=== PATIENT | female | born 1965 | race American Indian/Alaskan Native ===

== ENCOUNTER 2016-08-14 18:09 | Emergency (ER) | payer MEDICAID ==
[2016-08-14 19:06] LABS: Urine Drugs of Abuse Note Disclamer
[2016-08-14 19:19] LABS: Bilirubin,Urine NEG (Negative); Blood,Urine NEG (Negative); Ketones,Urine TR mg/dL (Negative); Leukocyte Esterase,Urine LG (Negative); Mucus,Urine 3+ /HPF; Nitrite,Urine NEG (Negative); Urobilinogen,Urine < 2.0 mg/dL (<2.0)
[2016-08-14 19:21] LABS: WBC,Urine > 182.0 /HPF (0.0-6.0)
[2016-08-14 19:24] LABS: Basophils % (Auto) 0.3 % (0.0-1.8); Eosinophils % (Auto) 0.4 % (0.0-4.3); Hematocrit 40.7 % (30.3-42.9); Hemoglobin 13.3 gm/dl (10.1-14.3); Mean Corpuscular HGB Conc 33 % (30-34); Mean Corpuscular Hemoglobin 28 pg (28-32); Mean Corpuscular Volume 85 fl (79-97); Platelet Count 166 K/mm3 (140-440); Red Blood Count 4.77 M/mm3 (3.65-5.03); Red Cell Distribution Width 15.6 % (13.2-15.2); White Blood Count 6.3 K/mm3 (4.5-11.0)
[2016-08-14 19:37] LABS: Anion Gap 20 mmol/L; BUN/Creatinine Ratio 13.75; Blood Urea Nitrogen 11 mg/dL (7-17); Carbon Dioxide 22 mmol/L (22-30); Chloride 103.8 mmol/L (98-107); Glucose 89 mg/dL (65-100); Potassium 3.8 mmol/L (3.6-5.0); Sodium 142 mmol/L (137-145)
[2016-08-14] MEDS ORDERED: MACROBID PO ONE (20:48)
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
[2016-08-15] MEDS: MACROBID PO SCH ×3 (10:22→21:23)
--- NOTE | 2016-08-15 13:47 | Consultation ---
History of Present Illness - Reason for Consult Consult date: 08/15/16 Reason for consult: Mental Health Evaluation Requesting physician: VLADIMIR MCKENNA - Chief Complaint Chief complaint: "Patient is nonverbal at this time" - History of Present Psychiatric Illness 51-year-old female with past medical history of paranoid schizophrenia has presented to ED secondary to concerns by her outdoor landscape architect. Today patient is nonverbal with a rigid posture. Patient would not answer any questions, other than saying hello to me. She would stare at the wall when asked questions, possibly responding to some type of stimuli. No gestures of SI/HI's. Medications and Allergies Allergies Allergy/AdvReac Type Severity Reaction Status Date / Time haloperidol [From Haldol] AdvReac Unknown Verified 09/17/15 20:22 Home Medications Medication Instructions Recorded Confirmed Last Taken Type Benztropine [Cogentin] 1 mg PO BID 09/16/15 08/14/16 Unknown History Divalproex Sodium [Depakote] 1,500 mg PO QHS 09/16/15 08/14/16 Unknown History Paliperidone Palmitate [Invega 325 mg IM Q3W 09/16/15 08/14/16 Unknown History Sustenna] Aspirin [Aspirin TAB] 81 mg PO QDAY #30 tablet 09/18/15 08/14/16 Unknown Rx Nitrofurantoin [place]/M-Cryst 100 mg PO Q12HR #14 capsule 08/15/16 Unknown Rx [Macrobid CAP] Active Meds: Active Medications Nitrofurantoin Macrocrystals (Macrobid) 100 mg PO Q12HR ZACH Last Admin: 08/15/16 10:22 Dose: 100 mg Past psychiatric history - Past Medical History Past Medical History: other (unable to obtain) Past Surgical History: Other (unable to obtain) - past Psychiatric treatment and history psychiatric treatment history: Unable to obtain psy hx or fam psy hx - Social History Social history: other (unable to obtain) Mental Status Exam - Vital signs Last Vital Signs Temp 97.7 F 08/15/16 11:25 Pulse 84 08/15/16 11:25 Resp 20 08/15/16 11:39 BP 110/69 08/15/16 11:25 Pulse Ox 97 08/15/16 11:39 - Exam Narrative exam: Unable to complete MSE. Patient presenting with a rigid posture. Results Result Diagrams: 08/14/16 19:02 08/14/16 19:02 Abnormal lab results 08/14/16 08/14/16 08/14/16 Range/Units 18:45 19:02 19:02 RDW 15.6 H (13.2-15.2) % [place] % (Auto) 8.5 H (0.0-7.3) % Ur Specific Seth 1.032 H (1.003-1.030) Urine WBC (Auto) > 182.0 H (0.0-6.0) /HPF U Epithel Cells (Auto) 16.0 H (0-13.0) /HPF Salicylates < 0.3 L (2.8-20.0) mg/dL All other labs normal. Assessment and Plan Assessment and plan: Impression: Historical Dx: Schizophrenia, Possible Catatonia. Today patient is nonverbal with a rigid posture. Patient would not answer any questions, other than saying hello to me. No gestures of SI/HI's. CK 187. DDx: Unspecified Psychosis DO Recommendation/Plan: Continue 1013 with placement to inpatient psy services. Start Ativan 1 mg PO TID for catatonia. Will continue to assess patient daily to determine further treatment. Recommend GI and PE prophylaxis. Monitor patient 's V/S's and O2 sats Q4hrs.
[2016-08-15] MEDS: ATIVAN PO SCH (21:22)
[2016-08-16] MEDS: ATIVAN PO SCH ×3 (10:25→19:43)
[2016-08-16] MEDS: MACROBID PO SCH ×2 (10:25→22:04)
--- NOTE | 2016-08-16 18:24 | Progress Note ---
Subjective - Reason for Consult Consult date: 08/16/16 Reason for consult: follow up - Chief Complaint Chief complaint: no chief complaint 51-year-old female with past medical history of paranoid schizophrenia presented to the ED secondary to concerns by her caregiver. Today patient is nonverbal but will move her head with a nod or shake in response to questions. She shook her head when she asked about problems with her appetite or sleep. After attempts to interview her, she states "I have to go to the bathroom." She did so without difficulty. No gestures of SI/HI's. Mental Status Exam - Vital signs Last Vital Signs Temp 97.7 F 08/16/16 10:51 Pulse 81 08/16/16 10:51 Resp 18 08/16/16 10:26 BP 109/76 08/16/16 10:51 Pulse Ox 99 08/16/16 10:51 - Exam Narrative exam: minimally cooperative steady gait unable to complete MSE. Orientation: person Level of consciousness: alert Assessment and Plan Impression: Historical Dx: Schizophrenia, Possible Catatonia. Today patient is mostly non verbal Patient would not answer any questions but would shake or nod her head in response to some questions. No gestures of SI/HI's. DDx: Unspecified Psychosis DO Recommendation/Plan: Continue 1013 with placement to inpatient psy services. Continue Ativan 1 mg PO TID for catatonia. Will continue to assess patient daily to determine further treatment. Recommend GI and PE prophylaxis. Monitor patient's V/S's and O2 sats Q4hrs.
[2016-08-17] MEDS: ATIVAN PO SCH ×3 (09:00→20:11)
[2016-08-17] MEDS: MACROBID PO SCH ×2 (10:49→22:10)
--- NOTE | 2016-08-17 15:49 | Progress Note ---
Subjective - Reason for Consult Reason for consult: disorganized Mental Status Exam - Vital signs Last Vital Signs Temp 97.8 F 08/17/16 12:25 Pulse 84 08/17/16 12:25 Resp 18 08/17/16 12:25 BP 120/79 08/17/16 12:25 Pulse Ox 100 08/17/16 12:25 Assessment and Plan Subjectively, patient continues to be fairly withdrawn and minimally responsive to questioning. The nursing staff do note the patient's ability to engage them has improved marginally over the past 24 hours. General Appearance: In hospital gown Sensorium/Consciousness: Somewhat sedated Orientation: person, place Eye Contact: limited Attitude / Behavior: guarded Psychomotor & Musculoskeletal Activity: PMR, rigidity noted on upper extremities Mood: Withdrawn Affect: Flat Speech / Language: Nonspontaneous, reduced rate and volume Thought Processes: Perseverative and disorganized Thought Content: Did not report Perception: Endorses auditory hallucinations Insight: limited Judgement: limitied Capacity for ADLs: independent Plan: Continue lorazepam 1 mg 3 times a day with possibility of increasing the frequency of this medication We'll continue to evaluate if the patient can be rechallenged or challenged with an antipsychotic given the current presentation Continue to refer this patient for inpatient level of care
[2016-08-18] MEDS: ATIVAN PO SCH ×4 (08:03→22:23)
[2016-08-18] MEDS: MACROBID PO SCH ×2 (10:05→22:22)
--- NOTE | 2016-08-18 15:19 | Progress Note ---
Subjective - Reason for Consult Reason for consult: disorganized Mental Status Exam - Vital signs Last Vital Signs Temp 97.5 F L 08/18/16 09:30 Pulse 96 H 08/18/16 09:30 Resp 18 08/18/16 09:30 BP 104/64 08/18/16 09:30 Pulse Ox 100 08/18/16 09:30 Assessment and Plan Subjectively, patient continues to be fairly withdrawn and minimally responsive to questioning. Patient still malodorous, and expressing auditory hallucinations. Patient still having psychomotor retardation. General Appearance: In hospital gown Sensorium/Consciousness: Somewhat sedated Orientation: person, place Eye Contact: limited Attitude / Behavior: guarded Psychomotor & Musculoskeletal Activity: PMR, rigidity noted on upper extremities Mood: Withdrawn Affect: Flat Speech / Language: Nonspontaneous, reduced rate and volume Thought Processes: Perseverative and disorganized Thought Content: Did not report Perception: Endorses auditory hallucinations Insight: limited Judgement: limitied Capacity for ADLs: independent Plan: Increase to lorazepam 1 mg 4 times a day Continue to refer this patient for inpatient level of care
--- NOTE | 2016-08-19 09:29 | Progress Note ---
Subjective - Reason for Consult Consult date: 08/19/16 Reason for consult: Psychiatry Follow-up - Chief Complaint Chief complaint: "How are you" 51-year-old female with past medical history of paranoid schizophrenia presented to the ED secondary to concerns by her caregiver. Today patient is more engaging by saying "hello" and shaking my hand. She sit up when asked. No gestures of SI/HI's and AVH's. Mental Status Exam - Vital signs Last Vital Signs Temp 98.0 F 08/19/16 07:36 Pulse 81 08/19/16 07:36 Resp 16 08/19/16 07:38 BP 123/69 08/19/16 07:36 Pulse Ox 100 08/19/16 07:36 - Exam Narrative exam: MSE: Appearance: calm, cooperative Behavior: poor eye contact Speech: regular rate and tone Mood: "I am not sure" Affect: flat Thought Process: unable to assess Thought Content: no gestures of SI/HI's and AVH's Motor Activity: lying in bed, no rigidity Cognition: A/Ox 1 Insight: limited Judgment: limited Assessment and Plan Impression: Historical Dx: Schizophrenia, Possible Catatonia. Today patient is more engaging by saying "hello" and shaking my hand. No rigidity noted. No gestures of SI/HI's and AVH's. Recommendation/Plan: Continue 1013 with placement to inpatient psy services. Continue Ativan 1 mg PO QID for catatonia. Will continue to assess patient daily to determine further treatment. Recommend GI and PE prophylaxis. Monitor patient's V/S's and O2 sats Q4hrs.
[2016-08-19] MEDS: MACROBID PO SCH ×2 (09:50→21:55)
[2016-08-19] MEDS: ATIVAN PO SCH (21:55)
[2016-08-20] MEDS: MACROBID PO SCH ×2 (10:00→21:38)
[2016-08-20] MEDS: ATIVAN PO SCH ×2 (10:00→20:59)
--- NOTE | 2016-08-20 10:00 | Progress Note ---
Subjective - Reason for Consult Consult date: 08/20/16 Reason for consult: Psychiatry Follow-up - Chief Complaint Chief complaint: "Hello" 51-year-old female with past medical history of paranoid schizophrenia presented to the ED secondary to concerns by her caregiver. Today patient is calm and cooperative during assessment. She greeted me when I arrived to her room. She stated that she ate her breakfast. Also, patient acknowledged that she resides in a nursing home. She could not tell me her and her current location. She denies SI/HI's and AVH's. Mental Status Exam - Vital signs Last Vital Signs Temp 97.8 F 08/20/16 03:45 Pulse 96 H 08/20/16 03:45 Resp 16 08/20/16 03:45 BP 105/57 08/20/16 03:45 Pulse Ox 98 08/20/16 03:45 - Exam Narrative exam: MSE: Appearance: calm, cooperative Behavior: poor eye contact Speech: regular rate and tone Mood: "fine" Affect: labile Thought Process: circumstantial Thought Content: denies SI/HI's and AVH's Motor Activity: sitting up in bed, no rigidity Cognition: A/Ox 2 Insight: limited Judgment: limited Assessment and Plan Impression: Historical Dx: Schizophrenia, Possible Catatonia. Today patient is calm and cooperative during assessment. She greeted me when I arrived to her room. No rigidity noted. Patient denies SI/HI's and AVH's. Patient was not administered Ativan yesterday (08/19/2016) x 3. Recommendation/Plan: Continue 1013 with placement to inpatient psy services. Continue Ativan to 1 mg PO QID for catatonia. Will continue to assess patient daily to determine further treatment. Recommend GI and PE prophylaxis. Monitor patient's V/S's and O2 sats Q4hrs.
[2016-08-21] MEDS ORDERED: ROCEPHIN IM ONE (11:29)
[2016-08-21] MEDS ORDERED: GEODON IM ONE (11:29)
[2016-08-21] MEDS ORDERED: XYLOCAINE 1% MPF 5 mL INFILTRATI ONE (11:29)
[2016-08-21] MEDS ORDERED: NACL BACTERIOSTATIC INFILTRATI ONE (12:40)
--- NOTE | 2016-08-21 16:32 | Progress Note ---
Subjective - Reason for Consult Consult date: 08/21/16 Reason for consult: follow up - Chief Complaint Chief complaint: no response 51-year-old female with past medical history of paranoid schizophrenia presented to the ED secondary to concerns by her caregiver. Today patient is calm and was attentive for most interview questions. She was eating when I arrived to the room and was rocking side to side. She denies SI/HI's and AVH's. She was later observed responding to internal stimuli. Mental Status Exam - Vital signs Last Vital Signs Temp 98.1 F 08/21/16 07:15 Pulse 74 08/21/16 07:15 Resp 20 08/21/16 07:44 BP 136/88 08/21/16 07:15 Pulse Ox 100 08/21/16 07:44 Assessment and Plan MSE: Appearance: calm, cooperative Behavior: poor eye contact Speech: regular rate and tone Mood: indifferent Affect: constricted Thought Process: circumstantial Thought Content: denies SI/HI's and AVH's Motor Activity: rocking side to side, no rigidity Cognition: A/Ox 2 Insight: limited Judgment: limited Assessment and Plan Impression: Historical Dx: Schizophrenia, Catatonic symptoms appear to have resolved. Psychosis remains. Geodon was started 20mg bid. This will be continued. Recommendation/Plan: Continue 1013 with placement to inpatient psy services. Decrease Ativan to 1mg bid with a plan to discontinue.
[2016-08-21] MEDS ORDERED: ATIVAN ONE ×2 (20:00→20:03)
[2016-08-21] MEDS: GEODON PO SCH (23:00)
[2016-08-21] MEDS: MACROBID PO SCH (23:00)
[2016-08-22] MEDS ORDERED: ATIVAN IM ONE (06:51)
--- NOTE | 2016-08-22 09:34 | Progress Note ---
Subjective - Reason for Consult Consult date: 08/22/16 Reason for consult: Psychiatry Follow-up - Chief Complaint Chief complaint: "Hello" 51-year-old female with past medical history of paranoid schizophrenia presented to the ED secondary to concerns by her caregiver. Today patient is calm, but disorganized during assessment. Patient had to be redirected during conversation x 2. She would pause in the middle of her sentences, possibly responding to some type of stimuli. She denies SI/HI's and AVH's. Patient was observed eating her breakfast. Mental Status Exam - Vital signs Last Vital Signs Temp 98.6 F 08/21/16 20:00 Pulse 71 08/21/16 20:00 Resp 17 08/21/16 20:00 BP 145/87 08/21/16 20:00 Pulse Ox 97 08/21/16 20:00 - Exam Narrative exam: MSE: Appearance: calm, cooperative Behavior: poor eye contact Speech: regular rate and tone Mood: "okay" Affect: labile Thought Process: tangential Thought Content: denies SI/HI's and AVH's, disorganized Motor Activity: sitting up in bed, no rigidity Cognition: A/Ox 2 Insight: limited Judgment: limited Assessment and Plan Impression: Historical Dx: Schizophrenia, No catatonia S/S's. Today patient is calm, but disorganized and had to be redirected during conversation. Patient denies SI/HI's and AVH's. Patient was not administered Ativan yesterday (2016) x 3. Recommendation/Plan: Continue 1013 with placement to inpatient psy services. Taper Ativan to 1 mg PO once tomorrow. Continue Geodon 20 mg PO BID for schizophrenia. Discussed possible metabolic side effects of Geodon.
[2016-08-22] MEDS: MACROBID PO SCH ×2 (10:25→22:40)
[2016-08-22] MEDS: ATIVAN PO SCH ×2 (10:25→22:40)
[2016-08-22] MEDS: GEODON PO SCH ×2 (10:26→22:40)
[2016-08-23] MEDS: MACROBID PO SCH ×2 (10:07→22:13)
[2016-08-23] MEDS: ATIVAN PO SCH (10:07)
[2016-08-23] MEDS: GEODON PO SCH ×2 (10:08→22:10)
--- NOTE | 2016-08-23 13:16 | Progress Note ---
Subjective - Reason for Consult Consult date: 08/23/16 Reason for consult: Psychiatry Follow-up - Chief Complaint Chief complaint: "Hi" 51-year-old female with past medical history of paranoid schizophrenia presented to the ED secondary to concerns by her caregiver. Today patient is calm, again disorganized during assessment. Patient was standing and pacing her room during our conversation. She answered most of my questions. She denies SI/ HI's and AVH's. During our conversation, she would pause for seconds before answering, possibly responding to some type of stimuli. Mental Status Exam - Vital signs Last Vital Signs Temp 98.3 F 08/23/16 10:48 Pulse 101 H 08/23/16 10:48 Resp 18 08/23/16 10:49 BP 96/66 08/23/16 10:48 Pulse Ox 97 08/23/16 10:49 - Exam Narrative exam: MSE: Appearance: calm, cooperative Behavior: poor eye contact Speech: regular rate and tone Mood: "okay" Affect: labile Thought Process: tangential Thought Content: denies SI/HI's and AVH's, disorganized Motor Activity: sitting up in bed, no rigidity Cognition: A/Ox 2 Insight: limited Judgment: limited Assessment and Plan Impression: Historical Dx: Schizophrenia, No catatonia S/S's. Today patient is calm, again disorganized during assessment. Patient was standing and pacing her room during our conversation. Recommendation/Plan: Continue 1013 with placement to inpatient psy services. Taper Ativan to 1 mg PO once tomorrow. Increase Geodon to 40 mg PO BID for schizophrenia. Discussed possible metabolic side effects of Geodon.
[2016-08-24] MEDS ORDERED: ATIVAN PO ONE (10:00)
[2016-08-24 10:35] VITALS: BP 131/96
[2016-08-24] MEDS: GEODON PO SCH (10:36)
[2016-08-24] MEDS: MACROBID PO SCH (10:36)
--- NOTE | 2016-08-24 11:28 | Emergency Department Report ---
Blank Doc - Documentation Documentation: Patient has been accepted at [facility] by Dr. Murillo. Patient is awaiting transport.
== END 2016-08-24 13:00 ==
LOC: ED 18:09 → EEVIPCON 18:09 → ED 08-24 13:00
DX: F20.0 Paranoid schizophrenia (principal); F29 Unspecified psychosis not due to a substance or known physiological condition; N39.0 Urinary tract infection, site not specified
CPT/HCPCS: 36415; 80048; 80307; 81001; 85025; 96372; 99285; G0480; J0696; J2060; J3486; 80320

== ENCOUNTER 2017-01-14 15:47 | Emergency (ER) | payer MEDICAID ==
[2017-01-14 18:51] LABS: Hematocrit 46.1 % (30.3-42.9); Hemoglobin 14.8 gm/dl (10.1-14.3); Mean Corpuscular HGB Conc 32 % (30-34); Mean Corpuscular Hemoglobin 30 pg (28-32); Mean Corpuscular Volume 92 fl (79-97); Platelet Count 172 K/mm3 (140-440); Red Blood Count 5.03 M/mm3 (3.65-5.03); Red Cell Distribution Width 15.5 % (13.2-15.2); White Blood Count 8.7 K/mm3 (4.5-11.0)
[2017-01-14 19:22] LABS: Basophils % (Manual) 0 % (0.0-1.8); Blastocytes % (Manual) 0 %
[2017-01-14 19:23] LABS: Anisocytosis Few
[2017-01-14 19:24] LABS: Diff Status Complete; Poikilocytosis Few; Target Cells Rare
[2017-01-14 19:36] LABS: Albumin 4.5 g/dL (3.9-5); Albumin/Globulin Ratio 1.2 %; Alkaline Phosphatase 68 units/L (35-129); BUN/Creatinine Ratio 23; Blood Urea Nitrogen 16 mg/dL (7-17); Calcium 9.1 mg/dL (8.4-10.2); Carbon Dioxide 21 mmol/L (22-30); Chloride 99.9 mmol/L (98-107); Glucose 80 mg/dL (65-100); Sodium 142 mmol/L (137-145); Total Protein 8.2 g/dL (6.3-8.2)
[2017-01-14 20:19] LABS: Alanine Aminotransferase 10 units/L (7-56); Anion Gap 25 mmol/L; Potassium 4.2 mmol/L (3.6-5.0)
[2017-01-14 20:51] LABS: Urine Drugs of Abuse Note Disclamer
[2017-01-14 21:14] LABS: Bilirubin,Urine NEG (Negative); Blood,Urine NEG (Negative); Ketones,Urine 20 mg/dL (Negative); Leukocyte Esterase,Urine LG (Negative); Mucus,Urine 3+ /HPF; Nitrite,Urine NEG (Negative); Urobilinogen,Urine < 2.0 mg/dL (<2.0)
[2017-01-14] MEDS ORDERED: KEFLEX PO ONE (22:37)
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
[2017-01-15] MEDS ORDERED: KEFLEX ONE (02:55)
[2017-01-15] MEDS ORDERED: BABY ASPIRIN ONE (09:29)
[2017-01-15] MEDS: COGENTIN PO SCH ×2 (10:02→21:33)
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
[2017-01-16 06:16] VITALS: BP 137/66
[2017-01-16] MEDS ORDERED: BABY ASPIRIN PO SCH (10:00)
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
[2017-01-16] MEDS: COGENTIN PO SCH (11:39)
== END 2017-01-16 19:00 | disposition other institution (70) ==
LOC: EEVIPCON 15:47 → ED 15:47
DX: F20.0 Paranoid schizophrenia (principal); N30.00 Acute cystitis without hematuria; Z88.8 Allergy status to other drugs, medicaments and biological substances; Z79.82 Long term (current) use of aspirin
CPT/HCPCS: 36415; 80053; 80307; 81001; 85007; 85025; 99284; G0480; 80320

== ENCOUNTER 2019-09-30 21:53 | Inpatient (IN) | payer MEDICAID ==
--- NOTE | 2019-09-30 22:36 | Emergency Department Report ---
ED Psych HPI - General Chief Complaint: Medical Clearance Stated Complaint: AMS Time Seen by Provider: 09/30/19 22:22 Source: EMS Mode of arrival: Stretcher - History of Present Illness Initial Comments: Ms. Stevens is 54 years old female with history of paranoid schizophrenia. P atient brought to the emergency room via EMS from home after patient failed outpatient treatment. Patient sent here by her psychiatric with a written letter stating that patient needed inpatient psychiatric treatment. Patient is obtunded and not communicating. MD Complaint: altered mental status - Related Data Home Medications Medication Instructions Recorded Confirmed Last Taken Benztropine [Cogentin] 1 mg PO BID 09/16/15 01/14/17 Unknown Divalproex Sodium [Depakote] 1,500 mg PO QHS 09/16/15 01/14/17 Unknown Paliperidone Palmitate [Invega 325 mg IM Q3W 09/16/15 01/14/17 Unknown Sustenna] Previous Rx's Medication Instructions Recorded Last Taken Type Aspirin 81 mg PO QDAY #30 tablet 09/18/15 Unknown Rx Nitrofurantoin [place]/M-Cryst 100 mg PO Q12HR #14 capsule 08/15/16 Unknown Rx [Macrobid CAP] cephALEXin [Keflex] 500 mg PO Q8HR #10 cap 01/14/17 Unknown Rx Allergies Allergy/AdvReac Type Severity Reaction Status Date / Time haloperidol [From Haldol] AdvReac Unknown Verified 09/17/15 20:22 ED Review of Systems ROS: Stated complaint: AMS Other details as noted in HPI Comment: Unobtainable due to pts medical conditions ED Past Medical Hx - Past Medical History Hx Psychiatric Treatment: Yes (paranoid schizophrenia) - Surgical History Additional Surgical History: unknown per hospice care sales consultant - Social History Smoking Status: Never Smoker Substance Use Type: None - Medications Home Medications: Home Medications Medication Instructions Recorded Confirmed Last Taken Type Benztropine [Cogentin] 1 mg PO BID 09/16/15 01/14/17 Unknown History Divalproex Sodium [Depakote] 1,500 mg PO QHS 09/16/15 01/14/17 Unknown History Paliperidone Palmitate [Invega 325 mg IM Q3W 09/16/15 01/14/17 Unknown History Sustenna] Aspirin 81 mg PO QDAY #30 tablet 09/18/15 01/14/17 Unknown Rx Nitrofurantoin [place]/M-Cryst 100 mg PO Q12HR #14 capsule 08/15/16 01/14/17 Unknown Rx [Macrobid CAP] cephALEXin [Keflex] 500 mg PO Q8HR #10 cap 01/14/17 Unknown Rx ED Physical Exam - General Limitations: No Limitations General appearance: obtunded - Head Head exam: Present: atraumatic, normocephalic, normal inspection - Eye Eye exam: Present: normal appearance - Neck Neck exam: Present: normal inspection, full ROM. Absent: tenderness, mening ismus - Respiratory Respiratory exam: Present: normal lung sounds bilaterally - Cardiovascular Cardiovascular Exam: Present: regular rate, normal rhythm, normal heart sounds - GI/Abdominal GI/Abdominal exam: Present: soft, normal bowel sounds. Absent: distended, tenderness, guarding, rebound, rigid, organomegaly, mass, bruit, pulsatile mass, hernia - Extremities Exam Extremities exam: Present: normal inspection, full ROM, normal capillary refill - Neurological Exam Neurological exam: Present: altered - Psychiatric Psychiatric exam: Present: depressed - Skin Skin exam: Present: dry ED Course Vital Signs 09/30/19 09/30/19 22:29 22:33 Temperature 99.9 F H 99.9 F H Pulse Rate 99 H 99 H Respiratory 18 20 Rate Blood Pressure 149/78 Blood Pressure 133/83 [Right] O2 Sat by Pulse 96 96 Oximetry ED Medical Decision Making - Lab Data Result diagrams: 09/30/19 22:44 09/30/19 22:44 - Radiology Data Radiology results: report reviewed - Medical Decision Making Ms. Stevens is 54 years old female with history of paranoid schizophrenia. Patient brought to the emergency room via EMS from home after patient failed out patient treatment. Patient sent here by her psychiatric with a written letter stating that patient needed inpatient psychiatric treatment. Patient is obtunded and not communicating. Patient found to be in rhabdomyolysis with a CK of 33,400. Creatinine is 1.4 patient was seen here 3 years ago and her baseline creatinine is 0.7. Patient obviously in acute renal failure secondary to dehydration and developing rhabdomyolysis. Patient started on normal saline. I discussed the patient with Dr. Waller, he agreed to admit the patient to medical service for further management. Critical Care Time: Yes Critical care time in (mins) excluding proc time.: 30 Critical care attestation.: If time is entered above; I have spent that time in minutes in the direct care of this critically ill patient, excluding procedure time. ED Disposition Clinical Impression: Altered mental status, Rhabdomyolysis, Acute renal failure, Acute psychosis Disposition: DC-09 OP ADMIT IP TO THIS HOSP Is pt being admited?: Yes Condition: Stable
[2019-09-30 23:03] LABS: Basophils # (Auto) 0.2 K/mm3 (0.0-0.1); Basophils % (Auto) 1.2 % (0.0-1.8); Lymphocytes # (Auto) 1.5 K/mm3 (1.2-5.4); Lymphocytes % (Auto) 10.6 % (13.4-35.0); Mean Corpuscular HGB Conc 33 % (30-34); Mean Corpuscular Volume 87 fl (79-97); Monocytes # (Auto) 1.3 K/mm3 (0.0-0.8); Monocytes % (Auto) 9.8 % (0.0-7.3); Red Blood Count 5.15 M/mm3 (3.65-5.03); Red Cell Distribution Width 14.7 % (13.2-15.2)
--- NOTE | 2019-09-30 23:07 | XRay Report ---
CHEST 1 VIEW INDICATION / CLINICAL INFORMATION: fever. COMPARISON: None available. FINDINGS: SUPPORT DEVICES: None. HEART / MEDIASTINUM: No significant abnormality. LUNGS / PLEURA: No significant pulmonary or pleural abnormality. No pneumothorax. ADDITIONAL FINDINGS: No significant additional findings. IMPRESSION: Suboptimal inspiration. No definite acute pulmonary or pleural abnormality Signer Name: Harjeet Almaguer MD FACR Signed: 09/30/2019 11:03 PM Workstation Name: [id number]
[2019-09-30 23:33] LABS: Calcium 8.6 mg/dL (8.4-10.2)
[2019-09-30 23:35] LABS: Albumin 3.7 g/dL (3.9-5); Bilirubin,Direct 0.3 mg/dL (0-0.2)
[2019-09-30 23:56] LABS: Platelet Count 97 K/mm3 (140-440)
[2019-10-01] MEDS ORDERED: SODIUM CHLORIDE 0.9% 1000 ML 1,000 ML IV ONE ×2 (00:17)
[2019-10-01] MEDS ORDERED: PIPERACILLIN/TAZOBACTAM 3.375 3.375 GM/50 ML BAG IV ONE (00:19)
[2019-10-01 03:04] LABS: Amphetamine Screen,Urine PRESUMPTIVE NEGATIVE; Benzodiazepines Screen,Urine PRESUMPTIVE NEGATIVE; Bilirubin,Urine NEG (Negative); Blood,Urine LG (Negative); Cannabinoid Screen,Urine PRESUMPTIVE NEGATIVE; Cocaine Screen,Urine PRESUMPTIVE NEGATIVE; Color,Urine Amber (Yellow); Methadone Screen,Urine PRESUMPTIVE NEGATIVE; Mucus,Urine 2+ /HPF; Opiate Screen,Urine PRESUMPTIVE NEGATIVE
--- NOTE | 2019-10-01 03:53 | Cat Scan Report ---
CT abdomen pelvis wo con INDICATION / CLINICAL INFORMATION: Patient complains of abdominal pain.. TECHNIQUE: All CT scans at this location are performed using CT dose reduction for ALARA by means of automated e xposure control. COMPARISON: None available. FINDINGS: Patchy peripheral groundglass opacity is seen in both lungs. No free fluid is seen in the abdomen. Th e liver, spleen, kidneys, pancreas, adrenal glands and great vessels are normal. There is a posterior lateral hernia of fat on the left The pelvis, no free fluid is seen. Enlarged fibroid uterus is present. No enlarged lymph nodes are id entified. The bladder and the appendix are normal. No significant skeletal abnormality is seen. IMPRESSION: 1. Patchy peripheral groundglass opacity in both lungs consistent with either viral or atypical pneum onia 2. Posterior lateral hernia of fat in the left midabdomen 3. Enlarged fibroid uterus Signer Name: Harjeet Almaguer MD FACR Signed: 10/01/2019 3:49 AM Workstation Name: [id number]
[2019-10-01] MEDS ORDERED: ONDANSETRON 4 MG/2 ML INJ IV PRN (08:00)
--- NOTE | 2019-10-01 08:55 | History and Physical Report ---
<BLANCA SOFIAFabián - Last Filed: 10/01/19 18:41> History of Present Illness Date of admission: 10/01/19 01:29 History of present illness: This is a 54-year-old female with paranoid schizophrenia that presents to the emergency department on 09/29 for altered mental status in a catatonic state. P revious hospitalizations reviewed and only notes a history of paranoid schizophrenia. Patient may be a resident of [place]. Patient is currently nonverbal and HPI is received from ER documentation. Work-up in the emergency department included a CT abdomen pelvis which shows patchy peripheral karan undglass opacities bilateral lungs which is consistent with either viral or atypical pneumonia, positive anterior lateral fat hernia in the left mid abdomen and a large uterine fibroids however her CXR showed no acute pulmonary or pleural abnormalities. She was found to have acute kidney injury with a creatinine of 1.4/BUN 33 as baseline from previous records seems to be 0.7, rhabdomyolysis with a creatinine kinase of 33,481, leukocytosis with a WBC of 13.8, thrombocytopenia with platelets at 97. In the emergency department she received 2 L of IV fluids and a dose of Zosyn. She will be admitted to the hospitalist service as a COVID PUI given findings on CT with IV antibiotics, rhabdomyolysis, and FAISAL. We will rule out neuroleptic malignant syndrome. Infectious disease, psych, and neurology have been consulted. Medications and Allergies Allergies Allergy/AdvReac Type Severity Reaction Status Date / Time haloperidol [From Haldol] AdvReac Unknown Verified 09/17/15 20:22 Home Medications Medication Instructions Recorded Confirmed Last Taken Type Benztropine [Cogentin] 1 mg PO BID 09/16/15 01/14/17 Unknown History Divalproex Sodium [Depakote] 1,500 mg PO QHS 09/16/15 01/14/17 Unknown History Paliperidone Palmitate [Invega 325 mg IM Q3W 09/16/15 01/14/17 Unknown History Sustenna] Aspirin 81 mg PO QDAY #30 tablet 09/18/15 01/14/17 Unknown Rx Nitrofurantoin [place]/M-Cryst 100 mg PO Q12HR #14 capsule 08/15/16 01/14/17 Unknown Rx [Macrobid CAP] cephALEXin [Keflex] 500 mg PO Q8HR #10 cap 01/14/17 Unknown Rx Active Meds: Active Medications Acetaminophen (Tylenol) 650 mg PO Q4H PRN PRN Reason: Pain MILD(1-3)/Fever >100.5/WRIGHT Sodium Chloride (Nacl 0.9% 1000 Ml) 1,000 mls @ 125 mls/hr IV DIRECT [facility] Azithromycin 500 mg/ Sodium (Chloride) 250 mls @ 250 mls/hr IV Q24HR [facility]; Protocol Ceftriaxone Sodium (Rocephin/Ns 2 Gm/100 Ml) 2 gm in 100 mls @ 200 mls/hr IV Q24HR [facility]; Protocol Ondansetron HCl (Zofran) 4 mg IV Q8H PRN PRN Reason: Nausea And Vomiting Sodium Chloride (Sodium Chloride Flush Syringe 10 Ml) 10 ml IV BID [facility]ACH Sodium Chloride (Sodium Chloride Flush Syringe 10 Ml) 10 ml IV PRN PRN PRN Reason: LINE FLUSH Stop: 10/14/19 07:49 Review of Systems ROS unobtainable: due to mental status Exam - Constitutional Vitals: Temp Pulse Resp BP Pulse Ox 99.9 F H 100 H 19 114/93 95 09/30/19 22:33 10/01/19 06:31 10/01/19 06:31 10/01/19 06:31 10/01/19 06:31 General appearance: Present: other (Patient slightly opens her eyes to tactile stimuli and withdraws to painful stimuli in all 4 extremities. She is seen moving her left arm spontaneously.) - EENT Eyes: Present: PERRL - Neck Neck: Absent: carotid bruits - Respiratory Respiratory effort: normal Respiratory: bilateral: diminished - Cardiovascular Rhythm: regular Heart Sounds: Present: S1 & S2. Absent: systolic murmur, diastolic murmur - Extremities Extremities: no ischemia, pulses intact, pulses symmetrical, No edema, normal temperature, normal color - Abdominal General gastrointestinal: Present: non-tender (No grimacing to palpation), non- distended, normal bowel sounds - Integumentary Integumentary: Present: warm, dry - Musculoskeletal Musculoskeletal: other (Unable to assess) - Psychiatric Psychiatric: other - Neurologic Neurologic: other (Patient is seen moving her right arm spontaneously, she is nonverbal, opens her eyes slightly to tactile stimuli, withdraws to pain in all 4 extremities) - Allied Health Allied health notes reviewed: nursing Results - Labs CBC & Chem 7: 09/30/19 22:44 10/01/19 14:24 Labs: Laboratory Last Values WBC 13.8 K/mm3 (4.5-11.0) H 09/30/19 22:44 RBC 5.15 M/mm3 (3.65-5.03) H 09/30/19 22:44 Hgb 15.0 gm/dl (10.1-14.3) H 09/30/19 22:44 Hct 45.0 % (30.3-42.9) H 09/30/19 22:44 MCV 87 fl (79-97) 09/30/19 22:44 MCH 29 pg (28-32) 09/30/19:44 MCHC 33 % (30-34) 09/30/19 22:44 RDW 14.7 % (13.2-15.2) 09/30/19 22:44 Plt Count 97 K/mm3 (140-440) L 09/30/19 22:44 Lymph % (Auto) 10.6 % (13.4-35.0) L 09/30/19 22:44 [place] % (Auto) 9.8 % (0.0-7.3) H 09/30/19 22:44 Eos % (Auto) 0.0 % (0.0-4.3) 09/30/19:44 Baso % (Auto) 1.2 % (0.0-1.8) 09/30/19 22:44 Lymph # 1.5 K/mm3 (1.2-5.4) 09/30/19 22:44 [place] # 1.3 K/mm3 (0.0-0.8) H 09/30/19 22:44 Eos # 0.0 K/mm3 (0.0-0.4) 09/30/19 22:44 Baso # 0.2 K/mm3 (0.0-0.1) H 09/30/19 22:44 Seg Neutrophils % 78.4 % (40.0-70.0) H 09/30/19 22:44 Seg Neutrophils # 10.8 K/mm3 (1.8-7.7) H 09/30/19 22:44 Sodium 140 mmol/L (137-145) 09/30/19 22:44 Potassium 3.6 mmol/L (3.6-5.0) 09/30/19 22:44 Chloride 100.9 mmol/L (98-107) 09/30/19 22:44 Carbon Dioxide 21 mmol/L (22-30) L 09/30/19 22:44 Anion Gap 22 mmol/L 09/30/19 22:44 BUN 33 mg/dL (7-17) H 09/30/19 22:44 Creatinine 1.4 mg/dL (0.6-1.2) H 09/30/19 22:44 Estimated GFR 47 ml/min 09/30/19 22:44 BUN/Creatinine Ratio 24 % 09/30/19 22:44 Glucose 112 mg/dL (65-100) H 09/30/19 22:44 Lactic Acid 1.30 mmol/L (0.7-2.0) 09/30/19 22:44 Calcium 8.6 mg/dL (8.4-10.2) 09/30/19 22:44 Total Bilirubin 0.50 mg/dL (0.1-1.2) 09/30/19 22:44 Direct Bilirubin 0.3 mg/dL (0-0.2) H 09/30/19 22:44 Indirect Bilirubin 0.2 mg/dL 09/30/19 22:44 AST 766 units/L (5-40) H 09/30/19 22:44 ALT 159 units/L (7-56) H 09/30/19 22:44 Alkaline Phosphatase 49 units/L (35-129) 09/30/19 22:44 Total Creatine Kinase 59628 units/L (30-135) H 09/30/19 22:44 Total Protein 7.6 g/dL (6.3-8.2) 09/30/19 22:44 Albumin 3.7 g/dL (3.9-5) L 09/30/19 22:44 Albumin/Globulin Ratio 0.9 % 09/30/19 22:44 Urine Color [place] (Yellow) 10/01/19 Unknown Urine Turbidity Slightly-cloudy (Clear) 10/01/19 Unknown Urine pH 5.0 (5.0-7.0) 10/01/19 Unknown Ur Specific [place] 1.026 (1.003-1.030) 10/01/19 Unknown Urine Protein 100 mg/dl mg/dL (Negative) 10/01/19 Unknown Urine Glucose (UA) Neg mg/dL (Negative) 10/01/19 Unknown Urine Ketones Tr mg/dL (Negative) 10/01/19 Unknown Urine Blood Lg (Negative) 10/01/19 Unknown Urine Nitrite Neg (Negative) 10/01/19 Unknown Urine Bilirubin Neg (Negative) 10/01/19 Unknown Urine Urobilinogen 2.0 mg/dL (<2.0) 10/01/19 Unknown Ur Leukocyte Esterase Neg (Negative) 10/01/19 Unknown Urine WBC (Auto) 17.0 /HPF (0.0-6.0) H 10/01/19 Unknown Urine RBC (Auto) 1.0 /HPF (0.0-6.0) 10/01/19 Unknown U Epithel Cells (Auto) 4.0 /HPF (0-13.0) 10/01/19 Unknown Urine Mucus 2+ /HPF 10/01/19 Unknown Salicylates < 0.3 mg/dL (2.8-20.0) L 09/30/19 22:44 Urine Opiates Screen Presumptive negative 10/01/19 Unknown Urine Methadone Screen Presumptive negative 10/01/19 Unknown Acetaminophen 5.0 ug/mL (10.0-30.0) L 09/30/19 22:44 Ur Barbiturates Screen Presumptive negative 10/01/19 Unknown Ur Phencyclidine Scrn Presumptive negative 10/01/19 Unknown Ur Amphetamines Screen Presumptive negative 10/01/19 Unknown U Benzodiazepines Scrn Presumptive negative 10/01/19 Unknown Urine Cocaine Screen Presumptive negative 10/01/19 Unknown U Marijuana (THC) Screen Presumptive negative 10/01/19 Unknown Drugs of Abuse Note Disclamer 10/01/19 Unknown Plasma/Serum Alcohol < 0.01 % (0-0.07) 09/30/19 22:44 Microbiology: Microbiology 10/01/19 01:40 Peripheral/Venous Blood Culture - Preliminary Culture in Progress 10/01/19 01:59 Peripheral/Venous Blood Culture - Preliminary Culture in Progress - Imaging and Cardiology Chest x-ray: report reviewed, image reviewed CT scan - abdomen: report reviewed CT scan - pelvis: report reviewed - Diagnostic Impressions Diagnostic Impressions: 09/30 CT abdomen/pelvis without contrast: 1. Patchy peripheral groundglass opacity in both lungs consistent with either viral or atypical pneumonia 2. Posterior lateral hernia of fat in the left midabdomen 3. Enlarged fibroid uterus 09/30 CXR: Suboptimal inspiration with no acute pulmonary or pleural abnormalities. Assessment and Plan VTE prophylaxis?: Chemical, Mechanical - Patient Problems (1) Neuroleptic malignant syndrome Current Visit: Yes Status: Acute Plan to address problem: - Given catatonic state, elevated CK, AMS and antipsychotic medication use we will r/o malignant neuroleptic syndrome - Neurology has been consulted (2) Person under investigation for COVID-19 Current Visit: Yes Status: Acute Plan to address problem: -COVID protocol initiated - IV azithromycin and Rocephin initiated - 09/30 COVID PCR pending - 09/30 stat LDH, CRP, procalcitonin, d-dimer, ferritin ordered - Droplet /contact precautions - Supplemental oxygenation as needed - Infectious disease consult requested - Pulmonary hygiene - Elevated COVID makers - In setting of elevated D-Dimer, CTA Chest was ordered (3) Rhabdomyolysis Current Visit: Yes Status: Acute Plan to address problem: - Received 2 liters IVF in ED - IVF NS at 125ml/hr - Trend CK levels (4) Acute psychosis Current Visit: Yes Status: Acute Plan to address problem: - Currently in a catonic state - History of paranoid schizophrenia - Mental health consult requested (5) Acute renal failure Current Visit: Yes Status: Acute Plan to address problem: - Vasomotor nephropathy maybe secondary to dehydration or rhabdomyolysis - Received 2 L IVF in ED - Admit Cr/BUN 1.4/33 - Initiated on IVF - Avoid nephrotoxic medications - Trend BMP (6) Leukocytosis Current Visit: Yes Status: Acute Plan to address problem: - Admit WBC 13.8 - Trend CBC - Maybe secondary to possible PNA or from dehydration - IV abx initiated (7) Thrombocytopenia Current Visit: Yes Status: Acute Plan to address problem: -Admit Plt is 97 - Bleeding precautions - Trend CBC (8) DVT prophylaxis Current Visit: Yes Status: Acute Plan to address problem: - SCDs to BLE while in bed - Heparin subq (9) Full code status Current Visit: Yes Status: Acute <HERIBERTO CONTE - Last Filed: 10/01/19 18:44> History of Present Illness Date of examination: 10/01/19 Date of admission: 10/01/19 15:51 Chief complaint: AMS Medications and Allergies Active Meds: Active Medications Acetaminophen (Tylenol) 650 mg PO Q4H PRN PRN Reason: Pain MILD(1-3)/Fever >100.5/WRIGHT Heparin Sodium (Porcine) (Heparin) 5,000 unit SUB-Q Q8HR [facility] Last Admin: 10/01/19 11:40 Dose: 5,000 unit Documented by: Sodium Chloride (Nacl 0.9% 1000 Ml) 1,000 mls @ 125 mls/hr IV DIRECT ZACH Azithromycin 500 mg/ Sodium (Chloride) 250 mls @ 250 mls/hr IV Q24HR ZACH; Protocol Last Admin: 10/01/19 12:49 Dose: 250 mls/hr Documented by: Ceftriaxone Sodium (Rocephin/Ns 2 Gm/100 Ml) 2 gm in 100 mls @ 200 mls/hr IV Q24HR Z[facility]; Protocol Last Admin: 10/01/19 11:40 Dose: 200 mls/hr Documented by: Valproate Sodium 500 mg/ (Sodium Chloride) 105 mls @ 100 mls/hr IV Q12HR [facility] Ondansetron HCl (Zofran) 4 mg IV Q8H PRN PRN Reason: Nausea And Vomiting Sodium Chloride (Sodium Chloride Flush Syringe 10 Ml) 10 ml IV BID [facility] Last Admin: 10/01/19 12:45 Dose: 10 ml Documented by: Sodium Chloride (Sodium Chloride Flush Syringe 10 Ml) 10 ml IV PRN PRN PRN Reason: LINE FLUSH Stop: 10/14/19 07:49 Trazodone HCl (Desyrel) 50 mg PO QHS [facility] Exam - Constitutional Vitals: Temp Pulse Resp BP Pulse Ox 99.9 F H 91 H 29 H 132/81 95 09/30/19 22:33 10/01/19 16:46 10/01/19 16:46 10/01/19 16:46 10/01/19 16:46 Results - Labs CBC & Chem 7: 09/30/19 22:44 10/01/19 14:24 Labs: Laboratory Last Values WBC 13.8 K/mm3 (4.5-11.0) H 09/30/19 22:44 RBC 5.15 M/mm3 (3.65-5.03) H 09/30/19 22:44 Hgb 15.0 gm/dl (10.1-14.3) H 09/30/19 22:44 Hct 45.0 % (30.3-42.9) H 09/30/19 22:44 MCV 87 fl (79-97) 09/30/19 22:44 MCH 29 pg (28-32) 09/30/19 22:44 MCHC 33 % (30-34) 09/30/19 22:44 RDW 14.7 % (13.2-15.2) 09/30/19 22:44 Plt Count 97 K/mm3 (140-440) L 09/30/19 22:44 Lymph % (Auto) 10.6 % (13.4-35.0) L 09/30/19 22:44 [place] % (Auto) 9.8 % (0.0-7.3) H 09/30/19 22:44 Eos % (Auto) 0.0 % (0.0-4.3) 09/30/19 22:44 Baso % (Auto) 1.2 % (0.0-1.8) 09/30/19 22:44 Lymph # 1.5 K/mm3 (1.2-5.4) 09/30/19 22:44 [place] # 1.3 K/mm3 (0.0-0.8) H 09/30/19 22:44 Eos # 0.0 K/mm3 (0.0-0.4) 09/30/19 22:44 Baso # 0.2 K/mm3 (0.0-0.1) H 09/30/19 22:44 Seg Neutrophils % 78.4 % (40.0-70.0) H 09/30/19 22:44 Seg Neutrophils # 10.8 K/mm3 (1.8-7.7) H 09/30/19 22:44 D-Dimer > 81181 ng/mlDDU (0-234) H 10/01/19 09:16 Sodium 146 mmol/L (137-145) H 10/01/19 14:24 Potassium 4.3 mmol/L (3.6-5.0) 10/01/19 14:24 Chloride 105.9 mmol/L (98-107) 10/01/19 14:24 Carbon Dioxide 22 mmol/L (22-30) 10/01/19 14:24 Anion Gap 22 mmol/L 10/01/19 14:24 BUN 28 mg/dL (7-17) H 10/01/19 14:24 Creatinine 1.3 mg/dL (0.6-1.2) H 10/01/19 14:24 Estimated GFR 51 ml/min 10/01/19 14:24 BUN/Creatinine Ratio 22 % 10/01/19 14:24 Glucose 95 mg/dL (65-100) 10/01/19 14:24 Lactic Acid 1.30 mmol/L (0.7-2.0) 09/30/19 22:44 Calcium 7.9 mg/dL (8.4-10.2) L 10/01/19 14:24 Ferritin 962.2 ng/mL (10.0-200.0) H 10/01/19 09:16 Total Bilirubin 0.50 mg/dL (0.1-1.2) 09/30/19 22:44 Direct Bilirubin 0.3 mg/dL (0-0.2) H 09/30/19 22:44 Indirect Bilirubin 0.2 mg/dL 09/30/19 22:44 AST 766 units/L (5-40) H 09/30/19 22:44 ALT 159 units/L (7-56) H 09/30/19 22:44 Alkaline Phosphatase 49 units/L (35-129) 09/30/19 22:44 Lactate Dehydrogenase 1277 units/L (91-180) H 10/01/19 09:16 Total Creatine Kinase 49082 units/L (30-135) H 10/01/19 09:35 C-Reactive Protein 9.40 mg/dL (0.00-1.30) H 10/01/19 09:16 Total Protein 7.6 g/dL (6.3-8.2) 09/30/19 22:44 Albumin 3.7 g/dL (3.9-5) L 09/30/19 22:44 Albumin/Globulin Ratio 0.9 % 09/30/19 22:44 Procalcitonin 9.50 ng/mL (<0.15) 10/01/19 09:16 Urine Color [place] (Yellow) 10/01/19 Unknown Urine Turbidity Slightly-cloudy (Clear) 10/01/19 Unknown Urine pH 5.0 (5.0-7.0) 10/01/19 Unknown Ur Specific [place] 1.026 (1.003-1.030) 10/01/19 Unknown Urine Protein 100 mg/dl mg/dL (Negative) 10/01/19 Unknown Urine Glucose (UA) Neg mg/dL (Negative) 10/01/19 Unknown Urine Ketones Tr mg/dL (Negative) 10/01/19 Unknown Urine Blood Lg (Negative) 10/01/19 Unknown Urine Nitrite Neg (Negative) 10/01/19 Unknown Urine Bilirubin Neg (Negative) 10/01/19 Unknown Urine Urobilinogen 2.0 mg/dL (<2.0) 10/01/19 Unknown Ur Leukocyte Esterase Neg (Negative) 10/01/19 Unknown Urine WBC (Auto) 17.0 /HPF (0.0-6.0) H 10/01/19 Unknown Urine RBC (Auto) 1.0 /HPF (0.0-6.0) 10/01/19 Unknown U Epithel Cells (Auto) 4.0 /HPF (0-13.0) 10/01/19 Unknown Urine Mucus 2+ /HPF 10/01/19 Unknown Salicylates < 0.3 mg/dL (2.8-20.0) L 09/30/19 22:44 Urine Opiates Screen Presumptive negative 10/01/19 Unknown Urine Methadone Screen Presumptive negative 10/01/19 Unknown Acetaminophen 5.0 ug/mL (10.0-30.0) L 09/30/19 22:44 Ur Barbiturates Screen Presumptive negative 10/01/19 Unknown Ur Phencyclidine Scrn Presumptive negative 10/01/19 Unknown Ur Amphetamines Screen Presumptive negative 10/01/19 Unknown U Benzodiazepines Scrn Presumptive negative 10/01/19 Unknown Urine Cocaine Screen Presumptive negative 10/01/19 Unknown U Marijuana (THC) Screen Presumptive negative 10/01/19 Unknown Drugs of Abuse Note Disclamer 10/01/19 Unknown Plasma/Serum Alcohol < 0.01 % (0-0.07) 09/30/19 22:44 Microbiology: Microbiology 10/01/19 01:40 Peripheral/Venous Blood Culture - Preliminary Culture in Progress 10/01/19 01:59 Peripheral/Venous Blood Culture - Preliminary Culture in Progress
[2019-10-01 09:44] LABS: C-Reactive Protein 9.4 mg/dL (0.00-1.30)
[2019-10-01] MEDS ORDERED: LIDOCAINE 1%/EPINEPHRINE 1:100,000 VIAL (20 ML) INFILTRATI ONE (10:17)
--- NOTE | 2019-10-01 10:56 | Procedure Note ---
Date of procedure: 10/01/19 Pre-op diagnosis: IV access Post-op diagnosis: same Procedure: Hospital physician, Dr. Glen Iverson, requested establishment of intravenous access for this patient with suspected rhabdomyolysis. Nursing team and IV nurse unable to obtain IV access. The patient is acutely altered and delirious, and thus not able to provide informed consent, therefore emergent/administrative to provide a consent is provided by myself and the aforementioned physician. Using ultrasound guidance, the right sided internal jugular vein is easily identified. The skin is cleansed and prepped with Betadine, and a 26-gauge needle is used to infiltrate 6 cc of 1% lidocaine with epinephrine. Then, using aseptic technique, a 3 inch 18-gauge Angiocath is inserted into the right internal jugular vein with ultrasound guidance, with 1 attempt. Then, a Luer-Roxanna is attached, and blood is easily aspirated. A Biopatch is applied, followed by a Tegaderm. The patient tolerated the procedure adequately, without significant complications. Would recommend changing up this line for definitive IV access within the next 24 hours. Post IV placement management as per admitting team. Please note that for the entire procedure, I had on complete personal protective equipment. Anesthesia: local Surgeon: DARIELA GUZMAN Spray Drier: ERIN GONSALEZ Estimated blood loss: minimal Pathology: none Condition: other (guarded) Disposition: floor
[2019-10-01] MEDS ORDERED: cefTRIAXone/NS 2 GM/100 ML 2 GM/100 ML BAG IV ONE (11:30)
[2019-10-01] MEDS ORDERED: HEPARIN 5,000 UNIT/1 ML VIAL ONE (11:30)
[2019-10-01] MEDS: cefTRIAXone/NS 2 GM/100 ML 2 GM/100 ML BAG IV SCH (11:40)
[2019-10-01] MEDS: HEPARIN 5,000 UNIT/1 ML VIAL SUB-Q SCH ×2 (11:40→22:52)
--- NOTE | 2019-10-01 11:53 | Consultation ---
History of Present Illness - Reason for Consult Consult date: 10/01/19 Reason for consult: AMS, Not speaking - History of Present Psychiatric Illness Vero Stevens is a 54y/o female patient who came from [facility] with a history of paranoid schizophrenia that presents to the emergency department on 09/29 for altered mental status in a catatonic state, per medical record. I attempted to interview the patient, she was lying in bed awake. She is being changed by nursing staff. She did not respond to questioning. PAST PSYCHIATRIC HISTORY: Unable to obtain due to patient's factors PAST MEDICAL HISTORY: Unable to obtain Family Psychiatric History: None reported or documented SOCIAL HISTORY Unable to obtain REVIEW OF SYSTEMS Unable to assess due to patient factors MENTAL STATUS EXAMINATION Unable to obtain ASSESSMENT Schizoaffective disorder RECOMMENDATIONS MEDICATIONS Valproic Sodium 500mg IV q12 hours Lorazepam 2mg IM x 1 to assist in r/o catatonia Start Trazodone 50mg po qhs Risks, benefits and alternatives of medications discussed with the patient, questions answered and consent obtained from patient. PSYCHOTHERAPY: Supportive psychotherapy provided MEDICAL: Per primary team DELIRIUM PRECAUTIONS: Please re-orient patient frequently, keep lights on during the day, and minimize benzodiazepines and opiates as these medications could worsen patient's confusion. 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 She may transfer to an acute facility once medically cleared LEGAL STATUS: Involuntary Will continue to follow Thank you for the consult. Please contact with any questions and/or concerns. Medications and Allergies Allergies Allergy/AdvReac Type Severity Reaction Status Date / Time haloperidol [From Haldol] AdvReac Unknown Verified 09/17/15 20:22 Home Medications Medication Instructions Recorded Confirmed Last Taken Type Benztropine [Cogentin] 1 mg PO BID 09/16/15 01/14/17 Unknown History Divalproex Sodium [Depakote] 1,500 mg PO QHS 09/16/15 01/14/17 Unknown History Paliperidone Palmitate [Invega 325 mg IM Q3W 09/16/15 01/14/17 Unknown History Sustenna] Aspirin 81 mg PO QDAY #30 tablet 09/18/15 01/14/17 Unknown Rx Nitrofurantoin [place]/M-Cryst 100 mg PO Q12HR #14 capsule 08/15/16 01/14/17 Unknown Rx [Macrobid CAP] cephALEXin [Keflex] 500 mg PO Q8HR #10 cap 01/14/17 Unknown Rx Active Meds: Active Medications Acetaminophen (Tylenol) 650 mg PO Q4H PRN PRN Reason: Pain MILD(1-3)/Fever >100.5/WRIGHT Heparin Sodium (Porcine) (Heparin) 5,000 unit SUB-Q Q8HR [facility] Sodium Chloride (Nacl 0.9% 1000 Ml) 1,000 mls @ 125 mls/hr IV DIRECT [facility] Azithromycin 500 mg/ Sodium (Chloride) 250 mls @ 250 mls/hr IV Q24HR [facility]; Protocol Ceftriaxone Sodium (Rocephin/Ns 2 Gm/100 Ml) 2 gm in 100 mls @ 200 mls/hr IV Q24HR [facility]; Protocol Ondansetron HCl (Zofran) 4 mg IV Q8H PRN PRN Reason: Nausea And Vomiting Sodium Chloride (Sodium Chloride Flush Syringe 10 Ml) 10 ml IV BID [facility] Sodium Chloride (Sodium Chloride Flush Syringe 10 Ml) 10 ml IV PRN PRN PRN Reason: LINE FLUSH Stop: 10/14/19 07:49 Mental Status Exam - Vital signs Last Vital Signs Temp 99.9 F H 09/30/19 22:33 Pulse 100 H 10/01/19 06:31 Resp 19 10/01/19 06:31 BP 114/93 10/01/19 06:31 Pulse Ox 95 10/01/19 06:31 Results Result Diagrams: 09/30/19 22:44 09/30/19 22:44 Abnormal lab results 09/30/19 09/30/19 09/30/19 Range/Units 22:44 22:44 22:44 WBC 13.8 H (4.5-11.0) K/mm3 RBC 5.15 H (3.65-5.03) M/mm3 Hgb 15.0 H (10.1-14.3) gm/dl Hct 45.0 H (30.3-42.9) % Plt Count 97 L (140-440) K/mm3 Lymph % (Auto) 10.6 L (13.4-35.0) % [place] % (Auto) 9.8 H (0.0-7.3) % [place] # 1.3 H (0.0-0.8) K/mm3 Baso # 0.2 H (0.0-0.1) K/mm3 Seg Neutrophils % 78.4 H (40.0-70.0) % Seg Neutrophils # 10.8 H (1.8-7.7) K/mm3 D-Dimer (0-234) ng/mlDDU Carbon Dioxide 21 L (22-30) mmol/L BUN 33 H (7-17) mg/dL Creatinine 1.4 H (0.6-1.2) mg/dL Glucose 112 H (65-100) mg/dL Ferritin (10.0-200.0) ng/mL Direct Bilirubin (0-0.2) mg/dL AST (5-40) units/L ALT (7-56) units/L Lactate Dehydrogenase (91-180) units/L Total Creatine Kinase (30-135) units/L C-Reactive Protein (0.00-1.30) mg/dL Albumin (3.9-5) g/dL Urine WBC (Auto) (0.0-6.0) /HPF Salicylates < 0.3 L (2.8-20.0) mg/dL Acetaminophen (10.0-30.0) ug/mL 09/30/19 09/30/19 09/30/19 Range/Units 22:44 22:44 22:44 WBC (4.5-11.0) K/mm3 RBC (3.65-5.03) M/mm3 Hgb (10.1-14.3) gm/dl Hct (30.3-42.9) % Plt Count (140-440) K/mm3 Lymph % (Auto) (13.4-35.0) % [place] % (Auto) (0.0-7.3) % [place] # (0.0-0.8) K/mm3 Baso # (0.0-0.1) K/mm3 Seg Neutrophils % (40.0-70.0) % Seg Neutrophils # (1.8-7.7) K/mm3 D-Dimer (0-234) ng/mlDDU Carbon Dioxide (22-30) mmol/L BUN (7-17) mg/dL Creatinine (0.6-1.2) mg/dL Glucose (65-100) mg/dL Ferritin (10.0-200.0) ng/mL Direct Bilirubin 0.3 H (0-0.2) mg/dL AST 766 H (5-40) units/L ALT 159 H (7-56) units/L Lactate Dehydrogenase (91-180) units/L Total Creatine Kinase 09992 H (30-135) units/L C-Reactive Protein (0.00-1.30) mg/dL Albumin 3.7 L (3.9-5) g/dL Urine WBC (Auto) (0.0-6.0) /HPF Salicylates (2.8-20.0) mg/dL Acetaminophen 5.0 L (10.0-30.0) ug/mL 10/01/19 10/01/19 10/01/19 Range/Units 09:16 09:16 09:16 WBC (4.5-11.0) K/mm3 RBC (3.65-5.03) M/mm3 Hgb (10.1-14.3) gm/dl Hct (30.3-42.9) % Plt Count (140-440) K/mm3 Lymph % (Auto) (13.4-35.0) % [place] % (Auto) (0.0-7.3) % [place] # (0.0-0.8) K/mm3 Baso # (0.0-0.1) K/mm3 Seg Neutrophils % (40.0-70.0) % Seg Neutrophils # (1.8-7.7) K/mm3 D-Dimer > 57596 H (0-234) ng/mlDDU Carbon Dioxide (22-30) mmol/L BUN (7-17) mg/dL Creatinine (0.6-1.2) mg/dL Glucose (65-100) mg/dL Ferritin 962.2 H (10.0-200.0) ng/mL Direct Bilirubin (0-0.2) mg/dL AST (5-40) units/L ALT (7-56) units/L Lactate Dehydrogenase 1277 H (91-180) units/L Total Creatine Kinase (30-135) units/L C-Reactive Protein 9.40 H (0.00-1.30) mg/dL Albumin (3.9-5) g/dL Urine WBC (Auto) (0.0-6.0) /HPF Salicylates (2.8-20.0) mg/dL Acetaminophen (10.0-30.0) ug/mL 10/01/19 10/01/19 Range/Units 09:35 Unknown WBC (4.5-11.0) K/mm3 RBC (3.65-5.03) M/mm3 Hgb (10.1-14.3) gm/dl Hct (30.3-42.9) % Plt Count (140-440) K/mm3 Lymph % (Auto) (13.4-35.0) % [place] % (Auto) (0.0-7.3) % [place] # (0.0-0.8) K/mm3 Baso # (0.0-0.1) K/mm3 Seg Neutrophils % (40.0-70.0) % Seg Neutrophils # (1.8-7.7) K/mm3 D-Dimer (0-234) ng/mlDDU Carbon Dioxide (22-30) mmol/L BUN (7-17) mg/dL Creatinine (0.6-1.2) mg/dL Glucose (65-100) mg/dL Ferritin (10.0-200.0) ng/mL Direct Bilirubin (0-0.2) mg/dL AST (5-40) units/L ALT (7-56) units/L Lactate Dehydrogenase (91-180) units/L Total Creatine Kinase 34612 H (30-135) units/L C-Reactive Protein (0.00-1.30) mg/dL Albumin (3.9-5) g/dL Urine WBC (Auto) 17.0 H (0.0-6.0) /HPF Salicylates (2.8-20.0) mg/dL Acetaminophen (10.0-30.0) ug/mL All other labs normal.
[2019-10-01] MEDS ORDERED: LORazepam 2 MG/ML VIAL IM ONE (12:08)
[2019-10-01] MEDS: AZITHROMYCIN 500 MG in SODIUM CHLORIDE 0.9% 250ML 250 ML IV SCH (12:49)
[2019-10-01] MEDS ORDERED: LORazepam 2 MG/ML VIAL ONE (12:49)
[2019-10-01] MEDS ORDERED: risperiDONE 0.25 MG TAB PO SCH (13:00)
[2019-10-01 14:55] LABS: Calcium 7.9 mg/dL (8.4-10.2)
--- NOTE | 2019-10-01 15:34 | Consultation ---
History of Present Illness - Reason for Consult Consult date: 10/01/19 R/O COVID Requesting physician: BLANCA SOFIA - History of Present Illness 54 years old female with history of paranoid schizophrenia, admitted on 09/30/2019 due to altered mental status and catatonic state. Patient was nonverbal in the ED, unable to provide history. On arrival, temperature 99.9, HR 99, RR 18, O2 sat 96%, BP 149/78. Initial WBC 13.8. Hemoglobin 15. Platelets 97. D-dimer 10,000. Creatinine 1.4. AST 766. ALT 159 CRP 9.4. CK 33,[address] of the abdomen shows bibasilar patchy groundglass opacity. Urine drug screen negative. Alcohol level nontoxic. Acetaminophen level nontoxic. Review of Systems: reviewed ED and H&P notes. Limited due to PPE conservation strategy Medications and Allergies Allergies Allergy/AdvReac Type Severity Reaction Status Date / Time haloperidol [From Haldol] AdvReac Unknown Verified 09/17/15 20:22 Home Medications Medication Instructions Recorded Confirmed Last Taken Type Benztropine [Cogentin] 1 mg PO BID 09/16/15 01/14/17 Unknown History Divalproex Sodium [Depakote] 1,500 mg PO QHS 09/16/15 01/14/17 Unknown History Paliperidone Palmitate [Invega 325 mg IM Q3W 09/16/15 01/14/17 Unknown History Sustenna] Aspirin 81 mg PO QDAY #30 tablet 09/18/15 01/14/17 Unknown Rx Nitrofurantoin [place]/M-Cryst 100 mg PO Q12HR #14 capsule 08/15/16 01/14/17 Unknown Rx [Macrobid CAP] cephALEXin [Keflex] 500 mg PO Q8HR #10 cap 01/14/17 Unknown Rx Active Meds: Active Medications Acetaminophen (Tylenol) 650 mg PO Q4H PRN PRN Reason: Pain MILD(1-3)/Fever >100.5/WRIGHT Heparin Sodium (Porcine) (Heparin) 5,000 unit SUB-Q Q8HR [facility] Last Admin: 10/01/19 11:40 Dose: 5,000 unit Documented by: Sodium Chloride (Nacl 0.9% 1000 Ml) 1,000 mls @ 125 mls/hr IV DIRECT [facility] Azithromycin 500 mg/ Sodium (Chloride) 250 mls @ 250 mls/hr IV Q24HR [facility]; Protocol Last Admin: 10/01/19 12:49 Dose: 250 mls/hr Documented by: Ceftriaxone Sodium (Rocephin/Ns 2 Gm/100 Ml) 2 gm in 100 mls @ 200 mls/hr IV Q24HR [facility]; Protocol Last Admin: 10/01/19 11:40 Dose: 200 mls/hr Documented by: Valproate Sodium 500 mg/ (Sodium Chloride) 105 mls @ 100 mls/hr IV Q12HR [facility] Ondansetron HCl (Zofran) 4 mg IV Q8H PRN PRN Reason: Nausea And Vomiting Sodium Chloride (Sodium Chloride Flush Syringe 10 Ml) 10 ml IV BID [facility] Last Admin: 10/01/19 12:45 Dose: 10 ml Documented by: Sodium Chloride (Sodium Chloride Flush Syringe 10 Ml) 10 ml IV PRN PRN PRN Reason: LINE FLUSH Stop: 10/14/19 07:49 Trazodone HCl (Desyrel) 50 mg PO QHS [facility] Physical Examination - Physical Exam Narrative exam: Physical Exam: reviewed ED and hospitalist notes, limited due to conservation of PPE General appearance: limited due to conservation of PPE Eyes: limited due to conservation of PPE HENT: Atraumatic; limited due to conservation of PPE Lungs: limited due to conservation of PPE CV: limited due to conservation of PPE Abdomen: limited due to conservation of PPE Extremities: limited due to conservation of PPE Skin: limited due to conservation of PPE Psych: limited due to conservation of PPE Neuro: limited due to conservation of PPE - Constitutional Vitals: Vital Signs Temp Pulse Resp BP Pulse Ox 99.9 F H 104 H 17 132/81 96 09/30/19 22:33 10/01/19 13:00 10/01/19 13:00 10/01/19 13:00 10/01/19 13:00 Temperature -Last 24 Hours Temperature 99.9 F Temperature 99.9 F Results - Labs CBC & Chem 7: 09/30/19 22:44 10/01/19 14:24 Labs: Abnormal lab results 09/30/19 09/30/19 09/30/19 Range/Units 22:44 22:44 22:44 WBC 13.8 H (4.5-11.0) K/mm3 RBC 5.15 H (3.65-5.03) M/mm3 Hgb 15.0 H (10.1-14.3) gm/dl Hct 45.0 H (30.3-42.9) % Plt Count 97 L (140-440) K/mm3 Lymph % (Auto) 10.6 L (13.4-35.0) % [place] % (Auto) 9.8 H (0.0-7.3) % [place] # 1.3 H (0.0-0.8) K/mm3 Baso # 0.2 H (0.0-0.1) K/mm3 Seg Neutrophils % 78.4 H (40.0-70.0) % Seg Neutrophils # 10.8 H (1.8-7.7) K/mm3 D-Dimer (0-234) ng/mlDDU Sodium (137-145) mmol/L Carbon Dioxide 21 L (22-30) mmol/L BUN 33 H (7-17) mg/dL Creatinine 1.4 H (0.6-1.2) mg/dL Glucose 112 H (65-100) mg/dL Calcium (8.4-10.2) mg/dL Ferritin (10.0-200.0) ng/mL Direct Bilirubin (0-0.2) mg/dL AST (5-40) units/L ALT (7-56) units/L Lactate Dehydrogenase (91-180) units/L Total Creatine Kinase (30-135) units/L C-Reactive Protein (0.00-1.30) mg/dL Albumin (3.9-5) g/dL Urine WBC (Auto) (0.0-6.0) /HPF Salicylates < 0.3 L (2.8-20.0) mg/dL Acetaminophen (10.0-30.0) ug/mL 09/30/19 09/30/19 09/30/19 Range/Units 22:44 22:44 22:44 WBC (4.5-11.0) K/mm3 RBC (3.65-5.03) M/mm3 Hgb (10.1-14.3) gm/dl Hct (30.3-42.9) % Plt Count (140-440) K/mm3 Lymph % (Auto) (13.4-35.0) % [place] % (Auto) (0.0-7.3) % [place] # (0.0-0.8) K/mm3 Baso # (0.0-0.1) K/mm3 Seg Neutrophils % (40.0-70.0) % Seg Neutrophils # (1.8-7.7) K/mm3 D-Dimer (0-234) ng/mlDDU Sodium (137-145) mmol/L Carbon Dioxide (22-30) mmol/L BUN (7-17) mg/dL Creatinine (0.6-1.2) mg/dL Glucose (65-100) mg/dL Calcium (8.4-10.2) mg/dL Ferritin (10.0-200.0) ng/mL Direct Bilirubin 0.3 H (0-0.2) mg/dL AST 766 H (5-40) units/L ALT 159 H (7-56) units/L Lactate Dehydrogenase (91-180) units/L Total Creatine Kinase 72540 H (30-135) units/L C-Reactive Protein (0.00-1.30) mg/dL Albumin 3.7 L (3.9-5) g/dL Urine WBC (Auto) (0.0-6.0) /HPF Salicylates (2.8-20.0) mg/dL Acetaminophen 5.0 L (10.0-30.0) ug/mL 10/01/19 10/01/19 10/01/19 Range/Units 09:16 09:16 09:16 WBC (4.5-11.0) K/mm3 RBC (3.65-5.03) M/mm3 Hgb (10.1-14.3) gm/dl Hct (30.3-42.9) % Plt Count (140-440) K/mm3 Lymph % (Auto) (13.4-35.0) % [place] % (Auto) (0.0-7.3) % [place] # (0.0-0.8) K/mm3 Baso # (0.0-0.1) K/mm3 Seg Neutrophils % (40.0-70.0) % Seg Neutrophils # (1.8-7.7) K/mm3 D-Dimer > 78466 H (0-234) ng/mlDDU Sodium (137-145) mmol/L Carbon Dioxide (22-30) mmol/L BUN (7-17) mg/dL Creatinine (0.6-1.2) mg/dL Glucose (65-100) mg/dL Calcium (8.4-10.2) mg/dL Ferritin 962.2 H (10.0-200.0) ng/mL Direct Bilirubin (0-0.2) mg/dL AST (5-40) units/L ALT (7-56) units/L Lactate Dehydrogenase 1277 H (91-180) units/L Total Creatine Kinase (30-135) units/L C-Reactive Protein 9.40 H (0.00-1.30) mg/dL Albumin (3.9-5) g/dL Urine WBC (Auto) (0.0-6.0) /HPF Salicylates (2.8-20.0) mg/dL Acetaminophen (10.0-30.0) ug/mL 10/01/19 10/01/19 10/01/19 Range/Units 09:35 14:24 Unknown WBC (4.5-11.0) K/mm3 RBC (3.65-5.03) M/mm3 Hgb (10.1-14.3) gm/dl Hct (30.3-42.9) % Plt Count (140-440) K/mm3 Lymph % (Auto) (13.4-35.0) % [place] % (Auto) (0.0-7.3) % [place] # (0.0-0.8) K/mm3 Baso # (0.0-0.1) K/mm3 Seg Neutrophils % (40.0-70.0) % Seg Neutrophils # (1.8-7.7) K/mm3 D-Dimer (0-234) ng/mlDDU Sodium 146 H (137-145) mmol/L Carbon Dioxide (22-30) mmol/L BUN 28 H (7-17) mg/dL Creatinine 1.3 H (0.6-1.2) mg/dL Glucose (65-100) mg/dL Calcium 7.9 L (8.4-10.2) mg/dL Ferritin (10.0-200.0) ng/mL Direct Bilirubin (0-0.2) mg/dL AST (5-40) units/L ALT (7-56) units/L Lactate Dehydrogenase (91-180) units/L Total Creatine Kinase 71130 H (30-135) units/L C-Reactive Protein (0.00-1.30) mg/dL Albumin (3.9-5) g/dL Urine WBC (Auto) 17.0 H (0.0-6.0) /HPF Salicylates (2.8-20.0) mg/dL Acetaminophen (10.0-30.0) ug/mL Assessment and Plan Cultures: Blood culture pending COVID PCR pending Assessment: 54 years old female with history of paranoid schizophrenia, admitted on 09/30/2019 due to altered mental status and catatonia state: #Severe sepsis: Present on admission with low-grade fever, tachycardia, elevated leukocytosis, FAISAL, likely due to bilateral pneumonia. #Bilateral pneumonia: Should rule out COVID-19 pneumonia versus community- acquired pneumonia. Inflammatory markers are elevated, with a d-dimer > 10,000. Should rule out pulmonary embolism. #Acute hypoxemic respiratory failure: #Elevated LFTs: from COVID #FAISAL: from COVID #Elevated LFTs: Very high likely secondary to rhabdomyolysis #Elevated CK: Likely secondary to rhabdomyolysis possible due to COVID-19 infection or catatonic state #Paranoid schizophrenia with catatonia: Per psych Recommendations: -Obtain CTA of the chest to eval for pulmonary embolism -Follow COVID-19 PCR -No indication for dexamethasone as patient is no hypoxic -If patient COVID-19 PCR is positive and patient is hypoxic will start dexamethasone, if hypoxia worsens requiring > then will consider start Remdesivir -Continue ceftriaxone and azithromycin, procalcitonin 9.5, likely due to FAISAL, will monitor -Continue anticoagulation per protocol Dr. Melton will be covering the weekend, Dr. Moyer will be rounding on Friday. Will follow Flor Cullen MD Infectious Diseases [employer] [facility] ([facility] M [phone] O [phone]
--- NOTE | 2019-10-01 16:45 | Consultation ---
History of Present Illness Consult date: 10/01/19 Chief complaint: altered mental status, abnormal movements History of present illness: TELE NERUOLOGY CONSULT; This is a 54-year-old female with paranoid schizophrenia that presents to the emergency department on 09/29 for altered mental status . history of paranoid schizophrenia. .the patient has been having jerking of ita body and head. CT abdomen pelvis which shows patchy peripheral groundglass opacities bilateral lungs which is consistent with either viral or atypical pneumonia,. She was found to have acute kidney injury with a creatinine of 1.4/BUN 33 as baseline from previous records seems to be 0.7, rhabdomyolysis with a creatinine kinase of 33,481, leukocytosis with a WBC of 13.8, thrombocytopenia with platelets at 97. She will be admitted to the hospitalist service as a COVID PUI given findings on CT with IV antibiotics, rhabdomyolysis, and FAISAL. . also has high CPK, high FERRITIN, high CRP, high LDH. Medications and Allergies Allergies Allergy/AdvReac Type Severity Reaction Status Date / Time haloperidol [From Haldol] AdvReac Unknown Verified 09/17/15 20:22 Home Medications Medication Instructions Recorded Confirmed Last Taken Type Benztropine [Cogentin] 1 mg PO BID 09/16/15 01/14/17 Unknown History Divalproex Sodium [Depakote] 1,500 mg PO QHS 09/16/15 01/14/17 Unknown History Paliperidone Palmitate [Invega 325 mg IM Q3W 09/16/15 01/14/17 Unknown History Sustenna] Aspirin 81 mg PO QDAY #30 tablet 09/18/15 01/14/17 Unknown Rx Nitrofurantoin [place]/M-Cryst 100 mg PO Q12HR #14 capsule 08/15/16 01/14/17 Unknown Rx [Macrobid CAP] cephALEXin [Keflex] 500 mg PO Q8HR #10 cap 01/14/17 Unknown Rx Medications and Allergies Allergies Allergy/AdvReac Type Severity Reaction Status Date / Time haloperidol [From Haldol] AdvReac Unknown Verified 09/17/15 20:22 Home Medications Medication Instructions Recorded Confirmed Last Taken Type Benztropine [Cogentin] 1 mg PO BID 09/16/15 01/14/17 Unknown History Divalproex Sodium [Depakote] 1,500 mg PO QHS 09/16/15 01/14/17 Unknown History Paliperidone Palmitate [Invega 325 mg IM Q3W 09/16/15 01/14/17 Unknown History Sustenna] Aspirin 81 mg PO QDAY #30 tablet 09/18/15 01/14/17 Unknown Rx Nitrofurantoin [place]/M-Cryst 100 mg PO Q12HR #14 capsule 08/15/16 01/14/17 Unknown Rx [Macrobid CAP] cephALEXin [Keflex] 500 mg PO Q8HR #10 cap 01/14/17 Unknown Rx Active Meds: Active Medications Acetaminophen (Tylenol) 650 mg PO Q4H PRN PRN Reason: Pain MILD(1-3)/Fever >100.5/WRIGHT Heparin Sodium (Porcine) (Heparin) 5,000 unit SUB-Q Q8HR [facility] Last Admin: 10/01/19 11:40 Dose: 5,000 unit Documented by: Sodium Chloride (Nacl 0.9% 1000 Ml) 1,000 mls @ 125 mls/hr IV DIRECT [facility] Azithromycin 500 mg/ Sodium (Chloride) 250 mls @ 250 mls/hr IV Q24HR [facility]; Protocol Last Admin: 10/01/19 12:49 Dose: 250 mls/hr Documented by: Ceftriaxone Sodium (Rocephin/Ns 2 Gm/100 Ml) 2 gm in 100 mls @ 200 mls/hr IV Q24HR [facility]; Protocol Last Admin: 10/01/19 11:40 Dose: 200 mls/hr Documented by: Valproate Sodium 500 mg/ (Sodium Chloride) 105 mls @ 100 mls/hr IV Q12HR [facility] Ondansetron HCl (Zofran) 4 mg IV Q8H PRN PRN Reason: Nausea And Vomiting Sodium Chloride (Sodium Chloride Flush Syringe 10 Ml) 10 ml IV BID [facility] Last Admin: 10/01/19 12:45 Dose: 10 ml Documented by: Sodium Chloride (Sodium Chloride Flush Syringe 10 Ml) 10 ml IV PRN PRN PRN Reason: LINE FLUSH Stop: 10/14/19 07:49 Trazodone HCl (Desyrel) 50 mg PO QHS [facility] Review of Systems ROS unobtainable: due to mental status All systems: negative Physical Examination - Vital Signs Vital Signs: Vital Signs Temp Pulse Resp BP Pulse Ox 99.9 F H 99 H 18 149/78 96 09/30/19 22:29 08/13/20 22:29 09/30/19 22:29 09/30/19 22:29 09/30/19 22:29 - Physical Exam Narrative exam: Neurology examination: MS- eyes closed. laying in bed. on pain- moans and localizes with both hands. CN- pupils reactive to light both sides by nurse. M- motor cannot be assessed. Laboratory Results - last 72 hr 09/30/19 09/30/19 09/30/19 22:44 22:44 22:44 WBC 13.8 H RBC 5.15 H Hgb 15.0 H Hct 45.0 H MCV 87 MCH 29 MCHC 33 RDW 14.7 Plt Count 97 L Lymph % (Auto) 10.6 L [place] % (Auto) 9.8 H Eos % (Auto) 0.0 Baso % (Auto) 1.2 Lymph # 1.5 [place] # 1.3 H Eos # 0.0 Baso # 0.2 H Seg Neutrophils % 78.4 H Seg Neutrophils # 10.8 H D-Dimer Sodium 140 Potassium 3.6 Chloride 100.9 Carbon Dioxide 21 L Anion Gap 22 BUN 33 H Creatinine 1.4 H Estimated GFR 47 BUN/Creatinine Ratio 24 Glucose 112 H Lactic Acid Calcium 8.6 Ferritin Total Bilirubin Direct Bilirubin Indirect Bilirubin AST ALT Alkaline Phosphatase Lactate Dehydrogenase Total Creatine Kinase C-Reactive Protein Total Protein Albumin Albumin/Globulin Ratio Procalcitonin Urine Color Urine Turbidity Urine pH Ur Specific [place] Urine Protein Urine Glucose (UA) Urine Ketones Urine Blood Urine Nitrite Urine Bilirubin Urine Urobilinogen Ur Leukocyte Esterase Urine WBC (Auto) Urine RBC (Auto) U Epithel Cells (Auto) Urine Mucus Salicylates < 0.3 L Urine Opiates Screen Urine Methadone Screen Acetaminophen Ur Barbiturates Screen Ur Phencyclidine Scrn Ur Amphetamines Screen U Benzodiazepines Scrn Urine Cocaine Screen U Marijuana (THC) Screen Drugs of Abuse Note Plasma/Serum Alcohol 09/30/19 09/30/19 09/30/19 22:44 22:44 22:44 WBC RBC Hgb Hct MCV MCH MCHC RDW Plt Count Lymph % (Auto) [place] % (Auto) Eos % (Auto) Baso % (Auto) Lymph # [place] # Eos # Baso # Seg Neutrophils % Seg Neutrophils # D-Dimer Sodium Potassium Chloride Carbon Dioxide Anion Gap BUN Creatinine Estimated GFR BUN/Creatinine Ratio Glucose Lactic Acid Calcium Ferritin Total Bilirubin 0.50 Direct Bilirubin 0.3 H Indirect Bilirubin 0.2 AST 766 H ALT 159 H Alkaline Phosphatase 49 Lactate Dehydrogenase Total Creatine Kinase C-Reactive Protein Total Protein 7.6 Albumin 3.7 L Albumin/Globulin Ratio 0.9 Procalcitonin Urine Color Urine Turbidity Urine pH Ur Specific [place] Urine Protein Urine Glucose (UA) Urine Ketones Urine Blood Urine Nitrite Urine Bilirubin Urine Urobilinogen Ur Leukocyte Esterase Urine WBC (Auto) Urine RBC (Auto) U Epithel Cells (Auto) Urine Mucus Salicylates Urine Opiates Screen Urine Methadone Screen Acetaminophen 5.0 L Ur Barbiturates Screen Ur Phencyclidine Scrn Ur Amphetamines Screen U Benzodiazepines Scrn Urine Cocaine Screen U Marijuana (THC) Screen Drugs of Abuse Note Plasma/Serum Alcohol < 0.01 09/30/19 09/30/19 10/01/19 22:44 22:44 09:16 WBC RBC Hgb Hct MCV MCH MCHC RDW Plt Count Lymph % (Auto) [place] % (Auto) Eos % (Auto) Baso % (Auto) Lymph # [place] # Eos # Baso # Seg Neutrophils % Seg Neutrophils # D-Dimer > 94258 H Sodium Potassium Chloride Carbon Dioxide Anion Gap BUN Creatinine Estimated GFR BUN/Creatinine Ratio Glucose Lactic Acid 1.30 Calcium Ferritin Total Bilirubin Direct Bilirubin Indirect Bilirubin AST ALT Alkaline Phosphatase Lactate Dehydrogenase Total Creatine Kinase 29363 H C-Reactive Protein Total Protein Albumin Albumin/Globulin Ratio Procalcitonin Urine Color Urine Turbidity Urine pH Ur Specific [place] Urine Protein Urine Glucose (UA) Urine Ketones Urine Blood Urine Nitrite Urine Bilirubin Urine Urobilinogen Ur Leukocyte Esterase Urine WBC (Auto) Urine RBC (Auto) U Epithel Cells (Auto) Urine Mucus Salicylates Urine Opiates Screen Urine Methadone Screen Acetaminophen Ur Barbiturates Screen Ur Phencyclidine Scrn Ur Amphetamines Screen U Benzodiazepines Scrn Urine Cocaine Screen U Marijuana (THC) Screen Drugs of Abuse Note Plasma/Serum Alcohol 10/01/19 10/01/19 10/01/19 09:16 09:16 09:16 WBC RBC Hgb Hct MCV MCH MCHC RDW Plt Count Lymph % (Auto) [place] % (Auto) Eos % (Auto) Baso % (Auto) Lymph # [place] # Eos # Baso # Seg Neutrophils % Seg Neutrophils # D-Dimer Sodium Potassium Chloride Carbon Dioxide Anion Gap BUN Creatinine Estimated GFR BUN/Creatinine Ratio Glucose Lactic Acid Calcium Ferritin 962.2 H Total Bilirubin Direct Bilirubin Indirect Bilirubin AST ALT Alkaline Phosphatase Lactate Dehydrogenase 1277 H Total Creatine Kinase C-Reactive Protein 9.40 H Total Protein Albumin Albumin/Globulin Ratio Procalcitonin 9.50 Urine Color Urine Turbidity Urine pH Ur Specific [place] Urine Protein Urine Glucose (UA) Urine Ketones Urine Blood Urine Nitrite Urine Bilirubin Urine Urobilinogen Ur Leukocyte Esterase Urine WBC (Auto) Urine RBC (Auto) U Epithel Cells (Auto) Urine Mucus Salicylates Urine Opiates Screen Urine Methadone Screen Acetaminophen Ur Barbiturates Screen Ur Phencyclidine Scrn Ur Amphetamines Screen U Benzodiazepines Scrn Urine Cocaine Screen U Marijuana (THC) Screen Drugs of Abuse Note Plasma/Serum Alcohol 10/01/19 10/01/19 10/01/19 09:35 14:24 Unknown WBC RBC Hgb Hct MCV MCH MCHC RDW Plt Count Lymph % (Auto) [place] % (Auto) Eos % (Auto) Baso % (Auto) Lymph # [place] # Eos # Baso # Seg Neutrophils % Seg Neutrophils # D-Dimer Sodium 146 H Potassium 4.3 Chloride 105.9 Carbon Dioxide 22 Anion Gap 22 BUN 28 H Creatinine 1.3 H Estimated GFR 51 BUN/Creatinine Ratio 22 Glucose 95 Lactic Acid Calcium 7.9 L Ferritin Total Bilirubin Direct Bilirubin Indirect Bilirubin AST ALT Alkaline Phosphatase Lactate Dehydrogenase Total Creatine Kinase 48268 H C-Reactive Protein Total Protein Albumin Albumin/Globulin Ratio Procalcitonin Urine Color [place] Urine Turbidity Slightly-cloudy Urine pH 5.0 Ur Specific [place] 1.026 Urine Protein 100 mg/dl Urine Glucose (UA) Neg Urine Ketones Tr Urine Blood Lg Urine Nitrite Neg Urine Bilirubin Neg Urine Urobilinogen 2.0 Ur Leukocyte Esterase Neg Urine WBC (Auto) 17.0 H Urine RBC (Auto) 1.0 U Epithel Cells (Auto) 4.0 Urine Mucus 2+ Salicylates Urine Opiates Screen Urine Methadone Screen Acetaminophen Ur Barbiturates Screen Ur Phencyclidine Scrn Ur Amphetamines Screen U Benzodiazepines Scrn Urine Cocaine Screen U Marijuana (THC) Screen Drugs of Abuse Note Plasma/Serum Alcohol 10/01/19 Unknown WBC RBC Hgb Hct MCV MCH MCHC RDW Plt Count Lymph % (Auto) [place] % (Auto) Eos % (Auto) Baso % (Auto) Lymph # [place] # Eos # Baso # Seg Neutrophils % Seg Neutrophils # D-Dimer Sodium Potassium Chloride Carbon Dioxide Anion Gap BUN Creatinine Estimated GFR BUN/Creatinine Ratio Glucose Lactic Acid Calcium Ferritin Total Bilirubin Direct Bilirubin Indirect Bilirubin AST ALT Alkaline Phosphatase Lactate Dehydrogenase Total Creatine Kinase C-Reactive Protein Total Protein Albumin Albumin/Globulin Ratio Procalcitonin Urine Color Urine Turbidity Urine pH Ur Specific [place] Urine Protein Urine Glucose (UA) Urine Ketones Urine Blood Urine Nitrite Urine Bilirubin Urine Urobilinogen Ur Leukocyte Esterase Urine WBC (Auto) Urine RBC (Auto) U Epithel Cells (Auto) Urine Mucus Salicylates Urine Opiates Screen Presumptive negative Urine Methadone Screen Presumptive negative Acetaminophen Ur Barbiturates Screen Presumptive negative Ur Phencyclidine Scrn Presumptive negative Ur Amphetamines Screen Presumptive negative U Benzodiazepines Scrn Presumptive negative Urine Cocaine Screen Presumptive negative U Marijuana (THC) Screen Presumptive negative Drugs of Abuse Note Disclamer Plasma/Serum Alcohol Results - Laboratory Findings CBC and BMP: 09/30/19 22:44 10/01/19 14:24 Abnormal Lab Findings: Abnormal Labs 09/30/19 09/30/19 09/30/19 22:44 22:44 22:44 WBC 13.8 H RBC 5.15 H Hgb 15.0 H Hct 45.0 H Plt Count 97 L Lymph % (Auto) 10.6 L [place] % (Auto) 9.8 H [place] # 1.3 H Baso # 0.2 H Seg Neutrophils % 78.4 H Seg Neutrophils # 10.8 H D-Dimer Sodium Carbon Dioxide 21 L BUN 33 H Creatinine 1.4 H Glucose 112 H Calcium Ferritin Direct Bilirubin AST ALT Lactate Dehydrogenase Total Creatine Kinase C-Reactive Protein Albumin Urine WBC (Auto) Salicylates < 0.3 L Acetaminophen 09/30/19 09/30/19 09/30/19 22:44 22:44 22:44 WBC RBC Hgb Hct Plt Count Lymph % (Auto) [place] % (Auto) [place] # Baso # Seg Neutrophils % Seg Neutrophils # D-Dimer Sodium Carbon Dioxide BUN Creatinine Glucose Calcium Ferritin Direct Bilirubin 0.3 H AST 766 H ALT 159 H Lactate Dehydrogenase Total Creatine Kinase 81997 H C-Reactive Protein Albumin 3.7 L Urine WBC (Auto) Salicylates Acetaminophen 5.0 L 10/01/19 10/01/19 10/01/19 09:16 09:16 09:16 WBC RBC Hgb Hct Plt Count Lymph % (Auto) [place] % (Auto) [place] # Baso # Seg Neutrophils % Seg Neutrophils # D-Dimer > 15065 H Sodium Carbon Dioxide BUN Creatinine Glucose Calcium Ferritin 962.2 H Direct Bilirubin AST ALT Lactate Dehydrogenase 1277 H Total Creatine Kinase C-Reactive Protein 9.40 H Albumin Urine WBC (Auto) Salicylates Acetaminophen 10/01/19 10/01/19 10/01/19 09:35 14:24 Unknown WBC RBC Hgb Hct Plt Count Lymph % (Auto) [place] % (Auto) [place] # Baso # Seg Neutrophils % Seg Neutrophils # D-Dimer Sodium 146 H Carbon Dioxide BUN 28 H Creatinine 1.3 H Glucose Calcium 7.9 L Ferritin Direct Bilirubin AST ALT Lactate Dehydrogenase Total Creatine Kinase 35402 H C-Reactive Protein Albumin Urine WBC (Auto) 17.0 H Salicylates Acetaminophen Assessment and Plan This is a 54-year-old female with paranoid schizophrenia that presents to the emergency department on 09/29 for altered mental status . history of paranoid schizophrenia. .the patient has been having jerking of ita body and head. CT abdomen pelvis which shows patchy peripheral groundglass opacities bilateral lungs which is consistent with either viral or atypical pneumonia,. She was found to have acute kidney injury with a creatinine of 1.4/BUN 33 as baseline from previous records seems to be 0.7, rhabdomyolysis with a creatinine kinase of 33,481, leukocytosis with a WBC of 13.8, thrombocytopenia with platelets at 97. She will be admitted to the hospitalist service as a COVID PUI given findings on CT with IV antibiotics, rhabdomyolysis, and FAISAL. . also has high CPK, high FERRITIN, high CRP, high LDH. - altered mental status secondary to sepsis, metabolic etiology. suspecetd COVID pneumonia. has h/o paranoid schizophrenia. not sure about nms at thsi time. plan- cont. Rx for sepsis and metabolic etiology. Ct brain w out . thanks.
[2019-10-01] MEDS ORDERED: NITROFURANTOIN MONOHYD/M-CRYST 100 MG CAP PO SCH (22:00)
[2019-10-01] MEDS: VALPROATE SODIUM 500 MG in SODIUM CHLORIDE 0.9% 100 ML IV SCH ×2 (22:50)
[2019-10-01] MEDS: traZODone 50 MG TAB PO SCH (23:06)
[2019-10-01] MEDS: ACETAMINOPHEN 325 MG TAB PO PRN (23:13)
[2019-10-02] MEDS: HEPARIN 5,000 UNIT/1 ML VIAL SUB-Q SCH ×4 (05:14→21:41)
[2019-10-02 05:52] LABS: Hematocrit 41.4 % (30.3-42.9); Hemoglobin 13.8 gm/dl (10.1-14.3); Mean Corpuscular HGB Conc 33 % (30-34); Mean Corpuscular Volume 89 fl (79-97); Red Blood Count 4.67 M/mm3 (3.65-5.03); Red Cell Distribution Width 15.2 % (13.2-15.2)
[2019-10-02 06:01] LABS: Platelet Count 98 K/mm3 (140-440)
[2019-10-02 07:03] LABS: Anisocytosis 1+; Band Neutrophils # (Manual) 0.8 K/mm3; Basophils % (Manual) 0 % (0.0-1.8); Eosinophils % (Manual) 0 % (0.0-4.3); Total Cells Counted 100
[2019-10-02 07:04] LABS: Platelet Estimate Consistent w Auto
[2019-10-02] MEDS: VALPROATE SODIUM 500 MG in SODIUM CHLORIDE 0.9% 100 ML IV SCH ×2 (09:42→21:41)
[2019-10-02] MEDS: AZITHROMYCIN 500 MG in SODIUM CHLORIDE 0.9% 250ML 250 ML IV SCH (09:42)
[2019-10-02] MEDS: cefTRIAXone/NS 2 GM/100 ML 2 GM/100 ML BAG IV SCH (09:43)
--- NOTE | 2019-10-02 10:14 | Progress Note ---
Assessment and Plan Assessment and plan: This is a 54-year-old female with paranoid schizophrenia that presents to the emergency department on 09/29 for altered mental status in a catatonic state. Previous hospitalizations reviewed and only notes a history of paranoid schizophrenia. Patient may be a resident of [place]. Patient is currently nonverbal and HPI is received from ER documentation. Work-up in the emergency department included a CT abdomen pelvis which shows patchy peripheral groundglass opacities bilateral lungs which is consistent with either viral or atypical pneumonia, positive anterior lateral fat hernia in the left mid abdomen and a large uterine fibroids however her CXR showed no acute pulmonary or pleural abnormalities. She was found to have acute kidney injury with a creatinine of 1.4/BUN 33 as baseline from previous records seems to be 0.7, rhabdomyolysis with a creatinine kinase of 33,481, leukocytosis with a WBC of 13.8, thrombocytopenia with platelets at 97. In the emergency department she received 2 L of IV fluids and a dose of Zosyn. She will be admitted to the hospitalist service as a COVID PUI given findings on CT with IV antibiotics, rhabdomyolysis, and FAISAL. We will rule out neuroleptic malignant syndrome. Infectious disease, psych, and neurology have been consulted. * Discussed with primary grad intern patient was normally verbal but sometimes goes into a catatonic state. Phone number for this is [phone] * Schizoaffective disorder Severe rhabdomyolysis Severe sepsis COVID-19 pneumonia Acute metabolic encephalopathy Rule out neuroleptic malignant syndrome Acute kidney injury secondary to vasomotor nephropathy and underlining severe rhabdomyolysis Thrombocytopenia Hyponatremia Plan Continue supportive care ID consultation input Continue IV hydration to resolve rhabdomyolysis although COVID-19 pneumonia makes it complicated. Will monitor oxygen saturation Psych input noted start Haldol 5mg po BID Lorazepam 1mg IM x 1 to assist in r/o catatonia CT head ordered Steroid therapy in the setting of COVID-19 Continue antibiotics until fully evaluated by ID Creatinine kinase improving DVT and GI prophylaxis Guarded prognosis History Interval history: Patient seen and examined clinically improving but still not speaking. Hospitalist Physical - Physical exam Narrative exam: General appearance: Present: other (Patient slightly opens her eyes to tactile stimuli and withdraws to painful stimuli in all 4 extremities. She is seen moving her left arm spontaneously.) - EENT Eyes: Present: PERRL - Neck Neck: Absent: carotid bruits - Respiratory Respiratory effort: normal Respiratory: bilateral: diminished - Cardiovascular Rhythm: regular Heart Sounds: Present: S1 & S2. Absent: systolic murmur, diastolic murmur - Extremities Extremities: no ischemia, pulses intact, pulses symmetrical, No edema, normal temperature, normal color - Abdominal General gastrointestinal: Present: non-tender (No grimacing to palpation), non- distended, normal bowel sounds - Integumentary Integumentary: Present: warm, dry - Musculoskeletal Musculoskeletal: other (Unable to assess) - Psychiatric Psychiatric: other - Neurologic Neurologic: other (Patient is seen moving her right arm spontaneously, she is nonverbal, opens her eyes slightly to tactile stimuli, withdraws to pain in all 4 extremities) - Allied Health Allied health notes reviewed: nursing - Constitutional Vitals: Temp Pulse Resp BP Pulse Ox 100 F H 82 35 H 148/47 95 10/02/19 03:27 10/02/19 05:34 10/02/19 05:34 10/02/19 05:34 10/02/19 07:47 General appearance: Present: other (Patient slightly opens her eyes to tactile stimuli and withdraws to painful stimuli in all 4 extremities. She is seen moving her left arm spontaneously.) Results - Labs CBC & Chem 7: 10/02/19 05:08 10/02/19 05:08 Labs: Laboratory Last Values WBC 10.4 K/mm3 (4.5-11.0) 10/02/19 05:08 RBC 4.67 M/mm3 (3.65-5.03) 10/02/19 05:08 Hgb 13.8 gm/dl (10.1-14.3) 10/02/19 05:08 Hct 41.4 % (30.3-42.9) 10/02/19 05:08 MCV 89 fl (79-97) 10/02/19 05:08 MCH 30 pg (28-32) 10/02/19 05:08 MCHC 33 % (30-34) 10/02/19 05:08 RDW 15.2 % (13.2-15.2) 10/02/19 05:08 Plt Count 98 K/mm3 (140-440) L 10/02/19 05:08 Lymph % (Auto) 10.6 % (13.4-35.0) L 09/30/19 22:44 Smyth % (Auto) 9.8 % (0.0-7.3) H 09/30/19 22:44 Eos % (Auto) 0.0 % (0.0-4.3) 09/30/19 22:44 Baso % (Auto) 1.2 % (0.0-1.8) 09/30/19 22:44 Lymph # 1.5 K/mm3 (1.2-5.4) 09/30/19 22:44 Smyth # 1.3 K/mm3 (0.0-0.8) H 09/30/19 22:44 Eos # 0.0 K/mm3 (0.0-0.4) 09/30/19 22:44 Baso # 0.2 K/mm3 (0.0-0.1) H 09/30/19 22:44 Add Manual Diff Complete 10/02/19 05:08 Total Counted 100 10/02/19 05:08 Seg Neutrophils % 78.4 % (40.0-70.0) H 09/30/19 22:44 Seg Neuts % (Manual) 72.0 % (40.0-70.0) H 10/02/19 05:08 Band Neutrophils % 8.0 % 10/02/19 05:08 Lymphocytes % (Manual) 13.0 % (13.4-35.0) L 10/02/19 05:08 Reactive Lymphs % (Man) 0 % 10/02/19 05:08 Monocytes % (Manual) 7.0 % (0.0-7.3) 10/02/19 05:08 Eosinophils % (Manual) 0 % (0.0-4.3) 10/02/19 05:08 Basophils % (Manual) 0 % (0.0-1.8) 10/02/19 05:08 Metamyelocytes % 0 % 10/02/19 05:08 Myelocytes % 0 % 10/02/19 05:08 Promyelocytes % 0 % 10/02/19 05:08 Blast Cells % 0 % 10/02/19 05:08 Nucleated RBC % Not Reportable 10/02/19 05:08 Seg Neutrophils # 10.8 K/mm3 (1.8-7.7) H 09/30/19 22:44 Seg Neutrophils # Man 7.5 K/mm3 (1.8-7.7) 10/02/19 05:08 Band Neutrophils # 0.8 K/mm3 10/02/19 05:08 Lymphocytes # (Manual) 1.4 K/mm3 (1.2-5.4) 10/02/19 05:08 Abs React Lymphs (Man) 0.0 K/mm3 10/02/19 05:08 Monocytes # (Manual) 0.7 K/mm3 (0.0-0.8) 10/02/19 05:08 Eosinophils # (Manual) 0.0 K/mm3 (0.0-0.4) 10/02/19 05:08 Basophils # (Manual) 0.0 K/mm3 (0.0-0.1) 10/02/19 05:08 Metamyelocytes # 0.0 K/mm3 10/02/19 05:08 Myelocytes # 0.0 K/mm3 10/02/19 05:08 Promyelocytes # 0.0 K/mm3 10/02/19 05:08 Blast Cells # 0.0 K/mm3 10/02/19 05:08 WBC Morphology Not Reportable 10/02/19 05:08 Hypersegmented Neuts Not Reportable 10/02/19 05:08 Hyposegmented Neuts Not Reportable 10/02/19 05:08 Hypogranular Neuts Not Reportable 10/02/19 05:08 Smudge Cells Not Reportable 10/02/19 05:08 Toxic Granulation Not Reportable 10/02/19 05:08 Toxic Vacuolation Not Reportable 10/02/19 05:08 Dohle Bodies Not Reportable 10/02/19 05:08 Pelger-Huet Anomaly Not Reportable 10/02/19 05:08 Bal Rods Not Reportable 10/02/19 05:08 Platelet Estimate Consistent w auto 10/02/19 05:08 Clumped Platelets Not Reportable 10/02/19 05:08 Plt Clumps, EDTA Not Reportable 10/02/19 05:08 Large Platelets Not Reportable 10/02/19 05:08 Giant Platelets Not Reportable 10/02/19 05:08 Platelet Satelliting Not Reportable 10/02/19 05:08 Plt Morphology Comment Not Reportable 10/02/19 05:08 RBC Morphology Not Reportable 10/02/19 05:08 Dimorphic RBCs Not Reportable 10/02/19 05:08 Polychromasia Not Reportable 10/02/19 05:08 Hypochromasia Not Reportable 10/02/19 05:08 Poikilocytosis Not Reportable 10/02/19 05:08 Anisocytosis 1+ 10/02/19 05:08 Microcytosis Not Reportable 10/02/19 05:08 Macrocytosis Not Reportable 10/02/19 05:08 Spherocytes Not Reportable 10/02/19 05:08 Pappenheimer Bodies Not Reportable 10/02/19 05:08 Sickle Cells Not Reportable 10/02/19 05:08 Target Cells Not Reportable 10/02/19 05:08 Tear Drop Cells Not Reportable 10/02/19 05:08 Ovalocytes Not Reportable 10/02/19 05:08 Helmet Cells Not Reportable 10/02/19 05:08 [place] Bodies Not Reportable 10/02/19 05:08 Pisek Rings Not Reportable 10/02/19 05:08 [place] Cells Not Reportable 10/02/19 05:08 Bite Cells Not Reportable 10/02/19 05:08 Crenated Cell Not Reportable 10/02/19 05:08 Elliptocytes Not Reportable 10/02/19 05:08 Acanthocytes (Spur) Not Reportable 10/02/19 05:08 Rouleaux Not Reportable 10/02/19 05:08 Hemoglobin C Crystals Not Reportable 10/02/19 05:08 Schistocytes Not Reportable 10/02/19 05:08 Malaria parasites Not Reportable 10/02/19 05:08 Willie Bodies Not Reportable 10/02/19 05:08 Hem Pathologist Commnt No 10/02/19 05:08 D-Dimer > 87228 ng/mlDDU (0-234) H 10/01/19 09:16 Sodium 147 mmol/L (137-145) H 10/02/19 05:08 Potassium 3.7 mmol/L (3.6-5.0) 10/02/19 05:08 Chloride 107.1 mmol/L (98-107) H 10/02/19 05:08 Carbon Dioxide 25 mmol/L (22-30) 10/02/19 05:08 Anion Gap 19 mmol/L 10/02/19 05:08 BUN 22 mg/dL (7-17) H 10/02/19 05:08 Creatinine 1.3 mg/dL (0.6-1.2) H 10/02/19 05:08 Estimated GFR 51 ml/min 10/02/19 05:08 BUN/Creatinine Ratio 17 % 10/02/19 05:08 Glucose 121 mg/dL (65-100) H 10/02/19 05:08 Lactic Acid 1.30 mmol/L (0.7-2.0) 09/30/19 22:44 Calcium 8.0 mg/dL (8.4-10.2) L 10/02/19 05:08 Ferritin 962.2 ng/mL (10.0-200.0) H 10/01/19 09:16 Total Bilirubin 0.50 mg/dL (0.1-1.2) 09/30/19 22:44 Direct Bilirubin 0.3 mg/dL (0-0.2) H 09/30/19 22:44 Indirect Bilirubin 0.2 mg/dL 09/30/19 22:44 AST 766 units/L (5-40) H 09/30/19 22:44 ALT 159 units/L (7-56) H 09/30/19 22:44 Alkaline Phosphatase 49 units/L (35-129) 09/30/19 22:44 Lactate Dehydrogenase 1277 units/L (91-180) H 10/01/19 09:16 Total Creatine Kinase 90981 units/L (30-135) H 10/01/19 23:41 C-Reactive Protein 9.40 mg/dL (0.00-1.30) H 10/01/19 09:16 Total Protein 7.6 g/dL (6.3-8.2) 09/30/19 22:44 Albumin 3.7 g/dL (3.9-5) L 09/30/19 22:44 Albumin/Globulin Ratio 0.9 % 09/30/19 22:44 Procalcitonin 9.50 ng/mL (<0.15) 10/01/19 09:16 Urine Color [place] (Yellow) 10/01/19 Unknown Urine Turbidity Slightly-cloudy (Clear) 10/01/19 Unknown Urine pH 5.0 (5.0-7.0) 10/01/19 Unknown Ur Specific [place] 1.026 (1.003-1.030) 10/01/19 Unknown Urine Protein 100 mg/dl mg/dL (Negative) 10/01/19 Unknown Urine Glucose (UA) Neg mg/dL (Negative) 10/01/19 Unknown Urine Ketones Tr mg/dL (Negative) 10/01/19 Unknown Urine Blood Lg (Negative) 10/01/19 Unknown Urine Nitrite Neg (Negative) 10/01/19 Unknown Urine Bilirubin Neg (Negative) 10/01/19 Unknown Urine Urobilinogen 2.0 mg/dL (<2.0) 10/01/19 Unknown Ur Leukocyte Esterase Neg (Negative) 10/01/19 Unknown Urine WBC (Auto) 17.0 /HPF (0.0-6.0) H 10/01/19 Unknown Urine RBC (Auto) 1.0 /HPF (0.0-6.0) 10/01/19 Unknown U Epithel Cells (Auto) 4.0 /HPF (0-13.0) 10/01/19 Unknown Urine Mucus 2+ /HPF 10/01/19 Unknown Salicylates < 0.3 mg/dL (2.8-20.0) L 09/30/19 22:44 Urine Opiates Screen Presumptive negative 10/01/19 Unknown Urine Methadone Screen Presumptive negative 10/01/19 Unknown Acetaminophen 5.0 ug/mL (10.0-30.0) L 09/30/19 22:44 Ur Barbiturates Screen Presumptive negative 10/01/19 Unknown Ur Phencyclidine Scrn Presumptive negative 10/01/19 Unknown Ur Amphetamines Screen Presumptive negative 10/01/19 Unknown U Benzodiazepines Scrn Presumptive negative 10/01/19 Unknown Urine Cocaine Screen Presumptive negative 10/01/19 Unknown U Marijuana (THC) Screen Presumptive negative 10/01/19 Unknown Drugs of Abuse Note Disclamer 10/01/19 Unknown Plasma/Serum Alcohol < 0.01 % (0-0.07) 09/30/19 22:44 Microbiology: Microbiology 10/01/19 01:40 Peripheral/Venous Blood Culture - Preliminary NO GROWTH AFTER 24 HOURS 10/01/19 01:59 Peripheral/Venous Blood Culture - Preliminary NO GROWTH AFTER 24 HOURS Garcia/IV: Voiding Method Incontinent IV Catheter Type [Right Peripheral IV External Jugular] Active Medications - Current Medications Current Medications: Generic Name Dose Route Start Last Admin Trade Name Freq PRN Reason Stop Dose Admin Acetaminophen 650 mg 10/01/19 08:00 10/01/19 23:13 Tylenol PO 650 mg Q4H PRN Administration Pain MILD(1-3)/Fever >100.5/WRIGHT Divalproex Sodium 1,500 mg 10/02/19 22:[address] PO QHS ZACH Heparin Sodium (Porcine) 5,000 unit 10/01/19 10:00 10/02/19 08:20 Heparin SUB-Q Not Given Q8HR [facility] Sodium Chloride 1,000 mls @ 125 mls/hr 10/01/19 08:00 Nacl 0.9% 1000 Ml IV DIRECT ZACH Azithromycin 500 mg/ Sodium 250 mls @ 250 mls/hr 10/01/19 10:00 10/02/19 09:42 Chloride IV 250 mls/hr Q24HR ZACH Administration Protocol Ceftriaxone Sodium 2 gm in 100 mls @ 200 mls/hr 10/01/19 10:00 10/02/19 09:43 Rocephin/Ns 2 Gm/100 Ml IV 200 mls/hr Q24HR ZACH Administration Protocol Valproate Sodium 500 mg/ 105 mls @ 100 mls/hr 10/01/19 13:00 10/02/19 09:42 Sodium Chloride IV 100 mls/hr Q12HR ZACH Administration Miscellaneous Medication 325 mg 10/02/19 18:45 Paliperidone Palmitate [Invega Sustenna] IM Q3W ZACH Ondansetron HCl 4 mg 10/01/19 08:00 Zofran IV Q8H PRN Nausea And Vomiting Sodium Chloride 10 ml 10/01/19 10:00 10/02/19 09:45 Sodium Chloride Flush Syringe 10 Ml IV 10 ml BID ZACH Administration Sodium Chloride 10 ml 10/01/19 07:50 Sodium Chloride Flush Syringe 10 Ml IV 10/14/19 07:49 PRN PRN LINE FLUSH Trazodone HCl 50 mg 10/01/19 22:00 10/01/19 23:06 Desyrel PO 50 mg QHS ZACH Administration
[2019-10-02] MEDS ORDERED: LORazepam 2 MG/ML VIAL IM ONE (11:04)
--- NOTE | 2019-10-02 11:06 | Progress Note ---
Subjective - Reason for Consult Consult date: 10/02/19 Reason for consult: AMS - Chief Complaint Chief complaint: The patient's medical record was reviewed and the patient's progress was discussed with the nursing staff. The nurse note states the patient is non verbal but move all extremities. Skin in good condition. No s/s of pain. The patient is resistive to care but can slowly follow very simple commands. I attempted to interview the patient today, she is lying in bed, with her eyes open. She did not respond nor acknowledge me speaking to her. Obtained father's number from hospitalist. Called numbers [phone] and [phone], did not g et an answer. A generic voice message was left with return number. Also spoke with [facility] to see if the patient was a resident there, to obtain collateral information and baseline. The staff answering the phone says the patient's name did not ring a niño and was not a resident there. I also called Khalida with [employer], at [phone] as this is the number listed in the patient's clinica l data. Khalida says the patient used to be a resident at her facility but hasn't been one in three years. She states the person was verbal at that time, but often will not speak if she's been off her medications. She says if the patient is needing placement upon discharge, she will take the patient back. REVIEW OF SYSTEMS Unable to assess due to patient factors MENTAL STATUS EXAMINATION Unable to obtain ASSESSMENT Schizoaffective disorder RECOMMENDATIONS MEDICATIONS Start Haldol 5mg po BID Lorazepam 1mg IM x 1 to assist in r/o catatonia Please document response to Lorazepam Risks, benefits and alternatives of medications discussed with the patient, questions answered and consent obtained from patient. PSYCHOTHERAPY: Supportive psychotherapy provided MEDICAL: Per primary team DELIRIUM PRECAUTIONS: Please re-orient patient frequently, keep lights on during the day, and minimize benzodiazepines and opiates as these medications could worsen patient's confusion. 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 Please contact with any questions and/or concerns. Mental Status Exam - Vital signs Last Vital Signs Temp 100.8 F H 10/02/19 08:00 Pulse 98 H 10/02/19 10:30 Resp 12 10/02/19 10:30 BP 113/67 10/02/19 10:30 Pulse Ox 94 10/02/19 10:30
[2019-10-02] MEDS: ACETAMINOPHEN 325 MG TAB PO PRN (12:23)
[2019-10-02] MEDS: HALOPERIDOL 5 MG TAB PO SCH ×2 (12:23→22:00)
[2019-10-02] MEDS: SODIUM CHLORIDE 0.9% 1000 ML 1,000 ML IV SCH (15:56)
[2019-10-02] MEDS ORDERED: FUROSEMIDE 40 MG/4 ML INJ IV ONE (18:00)
[2019-10-02] MEDS ORDERED: PALIPERIDONE PALMITATE IM SCH (18:45)
[2019-10-02] MEDS: methylPREDNISolone Sod Succinate 40 MG/1 ML INJ IV SCH (21:41)
[2019-10-02] MEDS: traZODone 50 MG TAB PO SCH (22:00)
[2019-10-02] MEDS: DIVALPROEX DR 125 MG TAB PO SCH (22:00)
[2019-10-03] MEDS ORDERED: LORazepam 2 MG/ML VIAL IV ONE ×2 (02:48→15:24)
[2019-10-03 04:15] LABS: Hematocrit 39.2 % (30.3-42.9); Hemoglobin 12.9 gm/dl (10.1-14.3); Mean Corpuscular HGB Conc 33 % (30-34); Mean Corpuscular Volume 89 fl (79-97); Platelet Count 126 K/mm3 (140-440); Red Blood Count 4.43 M/mm3 (3.65-5.03); Red Cell Distribution Width 15.3 % (13.2-15.2)
[2019-10-03 04:43] LABS: Alanine Aminotransferase 115 units/L (7-56); Albumin 2.9 g/dL (3.9-5); BUN/Creatinine Ratio 19; Blood Urea Nitrogen 17 mg/dL (7-17); Calcium 7.9 mg/dL (8.4-10.2); Hemolysis Index 10
[2019-10-03] MEDS: methylPREDNISolone Sod Succinate 40 MG/1 ML INJ IV SCH ×3 (05:17→22:21)
[2019-10-03] MEDS: SODIUM CHLORIDE 0.9% 1000 ML 1,000 ML IV SCH (05:17)
[2019-10-03] MEDS: HEPARIN 5,000 UNIT/1 ML VIAL SUB-Q SCH ×3 (05:17→22:29)
[2019-10-03] MEDS: AZITHROMYCIN 500 MG in SODIUM CHLORIDE 0.9% 250ML 250 ML IV SCH (09:10)
[2019-10-03] MEDS: VALPROATE SODIUM 500 MG in SODIUM CHLORIDE 0.9% 100 ML IV SCH (09:10)
[2019-10-03] MEDS: HALOPERIDOL 5 MG TAB PO SCH ×2 (09:10→22:20)
[2019-10-03] MEDS: cefTRIAXone/NS 2 GM/100 ML 2 GM/100 ML BAG IV SCH (09:11)
[2019-10-03] MEDS: SODIUM CHLORIDE 0.45% 1000 ML 1,000 ML IV SCH ×2 (10:30→22:33)
--- NOTE | 2019-10-03 10:57 | XRay Report ---
ABDOMEN 1 VIEW INDICATION / CLINICAL INFORMATION: NG tube placement. COMPARISON: CT abdomen pelvis dated 10/01/2019. FINDINGS: TUBES / LINES: Esophagogastric tube tip and sidehole project over the left upper quadrant of the abdo men. BOWEL GAS PATTERN: No significant abnormality. FREE AIR / EXTRALUMINAL GAS: None seen. ADDITIONAL FINDINGS: No significant additional findings. IMPRESSION: Esophagogastric tube tip and sidehole projecting over the left upper quadrant. Signer Name: Dima Almaguer MD Signed: 10/03/2019 10:53 AM Workstation Name: [id number]
--- NOTE | 2019-10-03 11:04 | Progress Note ---
Subjective - Reason for Consult Consult date: 10/03/19 Reason for consult: AMS, nonverbal - Chief Complaint Chief complaint: The patient's medical record was reviewed and the patient's progress was discussed with the nursing staff. The nurse at bedside states the patient is still not speaking and not really alert. The nurse note states while in CT, the patient became more restless, no change in inability with following commands, but concern for motion artifact. Dr. Laws notified, Ativan 1 mg IV ordered and administered while patient on CT table, with no improvement after several minutes. I attempted to interview the patient today, she is lying in bed, there is nursing staff and x-ray at bedside. The patient is not speaking, and appears drowsy. REVIEW OF SYSTEMS Unable to assess due to patient factors MENTAL STATUS EXAMINATION Unable to obtain ASSESSMENT Schizoaffective disorder RECOMMENDATIONS MEDICATIONS Continue current regimen Risks, benefits and alternatives of medications discussed with the patient, questions answered and consent obtained from patient. PSYCHOTHERAPY: Supportive psychotherapy provided MEDICAL: Per primary team DELIRIUM PRECAUTIONS: Please re-orient patient frequently, keep lights on during the day, and minimize benzodiazepines and opiates as these medications could worsen patient's confusion. 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 She has acute and complex medical conditions that supersede her need for inpatient psychiatric treatment at this time. LEGAL STATUS: Involuntary Will continue to follow Thank you for the consult. Please contact with any questions and/or concerns. Mental Status Exam - Vital signs Last Vital Signs Temp 97.4 F L 10/03/19 08:00 Pulse 97 H 10/03/19 10:30 Resp 16 10/03/19 10:30 BP 93/60 10/03/19 10:30 Pulse Ox 97 10/03/19 10:30
--- NOTE | 2019-10-03 12:01 | XRay Report ---
ABDOMEN 1 VIEW INDICATION / CLINICAL INFORMATION: ng tube placement. COMPARISON: Abdominal radiograph from earlier today. FINDINGS: TUBES / LINES: Esophagogastric tube remains in stable position, with tip and sidehole projecting over the left upper quadrant of the abdomen. BOWEL GAS PATTERN: No significant abnormality. FREE AIR / EXTRALUMINAL GAS: None seen. ADDITIONAL FINDINGS: No significant additional findings. IMPRESSION: Esophagogastric tube remains in stable position. Signer Name: Dima Almaguer MD Signed: 10/03/2019 11:57 AM Workstation Name: [id number]
--- NOTE | 2019-10-03 14:52 | Progress Note ---
Assessment and Plan Assessment and plan: This is a 54-year-old female with paranoid schizophrenia that presents to the emergency department on 09/29 for altered mental status in a catatonic state. Previous hospitalizations reviewed and only notes a history of paranoid schizophrenia. Patient may be a resident of [facility]. Patient is currently nonverbal and HPI is received from ER documentation. Work-up in the emergency department included a CT abdomen pelvis which shows patchy peripheral groundglass opacities bilateral lungs which is consistent with either viral or atypical pneumonia, positive anterior lateral fat hernia in the left mid abdomen and a large uterine fibroids however her CXR showed no acute pulmonary or pleural abnormalities. She was found to have acute kidney injury with a creatinine of 1.4/BUN 33 as baseline from previous records seems to be 0.7, rhabdomyolysis with a creatinine kinase of 33,481, leukocytosis with a WBC of 13.8, thrombocytopenia with platelets at 97. In the emergency department she received 2 L of IV fluids and a dose of Zosyn. She will be admitted to the hospitalist service as a COVID PUI given findings on CT with IV antibiotics, rhabdomyolysis, and FAISAL. We will rule out neuroleptic malignant syndrome. Infectious disease, psych, and neurology have been consulted. * Discussed with primary pharmacist hospital patient was normally verbal but sometimes goes into a catatonic state. Phone number for this is [phone] * 10/02: Change fluids to NS 1/2 AT 125CC/hr. Rhabdomylysis improving, insert NGT and start tube feeds. Psych input noted. Continue management for COVID 19. ID consulted. No new fever. Schizoaffective disorder Severe rhabdomyolysis Severe sepsis COVID-19 pneumonia Acute metabolic encephalopathy Rule out neuroleptic malignant syndrome Acute kidney injury secondary to vasomotor nephropathy and underlining severe rhabdomyolysis Thrombocytopenia Hyponatremia Plan Continue supportive care ID consultation input Continue IV hydration to resolve rhabdomyolysis although COVID-19 pneumonia makes it complicated. Will monitor oxygen saturation Psych input noted start Haldol 5mg po BID Lorazepam 1mg IM x 1 to assist in r/o catatonia CT head ordered Steroid therapy in the setting of COVID-19 Continue antibiotics until fully evaluated by ID Creatinine kinase improving DVT and GI prophylaxis Guarded prognosis History Interval history: Patient seen and examined clinically improving but still not speaking. Discussed with nursing staff at the bedside Hospitalist Physical - Physical exam Narrative exam: General appearance: Present: awake, moving all ext. - EENT Eyes: Present: PERRL - Neck Neck: Absent: carotid bruits - Respiratory Respiratory effort: normal Respiratory: bilateral: diminished - Cardiovascular Rhythm: regular Heart Sounds: Present: S1 & S2. Absent: systolic murmur, diastolic murmur - Extremities Extremities: no ischemia, pulses intact, pulses symmetrical, No edema, normal temperature, normal color - Abdominal General gastrointestinal: Present: non-tender (No grimacing to palpation), non- distended, normal bowel sounds - Integumentary Integumentary: Present: warm, dry - Musculoskeletal Musculoskeletal: omoving all ext - Psychiatric Psychiatric: other - Neurologic Neurologic: awake, lethergic - Allied Health Allied health notes reviewed: nursing - Constitutional Vitals: Temp Pulse Resp BP Pulse Ox 97.8 F 98 H 18 156/99 94 10/03/19 13:59 10/03/19 13:57 10/03/19 13:57 10/03/19 13:57 10/03/19 13:57 General appearance: Present: other (Patient slightly opens her eyes to tactile stimuli and withdraws to painful stimuli in all 4 extremities. She is seen moving her left arm spontaneously.) Results - Labs CBC & Chem 7: 10/03/19 03:58 10/03/19 03:58 Labs: Laboratory Last Values WBC 9.9 K/mm3 (4.5-11.0) 10/03/19 03:58 RBC 4.43 M/mm3 (3.65-5.03) 10/03/19 03:58 Hgb 12.9 gm/dl (10.1-14.3) 10/03/19 03:58 Hct 39.2 % (30.3-42.9) 10/03/19 03:58 MCV 89 fl (79-97) 10/03/19 03:58 MCH 29 pg (28-32) 10/03/19 03:58 MCHC 33 % (30-34) 10/03/19 03:58 RDW 15.3 % (13.2-15.2) H 10/03/19 03:58 Plt Count 126 K/mm3 (140-440) L 10/03/19 03:58 Lymph % (Auto) 10.6 % (13.4-35.0) L 09/30/19 22:44 [place] % (Auto) 9.8 % (0.0-7.3) H 09/30/19 22:44 Eos % (Auto) 0.0 % (0.0-4.3) 09/30/19 22:44 Baso % (Auto) 1.2 % (0.0-1.8) 09/30/19 22:44 Lymph # 1.5 K/mm3 (1.2-5.4) 09/30/19 22:44 [place] # 1.3 K/mm3 (0.0-0.8) H 09/30/19 22:44 Eos # 0.0 K/mm3 (0.0-0.4) 09/30/19 22:44 Baso # 0.2 K/mm3 (0.0-0.1) H 09/30/19 22:44 Add Manual Diff Complete 10/02/19 05:08 Total Counted 100 10/02/19 05:08 Seg Neutrophils % 78.4 % (40.0-70.0) H 09/30/19 22:44 Seg Neuts % (Manual) 72.0 % (40.0-70.0) H 10/02/19 05:08 Band Neutrophils % 8.0 % 10/02/19 05:08 Lymphocytes % (Manual) 13.0 % (13.4-35.0) L 10/02/19 05:08 Reactive Lymphs % (Man) 0 % 10/02/19 05:08 Monocytes % (Manual) 7.0 % (0.0-7.3) 10/02/19 05:08 Eosinophils % (Manual) 0 % (0.0-4.3) 10/02/19 05:08 Basophils % (Manual) 0 % (0.0-1.8) 10/02/19 05:08 Metamyelocytes % 0 % 10/02/19 05:08 Myelocytes % 0 % 10/02/19 05:08 Promyelocytes % 0 % 10/02/19 05:08 Blast Cells % 0 % 10/02/19 05:08 Nucleated RBC % Not Reportable 10/02/19 05:08 Seg Neutrophils # 10.8 K/mm3 (1.8-7.7) H 09/30/19 22:44 Seg Neutrophils # Man 7.5 K/mm3 (1.8-7.7) 10/02/19 05:08 Band Neutrophils # 0.8 K/mm3 10/02/19 05:08 Lymphocytes # (Manual) 1.4 K/mm3 (1.2-5.4) 10/02/19 05:08 Abs React Lymphs (Man) 0.0 K/mm3 10/02/19 05:08 Monocytes # (Manual) 0.7 K/mm3 (0.0-0.8) 10/02/19 05:08 Eosinophils # (Manual) 0.0 K/mm3 (0.0-0.4) 10/02/19 05:08 Basophils # (Manual) 0.0 K/mm3 (0.0-0.1) 10/02/19 05:08 Metamyelocytes # 0.0 K/mm3 10/02/19 05:08 Myelocytes # 0.0 K/mm3 10/02/19 05:08 Promyelocytes # 0.0 K/mm3 10/02/19 05:08 Blast Cells # 0.0 K/mm3 10/02/19 05:08 WBC Morphology Not Reportable 10/02/19 05:08 Hypersegmented Neuts Not Reportable 10/02/19 05:08 Hyposegmented Neuts Not Reportable 10/02/19 05:08 Hypogranular Neuts Not Reportable 10/02/19 05:08 Smudge Cells Not Reportable 10/02/19 05:08 Toxic Granulation Not Reportable 10/02/19 05:08 Toxic Vacuolation Not Reportable 10/02/19 05:08 Dohle Bodies Not Reportable 10/02/19 05:08 Pelger-Huet Anomaly Not Reportable 10/02/19 05:08 Bal Rods Not Reportable 10/02/19 05:08 Platelet Estimate Consistent w auto 10/02/19 05:08 Clumped Platelets Not Reportable 10/02/19 05:08 Plt Clumps, EDTA Not Reportable 10/02/19 05:08 Large Platelets Not Reportable 10/02/19 05:08 Giant Platelets Not Reportable 10/02/19 05:08 Platelet Satelliting Not Reportable 10/02/19 05:08 Plt Morphology Comment Not Reportable 10/02/19 05:08 RBC Morphology Not Reportable 10/02/19 05:08 Dimorphic RBCs Not Reportable 10/02/19 05:08 Polychromasia Not Reportable 10/02/19 05:08 Hypochromasia Not Reportable 10/02/19 05:08 Poikilocytosis Not Reportable 10/02/19 05:08 Anisocytosis 1+ 10/02/19 05:08 Microcytosis Not Reportable 10/02/19 05:08 Macrocytosis Not Reportable 10/02/19 05:08 Spherocytes Not Reportable 10/02/19 05:08 Pappenheimer Bodies Not Reportable 10/02/19 05:08 Sickle Cells Not Reportable 10/02/19 05:08 Target Cells Not Reportable 10/02/19 05:08 Tear Drop Cells Not Reportable 10/02/19 05:08 Ovalocytes Not Reportable 10/02/19 05:08 Helmet Cells Not Reportable 10/02/19 05:08 [place] Bodies Not Reportable 10/02/19 05:08 [place] Rings Not Reportable 10/02/19 05:08 Mary Cells Not Reportable 10/02/19 05:08 Bite Cells Not Reportable 10/02/19 05:08 Crenated Cell Not Reportable 10/02/19 05:08 Elliptocytes Not Reportable 10/02/19 05:08 Acanthocytes (Spur) Not Reportable 10/02/19 05:08 Rouleaux Not Reportable 10/02/19 05:08 Hemoglobin C Crystals Not Reportable 10/02/19 05:08 Schistocytes Not Reportable 10/02/19 05:08 Malaria parasites Not Reportable 10/02/19 05:08 Willie Bodies Not Reportable 10/02/19 05:08 Hem Pathologist Commnt No 10/02/19 05:08 D-Dimer > 24398 ng/mlDDU (0-234) H 10/01/19 09:16 Sodium 150 mmol/L (137-145) H 10/03/19 03:58 Potassium 3.9 mmol/L (3.6-5.0) 10/03/19 03:58 Chloride 110.9 mmol/L (98-107) H 10/03/19 03:58 Carbon Dioxide 23 mmol/L (22-30) 10/03/19 03:58 Anion Gap 20 mmol/L 10/03/19 03:58 BUN 17 mg/dL (7-17) 10/03/19 03:58 Creatinine 0.9 mg/dL (0.6-1.2) 10/03/19 03:58 Estimated GFR > 60 ml/min 10/03/19 03:58 BUN/Creatinine Ratio 19 % 10/03/19 03:58 Glucose 141 mg/dL (65-100) H 10/03/19 03:58 Lactic Acid 1.30 mmol/L (0.7-2.0) 09/30/19 22:44 Calcium 7.9 mg/dL (8.4-10.2) L 10/03/19 03:58 Ferritin 962.2 ng/mL (10.0-200.0) H 10/01/19 09:16 Total Bilirubin 0.40 mg/dL (0.1-1.2) 10/03/19 03:58 Direct Bilirubin 0.3 mg/dL (0-0.2) H 09/30/19 22:44 Indirect Bilirubin 0.2 mg/dL 09/30/19 22:44 AST 351 units/L (5-40) H 10/03/19 03:58 ALT 115 units/L (7-56) H 10/03/19 03:58 Alkaline Phosphatase 39 units/L (35-129) 10/03/19 03:58 Lactate Dehydrogenase 1277 units/L (91-180) H 10/01/19 09:16 Total Creatine Kinase 8586 units/L (30-135) H 10/03/19 03:58 C-Reactive Protein 9.40 mg/dL (0.00-1.30) H 10/01/19 09:16 Total Protein 6.8 g/dL (6.3-8.2) 10/03/19 03:58 Albumin 2.9 g/dL (3.9-5) L 10/03/19 03:58 Albumin/Globulin Ratio 0.7 % 10/03/19 03:58 Procalcitonin 9.50 ng/mL (<0.15) 10/01/19 09:16 Urine Color [place] (Yellow) 10/01/19 Unknown Urine Turbidity Slightly-cloudy (Clear) 10/01/19 Unknown Urine pH 5.0 (5.0-7.0) 10/01/19 Unknown Ur Specific [place] 1.026 (1.003-1.030) 10/01/19 Unknown Urine Protein 100 mg/dl mg/dL (Negative) 10/01/19 Unknown Urine Glucose (UA) Neg mg/dL (Negative) 10/01/19 Unknown Urine Ketones Tr mg/dL (Negative) 10/01/19 Unknown Urine Blood Lg (Negative) 10/01/19 Unknown Urine Nitrite Neg (Negative) 10/01/19 Unknown Urine Bilirubin Neg (Negative) 10/01/19 Unknown Urine Urobilinogen 2.0 mg/dL (<2.0) 10/01/19 Unknown Ur Leukocyte Esterase Neg (Negative) 10/01/19 Unknown Urine WBC (Auto) 17.0 /HPF (0.0-6.0) H 10/01/19 Unknown Urine RBC (Auto) 1.0 /HPF (0.0-6.0) 10/01/19 Unknown U Epithel Cells (Auto) 4.0 /HPF (0-13.0) 10/01/19 Unknown Urine Mucus 2+ /HPF 10/01/19 Unknown Salicylates < 0.3 mg/dL (2.8-20.0) L 09/30/19 22:44 Urine Opiates Screen Presumptive negative 10/01/19 Unknown Urine Methadone Screen Presumptive negative 10/01/19 Unknown Acetaminophen 5.0 ug/mL (10.0-30.0) L 09/30/19 22:44 Ur Barbiturates Screen Presumptive negative 10/01/19 Unknown Ur Phencyclidine Scrn Presumptive negative 10/01/19 Unknown Ur Amphetamines Screen Presumptive negative 10/01/19 Unknown U Benzodiazepines Scrn Presumptive negative 10/01/19 Unknown Urine Cocaine Screen Presumptive negative 10/01/19 Unknown U Marijuana (THC) Screen Presumptive negative 10/01/19 Unknown Drugs of Abuse Note Disclamer 10/01/19 Unknown Plasma/Serum Alcohol < 0.01 % (0-0.07) 09/30/19 22:44 Coronavirus (PCR) Positive (Negative) A 10/02/19 Unknown Microbiology: Microbiology 10/01/19 Unknown Urine,Clean Catch Urine Culture - Preliminary NO GROWTH AFTER 24 HOURS 10/01/19 01:40 Peripheral/Venous Blood Culture - Preliminary NO GROWTH AFTER 48 HOURS 10/01/19 01:59 Peripheral/Venous Blood Culture - Preliminary NO GROWTH AFTER 48 HOURS Garcia/IV: Voiding Method External Female Catheter IV Catheter Type [Right INT / Saline Lock Antecubital] IV Catheter Type [Right Foot] Peripheral IV IV Catheter Type [Right Peripheral IV External Jugular] Active Medications - Current Medications Current Medications: Generic Name Dose Route Start Last Admin Trade Name Freq PRN Reason Stop Dose Admin Acetaminophen 650 mg 10/01/19 08:00 10/02/19 12:23 Tylenol PO 650 mg Q4H PRN Administration Pain MILD(1-3)/Fever >100.5/WRIGHT Divalproex Sodium 1,500 mg 10/02/19 22:00 10/02/19 22:[address] PO Not Given QHS ZACH Haloperidol 5 mg 10/02/19 12:00 10/03/19 09:10 Haldol PO 5 mg BID ZACH Administration Heparin Sodium (Porcine) 5,000 unit 10/01/19 10:00 10/03/19 14:45 Heparin SUB-Q 5,000 unit Q8HR ZACH Administration Azithromycin 500 mg/ Sodium 250 mls @ 250 mls/hr 10/01/19 10:00 10/03/19 09:10 Chloride IV 250 mls/hr Q24HR ZACH Administration Protocol Ceftriaxone Sodium 2 gm in 100 mls @ 200 mls/hr 10/01/19 10:00 10/03/19 09:11 Rocephin/Ns 2 Gm/100 Ml IV 200 mls/hr Q24HR ZACH Administration Protocol Sodium Chloride 1,000 mls @ 125 mls/hr 10/03/19 09:00 10/03/19 10:30 Nacl 0.45% 1000 Ml IV 125 mls/hr DIRECT ZACH Administration Methylprednisolone Sodium Succinate 40 mg 10/02/19 22:00 10/03/19 14:44 Solu-Medrol IV 40 mg Q8HR ZACH Administration Miscellaneous Medication 325 mg 10/02/19 18:45 Paliperidone Palmitate [Invega Sustenna] IM Q3W ZACH Ondansetron HCl 4 mg 10/01/19 08:00 Zofran IV Q8H PRN Nausea And Vomiting Sodium Chloride 10 ml 10/01/19 10:00 10/03/19 09:12 Sodium Chloride Flush Syringe 10 Ml IV 10 ml BID ZACH Administration Sodium Chloride 10 ml 10/01/19 07:50 Sodium Chloride Flush Syringe 10 Ml IV 10/14/19 07:49 PRN PRN LINE FLUSH Trazodone HCl 50 mg 10/01/19 22:00 10/02/19 22:00 Desyrel PO Not Given QHS ZACH
--- NOTE | 2019-10-03 17:32 | Cat Scan Report ---
CTA CHEST WITH IV CONTRAST INDICATION: Altered mental status. TECHNIQUE: Axial CT images were obtained through the chest after injection of 100 mL Omnipaque 350 IV contrast. 3 plane MIP reconstructions were produced. All CT scans at this location are performed using CT dose reduction for ALARA by means of automated exposure control. COMPARISON: None available. FINDINGS: Pulmonary Arteries: No pulmonary emboli. Lungs: There are patchy peripheral areas of groundglass opacity in both lungs. Trachea and Bronchi: No significant abnormality. Heart and Pericardium: No significant abnormality. Vasculature: No significant abnormality. Lymphatics: No lymphadenopathy. Additional Findings: None. Upper Abdomen: No acute findings. Skeletal Structures: No significant osseous abnormality. IMPRESSION: 1. No CT evidence for pulmonary embolism. 2. Patchy areas of groundglass opacity in both lungs suggestive of viral pneumonia. Signer Name: Stefan Anne MD Signed: 10/03/2019 5:28 PM Workstation Name: [id number]
--- NOTE | 2019-10-03 17:58 | Cat Scan Report ---
CT head/brain wo con INDICATION / CLINICAL INFORMATION: 54 years Female; altered menal status. TECHNIQUE: Routine CT head without contrast. All CT scans at this location are performed using CT dos e reduction for ALARA by means of automated exposure control. COMPARISON: The CT is compared to the previous exam of 09/16/2015. FINDINGS: BRAIN / INTRACRANIAL CONTENTS: The motion degrades the image quality. However, there appears be mild cerebral white matter disease most consistent with microvascular angiopathy. The findings appear to s lightly progressed from the prior exam. There is also mild cerebral atrophy with associated mild prom inence of the ventricular system. There is no clear CT evidence of acute intracranial hemorrhage or s ignificant mass effect. ORBITS: No significant abnormality of visualized orbits. SINUSES / MASTOIDS: There is continued complete opacification of the visualized left maxillary sinus with notable extension into the left ethmoid and frontal sinuses. There is also now complete opacific ation of the left sphenoid sinus. There is presence of a nasogastric tube. CRANIOCERVICAL JUNCTION: No significant abnormality. ADDITIONAL FINDINGS: None. IMPRESSION: 1. There is mild microvascular angiopathy and cerebral atrophy without CT evidence of acute intracran ial hemorrhage. Signer Name: Jem Vargas MD Signed: 10/03/2019 5:54 PM Workstation Name: [id number]
[2019-10-03] MEDS: DIVALPROEX DR 125 MG TAB PO SCH (22:16)
[2019-10-03] MEDS: traZODone 50 MG TAB PO SCH (22:21)
[2019-10-03] MEDS: ACETAMINOPHEN 325 MG TAB PO PRN (22:31)
[2019-10-04] MEDS: methylPREDNISolone Sod Succinate 40 MG/1 ML INJ IV SCH ×3 (05:06→21:27)
[2019-10-04] MEDS: SODIUM CHLORIDE 0.45% 1000 ML 1,000 ML IV SCH (05:06)
[2019-10-04] MEDS: HEPARIN 5,000 UNIT/1 ML VIAL SUB-Q SCH ×2 (05:06→13:16)
[2019-10-04] MEDS: ACETAMINOPHEN 325 MG TAB PO PRN (05:30)
[2019-10-04 10:16] LABS: Hematocrit 37.1 % (30.3-42.9); Mean Corpuscular HGB Conc 33 % (30-34); Mean Corpuscular Volume 89 fl (79-97); Platelet Count 160 K/mm3 (140-440); Red Blood Count 4.17 M/mm3 (3.65-5.03); Red Cell Distribution Width 16.1 % (13.2-15.2)
[2019-10-04] MEDS: cefTRIAXone/NS 2 GM/100 ML 2 GM/100 ML BAG IV SCH (10:16)
[2019-10-04 10:31] LABS: BUN/Creatinine Ratio 23; Blood Urea Nitrogen 21 mg/dL (7-17); Calcium 7.7 mg/dL (8.4-10.2); Hemolysis Index 10
[2019-10-04] MEDS ORDERED: SODIUM BICARBONATE 325 MG TAB FEEDTUBE PRN (10:34)
[2019-10-04] MEDS ORDERED: SIMPLE SYRUP 15 ML FEEDTUBE PRN ×2 (10:34)
[2019-10-04] MEDS ORDERED: LIPASE 10,500/PROTEASE 25,000/AMYLASE 43,750 (UNITS) DR CAP FEEDTUBE PRN (10:34)
[2019-10-04] MEDS: HALOPERIDOL 5 MG TAB PO SCH ×2 (10:46→21:26)
[2019-10-04] MEDS: AZITHROMYCIN 500 MG in SODIUM CHLORIDE 0.9% 250ML 250 ML IV SCH (10:47)
--- NOTE | 2019-10-04 12:30 | Progress Note ---
Subjective - Reason for Consult Consult date: 10/04/19 Reason for consult: nonverbal, AMS - Chief Complaint Chief complaint: The patient's medical record was reviewed and the patient's progress was discussed with the nursing staff. The nurse note states the patient is restless with eyes closed. The patient is moving around in bed and pulling on soft wrist restraints. The patient is nonverbal and not following commands. Pt instructed to open her eyes but did not. . I attempted to interview the patient today, she is lying in bed, she is moving her legs about. She does not respond or acknowledge me when I call her name. REVIEW OF SYSTEMS Unable to assess due to patient factors MENTAL STATUS EXAMINATION Unable to obtain ASSESSMENT Schizoaffective disorder RECOMMENDATIONS MEDICATIONS Continue current regimen Risks, benefits and alternatives of medications discussed with the patient, questions answered and consent obtained from patient. PSYCHOTHERAPY: Supportive psychotherapy provided MEDICAL: Per primary team DELIRIUM PRECAUTIONS: Please re-orient patient frequently, keep lights on during the day, and minimize benzodiazepines and opiates as these medications could worsen patient's confusion. SKILLED NURSING FACILITIES PROFESSIONAL: per medical team DISPOSITION: TBD, once and if the patient improves medically. She has acute and complex medical conditions that supersede her need for inpatient psychiatric treatment at this time. LEGAL STATUS: Involuntary Will continue to follow Thank you for the consult. Please contact with any questions and/or concerns. Mental Status Exam - Vital signs Last Vital Signs Temp 96.5 F L 10/04/19 05:05 Pulse 103 H 10/04/19 05:06 Resp 20 10/04/19 06:30 BP 114/91 10/04/19 05:05 Pulse Ox 96 10/04/19 10:44
--- NOTE | 2019-10-04 14:30 | Progress Note ---
Assessment and Plan Cultures: Blood culture and urine culture negative COVID PCR positive Assessment: 54 years old female with history of paranoid schizophrenia, admitted on 09/30/2019 due to altered mental status and catatonia state: #Severe sepsis: Present on admission with low-grade fever, tachycardia, elevated leukocytosis, FAISAL, likely due to bilateral pneumonia. #Bilateral pneumonia: Should rule out COVID-19 pneumonia versus community- acquired pneumonia. Inflammatory markers are elevated, with a d-dimer > 10,000. CT negative for pulmonary embolism. #Acute hypoxemic respiratory failure: mild. on supplemental oxygen. #Elevated LFTs: from COVID. #FAISAL: from COVID. improved #Elevated LFTs: Very high likely secondary to rhabdomyolysis #Elevated CK: Likely secondary to rhabdomyolysis possible due to COVID-19 infection or catatonic state #Paranoid schizophrenia with catatonia: Per psych Recommendations: -continue steroids, day 3 of 10 -elevated LFTs so cannot add Remdesivir -recheck procalcitonin, continue ceftriaxone and azithromycin for now -Continue anticoagulation per protocol Konrad Moyer MD, FACP [facility], [place], [facility] ([facility] C: [phone] O: [phone] F: [phone] Subjective Date of service: 10/04/19 Interval history: No fever. Oxygen requirements at 2 L nasal cannula. Objective - Exam Narrative Exam: Physical Exam (reviewed in chart due to PPE conservation) Constitutional: limited due to PPE conservation strategy Head, Ears, Nose: limited due to PPE conservation strategy Eyes: limited due to PPE conservation strategy Neck: limited due to PPE conservation strategy Oral: limited due to PPE conservation strategy Cardiovascular: limited due to PPE conservation strategy Respiratory: limited due to PPE conservation strategy GI: limited due to PPE conservation strategy Musculoskeletal: limited due to PPE conservation strategy Skin: limited due to PPE conservation strategy Hem/Lymphatic: limited due to PPE conservation strategy Psych: limited due to PPE conservation strategy Neurological: limited due to PPE conservation strategy - Constitutional Vitals: Vital Signs Temp Pulse Resp BP Pulse Ox 96.5 F L 103 H 20 114/91 96 10/04/19 05:05 10/04/19 05:06 10/04/19 06:30 10/04/19 05:05 10/04/19 10:44 Temperature -Last 24 Hours Temperature 96.5 F Temperature 98.0 F Temperature 98.4 F - Labs CBC & Chem 7: 10/04/19 08:46 10/04/19 08:46 Labs: Abnormal lab results 10/04/19 10/04/19 10/04/19 Range/Units 08:46 08:46 08:46 WBC 16.2 H (4.5-11.0) K/mm3 RDW 16.1 H (13.2-15.2) % Sodium 147 H (137-145) mmol/L Chloride 110.4 H (98-107) mmol/L BUN 21 H (7-17) mg/dL Glucose 170 H (65-100) mg/dL Calcium 7.7 L (8.4-10.2) mg/dL Total Creatine Kinase (30-135) units/L Valproic Acid 31.8 L (50-100) ug/mL 10/04/19 Range/Units 08:46 WBC (4.5-11.0) K/mm3 RDW (13.2-15.2) % Sodium (137-145) mmol/L Chloride (98-107) mmol/L BUN (7-17) mg/dL Glucose (65-100) mg/dL Calcium (8.4-10.2) mg/dL Total Creatine Kinase 2599 H (30-135) units/L Valproic Acid (50-100) ug/mL
--- NOTE | 2019-10-04 15:11 | Progress Note ---
<BISMARKBLANCA KellyFabián - Last Filed: 10/04/19 15:40> Assessment and Plan - Patient Problems (1) Severe sepsis Current Visit: Yes Status: Acute Plan to address problem: - Presented with low-grade fever, tachycardia, leukocytosis, FAISAL, and bilateral pneumonia - Likely source is bilateral pneumonia - IV antibiotics - Covid protocol initiated (2) Pneumonia due to COVID-19 virus Current Visit: Yes Status: Acute Plan to address problem: - COVID protocol initiated - IV azithromycin and Rocephin initiated - 09/30 COVID PCR positive - Trend LDH, CRP, procalcitonin, d-dimer, ferritin - Droplet /contact precautions - Supplemental oxygenation as needed - Infectious disease consult requested - Pulmonary hygiene - In setting of elevated D-Dimer, CTA Chest was ordered which was negative for pulmonary embolism - Anticoagulation per COVID protocol - Cannot initiate Remdesivir in setting on f elevated LFTs (3) Neuroleptic malignant syndrome Current Visit: Yes Status: Ruled-out Plan to address problem: - Given catatonic state, elevated CK, AMS and antipsychotic medication use we will r/o malignant neuroleptic syndrome - Neurology has been consulted; does not suspect NMS at this time - 10/02 CTH shows mild microvascular angiopathy and cerebral atrophy without evidence of acute intracranial hemorrhage. (4) Rhabdomyolysis Current Visit: Yes Status: Acute [place] address problem: [place] [address], down to 2599 - Received 2 liters IVF in ED and NS then 1/2 NS AT 125 mL/hr - Trend CK levels (5) Acute psychosis Current Visit: Yes Status: Acute Plan to address problem: - Currently withdraws to pain however moving all extremities spontaneously - History of paranoid schizophrenia - Mental health consult requested (6) Paranoid schizophrenia Current Visit: Yes Status: Acute Plan to address problem: -History of present schizophrenia -Psych consulted and appreciate recommendations -Depakote and Haldol -Sleep hygiene -Reorientation as needed (7) Acute renal failure Current Visit: Yes Status: Acute Plan to address problem: - Vasomotor nephropathy maybe secondary to dehydration or rhabdomyolysis - Received 2 L IVF in ED - Admit Cr/BUN 1.4/33 but now trended down - Avoid nephrotoxic medications - Trend BMP (8) Leukocytosis Current Visit: Yes Status: Acute Plan to address problem: - Admit WBC 13.8 - Trend CBC - Maybe secondary to possible PNA or from dehydration - IV abx - Also on steroids for COVID pneumonia (9) Thrombocytopenia Current Visit: Yes Status: Resolved Plan to address problem: -Admit Plt is 97 now up to 140K - Bleeding precautions - Trend CBC (10) DVT prophylaxis Current Visit: Yes Status: Acute Plan to address problem: - SCDs to BLE while in bed - Lovenox subq twice daily per COVID protocol History Interval history: This is a 54-year-old female with paranoid schizophrenia that presents to the emergency department on 09/29 for altered mental status in a catatonic state. Previous hospitalizations reviewed and only notes a history of paranoid schizophrenia. Patient may be a resident of [place]. Patient is currently nonverbal and HPI is received from ER documentation. Work-up in the emergency department included a CT abdomen pelvis which shows patchy peripheral groundglass opacities bilateral lungs which is consistent with either viral or atypical pneumonia, positive anterior lateral fat hernia in the left mid abdomen and a large uterine fibroids however her CXR showed no acute pulmonary or pleural abnormalities. She was found to have acute kidney injury with a creatinine of 1.4/BUN 33 as baseline from previous records seems to be 0.7, rha bdomyolysis with a creatinine kinase of 33,481, leukocytosis with a WBC of 13.8, thrombocytopenia with platelets at 97. In the emergency department she received 2 L of IV fluids and a dose of Zosyn. She will be admitted to the hospitalist service as a COVID PUI given findings on CT with IV antibiotics, rhabdomyolysis, and FAISAL. Infectious disease, psych, and neurology have been consulted. Neurology does not suspect NMS at this time. * Discussed with primary fourth officer patient was normally verbal but sometimes goes into a catatonic state. Phone number for this is [phone] * 10/02: Change fluids to NS 1/2 AT 125CC/hr. Rhabdomylysis improving, insert NGT and start tube feeds. Psych input noted. Continue management for COVID 19. ID consulted. No new fever. CTA and CTH obtained [facility] were both negative * 10/01: COVID PCR Positive Hospitalist Physical - Constitutional Vitals: Temp Pulse Resp BP Pulse Ox 97.7 F 98 H 20 142/91 98 10/04/19 12:39 10/04/19 12:39 10/04/19 12:39 10/04/19 12:39 10/04/19 12:39 General appearance: Present: other (Patient slightly opens her eyes to tactile stimuli and withdraws to painful stimuli in all 4 extremities. She is seen LEVY spontaneously.) - EENT Eyes: Present: PERRL - Neck Neck: Present: normal ROM - Respiratory Respiratory effort: normal Respiratory: bilateral: diminished - Cardiovascular Rhythm: regular Heart Sounds: Present: S1 & S2. Absent: systolic murmur, diastolic murmur - Extremities Extremities: no ischemia, pulses intact, pulses symmetrical, No edema, normal temperature, normal color Peripheral Pulses: within normal limits - Abdominal General gastrointestinal: soft, tender, non-distended, normal bowel sounds - Integumentary Integumentary: Present: clear, warm, dry - Psychiatric Psychiatric: other (Patient withdraws to pain in all 4 extremities. Slightly flickers eyes to painful stimuli) - Neurologic Neurologic: moves all extremities - Allied Health Allied health notes reviewed: nursing, social work, case management Results - Labs CBC & Chem 7: 10/04/19 08:46 10/04/19 08:46 Labs: Laboratory Last Values WBC 16.2 K/mm3 (4.5-11.0) H 10/04/19 08:46 RBC 4.17 M/mm3 (3.65-5.03) 10/04/19 08:46 Hgb 12.0 gm/dl (10.1-14.3) 10/04/19 08:46 Hct 37.1 % (30.3-42.9) 10/04/19 08:46 MCV 89 fl (79-97) 10/04/19 08:46 MCH 29 pg (28-32) 10/04/19 08:46 MCHC 33 % (30-34) 10/04/19 08:46 RDW 16.1 % (13.2-15.2) H 10/04/19 08:46 Plt Count 160 K/mm3 (140-440) 10/04/19 08:46 Lymph % (Auto) 10.6 % (13.4-35.0) L 09/30/19 22:44 [place] % (Auto) 9.8 % (0.0-7.3) H 09/30/19 22:44 Eos % (Auto) 0.0 % (0.0-4.3) 09/30/19 22:44 Baso % (Auto) 1.2 % (0.0-1.8) 09/30/19 22:44 Lymph # 1.5 K/mm3 (1.2-5.4) 09/30/19 22:44 [place] # 1.3 K/mm3 (0.0-0.8) H 09/30/19 22:44 Eos # 0.0 K/mm3 (0.0-0.4) 09/30/19 22:44 Baso # 0.2 K/mm3 (0.0-0.1) H 09/30/19 22:44 Add Manual Diff Complete 10/02/19 05:08 Total Counted 100 10/02/19 05:08 Seg Neutrophils % 78.4 % (40.0-70.0) H 09/30/19 22:44 Seg Neuts % (Manual) 72.0 % (40.0-70.0) H 10/02/19 05:08 Band Neutrophils % 8.0 % 10/02/19 05:08 Lymphocytes % (Manual) 13.0 % (13.4-35.0) L 10/02/19 05:08 Reactive Lymphs % (Man) 0 % 10/02/19 05:08 Monocytes % (Manual) 7.0 % (0.0-7.3) 10/02/19 05:08 Eosinophils % (Manual) 0 % (0.0-4.3) 10/02/19 05:08 Basophils % (Manual) 0 % (0.0-1.8) 10/02/19 05:08 Metamyelocytes % 0 % 10/02/19 05:08 Myelocytes % 0 % 10/02/19 05:08 Promyelocytes % 0 % 10/02/19 05:08 Blast Cells % 0 % 10/02/19 05:08 Nucleated RBC % Not Reportable 10/02/19 05:08 Seg Neutrophils # 10.8 K/mm3 (1.8-7.7) H 09/30/19 22:44 Seg Neutrophils # Man 7.5 K/mm3 (1.8-7.7) 10/02/19 05:08 Band Neutrophils # 0.8 K/mm3 10/02/19 05:08 Lymphocytes # (Manual) 1.4 K/mm3 (1.2-5.4) 10/02/19 05:08 Abs React Lymphs (Man) 0.0 K/mm3 10/02/19 05:08 Monocytes # (Manual) 0.7 K/mm3 (0.0-0.8) 10/02/19 05:08 Eosinophils # (Manual) 0.0 K/mm3 (0.0-0.4) 10/02/19 05:08 Basophils # (Manual) 0.0 K/mm3 (0.0-0.1) 10/02/19 05:08 Metamyelocytes # 0.0 K/mm3 10/02/19 05:08 Myelocytes # 0.0 K/mm3 10/02/19 05:08 Promyelocytes # 0.0 K/mm3 10/02/19 05:08 Blast Cells # 0.0 K/mm3 10/02/19 05:08 WBC Morphology Not Reportable 10/02/19 05:08 Hypersegmented Neuts Not Reportable 10/02/19 05:08 Hyposegmented Neuts Not Reportable 10/02/19 05:08 Hypogranular Neuts Not Reportable 10/02/19 05:08 Smudge Cells Not Reportable 10/02/19 05:08 Toxic Granulation Not Reportable 10/02/19 05:08 Toxic Vacuolation Not Reportable 10/02/19 05:08 Dohle Bodies Not Reportable 10/02/19 05:08 Pelger-Huet Anomaly Not Reportable 10/02/19 05:08 Bal Rods Not Reportable 10/02/19 05:08 Platelet Estimate Consistent w auto 10/02/19 05:08 Clumped Platelets Not Reportable 10/02/19 05:08 Plt Clumps, EDTA Not Reportable 10/02/19 05:08 Large Platelets Not Reportable 10/02/19 05:08 Giant Platelets Not Reportable 10/02/19 05:08 Platelet Satelliting Not Reportable 10/02/19 05:08 Plt Morphology Comment Not Reportable 10/02/19 05:08 RBC Morphology Not Reportable 10/02/19 05:08 Dimorphic RBCs Not Reportable 10/02/19 05:08 Polychromasia Not Reportable 10/02/19 05:08 Hypochromasia Not Reportable 10/02/19 05:08 Poikilocytosis Not Reportable 10/02/19 05:08 Anisocytosis 1+ 10/02/19 05:08 Microcytosis Not Reportable 10/02/19 05:08 Macrocytosis Not Reportable 10/02/19 05:08 Spherocytes Not Reportable 10/02/19 05:08 Pappenheimer Bodies Not Reportable 10/02/19 05:08 Sickle Cells Not Reportable 10/02/19 05:08 Target Cells Not Reportable 10/02/19 05:08 Tear Drop Cells Not Reportable 10/02/19 05:08 Ovalocytes Not Reportable 10/02/19 05:08 Helmet Cells Not Reportable 10/02/19 05:08 Singleton-Goodwell Bodies Not Reportable 10/02/19 05:08 [place] Rings Not Reportable 10/02/19 05:08 Mary Cells Not Reportable 10/02/19 05:08 Bite Cells Not Reportable 10/02/19 05:08 Crenated Cell Not Reportable 10/02/19 05:08 Elliptocytes Not Reportable 10/02/19 05:08 Acanthocytes (Spur) Not Reportable 10/02/19 05:08 Rouleaux Not Reportable 10/02/19 05:08 Hemoglobin C Crystals Not Reportable 10/02/19 05:08 Schistocytes Not Reportable 10/02/19 05:08 Malaria parasites Not Reportable 10/02/19 05:08 Willie Bodies Not Reportable 10/02/19 05:08 Hem Pathologist Commnt No 10/02/19 05:08 D-Dimer > 02275 ng/mlDDU (0-234) H 10/01/19 09:16 Sodium 147 mmol/L (137-145) H 10/04/19 08:46 Potassium 3.9 mmol/L (3.6-5.0) 10/04/19 08:46 Chloride 110.4 mmol/L (98-107) H 10/04/19 08:46 Carbon Dioxide 22 mmol/L (22-30) 10/04/19 08:46 Anion Gap 19 mmol/L 10/04/19 08:46 BUN 21 mg/dL (7-17) H 10/04/19 08:46 Creatinine 0.9 mg/dL (0.6-1.2) 10/04/19 08:46 Estimated GFR > 60 ml/min 10/04/19 08:46 BUN/Creatinine Ratio 23 % 10/04/19 08:46 Glucose 170 mg/dL (65-100) H 10/04/19 08:46 Lactic Acid 1.30 mmol/L (0.7-2.0) 09/30/19 22:44 Calcium 7.7 mg/dL (8.4-10.2) L 10/04/19 08:46 Ferritin 962.2 ng/mL (10.0-200.0) H 10/01/19 09:16 Total Bilirubin 0.40 mg/dL (0.1-1.2) 10/03/19 03:58 Direct Bilirubin 0.3 mg/dL (0-0.2) H 09/30/19 22:44 Indirect Bilirubin 0.2 mg/dL 09/30/19 22:44 AST 351 units/L (5-40) H 10/03/19 03:58 ALT 115 units/L (7-56) H 10/03/19 03:58 Alkaline Phosphatase 39 units/L (35-129) 10/03/19 03:58 Lactate Dehydrogenase 1277 units/L (91-180) H 10/01/19 09:16 Total Creatine Kinase 2599 units/L (30-135) H 10/04/19 08:46 C-Reactive Protein 9.40 mg/dL (0.00-1.30) H 10/01/19 09:16 Total Protein 6.8 g/dL (6.3-8.2) 10/03/19 03:58 Albumin 2.9 g/dL (3.9-5) L 10/03/19 03:58 Albumin/Globulin Ratio 0.7 % 10/03/19 03:58 Procalcitonin 9.50 ng/mL (<0.15) 10/01/19 09:16 Urine Color [place] (Yellow) 10/01/19 Unknown Urine Turbidity Slightly-cloudy (Clear) 10/01/19 Unknown Urine pH 5.0 (5.0-7.0) 10/01/19 Unknown Ur Specific [place] 1.026 (1.003-1.030) 10/01/19 Unknown Urine Protein 100 mg/dl mg/dL (Negative) 10/01/19 Unknown Urine Glucose (UA) Neg mg/dL (Negative) 10/01/19 Unknown Urine Ketones Tr mg/dL (Negative) 10/01/19 Unknown Urine Blood Lg (Negative) 10/01/19 Unknown Urine Nitrite Neg (Negative) 10/01/19 Unknown Urine Bilirubin Neg (Negative) 10/01/19 Unknown Urine Urobilinogen 2.0 mg/dL (<2.0) 10/01/19 Unknown Ur Leukocyte Esterase Neg (Negative) 10/01/19 Unknown Urine WBC (Auto) 17.0 /HPF (0.0-6.0) H 10/01/19 Unknown Urine RBC (Auto) 1.0 /HPF (0.0-6.0) 10/01/19 Unknown U Epithel Cells (Auto) 4.0 /HPF (0-13.0) 10/01/19 Unknown Urine Mucus 2+ /HPF 10/01/19 Unknown Salicylates < 0.3 mg/dL (2.8-20.0) L 09/30/19 22:44 Urine Opiates Screen Presumptive negative 10/01/19 Unknown Urine Methadone Screen Presumptive negative 10/01/19 Unknown Acetaminophen 5.0 ug/mL (10.0-30.0) L 09/30/19 22:44 Ur Barbiturates Screen Presumptive negative 10/01/19 Unknown Valproic Acid 31.8 ug/mL (50-100) L 10/04/19 08:46 Ur Phencyclidine Scrn Presumptive negative 10/01/19 Unknown Ur Amphetamines Screen Presumptive negative 10/01/19 Unknown U Benzodiazepines Scrn Presumptive negative 10/01/19 Unknown Urine Cocaine Screen Presumptive negative 10/01/19 Unknown U Marijuana (THC) Screen Presumptive negative 10/01/19 Unknown Drugs of Abuse Note Disclamer 10/01/19 Unknown Plasma/Serum Alcohol < 0.01 % (0-0.07) 09/30/19 22:44 Coronavirus (PCR) Positive (Negative) A 10/02/19 Unknown Microbiology: Microbiology 10/01/19 Unknown Urine,Clean Catch Urine Culture - Final NO GROWTH AFTER 48 HOURS 10/01/19 01:40 Peripheral/Venous Blood Culture - Preliminary NO GROWTH AFTER 72 HOURS 10/01/19 01:59 Peripheral/Venous Blood Culture - Preliminary NO GROWTH AFTER 72 HOURS Garcia/IV: Voiding Method External Female Catheter IV Catheter Type [Right Upper INT / Saline Lock arm] IV Catheter Type [Right INT / Saline Lock Antecubital] IV Catheter Type [Right Foot] INT / Saline Lock IV Catheter Type [Right Peripheral IV External Jugular] Active Medications - Current Medications Current Medications: Generic Name Dose Route Start Last Admin Trade Name Freq PRN Reason Stop Dose Admin Acetaminophen 650 mg 10/01/19 08:00 10/04/19 05:30 Tylenol PO 650 mg Q4H PRN Administration Pain MILD(1-3)/Fever >100.5/WRIGHT Lipase/Protease/Amylase 1 each 10/04/19 10:34 Pancrebobby Martinez 10,500 Unit FEEDTUBE PRN PRN For Clogged Feeding Tube Divalproex Sodium 1,500 mg 10/04/19 22:00 Depakote PO QHS ZACH Haloperidol 5 mg 10/02/19 12:00 10/04/19 10:46 Haldol PO 5 mg BID ZACH Administration Heparin Sodium (Porcine) 5,000 unit 10/01/19 10:00 10/04/19 13:16 Heparin SUB-Q 5,000 unit Q8HR ZACH Administration Azithromycin 500 mg/ Sodium 250 mls @ 250 mls/hr 10/01/19 10:00 10/04/19 10:47 Chloride IV 10/05/19 10:59 250 mls/hr Q24HR ZACH Administration Protocol Ceftriaxone Sodium 2 gm in 100 mls @ 200 mls/hr 10/01/19 10:00 10/04/19 10:16 Rocephin/Ns 2 Gm/100 Ml IV 200 mls/hr Q24HR ZACH Administration Protocol Methylprednisolone Sodium Succinate 40 mg 10/02/19 22:00 10/04/19 13:16 Solu-Medrol IV 40 mg Q8HR ZACH Administration Miscellaneous Medication 325 mg 10/02/19 18:45 Paliperidone Palmitate [Invega Sustenna] IM Q3W ZACH Ondansetron HCl 4 mg 10/01/19 08:00 Zofran IV Q8H PRN Nausea And Vomiting Simple Syrup 15 ml 10/04/19 10:34 Simple Syrup FEEDTUBE PRN PRN Hypoglycemia Simple Syrup 30 ml 10/04/19 10:34 Simple Syrup FEEDTUBE PRN PRN Hypoglycemia Sodium Bicarbonate 325 mg 10/04/19 10:34 Sodium Bicarbonate FEEDTUBE PRN PRN For Clogged Feeding Tube Sodium Chloride 10 ml 10/01/19 10:00 10/04/19 10:46 Sodium Chloride Flush Syringe 10 Ml IV 10 ml BID ZACH Administration Sodium Chloride 10 ml 10/01/19 07:50 Sodium Chloride Flush Syringe 10 Ml IV 10/14/19 07:49 PRN PRN LINE FLUSH Trazodone HCl 50 mg 10/01/19 22:00 10/03/19 22:21 Desyrel PO 50 mg QHS ZACH Administration Nutrition/Malnutrition Assess - Dietary Evaluation Nutrition/Malnutrition Findings: Nutrition Notes Start: 10/04/19 09:33 Freq: Status: Active Protocol: Document 10/04/19 09:34 LP (Rec: 10/04/19 10:31 LP [id number]) Nutrition Notes Need for Assessment generated from: MD Order Initial or Follow up Assessment Current Diagnosis Acute Kidney Injury,Sepsis Other Pertinent Diagnosis COVID-19 (+), Schizoaffective disorder Current Diet No diet Labs/Tests Na 150 BG 141 Pertinent Medications Solumedrol Height 5 ft 6 in Weight 114 kg [place] Body Weight (kg) 59.09 BMI 40.5 Weight Status Morbidly Obese Subjective/Other Information Consult for TF. Pt has NGT. Pt With AMS and non-verbal. Burn Absent Trauma Absent GI Symptoms None Difficulty In Swallowing Food Allergy No Current % PO Negligible Minimum of two criteria No Reduced [employer]visor [employer] Services Strength Measurably Reduced (severe) #1 Nutrition Diagnosis Inadequate oral intake Etiology Swallowing difficulty and AMS As Evidenced by Signs and Symptoms Pt noted with decreased responsiveness and NGT placed Is patient on ventilator? No Is Patient Ambulatory and/or Out of Bed No REE-([facility]-confined to bed) 2106.012 Kcal/Kg value to use for calculation 14 Approximate Energy Requirements Using 1596 kcal/Kg Calculation Used for Recommendations Kcal/kg Additional Notes Protein needs are 69-87g (0.8- 1g/kg adjusted wt 86.5kg) Fluid needs are 1ml/kcal Nutrition Intervention Change Diet Order: TF Nutrition Support: Jevity 1.2 at 55ml/hr Flush with 150ml q4h Kcal 1,584 Protein (gm) 73 Fluid (mL) 1,065 Goal #1 Meet at least 80% of kcal and protein needs via TF Anticipated Discharge Needs: Unable to determine at this time Follow-Up By: 10/06/19 Additional Comments Follow for TF start/tolerance <HERIBERTO CONTE - Last Filed: 10/04/19 16:04> Assessment and Plan Assessment and plan: I saw and evaluated the patient. I agree with the findings and the plan of care as documented in the Nurse Practitioner's~note, with the following corrections and additions. Acute kidney injury secondary to vasomotor nephropathy now improved. Hospitalist Physical - Constitutional Vitals: Temp Pulse Resp BP Pulse Ox 97.7 F 98 H 20 142/91 98 10/04/19 12:39 10/04/19 12:39 10/04/19 12:39 10/04/19 12:39 10/04/19 12:39 Results - Labs CBC & Chem 7: 10/04/19 08:46 10/04/19 08:46 Labs: Laboratory Last Values WBC 16.2 K/mm3 (4.5-11.0) H 10/04/19 08:46 RBC 4.17 M/mm3 (3.65-5.03) 10/04/19 08:46 Hgb 12.0 gm/dl (10.1-14.3) 10/04/19 08:46 Hct 37.1 % (30.3-42.9) 10/04/19 08:46 MCV 89 fl (79-97) 10/04/19 08:46 MCH 29 pg (28-32) 10/04/19 08:46 MCHC 33 % (30-34) 10/04/19 08:46 RDW 16.1 % (13.2-15.2) H 10/04/19 08:46 Plt Count 160 K/mm3 (140-440) 10/04/19 08:46 Lymph % (Auto) 10.6 % (13.4-35.0) L 09/30/19 22:44 [place] % (Auto) 9.8 % (0.0-7.3) H 09/30/19 22:44 Eos % (Auto) 0.0 % (0.0-4.3) 09/30/19 22:44 Baso % (Auto) 1.2 % (0.0-1.8) 09/30/19 22:44 Lymph # 1.5 K/mm3 (1.2-5.4) 09/30/19 22:44 [place] # 1.3 K/mm3 (0.0-0.8) H 09/30/19 22:44 Eos # 0.0 K/mm3 (0.0-0.4) 09/30/19 22:44 Baso # 0.2 K/mm3 (0.0-0.1) H 09/30/19 22:44 Add Manual Diff Complete 10/02/19 05:08 Total Counted 100 10/02/19 05:08 Seg Neutrophils % 78.4 % (40.0-70.0) H 09/30/19 22:44 Seg Neuts % (Manual) 72.0 % (40.0-70.0) H 10/02/19 05:08 Band Neutrophils % 8.0 % 10/02/19 05:08 Lymphocytes % (Manual) 13.0 % (13.4-35.0) L 10/02/19 05:08 Reactive Lymphs % (Man) 0 % 10/02/19 05:08 Monocytes % (Manual) 7.0 % (0.0-7.3) 10/02/19 05:08 Eosinophils % (Manual) 0 % (0.0-4.3) 10/02/19 05:08 Basophils % (Manual) 0 % (0.0-1.8) 10/02/19 05:08 Metamyelocytes % 0 % 10/02/19 05:08 Myelocytes % 0 % 10/02/19 05:08 Promyelocytes % 0 % 10/02/19 05:08 Blast Cells % 0 % 10/02/19 05:08 Nucleated RBC % Not Reportable 10/02/19 05:08 Seg Neutrophils # 10.8 K/mm3 (1.8-7.7) H 09/30/19 22:44 Seg Neutrophils # Man 7.5 K/mm3 (1.8-7.7) 10/02/19 05:08 Band Neutrophils # 0.8 K/mm3 10/02/19 05:08 Lymphocytes # (Manual) 1.4 K/mm3 (1.2-5.4) 10/02/19 05:08 Abs React Lymphs (Man) 0.0 K/mm3 10/02/19 05:08 Monocytes # (Manual) 0.7 K/mm3 (0.0-0.8) 10/02/19 05:08 Eosinophils # (Manual) 0.0 K/mm3 (0.0-0.4) 10/02/19 05:08 Basophils # (Manual) 0.0 K/mm3 (0.0-0.1) 10/02/19 05:08 Metamyelocytes # 0.0 K/mm3 10/02/19 05:08 Myelocytes # 0.0 K/mm3 10/02/19 05:08 Promyelocytes # 0.0 K/mm3 10/02/19 05:08 Blast Cells # 0.0 K/mm3 10/02/19 05:08 WBC Morphology Not Reportable 10/02/19 05:08 Hypersegmented Neuts Not Reportable 10/02/19 05:08 Hyposegmented Neuts Not Reportable 10/02/19 05:08 Hypogranular Neuts Not Reportable 10/02/19 05:08 Smudge Cells Not Reportable 10/02/19 05:08 Toxic Granulation Not Reportable 10/02/19 05:08 Toxic Vacuolation Not Reportable 10/02/19 05:08 Dohle Bodies Not Reportable 10/02/19 05:08 Pelger-Huet Anomaly Not Reportable 10/02/19 05:08 Bal Rods Not Reportable 10/02/19 05:08 Platelet Estimate Consistent w auto 10/02/19 05:08 Clumped Platelets Not Reportable 10/02/19 05:08 Plt Clumps, EDTA Not Reportable 10/02/19 05:08 Large Platelets Not Reportable 10/02/19 05:08 Giant Platelets Not Reportable 10/02/19 05:08 Platelet Satelliting Not Reportable 10/02/19 05:08 Plt Morphology Comment Not Reportable 10/02/19 05:08 RBC Morphology Not Reportable 10/02/19 05:08 Dimorphic RBCs Not Reportable 10/02/19 05:08 Polychromasia Not Reportable 10/02/19 05:08 Hypochromasia Not Reportable 10/02/19 05:08 Poikilocytosis Not Reportable 10/02/19 05:08 Anisocytosis 1+ 10/02/19 05:08 Microcytosis Not Reportable 10/02/19 05:08 Macrocytosis Not Reportable 10/02/19 05:08 Spherocytes Not Reportable 10/02/19 05:08 Pappenheimer Bodies Not Reportable 10/02/19 05:08 Sickle Cells Not Reportable 10/02/19 05:08 Target Cells Not Reportable 10/02/19 05:08 Tear Drop Cells Not Reportable 10/02/19 05:08 Ovalocytes Not Reportable 10/02/19 05:08 Helmet Cells Not Reportable 10/02/19 05:08 Singleton-Goodwell Bodies Not Reportable 10/02/19 05:08 [place] Rings Not Reportable 10/02/19 05:08 Mary Cells Not Reportable 10/02/19 05:08 Bite Cells Not Reportable 10/02/19 05:08 Crenated Cell Not Reportable 10/02/19 05:08 Elliptocytes Not Reportable 10/02/19 05:08 Acanthocytes (Spur) Not Reportable 10/02/19 05:08 Rouleaux Not Reportable 10/02/19 05:08 Hemoglobin C Crystals Not Reportable 10/02/19 05:08 Schistocytes Not Reportable 10/02/19 05:08 Malaria parasites Not Reportable 10/02/19 05:08 Willie Bodies Not Reportable 10/02/19 05:08 Hem Pathologist Commnt No 10/02/19 05:08 D-Dimer > 65226 ng/mlDDU (0-234) H 10/01/19 09:16 Sodium 147 mmol/L (137-145) H 10/04/19 08:46 Potassium 3.9 mmol/L (3.6-5.0) 10/04/19 08:46 Chloride 110.4 mmol/L (98-107) H 10/04/19 08:46 Carbon Dioxide 22 mmol/L (22-30) 10/04/19 08:46 Anion Gap 19 mmol/L 10/04/19 08:46 BUN 21 mg/dL (7-17) H 10/04/19 08:46 Creatinine 0.9 mg/dL (0.6-1.2) 10/04/19 08:46 Estimated GFR > 60 ml/min 10/04/19 08:46 BUN/Creatinine Ratio 23 % 10/04/19 08:46 Glucose 170 mg/dL (65-100) H 10/04/19 08:46 Lactic Acid 1.30 mmol/L (0.7-2.0) 09/30/19 22:44 Calcium 7.7 mg/dL (8.4-10.2) L 10/04/19 08:46 Ferritin 962.2 ng/mL (10.0-200.0) H 10/01/19 09:16 Total Bilirubin 0.40 mg/dL (0.1-1.2) 10/03/19 03:58 Direct Bilirubin 0.3 mg/dL (0-0.2) H 09/30/19 22:44 Indirect Bilirubin 0.2 mg/dL 09/30/19 22:44 AST 351 units/L (5-40) H 10/03/19 03:58 ALT 115 units/L (7-56) H 10/03/19 03:58 Alkaline Phosphatase 39 units/L (35-129) 10/03/19 03:58 Lactate Dehydrogenase 1277 units/L (91-180) H 10/01/19 09:16 Total Creatine Kinase 2599 units/L (30-135) H 10/04/19 08:46 C-Reactive Protein 9.40 mg/dL (0.00-1.30) H 10/01/19 09:16 Total Protein 6.8 g/dL (6.3-8.2) 10/03/19 03:58 Albumin 2.9 g/dL (3.9-5) L 10/03/19 03:58 Albumin/Globulin Ratio 0.7 % 10/03/19 03:58 Procalcitonin 9.50 ng/mL (<0.15) 10/01/19 09:16 Urine Color [place] (Yellow) 10/01/19 Unknown Urine Turbidity Slightly-cloudy (Clear) 10/01/19 Unknown Urine pH 5.0 (5.0-7.0) 10/01/19 Unknown Ur Specific [place] 1.026 (1.003-1.030) 10/01/19 Unknown Urine Protein 100 mg/dl mg/dL (Negative) 10/01/19 Unknown Urine Glucose (UA) Neg mg/dL (Negative) 10/01/19 Unknown Urine Ketones Tr mg/dL (Negative) 10/01/19 Unknown Urine Blood Lg (Negative) 10/01/19 Unknown Urine Nitrite Neg (Negative) 10/01/19 Unknown Urine Bilirubin Neg (Negative) 10/01/19 Unknown Urine Urobilinogen 2.0 mg/dL (<2.0) 10/01/19 Unknown Ur Leukocyte Esterase Neg (Negative) 10/01/19 Unknown Urine WBC (Auto) 17.0 /HPF (0.0-6.0) H 10/01/19 Unknown Urine RBC (Auto) 1.0 /HPF (0.0-6.0) 10/01/19 Unknown U Epithel Cells (Auto) 4.0 /HPF (0-13.0) 10/01/19 Unknown Urine Mucus 2+ /HPF 10/01/19 Unknown Salicylates < 0.3 mg/dL (2.8-20.0) L 09/30/19 22:44 Urine Opiates Screen Presumptive negative 10/01/19 Unknown Urine Methadone Screen Presumptive negative 10/01/19 Unknown Acetaminophen 5.0 ug/mL (10.0-30.0) L 09/30/19 22:44 Ur Barbiturates Screen Presumptive negative 10/01/19 Unknown Valproic Acid 31.8 ug/mL (50-100) L 10/04/19 08:46 Ur Phencyclidine Scrn Presumptive negative 10/01/19 Unknown Ur Amphetamines Screen Presumptive negative 10/01/19 Unknown U Benzodiazepines Scrn Presumptive negative 10/01/19 Unknown Urine Cocaine Screen Presumptive negative 10/01/19 Unknown U Marijuana (THC) Screen Presumptive negative 10/01/19 Unknown Drugs of Abuse Note Disclamer 10/01/19 Unknown Plasma/Serum Alcohol < 0.01 % (0-0.07) 09/30/19 22:44 Coronavirus (PCR) Positive (Negative) A 10/02/19 Unknown Microbiology: Microbiology 10/01/19 Unknown Urine,Clean Catch Urine Culture - Final NO GROWTH AFTER 48 HOURS 10/01/19 01:40 Peripheral/Venous Blood Culture - Preliminary NO GROWTH AFTER 72 HOURS 10/01/19 01:59 Peripheral/Venous Blood Culture - Preliminary NO GROWTH AFTER 72 HOURS Garcia/IV: Voiding Method External Female Catheter IV Catheter Type [Right Upper INT / Saline Lock arm] IV Catheter Type [Right INT / Saline Lock Antecubital] IV Catheter Type [Right Foot] INT / Saline Lock IV Catheter Type [Right Peripheral IV External Jugular] Active Medications - Current Medications Current Medications: Generic Name Dose Route Start Last Admin Trade Name Freq PRN Reason Stop Dose Admin Acetaminophen 650 mg 10/01/19 08:00 10/04/19 05:30 Tylenol PO 650 mg Q4H PRN Administration Pain MILD(1-3)/Fever >100.5/WRIGHT Lipase/Protease/Amylase 1 each 10/04/19 10:34 Pancreazbubba Martinez 10,500 Unit FEEDTUBE PRN PRN For Clogged Feeding Tube Divalproex Sodium 1,500 mg 10/04/19 22:[address] PO QHS [facility] Enoxaparin Sodium 40 mg 10/04/19 22:00 Enoxaparin SUB-Q BID [facility] Haloperidol 5 mg 10/02/19 12:00 10/04/19 10:46 Haldol PO 5 mg BID [facility] Administration Azithromycin 500 mg/ Sodium 250 mls @ 250 mls/hr 10/01/19 10:00 10/04/19 10:47 Chloride IV 10/05/19 10:59 250 mls/hr Q24HR [facility] Administration Protocol Ceftriaxone Sodium 2 gm in 100 mls @ 200 mls/hr 10/01/19 10:00 10/04/19 10:16 Rocephin/Ns 2 Gm/100 Ml IV 200 mls/hr Q24HR [facility] Administration Protocol Methylprednisolone Sodium Succinate 40 mg 10/02/19 22:00 10/04/19 13:16 Solu-Medrol IV 40 mg Q8HR [facility] Administration Miscellaneous Medication 325 mg 10/02/19 18:45 Paliperidone Palmitate [Invega Sustenna] IM Q3W [facility] Ondansetron HCl 4 mg 10/01/19 08:00 Zofran IV Q8H PRN Nausea And Vomiting Simple Syrup 15 ml 10/04/19 10:34 Simple Syrup FEEDTUBE PRN PRN Hypoglycemia Simple Syrup 30 ml 10/04/19 10:34 Simple Syrup FEEDTUBE PRN PRN Hypoglycemia Sodium Bicarbonate 325 mg 10/04/19 10:34 Sodium Bicarbonate FEEDTUBE PRN PRN For Clogged Feeding Tube Sodium Chloride 10 ml 10/01/19 10:00 10/04/19 10:46 Sodium Chloride Flush Syringe 10 Ml IV 10 ml BID [facility] Administration Sodium Chloride 10 ml 10/01/19 07:50 Sodium Chloride Flush Syringe 10 Ml IV 10/14/19 07:49 PRN PRN LINE FLUSH Trazodone HCl 50 mg 10/01/19 22:00 10/03/19 22:21 Desyrel PO 50 mg QHS [facility] Administration Nutrition/Malnutrition Assess - Dietary Evaluation Nutrition/Malnutrition Findings: Nutrition Notes Start: 10/04/19 09:33 Freq: Status: Active Protocol: Document 10/04/19 09:34 LP (Rec: 10/04/19 10:31 LP [id number]) Nutrition Notes Need for Assessment generated from: MD Order Initial or Follow up Assessment Current Diagnosis Acute Kidney Injury,Sepsis Other Pertinent Diagnosis COVID-19 (+), Schizoaffective disorder Current Diet No diet Labs/Tests Na 150 BG 141 Pertinent Medications Solumedrol Height 5 ft 6 in Weight 114 kg [place] Body Weight (kg) 59.09 BMI 40.5 Weight Status Morbidly Obese Subjective/Other Information Consult for TF. Pt has NGT. Pt With AMS and non-verbal. Burn Absent Trauma Absent GI Symptoms None Difficulty In Swallowing Food Allergy No Current % PO Negligible Minimum of two criteria No Reduced [employer] Services Strength Measurably Reduced (severe) #1 Nutrition Diagnosis Inadequate oral intake Etiology Swallowing difficulty and AMS As Evidenced by Signs and Symptoms Pt noted with decreased responsiveness and NGT placed Is patient on ventilator? No Is Patient Ambulatory and/or Out of Bed No REE-([facility]-confined to bed) 2106.012 Kcal/Kg value to use for calculation 14 Approximate Energy Requirements Using 1596 kcal/Kg Calculation Used for Recommendations Kcal/kg Additional Notes Protein needs are 69-87g (0.8- 1g/kg adjusted wt 86.5kg) Fluid needs are 1ml/kcal Nutrition Intervention Change Diet Order: TF Nutrition Support: Jevity 1.2 at 55ml/hr Flush with 150ml q4h Kcal 1,584 Protein (gm) 73 Fluid (mL) 1,065 Goal #1 Meet at least 80% of kcal and protein needs via TF Anticipated Discharge Needs: Unable to determine at this time Follow-Up By: 10/06/19 Additional Comments Follow for TF start/tolerance
[2019-10-04] MEDS: traZODone 50 MG TAB PO SCH (21:26)
[2019-10-04] MEDS: ENOXAPARIN 40 MG/0.4 ML INJ SUB-Q SCH (21:26)
[2019-10-04] MEDS ORDERED: DIVALPROEX DR 500 MG TAB PO SCH (22:00)
[2019-10-05] MEDS: methylPREDNISolone Sod Succinate 40 MG/1 ML INJ IV SCH ×3 (05:18→22:32)
[2019-10-05 08:49] LABS: Hematocrit 39.3 % (30.3-42.9); Hemoglobin 12.6 gm/dl (10.1-14.3); Mean Corpuscular HGB Conc 32 % (30-34); Mean Corpuscular Volume 89 fl (79-97); Platelet Count 197 K/mm3 (140-440); Red Blood Count 4.43 M/mm3 (3.65-5.03)
[2019-10-05 09:07] LABS: Alanine Aminotransferase 96 units/L (7-56); Albumin 2.5 g/dL (3.9-5); BUN/Creatinine Ratio 22; Blood Urea Nitrogen 20 mg/dL (7-17); Hemolysis Index 22
--- NOTE | 2019-10-05 10:10 | Progress Note ---
Subjective - Reason for Consult Consult date: 10/05/19 Reason for consult: nonverbal - Chief Complaint Chief complaint: The patient's medical record was reviewed and the patient's progress was discussed with the nursing staff. The nurse note states the patient could not take nightly depakote DR due to pill size. I attempted to interview the patient today, she is lying in bed, she moves her legs up as I'm calling her name but she never opens her eyes. The patient is nonverbal. REVIEW OF SYSTEMS Unable to assess due to patient factors MENTAL STATUS EXAMINATION Unable to obtain ASSESSMENT Schizoaffective disorder RECOMMENDATIONS MEDICATIONS Changed depakote dr to depakene liquid since the patient was unable to swallow Risks, benefits and alternatives of medications discussed with the patient, questions answered and consent obtained from patient. PSYCHOTHERAPY: Supportive psychotherapy provided MEDICAL: Per primary team DELIRIUM PRECAUTIONS: Please re-orient patient frequently, keep lights on during the day, and minimize benzodiazepines and opiates as these medications could worsen patient's confusion. 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 Please re-consult once, and if the patient improves medically. She has acute and complex medical conditions that supersede her need for inpatient psychiatric treatment at this time. Will sign off. Thank you for the consult. Please contact with any questions and/or concerns. Mental Status Exam - Vital signs Last Vital Signs Temp 97.5 F L 10/05/19 05:52 Pulse 90 10/05/19 05:55 Resp 21 10/05/19 05:52 BP 136/83 10/05/19 05:52 Pulse Ox 95 10/05/19 05:55
[2019-10-05] MEDS: cefTRIAXone/NS 2 GM/100 ML 2 GM/100 ML BAG IV SCH (11:17)
[2019-10-05] MEDS: ENOXAPARIN 40 MG/0.4 ML INJ SUB-Q SCH ×2 (11:17→22:32)
[2019-10-05] MEDS: HALOPERIDOL 5 MG TAB PO SCH ×2 (11:18→22:32)
[2019-10-05] MEDS: AZITHROMYCIN 500 MG in SODIUM CHLORIDE 0.9% 250ML 250 ML IV SCH (12:53)
--- NOTE | 2019-10-05 14:00 | Progress Note ---
<BLANCA SOFIA KellyFabián - Last Filed: 10/05/19 14:16> Assessment and Plan - Patient Problems (1) Severe sepsis Current Visit: Yes Status: Acute Plan to address problem: - Presented with low-grade fever, tachycardia, leukocytosis, FAISAL, and bilateral pneumonia - Likely source is bilateral pneumonia secondary to COVID-19 - IV antibiotics - Covid protocol initiated (2) Pneumonia due to COVID-19 virus Current Visit: Yes Status: Acute Plan to address problem: - COVID protocol initiated - IV azithromycin and Rocephin initiated - 09/30 COVID PCR positive - Trend LDH, CRP, procalcitonin, d-dimer, ferritin - Droplet /contact precautions - Supplemental oxygenation as needed - Infectious disease consult requested - Pulmonary hygiene - In setting of elevated D-Dimer, CTA Chest was ordered which was negative for pulmonary embolism - Anticoagulation per COVID protocol - Cannot initiate Remdesivir in setting on f elevated LFTs (3) Neuroleptic malignant syndrome Current Visit: Yes Status: Ruled-out Plan to address problem: - Given catatonic state, elevated CK, AMS and antipsychotic medication use we will r/o malignant neuroleptic syndrome - Neurology has been consulted; does not suspect NMS at this time - 10/02 CTH shows mild microvascular angiopathy and cerebral atrophy without evidence of acute intracranial hemorrhage. (4) Rhabdomyolysis Current Visit: Yes Status: Acute [place] problem: [place] [address], down to 2599 - Received 2 liters IVF in ED and NS then 1/2 NS AT 125 mL/hr - Trend CK levels (5) Acute psychosis Current Visit: Yes Status: Acute Plan to address problem: - Currently withdraws to pain however moving all extremities spontaneously - History of paranoid schizophrenia - Mental health consult requested and does not recommend inpatient psych at this time as medical needs outweigh psych this time - Requested to reconsult when patient is medically stable (6) Paranoid schizophrenia Current Visit: Yes Status: Acute Plan to address problem: -History of present schizophrenia -Psych consulted and appreciate recommendations -Depakote and Haldol -Sleep hygiene -Reorientation as needed (7) Acute renal failure Current Visit: Yes Status: Acute Plan to address problem: - Vasomotor nephropathy maybe secondary to dehydration and rhabdomyolysis - Received 2 L IVF in ED - Admit Cr/BUN 1.4/33 but now trended down - Avoid nephrotoxic medications - Trend BMP (8) Leukocytosis Current Visit: Yes Status: Acute Plan to address problem: - Admit WBC 13.8 - Trend CBC - Maybe secondary to possible PNA or from dehydration - IV abx - Also on steroids for COVID pneumonia (9) Thrombocytopenia Current Visit: Yes Status: Resolved Plan to address problem: - Admit Plt is 97 now up to 140K - Bleeding precautions - Trend CBC (10) DVT prophylaxis Current Visit: Yes Status: Acute Plan to address problem: - SCDs to BLE while in bed - Lovenox subq twice daily per COVID protocol History Interval history: This is a 54-year-old female with paranoid schizophrenia that presents to the emergency department on 09/29 for altered mental status in a catatonic state. Previous hospitalizations reviewed and only notes a history of paranoid schizophrenia. Patient may be a resident of [place]. Patient is currently nonverbal and HPI is received from ER documentation. Work-up in the emergency department included a CT abdomen pelvis which shows patchy peripheral groundglas s opacities bilateral lungs which is consistent with either viral or atypical pneumonia, positive anterior lateral fat hernia in the left mid abdomen and a large uterine fibroids however her CXR showed no acute pulmonary or pleural abnormalities. She was found to have acute kidney injury with a creatinine of 1.4/BUN 33 as baseline from previous records seems to be 0.7, rhabdomyolysis with a creatinine kinase of 33,481, leukocytosis with a WBC of 13.8, thrombocytopenia with platelets at 97. She has COVID pneumonia with IV antibiotics, rhabdomyolysis, and FAISAL. Infectious disease, psych, and neurology have been consulted. Neurology does not suspect NMS at this time. Psych has signed off at this time due to ongoing acute medical processes. PT/ST consulted for evaluation. At the time of my exam is patient verbalized to painful stimuli however she does not open her eyes to verbal or physical stimuli. * Discussed with primary cart pusher patient was normally verbal but sometimes goes into a catatonic state. Phone number for this is [phone] * 10/03: continue treatment * 10/02: Change fluids to NS 1/2 AT 125CC/hr. Rhabdomylysis improving, insert NGT and start tube feeds. Psych input noted. Continue management for COVID 19. ID consulted. No new fever. CTA and CTH obtained which were both negative * 10/01: COVID PCR Positive Hospitalist Physical - Constitutional Vitals: Temp Pulse Resp BP Pulse Ox 97.5 F L 90 21 136/83 96 10/05/19 05:52 10/05/19 05:55 10/05/19 05:52 10/05/19 05:52 10/05/19 10:00 General appearance: Present: no acute distress, other (Patient slightly opens her eyes to tactile stimuli and withdraws to painful stimuli in all 4 extremities. She is seen LEVY spontaneously.) - EENT Eyes: Present: PERRL - Neck Neck: Present: normal ROM - Respiratory Respiratory effort: normal Respiratory: bilateral: CTA - Cardiovascular Rhythm: regular Heart Sounds: Present: S1 & S2. Absent: systolic murmur, diastolic murmur - Extremities Extremities: no ischemia, pulses intact, pulses symmetrical, No edema, normal t emperature, normal color Peripheral Pulses: within normal limits - Abdominal General gastrointestinal: soft, non-tender, non-distended, normal bowel sounds - Integumentary Integumentary: Present: clear, warm, dry - Psychiatric Psychiatric: other (Moans and withdraws to verbal and physical stimuli) - Neurologic Neurologic: moves all extremities (Painful stimuli) - Allied Health Allied health notes reviewed: nursing, social work, case management Results - Labs CBC & Chem 7: 10/05/19 08:32 10/05/19 08:32 Labs: Laboratory Last Values WBC 18.4 K/mm3 (4.5-11.0) H 10/05/19 08:32 RBC 4.43 M/mm3 (3.65-5.03) 10/05/19 08:32 Hgb 12.6 gm/dl (10.1-14.3) 10/05/19 08:32 Hct 39.3 % (30.3-42.9) 10/05/19 08:32 MCV 89 fl (79-97) 10/05/19 08:32 MCH 29 pg (28-32) 10/05/19 08:32 MCHC 32 % (30-34) 10/05/19 08:32 RDW 16.0 % (13.2-15.2) H 10/05/19 08:32 Plt Count 197 K/mm3 (140-440) 10/05/19 08:32 Lymph % (Auto) 10.6 % (13.4-35.0) L 09/30/19 22:44 [place] % (Auto) 9.8 % (0.0-7.3) H 09/30/19 22:44 Eos % (Auto) 0.0 % (0.0-4.3) 09/30/19 22:44 Baso % (Auto) 1.2 % (0.0-1.8) 09/30/19 22:44 Lymph # 1.5 K/mm3 (1.2-5.4) 09/30/19 22:44 [place] # 1.3 K/mm3 (0.0-0.8) H 09/30/19 22:44 Eos # 0.0 K/mm3 (0.0-0.4) 09/30/19 22:44 Baso # 0.2 K/mm3 (0.0-0.1) H 09/30/19 22:44 Add Manual Diff Complete 10/02/19 05:08 Total Counted 100 10/02/19 05:08 Seg Neutrophils % 78.4 % (40.0-70.0) H 09/30/19 22:44 Seg Neuts % (Manual) 72.0 % (40.0-70.0) H 10/02/19 05:08 Band Neutrophils % 8.0 % 10/02/19 05:08 Lymphocytes % (Manual) 13.0 % (13.4-35.0) L 10/02/19 05:08 Reactive Lymphs % (Man) 0 % 10/02/19 05:08 Monocytes % (Manual) 7.0 % (0.0-7.3) 10/02/19 05:08 Eosinophils % (Manual) 0 % (0.0-4.3) 10/02/19 05:08 Basophils % (Manual) 0 % (0.0-1.8) 10/02/19 05:08 Metamyelocytes % 0 % 10/02/19 05:08 Myelocytes % 0 % 10/02/19 05:08 Promyelocytes % 0 % 10/02/19 05:08 Blast Cells % 0 % 10/02/19 05:08 Nucleated RBC % Not Reportable 10/02/19 05:08 Seg Neutrophils # 10.8 K/mm3 (1.8-7.7) H 09/30/19 22:44 Seg Neutrophils # Man 7.5 K/mm3 (1.8-7.7) 10/02/19 05:08 Band Neutrophils # 0.8 K/mm3 10/02/19 05:08 Lymphocytes # (Manual) 1.4 K/mm3 (1.2-5.4) 10/02/19 05:08 Abs React Lymphs (Man) 0.0 K/mm3 10/02/19 05:08 Monocytes # (Manual) 0.7 K/mm3 (0.0-0.8) 10/02/19 05:08 Eosinophils # (Manual) 0.0 K/mm3 (0.0-0.4) 10/02/19 05:08 Basophils # (Manual) 0.0 K/mm3 (0.0-0.1) 10/02/19 05:08 Metamyelocytes # 0.0 K/mm3 10/02/19 05:08 Myelocytes # 0.0 K/mm3 10/02/19 05:08 Promyelocytes # 0.0 K/mm3 10/02/19 05:08 Blast Cells # 0.0 K/mm3 10/02/19 05:08 WBC Morphology Not Reportable 10/02/19 05:08 Hypersegmented Neuts Not Reportable 10/02/19 05:08 Hyposegmented Neuts Not Reportable 10/02/19 05:08 Hypogranular Neuts Not Reportable 10/02/19 05:08 Smudge Cells Not Reportable 10/02/19 05:08 Toxic Granulation Not Reportable 10/02/19 05:08 Toxic Vacuolation Not Reportable 10/02/19 05:08 Dohle Bodies Not Reportable 10/02/19 05:08 Pelger-Huet Anomaly Not Reportable 10/02/19 05:08 Bal Rods Not Reportable 10/02/19 05:08 Platelet Estimate Consistent w auto 10/02/19 05:08 Clumped Platelets Not Reportable 10/02/19 05:08 Plt Clumps, EDTA Not Reportable 10/02/19 05:08 Large Platelets Not Reportable 10/02/19 05:08 Giant Platelets Not Reportable 10/02/19 05:08 Platelet Satelliting Not Reportable 10/02/19 05:08 Plt Morphology Comment Not Reportable 10/02/19 05:08 RBC Morphology Not Reportable 10/02/19 05:08 Dimorphic RBCs Not Reportable 10/02/19 05:08 Polychromasia Not Reportable 10/02/19 05:08 Hypochromasia Not Reportable 10/02/19 05:08 Poikilocytosis Not Reportable 10/02/19 05:08 Anisocytosis 1+ 10/02/19 05:08 Microcytosis Not Reportable 10/02/19 05:08 Macrocytosis Not Reportable 10/02/19 05:08 Spherocytes Not Reportable 10/02/19 05:08 Pappenheimer Bodies Not Reportable 10/02/19 05:08 Sickle Cells Not Reportable 10/02/19 05:08 Target Cells Not Reportable 10/02/19 05:08 Tear Drop Cells Not Reportable 10/02/19 05:08 Ovalocytes Not Reportable 10/02/19 05:08 Helmet Cells Not Reportable 10/02/19 05:08 Singleton-Alsen Bodies Not Reportable 10/02/19 05:08 Thor Rings Not Reportable 10/02/19 05:08 Mary Cells Not Reportable 10/02/19 05:08 Bite Cells Not Reportable 10/02/19 05:08 Crenated Cell Not Reportable 10/02/19 05:08 Elliptocytes Not Reportable 10/02/19 05:08 Acanthocytes (Spur) Not Reportable 10/02/19 05:08 Rouleaux Not Reportable 10/02/19 05:08 Hemoglobin C Crystals Not Reportable 10/02/19 05:08 Schistocytes Not Reportable 10/02/19 05:08 Malaria parasites Not Reportable 10/02/19 05:08 Willie Bodies Not Reportable 10/02/19 05:08 Hem Pathologist Commnt No 10/02/19 05:08 D-Dimer 654.97 ng/mlDDU (0-234) H 10/05/19 08:32 Sodium 145 mmol/L (137-145) 10/05/19 08:32 Potassium 4.1 mmol/L (3.6-5.0) 10/05/19 08:32 Chloride 110.4 mmol/L (98-107) H 10/05/19 08:32 Carbon Dioxide 22 mmol/L (22-30) 10/05/19 08:32 Anion Gap 17 mmol/L 10/05/19 08:32 BUN 20 mg/dL (7-17) H 10/05/19 08:32 Creatinine 0.9 mg/dL (0.6-1.2) 10/05/19 08:32 Estimated GFR > 60 ml/min 10/05/19 08:32 BUN/Creatinine Ratio 22 % 10/05/19 08:32 Glucose 222 mg/dL (65-100) H 10/05/19 08:32 Lactic Acid 1.30 mmol/L (0.7-2.0) 09/30/19 22:44 Calcium 8.0 mg/dL (8.4-10.2) L 10/05/19 08:32 Ferritin 1325.0 ng/mL (10.0-200.0) H 10/05/19 08:32 Total Bilirubin 0.40 mg/dL (0.1-1.2) 10/05/19 08:32 Direct Bilirubin 0.3 mg/dL (0-0.2) H 09/30/19 22:44 Indirect Bilirubin 0.2 mg/dL 09/30/19 22:44 AST 149 units/L (5-40) H 10/05/19 08:32 ALT 96 units/L (7-56) H 10/05/19 08:32 Alkaline Phosphatase 40 units/L (35-129) 10/05/19 08:32 Lactate Dehydrogenase 817 units/L (91-180) H 10/05/19 08:32 Total Creatine Kinase 934 units/L (30-135) H 10/05/19 08:32 C-Reactive Protein 4.20 mg/dL (0.00-1.30) H 10/05/19 08:32 Total Protein 6.1 g/dL (6.3-8.2) L 10/05/19 08:32 Albumin 2.5 g/dL (3.9-5) L 10/05/19 08:32 Albumin/Globulin Ratio 0.7 % 10/05/19 08:32 Procalcitonin 0.71 ng/mL (<0.15) 10/05/19 08:32 Urine Color [place] (Yellow) 10/01/19 Unknown Urine Turbidity Slightly-cloudy (Clear) 10/01/19 Unknown Urine pH 5.0 (5.0-7.0) 10/01/19 Unknown Ur Specific [place] 1.026 (1.003-1.030) 10/01/19 Unknown Urine Protein 100 mg/dl mg/dL (Negative) 10/01/19 Unknown Urine Glucose (UA) Neg mg/dL (Negative) 10/01/19 Unknown Urine Ketones Tr mg/dL (Negative) 10/01/19 Unknown Urine Blood Lg (Negative) 10/01/19 Unknown Urine Nitrite Neg (Negative) 10/01/19 Unknown Urine Bilirubin Neg (Negative) 10/01/19 Unknown Urine Urobilinogen 2.0 mg/dL (<2.0) 10/01/19 Unknown Ur Leukocyte Esterase Neg (Negative) 10/01/19 Unknown Urine WBC (Auto) 17.0 /HPF (0.0-6.0) H 10/01/19 Unknown Urine RBC (Auto) 1.0 /HPF (0.0-6.0) 10/01/19 Unknown U Epithel Cells (Auto) 4.0 /HPF (0-13.0) 10/01/19 Unknown Urine Mucus 2+ /HPF 10/01/19 Unknown Salicylates < 0.3 mg/dL (2.8-20.0) L 09/30/19 22:44 Urine Opiates Screen Presumptive negative 10/01/19 Unknown Urine Methadone Screen Presumptive negative 10/01/19 Unknown Acetaminophen 5.0 ug/mL (10.0-30.0) L 09/30/19 22:44 Ur Barbiturates Screen Presumptive negative 10/01/19 Unknown Valproic Acid 31.8 ug/mL (50-100) L 10/04/19 08:46 Ur Phencyclidine Scrn Presumptive negative 10/01/19 Unknown Ur Amphetamines Screen Presumptive negative 10/01/19 Unknown U Benzodiazepines Scrn Presumptive negative 10/01/19 Unknown Urine Cocaine Screen Presumptive negative 10/01/19 Unknown U Marijuana (THC) Screen Presumptive negative 10/01/19 Unknown Drugs of Abuse Note Disclamer 10/01/19 Unknown Plasma/Serum Alcohol < 0.01 % (0-0.07) 09/30/19 22:44 Coronavirus (PCR) Positive (Negative) A 10/02/19 Unknown Microbiology: Microbiology 10/01/19 01:40 Peripheral/Venous Blood Culture - Preliminary NO GROWTH AFTER 4 DAYS 10/01/19 01:59 Peripheral/Venous Blood Culture - Preliminary NO GROWTH AFTER 4 DAYS Garcia/IV: Voiding Method External Female Catheter IV Catheter Type [Right Upper INT / Saline Lock arm] IV Catheter Type [Right INT / Saline Lock Antecubital] IV Catheter Type [Right Foot] INT / Saline Lock IV Catheter Type [Right Peripheral IV External Jugular] Active Medications - Current Medications Current Medications: Generic Name Dose Route Start Last Admin Trade Name Freq PRN Reason Stop Dose Admin Acetaminophen 650 mg 10/01/19 08:00 10/04/19 05:30 Tylenol PO 650 mg Q4H PRN Administration Pain MILD(1-3)/Fever >100.5/WRIGHT Lipase/Protease/Amylase 1 each 10/04/19 10:34 Pancreazbubba Martinez 10,500 Unit FEEDTUBE PRN PRN For Clogged Feeding Tube Enoxaparin Sodium 40 mg 10/04/19 22:00 10/05/19 11:17 Enoxaparin SUB-Q 40 mg BID ZACH Administration Haloperidol 5 mg 10/02/19 12:00 10/05/19 11:18 Haldol PO 5 mg BID ZACH Administration Ceftriaxone Sodium 2 gm in 100 mls @ 200 mls/hr 10/01/19 10:00 10/05/19 11:17 Rocephin/Ns 2 Gm/100 Ml IV 200 mls/hr Q24HR ZACH Administration Protocol Methylprednisolone Sodium Succinate 40 mg 10/02/19 22:00 10/05/19 05:18 Solu-Medrol IV 40 mg Q8HR ZACH Administration Miscellaneous Medication 325 mg 10/02/19 18:45 Paliperidone Palmitate [Invega Sustenna] IM Q3W ZACH Ondansetron HCl 4 mg 10/01/19 08:00 Zofran IV Q8H PRN Nausea And Vomiting Simple Syrup 15 ml 10/04/19 10:34 Simple Syrup FEEDTUBE PRN PRN Hypoglycemia Simple Syrup 30 ml 10/04/19 10:34 Simple Syrup FEEDTUBE PRN PRN Hypoglycemia Sodium Bicarbonate 325 mg 10/04/19 10:34 Sodium Bicarbonate FEEDTUBE PRN PRN For Clogged Feeding Tube Sodium Chloride 10 ml 10/01/19 10:00 10/05/19 11:18 Sodium Chloride Flush Syringe 10 Ml IV 10 ml BID ZACH Administration Sodium Chloride 10 ml 10/01/19 07:50 Sodium Chloride Flush Syringe 10 Ml IV 10/14/19 07:49 PRN PRN LINE FLUSH Trazodone HCl 50 mg 10/01/19 22:00 10/04/19 21:26 Desyrel PO 50 mg QHS ZACH Administration Valproic Acid 1,500 mg 10/05/19 22:00 Depakene Liq PO QHS [facility] Nutrition/Malnutrition Assess - Dietary Evaluation Nutrition/Malnutrition Findings: Nutrition Notes Start: 10/04/19 09:33 Freq: Status: Active Protocol: Document 10/04/19 09:34 LP (Rec: 10/04/19 10:31 LP [id number]) Nutrition Notes Need for Assessment generated from: MD Order Initial or Follow up Assessment Current Diagnosis Acute Kidney Injury,Sepsis Other Pertinent Diagnosis COVID-19 (+), Schizoaffective disorder Current Diet No diet Labs/Tests Na 150 BG 141 Pertinent Medications Solumedrol Height 5 ft 6 in Weight 114 kg [place] Body Weight (kg) 59.09 BMI 40.5 Weight Status Morbidly Obese Subjective/Other Information Consult for TF. Pt has NGT. Pt With AMS and non-verbal. 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 No Is Patient Ambulatory and/or Out of Bed No REE-([place]-confined to bed) 2106.012 Kcal/Kg value to use for calculation 14 Approximate Energy Requirements Using 1596 kcal/Kg Calculation Used for Recommendations Kcal/kg Additional Notes Protein needs are 69-87g (0.8- 1g/kg adjusted wt 86.5kg) Fluid needs are 1ml/kcal Nutrition Intervention Change Diet Order: TF Nutrition Support: Jevity 1.2 at 55ml/hr Flush with 150ml q4h Kcal 1,584 Protein (gm) 73 Fluid (mL) 1,065 Goal #1 Meet at least 80% of kcal and protein needs via TF Anticipated Discharge Needs: Unable to determine at this time Follow-Up By: 10/06/19 Additional Comments Follow for TF start/tolerance <LONI GOMEZ R - Last Filed: 08/30/20 21:37> Assessment and Plan Assessment and plan: I saw and evaluated the patient. I agree with the findings and the plan of care as documented in the Nurse Practitioner's~note, with the following corrections and additions. Patient seen remains nonverbal feeding We will do speech eval and PT eval Continue current management and plan Hospitalist Physical - Constitutional Vitals: Temp Pulse Resp BP Pulse Ox 97.5 F L 90 21 136/83 96 10/05/19 05:52 10/05/19 05:55 10/05/19 05:52 10/05/19 05:52 10/05/19 10:00 Results - Labs CBC & Chem 7: 10/16/19 05:31 10/14/19 04:28 Labs: Laboratory Last Values WBC 18.4 K/mm3 (4.5-11.0) H 10/05/19 08:32 RBC 4.43 M/mm3 (3.65-5.03) 10/05/19 08:32 Hgb 12.6 gm/dl (10.1-14.3) 10/05/19 08:32 Hct 39.3 % (30.3-42.9) 10/05/19 08:32 MCV 89 fl (79-97) 10/05/19 08:32 MCH 29 pg (28-32) 10/05/19 08:32 MCHC 32 % (30-34) 10/05/19 08:32 RDW 16.0 % (13.2-15.2) H 10/05/19 08:32 Plt Count 197 K/mm3 (140-440) 10/05/19 08:32 Lymph % (Auto) 10.6 % (13.4-35.0) L 09/30/19 22:44 [place] % (Auto) 9.8 % (0.0-7.3) H 09/30/19 22:44 Eos % (Auto) 0.0 % (0.0-4.3) 09/30/19 22:44 Baso % (Auto) 1.2 % (0.0-1.8) 09/30/19 22:44 Lymph # 1.5 K/mm3 (1.2-5.4) 09/30/19 22:44 [place] # 1.3 K/mm3 (0.0-0.8) H 09/30/19 22:44 Eos # 0.0 K/mm3 (0.0-0.4) 09/30/19 22:44 Baso # 0.2 K/mm3 (0.0-0.1) H 09/30/19 22:44 Add Manual Diff Complete 10/02/19 05:08 Total Counted 100 10/02/19 05:08 Seg Neutrophils % 78.4 % (40.0-70.0) H 09/30/19 22:44 Seg Neuts % (Manual) 72.0 % (40.0-70.0) H 10/02/19 05:08 Band Neutrophils % 8.0 % 10/02/19 05:08 Lymphocytes % (Manual) 13.0 % (13.4-35.0) L 10/02/19 05:08 Reactive Lymphs % (Man) 0 % 10/02/19 05:08 Monocytes % (Manual) 7.0 % (0.0-7.3) 10/02/19 05:08 Eosinophils % (Manual) 0 % (0.0-4.3) 10/02/19 05:08 Basophils % (Manual) 0 % (0.0-1.8) 10/02/19 05:08 Metamyelocytes % 0 % 10/02/19 05:08 Myelocytes % 0 % 10/02/19 05:08 Promyelocytes % 0 % 10/02/19 05:08 Blast Cells % 0 % 10/02/19 05:08 Nucleated RBC % Not Reportable 10/02/19 05:08 Seg Neutrophils # 10.8 K/mm3 (1.8-7.7) H 09/30/19 22:44 Seg Neutrophils # Man 7.5 K/mm3 (1.8-7.7) 10/02/19 05:08 Band Neutrophils # 0.8 K/mm3 10/02/19 05:08 Lymphocytes # (Manual) 1.4 K/mm3 (1.2-5.4) 10/02/19 05:08 Abs React Lymphs (Man) 0.0 K/mm3 10/02/19 05:08 Monocytes # (Manual) 0.7 K/mm3 (0.0-0.8) 10/02/19 05:08 Eosinophils # (Manual) 0.0 K/mm3 (0.0-0.4) 10/02/19 05:08 Basophils # (Manual) 0.0 K/mm3 (0.0-0.1) 10/02/19 05:08 Metamyelocytes # 0.0 K/mm3 10/02/19 05:08 Myelocytes # 0.0 K/mm3 10/02/19 05:08 Promyelocytes # 0.0 K/mm3 10/02/19 05:08 Blast Cells # 0.0 K/mm3 10/02/19 05:08 WBC Morphology Not Reportable 10/02/19 05:08 Hypersegmented Neuts Not Reportable 10/02/19 05:08 Hyposegmented Neuts Not Reportable 10/02/19 05:08 Hypogranular Neuts Not Reportable 10/02/19 05:08 Smudge Cells Not Reportable 10/02/19 05:08 Toxic Granulation Not Reportable 10/02/19 05:08 Toxic Vacuolation Not Reportable 10/02/19 05:08 Dohle Bodies Not Reportable 10/02/19 05:08 Pelger-Huet Anomaly Not Reportable 10/02/19 05:08 Bal Rods Not Reportable 10/02/19 05:08 Platelet Estimate Consistent w auto 10/02/19 05:08 Clumped Platelets Not Reportable 10/02/19 05:08 Plt Clumps, EDTA Not Reportable 10/02/19 05:08 Large Platelets Not Reportable 10/02/19 05:08 Giant Platelets Not Reportable 10/02/19 05:08 Platelet Satelliting Not Reportable 10/02/19 05:08 Plt Morphology Comment Not Reportable 10/02/19 05:08 RBC Morphology Not Reportable 10/02/19 05:08 Dimorphic RBCs Not Reportable 10/02/19 05:08 Polychromasia Not Reportable 10/02/19 05:08 Hypochromasia Not Reportable 10/02/19 05:08 Poikilocytosis Not Reportable 10/02/19 05:08 Anisocytosis 1+ 10/02/19 05:08 Microcytosis Not Reportable 10/02/19 05:08 Macrocytosis Not Reportable 10/02/19 05:08 Spherocytes Not Reportable 10/02/19 05:08 Pappenheimer Bodies Not Reportable 10/02/19 05:08 Sickle Cells Not Reportable 10/02/19 05:08 Target Cells Not Reportable 10/02/19 05:08 Tear Drop Cells Not Reportable 10/02/19 05:08 Ovalocytes Not Reportable 10/02/19 05:08 Helmet Cells Not Reportable 10/02/19 05:08 Singleton-Alsen Bodies Not Reportable 10/02/19 05:08 Thor Rings Not Reportable 10/02/19 05:08 [place] Cells Not Reportable 10/02/19 05:08 Bite Cells Not Reportable 10/02/19 05:08 Crenated Cell Not Reportable 10/02/19 05:08 Elliptocytes Not Reportable 10/02/19 05:08 Acanthocytes (Spur) Not Reportable 10/02/19 05:08 Rouleaux Not Reportable 10/02/19 05:08 Hemoglobin C Crystals Not Reportable 10/02/19 05:08 Schistocytes Not Reportable 10/02/19 05:08 Malaria parasites Not Reportable 10/02/19 05:08 Willie Bodies Not Reportable 10/02/19 05:08 Hem Pathologist Commnt No 10/02/19 05:08 D-Dimer 654.97 ng/mlDDU (0-234) H 10/05/19 08:32 Sodium 145 mmol/L (137-145) 10/05/19 08:32 Potassium 4.1 mmol/L (3.6-5.0) 10/05/19 08:32 Chloride 110.4 mmol/L (98-107) H 10/05/19 08:32 Carbon Dioxide 22 mmol/L (22-30) 10/05/19 08:32 Anion Gap 17 mmol/L 10/05/19 08:32 BUN 20 mg/dL (7-17) H 10/05/19 08:32 Creatinine 0.9 mg/dL (0.6-1.2) 10/05/19 08:32 Estimated GFR > 60 ml/min 10/05/19 08:32 BUN/Creatinine Ratio 22 % 10/05/19 08:32 Glucose 222 mg/dL (65-100) H 10/05/19 08:32 Lactic Acid 1.30 mmol/L (0.7-2.0) 09/30/19 22:44 Calcium 8.0 mg/dL (8.4-10.2) L 10/05/19 08:32 Ferritin 1325.0 ng/mL (10.0-200.0) H 10/05/19 08:32 Total Bilirubin 0.40 mg/dL (0.1-1.2) 10/05/19 08:32 Direct Bilirubin 0.3 mg/dL (0-0.2) H 09/30/19 22:44 Indirect Bilirubin 0.2 mg/dL 09/30/19 22:44 AST 149 units/L (5-40) H 10/05/19 08:32 ALT 96 units/L (7-56) H 10/05/19 08:32 Alkaline Phosphatase 40 units/L (35-129) 10/05/19 08:32 Lactate Dehydrogenase 817 units/L (91-180) H 10/05/19 08:32 Total Creatine Kinase 934 units/L (30-135) H 10/05/19 08:32 C-Reactive Protein 4.20 mg/dL (0.00-1.30) H 10/05/19 08:32 Total Protein 6.1 g/dL (6.3-8.2) L 10/05/19 08:32 Albumin 2.5 g/dL (3.9-5) L 10/05/19 08:32 Albumin/Globulin Ratio 0.7 % 10/05/19 08:32 Procalcitonin 0.71 ng/mL (<0.15) 10/05/19 08:32 Urine Color [place] (Yellow) 10/01/19 Unknown Urine Turbidity Slightly-cloudy (Clear) 10/01/19 Unknown Urine pH 5.0 (5.0-7.0) 10/01/19 Unknown Ur Specific [place] 1.026 (1.003-1.030) 10/01/19 Unknown Urine Protein 100 mg/dl mg/dL (Negative) 10/01/19 Unknown Urine Glucose (UA) Neg mg/dL (Negative) 10/01/19 Unknown Urine Ketones Tr mg/dL (Negative) 10/01/19 Unknown Urine Blood Lg (Negative) 10/01/19 Unknown Urine Nitrite Neg (Negative) 10/01/19 Unknown Urine Bilirubin Neg (Negative) 10/01/19 Unknown Urine Urobilinogen 2.0 mg/dL (<2.0) 10/01/19 Unknown Ur Leukocyte Esterase Neg (Negative) 10/01/19 Unknown Urine WBC (Auto) 17.0 /HPF (0.0-6.0) H 10/01/19 Unknown Urine RBC (Auto) 1.0 /HPF (0.0-6.0) 10/01/19 Unknown U Epithel Cells (Auto) 4.0 /HPF (0-13.0) 10/01/19 Unknown Urine Mucus 2+ /HPF 10/01/19 Unknown Salicylates < 0.3 mg/dL (2.8-20.0) L 09/30/19 22:44 Urine Opiates Screen Presumptive negative 10/01/19 Unknown Urine Methadone Screen Presumptive negative 10/01/19 Unknown Acetaminophen 5.0 ug/mL (10.0-30.0) L 09/30/19 22:44 Ur Barbiturates Screen Presumptive negative 10/01/19 Unknown Valproic Acid 31.8 ug/mL (50-100) L 10/04/19 08:46 Ur Phencyclidine Scrn Presumptive negative 10/01/19 Unknown Ur Amphetamines Screen Presumptive negative 10/01/19 Unknown U Benzodiazepines Scrn Presumptive negative 10/01/19 Unknown Urine Cocaine Screen Presumptive negative 10/01/19 Unknown U Marijuana (THC) Screen Presumptive negative 10/01/19 Unknown Drugs of Abuse Note Disclamer 10/01/19 Unknown Plasma/Serum Alcohol < 0.01 % (0-0.07) 09/30/19 22:44 Coronavirus (PCR) Positive (Negative) A 10/02/19 Unknown Microbiology: Microbiology 10/01/19 01:40 Peripheral/Venous Blood Culture - Preliminary NO GROWTH AFTER 4 DAYS 10/01/19 01:59 Peripheral/Venous Blood Culture - Preliminary NO GROWTH AFTER 4 DAYS Garcia/IV: Voiding Method External Female Catheter IV Catheter Type [Right Upper INT / Saline Lock arm] IV Catheter Type [Right INT / Saline Lock Antecubital] IV Catheter Type [Right Foot] INT / Saline Lock IV Catheter Type [Right Peripheral IV External Jugular] Active Medications - Current Medications Current Medications: Generic Name Dose Route Start Last Admin Trade Name Freq PRN Reason Stop Dose Admin Acetaminophen 650 mg 10/01/19 08:00 10/04/19 05:30 Tylenol PO 650 mg Q4H PRN Administration Pain MILD(1-3)/Fever >100.5/WRIGHT Lipase/Protease/Amylase 1 each 10/04/19 10:34 Pancreaze 10,500 Unit FEEDTUBE PRN PRN For Clogged Feeding Tube Enoxaparin Sodium 40 mg 10/04/19 22:00 10/05/19 11:17 Enoxaparin SUB-Q 40 mg BID ZACH Administration Haloperidol 5 mg 10/02/19 12:00 10/05/19 11:18 Haldol PO 5 mg BID ZACH Administration Ceftriaxone Sodium 2 gm in 100 mls @ 200 mls/hr 10/01/19 10:00 10/05/19 11:17 Rocephin/Ns 2 Gm/100 Ml IV 200 mls/hr Q24HR [facility] Administration Protocol Methylprednisolone Sodium Succinate 40 mg 10/02/19 22:00 10/05/19 05:18 Solu-Medrol IV 40 mg Q8HR ZACH Administration Miscellaneous Medication 325 mg 10/02/19 18:45 Paliperidone Palmitate [Invega Sustenna] IM Q3W ZACH Ondansetron HCl 4 mg 10/01/19 08:00 Zofran IV Q8H PRN Nausea And Vomiting Simple Syrup 15 ml 10/04/19 10:34 Simple Syrup FEEDTUBE PRN PRN Hypoglycemia Simple Syrup 30 ml 10/04/19 10:34 Simple Syrup FEEDTUBE PRN PRN Hypoglycemia Sodium Bicarbonate 325 mg 10/04/19 10:34 Sodium Bicarbonate FEEDTUBE PRN PRN For Clogged Feeding Tube Sodium Chloride 10 ml 10/01/19 10:00 10/05/19 11:18 Sodium Chloride Flush Syringe 10 Ml IV 10 ml BID ZACH Administration Sodium Chloride 10 ml 10/01/19 07:50 Sodium Chloride Flush Syringe 10 Ml IV 10/14/19 07:49 PRN PRN LINE FLUSH Trazodone HCl 50 mg 10/01/19 22:00 10/04/19 21:26 Desyrel PO 50 mg QHS [facility] Administration Valproic Acid 1,500 mg 10/05/19 22:00 Depakene Liq PO QHS [facility] Nutrition/Malnutrition Assess - Dietary Evaluation Nutrition/Malnutrition Findings: Nutrition Notes Start: 10/04/19 09:33 Freq: Status: Active Protocol: Document 10/04/19 09:34 LP (Rec: 10/04/19 10:31 LP [id number]) Nutrition Notes Need for Assessment generated from: MD Order Initial or Follow up Assessment Current Diagnosis Acute Kidney Injury,Sepsis Other Pertinent Diagnosis COVID-19 (+), Schizoaffective disorder Current Diet No diet Labs/Tests Na 150 BG 141 Pertinent Medications Solumedrol Height 5 ft 6 in Weight 114 kg [place] Body Weight (kg) 59.09 BMI 40.5 Weight Status Morbidly Obese Subjective/Other Information Consult for TF. Pt has NGT. Pt With AMS and non-verbal. 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 No Is Patient Ambulatory and/or Out of Bed No REE-([place]-confined to bed) 2106.012 Kcal/Kg value to use for calculation 14 Approximate Energy Requirements Using 1596 kcal/Kg Calculation Used for Recommendations Kcal/kg Additional Notes Protein needs are 69-87g (0.8- 1g/kg adjusted wt 86.5kg) Fluid needs are 1ml/kcal Nutrition Intervention Change Diet Order: TF Nutrition Support: Jevity 1.2 at 55ml/hr Flush with 150ml q4h Kcal 1,584 Protein (gm) 73 Fluid (mL) 1,065 Goal #1 Meet at least 80% of kcal and protein needs via TF Anticipated Discharge Needs: Unable to determine at this time Follow-Up By: 10/06/19 Additional Comments Follow for TF start/tolerance
--- NOTE | 2019-10-05 14:38 | Progress Note ---
Assessment and Plan Cultures: Blood culture and urine culture negative COVID PCR positive Assessment: 54 years old female with history of paranoid schizophrenia, admitted on 09/30/2019 due to altered mental status and catatonia state: #Severe sepsis: Present on admission with low-grade fever, tachycardia, elevated leukocytosis, FAISAL, likely due to bilateral pneumonia. #Bilateral pneumonia: COVID-19 pneumonia. Inflammatory markers are elevated, with a d-dimer > 10,000. CT negative for pulmonary embolism. Repeat d-dimer with much improvement. #Acute hypoxemic respiratory failure: mild. on supplemental oxygen. #Elevated LFTs: from COVID. #FAISAL: from COVID. improved #Elevated LFTs: Very high likely secondary to rhabdomyolysis #Elevated CK: Likely secondary to rhabdomyolysis possible due to COVID-19 in fection or catatonic state #Paranoid schizophrenia with catatonia: Per psych Recommendations: -continue steroids, day 4 of 10 -renal function and LFTs improving, but given mild hypoxia and several days of positivity, unclear benefit with Remdesivir at this stage -procalcitonin improving, continue ceftriaxone and azithromycin until 10/06/2019 -Continue anticoagulation per protocol Konrad Moyer MD, FACP [facility] C: [phone] O: [phone] F: [phone] Subjective Date of service: 10/05/19 Interval history: No fever. Oxygen requirements at 2 L nasal cannula. Objective - Exam Narrative Exam: Physical Exam (reviewed in chart due to PPE conservation) Constitutional: limited due to PPE conservation strategy Head, Ears, Nose: limited due to PPE conservation strategy Eyes: limited due to PPE conservation strategy Neck: limited due to PPE conservation strategy Oral: limited due to PPE conservation strategy Cardiovascular: limited due to PPE conservation strategy Respiratory: limited due to PPE conservation strategy GI: limited due to PPE conservation strategy Musculoskeletal: limited due to PPE conservation strategy Skin: limited due to PPE conservation strategy Hem/Lymphatic: limited due to PPE conservation strategy Psych: limited due to PPE conservation strategy Neurological: limited due to PPE conservation strategy - Constitutional Vitals: Vital Signs Temp Pulse Resp BP Pulse Ox 97.5 F L 90 21 136/83 96 10/05/19 05:52 10/05/19 05:55 10/05/19 05:52 10/05/19 05:52 10/05/19 10:00 Temperature -Last 24 Hours Temperature 97.5 F Temperature 98.2 F - Labs CBC & Chem 7: 10/05/19 08:32 10/05/19 08:32 Labs: Abnormal lab results 10/05/19 10/05/19 10/05/19 Range/Units 08:32 08:32 08:32 WBC 18.4 H (4.5-11.0) K/mm3 RDW 16.0 H (13.2-15.2) % D-Dimer 654.97 H (0-234) ng/mlDDU Chloride 110.4 H (98-107) mmol/L BUN 20 H (7-17) mg/dL Glucose 222 H (65-100) mg/dL Calcium 8.0 L (8.4-10.2) mg/dL Ferritin (10.0-200.0) ng/mL AST 149 H (5-40) units/L ALT 96 H (7-56) units/L Lactate Dehydrogenase 817 H (91-180) units/L Total Creatine Kinase 934 H (30-135) units/L C-Reactive Protein 4.20 H (0.00-1.30) mg/dL Total Protein 6.1 L (6.3-8.2) g/dL Albumin 2.5 L (3.9-5) g/dL 10/05/19 Range/Units 08:32 WBC (4.5-11.0) K/mm3 RDW (13.2-15.2) % D-Dimer (0-234) ng/mlDDU Chloride (98-107) mmol/L BUN (7-17) mg/dL Glucose (65-100) mg/dL Calcium (8.4-10.2) mg/dL Ferritin 1325.0 H (10.0-200.0) ng/mL AST (5-40) units/L ALT (7-56) units/L Lactate Dehydrogenase (91-180) units/L Total Creatine Kinase (30-135) units/L C-Reactive Protein (0.00-1.30) mg/dL Total Protein (6.3-8.2) g/dL Albumin (3.9-5) g/dL
[2019-10-05] MEDS: VALPROIC ACID 250 MG/5 ML ORAL LIQD PO SCH (22:32)
[2019-10-05] MEDS: traZODone 50 MG TAB PO SCH (22:32)
[2019-10-06] MEDS: hydrALAZINE 20 MG/1 ML INJ IV PRN (01:16)
[2019-10-06] MEDS: INSULIN LISPRO 100 UNIT/ML VIAL 3 mL SUB-Q SCH ×4 (01:16→17:39)
[2019-10-06] MEDS: methylPREDNISolone Sod Succinate 40 MG/1 ML INJ IV SCH (06:22)
[2019-10-06 07:02] LABS: BUN/Creatinine Ratio 24; Blood Urea Nitrogen 19 mg/dL (7-17); Calcium 8.1 mg/dL (8.4-10.2); Hemolysis Index 6
[2019-10-06 09:49] LABS: Hematocrit 40.1 % (30.3-42.9); Hemoglobin 12.7 gm/dl (10.1-14.3); Mean Corpuscular HGB Conc 32 % (30-34); Mean Corpuscular Volume 89 fl (79-97); Platelet Count 198 K/mm3 (140-440); Red Blood Count 4.49 M/mm3 (3.65-5.03); Red Cell Distribution Width 16.1 % (13.2-15.2)
[2019-10-06] MEDS ORDERED: AZITHROMYCIN 500 MG in SODIUM CHLORIDE 0.9% 250ML 250 ML IV SCH (10:00)
[2019-10-06] MEDS: SODIUM CHLORIDE 0.45% 1000 ML 1,000 ML IV SCH (11:46)
[2019-10-06] MEDS: cefTRIAXone/NS 2 GM/100 ML 2 GM/100 ML BAG IV SCH (11:47)
[2019-10-06] MEDS: ENOXAPARIN 40 MG/0.4 ML INJ SUB-Q SCH (11:48)
[2019-10-06] MEDS: HALOPERIDOL 5 MG TAB PO SCH (11:48)
--- NOTE | 2019-10-06 13:35 | Progress Note ---
Assessment and Plan Cultures: Blood culture and urine culture negative COVID PCR positive Assessment: 54 years old female with history of paranoid schizophrenia, admitted on 09/30/2019 due to altered mental status and catatonia state: #Severe sepsis: Present on admission with low-grade fever, tachycardia, elevated leukocytosis, FAISAL, likely due to bilateral pneumonia. #Bilateral pneumonia: COVID-19 pneumonia. Inflammatory markers are elevated, with a d-dimer > 10,000. CT negative for pulmonary embolism. Repeat d-dimer with much improvement. Renal function and LFTs improving, but given mild hypoxia and several days of positivity, unclear benefit with Remdesivir at this stage. #Acute hypoxemic respiratory failure: mild. on supplemental oxygen. #Elevated LFTs: from COVID. #FAISAL: from COVID. improved #Elevated LFTs: Very high likely secondary to rhabdomyolysis #Elevated CK: Likely secondary to rhabdomyolysis possible due to COVID-19 infection or catatonic state #Paranoid schizophrenia with catatonia: Per psych Recommendations: -continue steroids, day 5 of 10 -completes ceftriaxone and azithromycin today -Continue anticoagulation per protocol based on d-dimer Konrad Moyer MD, FACP [facility] C: [phone] O: [phone] F: [phone] Subjective Date of service: 10/06/19 Interval history: No fever. Oxygen requirements stable at 2 L nasal cannula. Objective - Exam Narrative Exam: Physical Exam (reviewed in chart due to PPE conservation) Constitutional: limited due to PPE conservation strategy Head, Ears, Nose: limited due to PPE conservation strategy Eyes: limited due to PPE conservation strategy Neck: limited due to PPE conservation strategy Oral: limited due to PPE conservation strategy Cardiovascular: limited due to PPE conservation strategy Respiratory: limited due to PPE conservation strategy GI: limited due to PPE conservation strategy Musculoskeletal: limited due to PPE conservation strategy Skin: limited due to PPE conservation strategy Hem/Lymphatic: limited due to PPE conservation strategy Psych: limited due to PPE conservation strategy Neurological: limited due to PPE conservation strategy - Constitutional Vitals: Vital Signs Temp Pulse Resp BP Pulse Ox 97.3 F L 70 22 118/69 97 10/06/19 06:23 10/06/19 06:10 10/06/19 06:23 10/06/19 06:09 10/06/19 08:53 Temperature -Last 24 Hours Temperature 97.3 F Temperature 97.6 F Temperature 97.4 F - Labs CBC & Chem 7: 10/06/19 09:26 10/06/19 05:17 Labs: Abnormal lab results 10/06/19 10/06/19 10/06/19 Range/Units 00:20 05:17 06:22 WBC (4.5-11.0) K/mm3 RDW (13.2-15.2) % Sodium 149 H (137-145) mmol/L Chloride 110.6 H (98-107) mmol/L BUN 19 H (7-17) mg/dL Glucose 356 H (65-100) mg/dL POC Glucose 307 H 312 H (70-105) Calcium 8.1 L (8.4-10.2) mg/dL 10/06/19 10/06/19 Range/Units 09:26 13:12 WBC 16.2 H (4.5-11.0) K/mm3 RDW 16.1 H (13.2-15.2) % Sodium (137-145) mmol/L Chloride (98-107) mmol/L BUN (7-17) mg/dL Glucose (65-100) mg/dL POC Glucose 327 H (70-105) Calcium (8.4-10.2) mg/dL
--- NOTE | 2019-10-06 16:21 | Progress Note ---
<BLANCA SOFIA KellyFabián - Last Filed: 10/06/19 16:17> Assessment and Plan - Patient Problems (1) Severe sepsis Current Visit: Yes Status: Acute Plan to address problem: - Presented with low-grade fever, tachycardia, leukocytosis, FAISAL, and bilateral pneumonia - Likely source is bilateral pneumonia secondary to COVID-19 - IV antibiotics completed - Covid protocol initiated (2) Pneumonia due to COVID-19 virus Current Visit: Yes Status: Acute Plan to address problem: - COVID protocol initiated - IV azithromycin and Rocephin completed - 09/30 COVID PCR positive - Trend LDH, CRP, procalcitonin, d-dimer, ferritin - Droplet /contact precautions - Supplemental oxygenation as needed - Infectious disease consult requested - Pulmonary hygiene - In setting of elevated D-Dimer, CTA Chest was ordered which was negative for pulmonary embolism - Anticoagulation per COVID protocol - Cannot initiate Remdesivir in setting on of elevated LFTs - Continue p.o. dexamethasone (3) Neuroleptic malignant syndrome Current Visit: Yes Status: Ruled-out (4) Rhabdomyolysis Current Visit: Yes Status: Acute [place] problem: [place] [address], [place] to 2599 - Received 2 liters IVF in ED and NS then 1/2 NS AT 125 mL/hr - Trend CK levels (5) Acute psychosis Current Visit: Yes Status: Acute Plan to address problem: - Currently withdraws to pain however moving all extremities spontaneously - History of paranoid schizophrenia - Mental health consult requested and does not recommend inpatient psych at this time as medical needs outweigh psych this time - Requested to reconsult when patient is medically stable (6) Paranoid schizophrenia Current Visit: Yes Status: Chronic Plan to address problem: -History of present schizophrenia -Psych consulted and appreciate recommendations -Depakote and Haldol -Sleep hygiene -Reorientation as needed (7) Acute renal failure Current Visit: Yes Status: Resolved Plan to address problem: - Vasomotor nephropathy maybe secondary to dehydration and rhabdomyolysis - Received 2 L IVF in ED - Admit Cr/BUN 1.4/33 but now trended down to 0.8-0.9 - Avoid nephrotoxic medications - Trend BMP (8) Leukocytosis Current Visit: Yes Status: Acute Plan to address problem: - Admit WBC 13.8 - Trend CBC - Maybe secondary to possible PNA or from dehydration - IV abx completed - Also on steroids for COVID pneumonia (9) Thrombocytopenia Current Visit: Yes Status: Resolved (10) DVT prophylaxis Current Visit: Yes Status: Acute Plan to address problem: - SCDs to BLE while in bed - Lovenox subq twice daily per COVID protocol History Interval history: This is a 54-year-old female with paranoid schizophrenia that presents to the emergency department on 09/29 for altered mental status in a catatonic state. Previous hospitalizations reviewed and only notes a history of paranoid schizophrenia. Patient may be a resident of [place]. Patient is currently nonverbal and HPI is received from ER documentation. Work-up in the emergency department included a CT abdomen pelvis which shows patchy peripheral groundglass opacities bilateral lungs which is consistent with either viral or atypical pneumonia, positive anterior lateral fat hernia in the left mid abdomen and a large uterine fibroids however her CXR showed no acute pulmonary or pleural abnormalities. She was found to have acute kidney injury with a creatinine of 1.4/BUN 33 as baseline from previous records seems to be 0.7, rhabdomyolysis with a creatinine kinase of 33,481, leukocytosis with a WBC of 13.8, thrombocytopenia with platelets at 97. She has COVID pneumonia with IV antibiotics, rhabdomyolysis, and FAISAL. Infectious disease, psych, and neurology have been consulted. Neurology does not suspect NMS at this time. Psych has signed off at this time due to ongoing acute medical processes. PT/ST consulted for evaluation but unable to be performed as patient will not follow verbal commands. At the time of my exam is patient verbalized to painful stimuli ho wever she does not open her eyes to verbal or physical stimuli. * Discussed with primary architecture department chair patient was normally verbal but sometimes goes into a catatonic state. Phone number for this is [phone] * 10/04: PT consulted. Psych signed off. Continue treatment * 10/03: continue treatment * 10/02: Change fluids to NS / AT 125CC/hr. Rhabdomylysis improving, insert NGT and start tube feeds. Psych input noted. Continue management for COVID 19. ID consulted. No new fever. CTA and CTH obtained which were both negative * 10/01: COVID PCR Positive Hospitalist Physical - Constitutional Vitals: Temp Pulse Resp BP Pulse Ox 98.5 F 104 H 24 119/97 94 10/06/19 11:40 10/06/19 11:40 10/06/19 11:40 10/06/19 11:40 10/06/19 11:40 General appearance: Present: no acute distress, other (Patient slightly opens her eyes to tactile stimuli and withdraws to painful stimuli in all 4 extremit ies. She is seen LEVY spontaneously.) - EENT Eyes: Present: PERRL - Neck Neck: Present: normal ROM - Respiratory Respiratory effort: normal Respiratory: bilateral: diminished - Cardiovascular Rhythm: regular Heart Sounds: Present: S1 & S2, systolic murmur. Absent: diastolic murmur - Extremities Extremities: no ischemia, pulses intact, pulses symmetrical, No edema, normal temperature, normal color, Full ROM Peripheral Pulses: within normal limits - Abdominal General gastrointestinal: soft, non-tender, non-distended, normal bowel sounds - Integumentary Integumentary: Present: clear, warm, dry - Neurologic Neurologic: no focal deficits, moves all extremities, other (Moves all her extremities to painful stimuli. Does not open eyes to verbal or painful stimuli) - Allied Health Allied health notes reviewed: nursing, PT, social work, case management Results - Labs CBC & Chem 7: 10/06/19 09:26 10/06/19 05:17 Labs: Laboratory Last Values WBC 16.2 K/mm3 (4.5-11.0) H 10/06/19 09:26 RBC 4.49 M/mm3 (3.65-5.03) 10/06/19 09:26 Hgb 12.7 gm/dl (10.1-14.3) 10/06/19 09:26 Hct 40.1 % (30.3-42.9) 10/06/19 09:26 MCV 89 fl (79-97) 10/06/19 09:26 MCH 28 pg (28-32) 10/06/19 09:26 MCHC 32 % (30-34) 10/06/19 09:26 RDW 16.1 % (13.2-15.2) H 10/06/19 09:26 Plt Count 198 K/mm3 (140-440) 10/06/19 09:26 Lymph % (Auto) 10.6 % (13.4-35.0) L 09/30/19 22:44 [place] % (Auto) 9.8 % (0.0-7.3) H 09/30/19 22:44 Eos % (Auto) 0.0 % (0.0-4.3) 09/30/19 22:44 Baso % (Auto) 1.2 % (0.0-1.8) 09/30/19 22:44 Lymph # 1.5 K/mm3 (1.2-5.4) 09/30/19 22:44 [place] # 1.3 K/mm3 (0.0-0.8) H 09/30/19 22:44 Eos # 0.0 K/mm3 (0.0-0.4) 09/30/19 22:44 Baso # 0.2 K/mm3 (0.0-0.1) H 09/30/19 22:44 Add Manual Diff Complete 10/02/19 05:08 Total Counted 100 10/02/19 05:08 Seg Neutrophils % 78.4 % (40.0-70.0) H 09/30/19 22:44 Seg Neuts % (Manual) 72.0 % (40.0-70.0) H 10/02/19 05:08 Band Neutrophils % 8.0 % 10/02/19 05:08 Lymphocytes % (Manual) 13.0 % (13.4-35.0) L 10/02/19 05:08 Reactive Lymphs % (Man) 0 % 10/02/19 05:08 Monocytes % (Manual) 7.0 % (0.0-7.3) 10/02/19 05:08 Eosinophils % (Manual) 0 % (0.0-4.3) 10/02/19 05:08 Basophils % (Manual) 0 % (0.0-1.8) 10/02/19 05:08 Metamyelocytes % 0 % 10/02/19 05:08 Myelocytes % 0 % 10/02/19 05:08 Promyelocytes % 0 % 10/02/19 05:08 Blast Cells % 0 % 10/02/19 05:08 Nucleated RBC % Not Reportable 10/02/19 05:08 Seg Neutrophils # 10.8 K/mm3 (1.8-7.7) H 09/30/19 22:44 Seg Neutrophils # Man 7.5 K/mm3 (1.8-7.7) 10/02/19 05:08 Band Neutrophils # 0.8 K/mm3 10/02/19 05:08 Lymphocytes # (Manual) 1.4 K/mm3 (1.2-5.4) 10/02/19 05:08 Abs React Lymphs (Man) 0.0 K/mm3 10/02/19 05:08 Monocytes # (Manual) 0.7 K/mm3 (0.0-0.8) 10/02/19 05:08 Eosinophils # (Manual) 0.0 K/mm3 (0.0-0.4) 10/02/19 05:08 Basophils # (Manual) 0.0 K/mm3 (0.0-0.1) 10/02/19 05:08 Metamyelocytes # 0.0 K/mm3 10/02/19 05:08 Myelocytes # 0.0 K/mm3 10/02/19 05:08 Promyelocytes # 0.0 K/mm3 10/02/19 05:08 Blast Cells # 0.0 K/mm3 10/02/19 05:08 WBC Morphology Not Reportable 10/02/19 05:08 Hypersegmented Neuts Not Reportable 10/02/19 05:08 Hyposegmented Neuts Not Reportable 10/02/19 05:08 Hypogranular Neuts Not Reportable 10/02/19 05:08 Smudge Cells Not Reportable 10/02/19 05:08 Toxic Granulation Not Reportable 10/02/19 05:08 Toxic Vacuolation Not Reportable 10/02/19 05:08 Dohle Bodies Not Reportable 10/02/19 05:08 Pelger-Huet Anomaly Not Reportable 10/02/19 05:08 Bal Rods Not Reportable 10/02/19 05:08 Platelet Estimate Consistent w auto 10/02/19 05:08 Clumped Platelets Not Reportable 10/02/19 05:08 Plt Clumps, EDTA Not Reportable 10/02/19 05:08 Large Platelets Not Reportable 10/02/19 05:08 Giant Platelets Not Reportable 10/02/19 05:08 Platelet Satelliting Not Reportable 10/02/19 05:08 Plt Morphology Comment Not Reportable 10/02/19 05:08 RBC Morphology Not Reportable 10/02/19 05:08 Dimorphic RBCs Not Reportable 10/02/19 05:08 Polychromasia Not Reportable 10/02/19 05:08 Hypochromasia Not Reportable 10/02/19 05:08 Poikilocytosis Not Reportable 10/02/19 05:08 Anisocytosis 1+ 10/02/19 05:08 Microcytosis Not Reportable 10/02/19 05:08 Macrocytosis Not Reportable 10/02/19 05:08 Spherocytes Not Reportable 10/02/19 05:08 Pappenheimer Bodies Not Reportable 10/02/19 05:08 Sickle Cells Not Reportable 10/02/19 05:08 Target Cells Not Reportable 10/02/19 05:08 Tear Drop Cells Not Reportable 10/02/19 05:08 Ovalocytes Not Reportable 10/02/19 05:08 Helmet Cells Not Reportable 10/02/19 05:08 [place] Bodies Not Reportable 10/02/19 05:08 [place] Rings Not Reportable 10/02/19 05:08 [place] Cells Not Reportable 10/02/19 05:08 Bite Cells Not Reportable 10/02/19 05:08 Crenated Cell Not Reportable 10/02/19 05:08 Elliptocytes Not Reportable 10/02/19 05:08 Acanthocytes (Spur) Not Reportable 10/02/19 05:08 Rouleaux Not Reportable 10/02/19 05:08 Hemoglobin C Crystals Not Reportable 10/02/19 05:08 Schistocytes Not Reportable 10/02/19 05:08 Malaria parasites Not Reportable 10/02/19 05:08 Willie Bodies Not Reportable 10/02/19 05:08 Hem Pathologist Commnt No 10/02/19 05:08 D-Dimer 654.97 ng/mlDDU (0-234) H 10/05/19 08:32 Sodium 149 mmol/L (137-145) H 10/06/19 05:17 Potassium 3.9 mmol/L (3.6-5.0) 10/06/19 05:17 Chloride 110.6 mmol/L (98-107) H 10/06/19 05:17 Carbon Dioxide 25 mmol/L (22-30) 10/06/19 05:17 Anion Gap 17 mmol/L 10/06/19 05:17 BUN 19 mg/dL (7-17) H 10/06/19 05:17 Creatinine 0.8 mg/dL (0.6-1.2) 10/06/19 05:17 Estimated GFR > 60 ml/min 10/06/19 05:17 BUN/Creatinine Ratio 24 % 10/06/19 05:17 Glucose 356 mg/dL (65-100) H 10/06/19 05:17 POC Glucose 327 (70-105) H 10/06/19 13:12 Lactic Acid 1.30 mmol/L (0.7-2.0) 09/30/19 22:44 Calcium 8.1 mg/dL (8.4-10.2) L 10/06/19 05:17 Ferritin 1325.0 ng/mL (10.0-200.0) H 10/05/19 08:32 Total Bilirubin 0.40 mg/dL (0.1-1.2) 10/05/19 08:32 Direct Bilirubin 0.3 mg/dL (0-0.2) H 09/30/19 22:44 Indirect Bilirubin 0.2 mg/dL 09/30/19 22:44 AST 149 units/L (5-40) H 10/05/19 08:32 ALT 96 units/L (7-56) H 10/05/19 08:32 Alkaline Phosphatase 40 units/L (35-129) 10/05/19 08:32 Lactate Dehydrogenase 817 units/L (91-180) H 10/05/19 08:32 Total Creatine Kinase 934 units/L (30-135) H 10/05/19 08:32 C-Reactive Protein 4.20 mg/dL (0.00-1.30) H 10/05/19 08:32 Total Protein 6.1 g/dL (6.3-8.2) L 10/05/19 08:32 Albumin 2.5 g/dL (3.9-5) L 10/05/19 08:32 Albumin/Globulin Ratio 0.7 % 10/05/19 08:32 Procalcitonin 0.71 ng/mL (<0.15) 10/05/19 08:32 Urine Color [place] (Yellow) 10/01/19 Unknown Urine Turbidity Slightly-cloudy (Clear) 10/01/19 Unknown Urine pH 5.0 (5.0-7.0) 10/01/19 Unknown Ur Specific [place] 1.026 (1.003-1.030) 10/01/19 Unknown Urine Protein 100 mg/dl mg/dL (Negative) 10/01/19 Unknown Urine Glucose (UA) Neg mg/dL (Negative) 10/01/19 Unknown Urine Ketones Tr mg/dL (Negative) 10/01/19 Unknown Urine Blood Lg (Negative) 10/01/19 Unknown Urine Nitrite Neg (Negative) 10/01/19 Unknown Urine Bilirubin Neg (Negative) 10/01/19 Unknown Urine Urobilinogen 2.0 mg/dL (<2.0) 10/01/19 Unknown Ur Leukocyte Esterase Neg (Negative) 10/01/19 Unknown Urine WBC (Auto) 17.0 /HPF (0.0-6.0) H 10/01/19 Unknown Urine RBC (Auto) 1.0 /HPF (0.0-6.0) 10/01/19 Unknown U Epithel Cells (Auto) 4.0 /HPF (0-13.0) 10/01/19 Unknown Urine Mucus 2+ /HPF 10/01/19 Unknown Salicylates < 0.3 mg/dL (2.8-20.0) L 09/30/19 22:44 Urine Opiates Screen Presumptive negative 10/01/19 Unknown Urine Methadone Screen Presumptive negative 10/01/19 Unknown Acetaminophen 5.0 ug/mL (10.0-30.0) L 09/30/19 22:44 Ur Barbiturates Screen Presumptive negative 10/01/19 Unknown Valproic Acid 31.8 ug/mL (50-100) L 10/04/19 08:46 Ur Phencyclidine Scrn Presumptive negative 10/01/19 Unknown Ur Amphetamines Screen Presumptive negative 10/01/19 Unknown U Benzodiazepines Scrn Presumptive negative 10/01/19 Unknown Urine Cocaine Screen Presumptive negative 10/01/19 Unknown U Marijuana (THC) Screen Presumptive negative 10/01/19 Unknown Drugs of Abuse Note Disclamer 10/01/19 Unknown Plasma/Serum Alcohol < 0.01 % (0-0.07) 09/30/19 22:44 Coronavirus (PCR) Positive (Negative) A 10/02/19 Unknown Microbiology: Microbiology 10/01/19 01:40 Peripheral/Venous Blood Culture - Final NO GROWTH AFTER 5 DAYS 10/01/19 01:59 Peripheral/Venous Blood Culture - Final NO GROWTH AFTER 5 DAYS Garcia/IV: Voiding Method Suprapubic catheter IV Catheter Type [Right Upper INT / Saline Lock arm] IV Catheter Type [Right INT / Saline Lock Antecubital] IV Catheter Type [Right Foot] INT / Saline Lock IV Catheter Type [Right Peripheral IV External Jugular] Active Medications - Current Medications Current Medications: Generic Name Dose Route Start Last Admin Trade Name Freq PRN Reason Stop Dose Admin Acetaminophen 650 mg 10/01/19 08:00 10/04/19 05:30 Tylenol PO 650 mg Q4H PRN Administration Pain MILD(1-3)/Fever >100.5/WRIGTH Lipase/Protease/Amylase 1 each 10/04/19 10:34 Pancreaze 10,500 Unit FEEDTUBE PRN PRN For Clogged Feeding Tube Enoxaparin Sodium 40 mg 10/04/19 22:00 10/06/19 11:48 Enoxaparin SUB-Q 40 mg BID ZACH Administration Haloperidol 5 mg 10/02/19 12:00 10/06/19 11:48 Haldol PO 5 mg BID ZACH Administration Hydralazine HCl 10 mg 10/06/19 00:38 10/06/19 01:16 Apresoline IV 10 mg Q6HR PRN Administration Hypertension Sodium Chloride 1,000 mls @ 75 mls/hr 10/06/19 12:00 10/06/19 11:46 Nacl 0.45% 1000 Ml IV 75 mls/hr DIRECT ZACH Administration Insulin Human Lispro 0 unit 10/06/19 01:00 10/06/19 13:09 Humalog SUB-Q 6 unit Q6HR ZACH Administration Protocol Methylprednisolone Sodium Succinate 40 mg 10/07/19 10:00 Solu-Medrol IV Q24HR ZACH Miscellaneous Medication 325 mg 10/02/19 18:45 Paliperidone Palmitate [Invega Sustenna] IM Q3W ZACH Ondansetron HCl 4 mg 10/01/19 08:00 Zofran IV Q8H PRN Nausea And Vomiting Simple Syrup 15 ml 10/04/19 10:34 Simple Syrup FEEDTUBE PRN PRN Hypoglycemia Simple Syrup 30 ml 10/04/19 10:34 Simple Syrup FEEDTUBE PRN PRN Hypoglycemia Sodium Bicarbonate 325 mg 10/04/19 10:34 Sodium Bicarbonate FEEDTUBE PRN PRN For Clogged Feeding Tube Sodium Chloride 10 ml 10/01/19 10:00 10/06/19 11:49 Sodium Chloride Flush Syringe 10 Ml IV 10 ml BID ZACH Administration Sodium Chloride 10 ml 10/01/19 07:50 Sodium Chloride Flush Syringe 10 Ml IV 10/14/19 07:49 PRN PRN LINE FLUSH Trazodone HCl 50 mg 10/01/19 22:00 10/05/19 22:32 Desyrel PO 50 mg QHS ZACH Administration Valproic Acid 1,500 mg 10/05/19 22:00 10/05/19 22:32 Depakene Liq PO 1,500 mg QHS ZACH Administration Nutrition/Malnutrition Assess - Dietary Evaluation Nutrition/Malnutrition Findings: Nutrition Notes Start: 10/04/19 09:33 Freq: Status: Active Protocol: Document 10/06/19 14:52 LM (Rec: 10/06/19 14:56 LM [id number]) Nutrition Notes Initial or Follow up Reassessment Current Diagnosis Acute Kidney Injury,Sepsis Other Pertinent Diagnosis COVID-19 (+), Schizoaffective disorder Current Diet Jevity 1.2 at 55ml/hr Labs/Tests Na 149 BUN 19 BG 356 Pertinent Medications Solumedrol Humalog Height 5 ft 6 in Weight 114 kg [place] Body Weight (kg) 59.09 BMI 40.5 Weight Status Morbidly Obese Subjective/Other Information TF running at goal rate and pt is tolerating. [employer]ST[employer]ER recommends pt to continue with TF. Burn Absent Trauma Absent GI Symptoms None Difficulty In Swallowing Food Allergy No Current % PO Negligible Minimum of two criteria No Reduced Academic Adviser Strength Measurably Reduced (severe) #1 Nutrition Diagnosis Inadequate oral intake Diagnosis Progress(for reassessment Continues documentation) Is patient on ventilator? No Is Patient Ambulatory and/or Out of Bed No REE-([facility]-confined to bed) 2106.012 Kcal/Kg value to use for calculation 14 Approximate Energy Requirements Using 1596 kcal/Kg Calculation Used for Recommendations Kcal/kg Additional Notes Protein needs are 69-87g (0.8- 1g/kg adjusted wt 86.5kg) Fluid needs are 1ml/kcal Nutrition Intervention Change Diet Order: TF Nutrition Support: Jevity 1.2 at 55ml/hr Flush with 200ml q4h for hypernatremia Kcal 1,584 Protein (gm) 73 Fluid (mL) 1,065 Goal #1 Meet at least 80% of kcal and protein needs via TF Anticipated Discharge Needs: Unable to determine at this time Follow-Up By: 10/08/19 Additional Comments F/U for TF tolerance, BG, Na <LONI GOMEZ R - Last Filed: 10/07/19 17:21> Assessment and Plan Assessment and plan: I saw and evaluated the patient. I agree with the findings and the plan of care as documented in the Nurse Practitioner's~note, Hospitalist Physical - Constitutional Vitals: Temp Pulse Resp BP Pulse Ox 97.9 F 100 H 24 158/107 100 10/07/19 11:59 10/07/19 11:59 10/07/19 11:59 10/07/19 11:59 10/07/19 11:59 Results - Labs CBC & Chem 7: 10/07/19 06:14 10/07/19 06:14 Labs: Laboratory Last Values WBC 18.4 K/mm3 (4.5-11.0) H 10/07/19 06:14 RBC 4.47 M/mm3 (3.65-5.03) 10/07/19 06:14 Hgb 13.0 gm/dl (10.1-14.3) 10/07/19 06:14 Hct 39.5 % (30.3-42.9) 10/07/19 06:14 MCV 88 fl (79-97) 10/07/19 06:14 MCH 29 pg (28-32) 10/07/19 06:14 MCHC 33 % (30-34) 10/07/19 06:14 RDW 15.8 % (13.2-15.2) H 10/07/19 06:14 Plt Count 213 K/mm3 (140-440) 10/07/19 06:14 Lymph % (Auto) 10.6 % (13.4-35.0) L 09/30/19 22:44 [place] % (Auto) 9.8 % (0.0-7.3) H 09/30/19 22:44 Eos % (Auto) 0.0 % (0.0-4.3) 09/30/19 22:44 Baso % (Auto) 1.2 % (0.0-1.8) 09/30/19 22:44 Lymph # 1.5 K/mm3 (1.2-5.4) 09/30/19 22:44 [place] # 1.3 K/mm3 (0.0-0.8) H 09/30/19 22:44 Eos # 0.0 K/mm3 (0.0-0.4) 09/30/19 22:44 Baso # 0.2 K/mm3 (0.0-0.1) H 09/30/19 22:44 Add Manual Diff Complete 10/02/19 05:08 Total Counted 100 10/02/19 05:08 Seg Neutrophils % 78.4 % (40.0-70.0) H 09/30/19 22:44 Seg Neuts % (Manual) 72.0 % (40.0-70.0) H 10/02/19 05:08 Band Neutrophils % 8.0 % 10/02/19 05:08 Lymphocytes % (Manual) 13.0 % (13.4-35.0) L 10/02/19 05:08 Reactive Lymphs % (Man) 0 % 10/02/19 05:08 Monocytes % (Manual) 7.0 % (0.0-7.3) 10/02/19 05:08 Eosinophils % (Manual) 0 % (0.0-4.3) 10/02/19 05:08 Basophils % (Manual) 0 % (0.0-1.8) 10/02/19 05:08 Metamyelocytes % 0 % 10/02/19 05:08 Myelocytes % 0 % 10/02/19 05:08 Promyelocytes % 0 % 10/02/19 05:08 Blast Cells % 0 % 10/02/19 05:08 Nucleated RBC % Not Reportable 10/02/19 05:08 Seg Neutrophils # 10.8 K/mm3 (1.8-7.7) H 09/30/19 22:44 Seg Neutrophils # Man 7.5 K/mm3 (1.8-7.7) 10/02/19 05:08 Band Neutrophils # 0.8 K/mm3 10/02/19 05:08 Lymphocytes # (Manual) 1.4 K/mm3 (1.2-5.4) 10/02/19 05:08 Abs React Lymphs (Man) 0.0 K/mm3 10/02/19 05:08 Monocytes # (Manual) 0.7 K/mm3 (0.0-0.8) 10/02/19 05:08 Eosinophils # (Manual) 0.0 K/mm3 (0.0-0.4) 10/02/19 05:08 Basophils # (Manual) 0.0 K/mm3 (0.0-0.1) 10/02/19 05:08 Metamyelocytes # 0.0 K/mm3 10/02/19 05:08 Myelocytes # 0.0 K/mm3 10/02/19 05:08 Promyelocytes # 0.0 K/mm3 10/02/19 05:08 Blast Cells # 0.0 K/mm3 10/02/19 05:08 WBC Morphology Not Reportable 10/02/19 05:08 Hypersegmented Neuts Not Reportable 10/02/19 05:08 Hyposegmented Neuts Not Reportable 10/02/19 05:08 Hypogranular Neuts Not Reportable 10/02/19 05:08 Smudge Cells Not Reportable 10/02/19 05:08 Toxic Granulation Not Reportable 10/02/19 05:08 Toxic Vacuolation Not Reportable 10/02/19 05:08 Dohle Bodies Not Reportable 10/02/19 05:08 Pelger-Huet Anomaly Not Reportable 10/02/19 05:08 Bal Rods Not Reportable 10/02/19 05:08 Platelet Estimate Consistent w auto 10/02/19 05:08 Clumped Platelets Not Reportable 10/02/19 05:08 Plt Clumps, EDTA Not Reportable 10/02/19 05:08 Large Platelets Not Reportable 10/02/19 05:08 Giant Platelets Not Reportable 10/02/19 05:08 Platelet Satelliting Not Reportable 10/02/19 05:08 Plt Morphology Comment Not Reportable 10/02/19 05:08 RBC Morphology Not Reportable 10/02/19 05:08 Dimorphic RBCs Not Reportable 10/02/19 05:08 Polychromasia Not Reportable 10/02/19 05:08 Hypochromasia Not Reportable 10/02/19 05:08 Poikilocytosis Not Reportable 10/02/19 05:08 Anisocytosis 1+ 10/02/19 05:08 Microcytosis Not Reportable 10/02/19 05:08 Macrocytosis Not Reportable 10/02/19 05:08 Spherocytes Not Reportable 10/02/19 05:08 Pappenheimer Bodies Not Reportable 10/02/19 05:08 Sickle Cells Not Reportable 10/02/19 05:08 Target Cells Not Reportable 10/02/19 05:08 Tear Drop Cells Not Reportable 10/02/19 05:08 Ovalocytes Not Reportable 10/02/19 05:08 Helmet Cells Not Reportable 10/02/19 05:08 [place] Bodies Not Reportable 10/02/19 05:08 [place] Rings Not Reportable 10/02/19 05:08 [place] Cells Not Reportable 10/02/19 05:08 Bite Cells Not Reportable 10/02/19 05:08 Crenated Cell Not Reportable 10/02/19 05:08 Elliptocytes Not Reportable 10/02/19 05:08 Acanthocytes (Spur) Not Reportable 10/02/19 05:08 Rouleaux Not Reportable 10/02/19 05:08 Hemoglobin C Crystals Not Reportable 10/02/19 05:08 Schistocytes Not Reportable 10/02/19 05:08 Malaria parasites Not Reportable 10/02/19 05:08 Willie Bodies Not Reportable 10/02/19 05:08 Hem Pathologist Commnt No 10/02/19 05:08 PT 14.9 Sec. (12.2-14.9) 10/07/19 15:23 INR 1.15 (0.87-1.13) H 10/07/19 15:23 APTT 29.5 Sec. (24.2-36.6) 10/07/19 15:23 D-Dimer 674.88 ng/mlDDU (0-234) H 10/07/19 06:14 Sodium 148 mmol/L (137-145) H 10/07/19 06:14 Potassium 3.7 mmol/L (3.6-5.0) 10/07/19 06:14 Chloride 109.4 mmol/L (98-107) H 10/07/19 06:14 Carbon Dioxide 26 mmol/L (22-30) 10/07/19 06:14 Anion Gap 16 mmol/L 10/07/19 06:14 BUN 16 mg/dL (7-17) 10/07/19 06:14 Creatinine 0.8 mg/dL (0.6-1.2) 10/07/19 06:14 Estimated GFR > 60 ml/min 10/07/19 06:14 BUN/Creatinine Ratio 20 % 10/07/19 06:14 Glucose 275 mg/dL (65-100) H 10/07/19 06:14 POC Glucose 282 (70-105) H 10/07/19 12:08 Lactic Acid 1.30 mmol/L (0.7-2.0) 09/30/19 22:44 Calcium 8.1 mg/dL (8.4-10.2) L 10/07/19 06:14 Ferritin 1445.0 ng/mL (10.0-200.0) H 10/07/19 06:14 Total Bilirubin 0.40 mg/dL (0.1-1.2) 10/05/19 08:32 Direct Bilirubin 0.3 mg/dL (0-0.2) H 09/30/19 22:44 Indirect Bilirubin 0.2 mg/dL 09/30/19 22:44 AST 149 units/L (5-40) H 10/05/19 08:32 ALT 96 units/L (7-56) H 10/05/19 08:32 Alkaline Phosphatase 40 units/L (35-129) 10/05/19 08:32 Lactate Dehydrogenase 812 units/L (91-180) H 10/07/19 06:14 Total Creatine Kinase 934 units/L (30-135) H 10/05/19 08:32 C-Reactive Protein 1.70 mg/dL (0.00-1.30) H 10/07/19 06:14 Total Protein 6.1 g/dL (6.3-8.2) L 10/05/19 08:32 Albumin 2.5 g/dL (3.9-5) L 10/05/19 08:32 Albumin/Globulin Ratio 0.7 % 10/05/19 08:32 Procalcitonin 0.71 ng/mL (<0.15) 10/05/19 08:32 Urine Color [place] (Yellow) 10/01/19 Unknown Urine Turbidity Slightly-cloudy (Clear) 10/01/19 Unknown Urine pH 5.0 (5.0-7.0) 10/01/19 Unknown Ur Specific [place] 1.026 (1.003-1.030) 10/01/19 Unknown Urine Protein 100 mg/dl mg/dL (Negative) 10/01/19 Unknown Urine Glucose (UA) Neg mg/dL (Negative) 10/01/19 Unknown Urine Ketones Tr mg/dL (Negative) 10/01/19 Unknown Urine Blood Lg (Negative) 10/01/19 Unknown Urine Nitrite Neg (Negative) 10/01/19 Unknown Urine Bilirubin Neg (Negative) 10/01/19 Unknown Urine Urobilinogen 2.0 mg/dL (<2.0) 10/01/19 Unknown Ur Leukocyte Esterase Neg (Negative) 10/01/19 Unknown Urine WBC (Auto) 17.0 /HPF (0.0-6.0) H 10/01/19 Unknown Urine RBC (Auto) 1.0 /HPF (0.0-6.0) 10/01/19 Unknown U Epithel Cells (Auto) 4.0 /HPF (0-13.0) 10/01/19 Unknown Urine Mucus 2+ /HPF 10/01/19 Unknown Salicylates < 0.3 mg/dL (2.8-20.0) L 09/30/19 22:44 Urine Opiates Screen Presumptive negative 10/01/19 Unknown Urine Methadone Screen Presumptive negative 10/01/19 Unknown Acetaminophen 5.0 ug/mL (10.0-30.0) L 09/30/19 22:44 Ur Barbiturates Screen Presumptive negative 10/01/19 Unknown Valproic Acid 31.8 ug/mL (50-100) L 10/04/19 08:46 Ur Phencyclidine Scrn Presumptive negative 10/01/19 Unknown Ur Amphetamines Screen Presumptive negative 10/01/19 Unknown U Benzodiazepines Scrn Presumptive negative 10/01/19 Unknown Urine Cocaine Screen Presumptive negative 10/01/19 Unknown U Marijuana (THC) Screen Presumptive negative 10/01/19 Unknown Drugs of Abuse Note Disclamer 10/01/19 Unknown Plasma/Serum Alcohol < 0.01 % (0-0.07) 09/30/19 22:44 Coronavirus (PCR) Positive (Negative) A 10/02/19 Unknown Garcia/IV: Voiding Method Diaper IV Catheter Type [Right Upper INT / Saline Lock arm] IV Catheter Type [Right INT / Saline Lock Antecubital] IV Catheter Type [Right Foot] INT / Saline Lock IV Catheter Type [Right Peripheral IV External Jugular] Active Medications - Current Medications Current Medications: Generic Name Dose Route Start Last Admin Trade Name Freq PRN Reason Stop Dose Admin Acetaminophen 650 mg 10/01/19 08:00 10/04/19 05:30 Tylenol PO 650 mg Q4H PRN Administration Pain MILD(1-3)/Fever >100.5/WRIGHT Lipase/Protease/Amylase 1 each 10/04/19 10:34 Pancrebobby Martinez 10,500 Unit FEEDTUBE PRN PRN For Clogged Feeding Tube Enoxaparin Sodium 40 mg 10/04/19 22:00 10/07/19 11:39 Enoxaparin SUB-Q 40 mg BID ZACH Administration Haloperidol 5 mg 10/02/19 12:00 10/07/19 11:39 Haldol PO 5 mg BID ZACH Administration Hydralazine HCl 10 mg 10/06/19 00:38 10/07/19 00:09 Apresoline IV 10 mg Q6HR PRN Administration Hypertension Sodium Chloride 1,000 mls @ 75 mls/hr 10/06/19 12:00 10/07/19 04:29 Nacl 0.45% 1000 Ml IV 75 mls/hr DIRECT ZACH Administration Insulin Human Lispro 0 unit 10/06/19 01:00 10/07/19 14:53 Humalog SUB-Q 4 unit Q6HR ZACH Administration Protocol Methylprednisolone Sodium Succinate 40 mg 10/07/19 10:00 10/07/19 11:39 Solu-Medrol IV 40 mg Q24HR ZACH Administration Miscellaneous Medication 325 mg 10/02/19 18:45 Paliperidone Palmitate [Invega Sustenna] IM Q3W ZACH Ondansetron HCl 4 mg 10/01/19 08:00 Zofran IV Q8H PRN Nausea And Vomiting Simple Syrup 15 ml 10/04/19 10:34 Simple Syrup FEEDTUBE PRN PRN Hypoglycemia Simple Syrup 30 ml 10/04/19 10:34 Simple Syrup FEEDTUBE PRN PRN Hypoglycemia Sodium Bicarbonate 325 mg 10/04/19 10:34 Sodium Bicarbonate FEEDTUBE PRN PRN For Clogged Feeding Tube Sodium Chloride 10 ml 10/01/19 10:00 10/07/19 11:39 Sodium Chloride Flush Syringe 10 Ml IV 10 ml BID ZACH Administration Sodium Chloride 10 ml 08/14/20 07:50 Sodium Chloride Flush Syringe 10 Ml IV 10/14/19 07:49 PRN PRN LINE FLUSH Trazodone HCl 50 mg 10/01/19 22:00 10/07/19 00:28 Desyrel PO 50 mg QHS ZACH Administration Valproic Acid 1,500 mg 10/05/19 22:00 10/07/19 00:11 Depakene Liq PO 1,500 mg QHS ZACH Administration Nutrition/Malnutrition Assess - Dietary Evaluation Nutrition/Malnutrition Findings: Nutrition Notes Start: 10/04/19 09 :33 Freq: Status: Active Protocol: Document 10/06/19 14:52 LM (Rec: 10/06/19 14:56 LM [id number]) Nutrition Notes Initial or Follow up Reassessment Current Diagnosis Acute Kidney Injury,Sepsis Other Pertinent Diagnosis COVID-19 (+), Schizoaffective disorder Current Diet Jevity 1.2 at 55ml/hr Labs/Tests Na 149 BUN 19 BG 356 Pertinent Medications Solumedrol Humalog Height 5 ft 6 in Weight 114 kg Palmer Body Weight (kg) 59.09 BMI 40.5 Weight Status Morbidly Obese Subjective/Other Information TF running at goal rate and pt is tolerating. [employer] recommends pt to continue with TF. Burn Absent Trauma Absent GI Symptoms None Difficulty In Swallowing Food Allergy No Current % PO Negligible Minimum of two criteria No Reduced Academic Adviser Strength Measurably Reduced (severe) #1 Nutrition Diagnosis Inadequate oral intake Diagnosis Progress(for reassessment Continues documentation) Is patient on ventilator? No Is Patient Ambulatory and/or Out of Bed No REE-([facility]-confined to bed) 2106.012 Kcal/Kg value to use for calculation 14 Approximate Energy Requirements Using 1596 kcal/Kg Calculation Used for Recommendations Kcal/kg Additional Notes Protein needs are 69-87g (0.8- 1g/kg adjusted wt 86.5kg) Fluid needs are 1ml/kcal Nutrition Intervention Change Diet Order: TF Nutrition Support: Jevity 1.2 at 55ml/hr Flush with 200ml q4h for hypernatremia Kcal 1,584 Protein (gm) 73 Fluid (mL) 1,065 Goal #1 Meet at least 80% of kcal and protein needs via TF Anticipated Discharge Needs: Unable to determine at this time Follow-Up By: 10/08/19 Additional Comments F/U for TF tolerance, BG, Na
[2019-10-07] MEDS: hydrALAZINE 20 MG/1 ML INJ IV PRN (00:09)
[2019-10-07] MEDS: VALPROIC ACID 250 MG/5 ML ORAL LIQD PO SCH ×2 (00:11→21:26)
[2019-10-07] MEDS: HALOPERIDOL 5 MG TAB PO SCH ×3 (00:11→21:27)
[2019-10-07] MEDS: traZODone 50 MG TAB PO SCH ×2 (00:28→21:26)
[2019-10-07] MEDS: INSULIN LISPRO 100 UNIT/ML VIAL 3 mL SUB-Q SCH ×4 (00:31→17:31)
[2019-10-07] MEDS: ENOXAPARIN 40 MG/0.4 ML INJ SUB-Q SCH ×3 (02:26→21:26)
[2019-10-07] MEDS: SODIUM CHLORIDE 0.45% 1000 ML 1,000 ML IV SCH ×2 (04:29→21:25)
[2019-10-07 07:22] LABS: Hematocrit 39.5 % (30.3-42.9); Mean Corpuscular HGB Conc 33 % (30-34); Mean Corpuscular Volume 88 fl (79-97); Platelet Count 213 K/mm3 (140-440); Red Blood Count 4.47 M/mm3 (3.65-5.03); Red Cell Distribution Width 15.8 % (13.2-15.2)
[2019-10-07 07:44] LABS: BUN/Creatinine Ratio 20; Blood Urea Nitrogen 16 mg/dL (7-17); Calcium 8.1 mg/dL (8.4-10.2); Hemolysis Index 10
[2019-10-07] MEDS: methylPREDNISolone Sod Succinate 40 MG/1 ML INJ IV SCH (11:39)
--- NOTE | 2019-10-07 13:21 | Progress Note ---
Assessment and Plan Cultures: Blood culture and urine culture negative COVID PCR positive Assessment: 54 years old female with history of paranoid schizophrenia, admitted on 09/30/2019 due to altered mental status and catatonia state: #Severe sepsis: Present on admission with low-grade fever, tachycardia, elevated leukocytosis, FAISAL, likely due to bilateral pneumonia. #Bilateral pneumonia: COVID-19 pneumonia. Inflammatory markers are elevated, with a d-dimer > 10,000. CT negative for pulmonary embolism. Repeat d-dimer with much improvement. Renal function and LFTs improving, but given mild hypoxia and several days of positivity, unclear benefit with Remdesivir at this stage. Completed empiric CAP abx x 5 days. #Acute hypoxemic respiratory failure: mild. on supplemental oxygen. #Elevated LFTs: from COVID. #FAISAL: from COVID. improved #Elevated LFTs: Very high likely secondary to rhabdomyolysis #Elevated CK: Likely secondary to rhabdomyolysis possible due to COVID-19 infection or catatonic state #Paranoid schizophrenia with catatonia: Per psych Recommendations: -continue steroids, day 6 of 10 -supportive care and oxygen weaning as tolerated -anticoagulation per protocol based on d-dimer Konrad Moyer MD, FACP [facility] ([facility] C: [phone] O: [phone] F: [phone] Subjective Date of service: 10/07/19 Interval history: No fever. Oxygen requirements stable at 2-3 L nasal cannula. Objective - Exam Narrative Exam: Physical Exam (reviewed in chart due to PPE conservation) Constitutional: limited due to PPE conservation strategy Head, Ears, Nose: limited due to PPE conservation strategy Eyes: limited due to PPE conservation strategy Neck: limited due to PPE conservation strategy Oral: limited due to PPE conservation strategy Cardiovascular: limited due to PPE conservation strategy Respiratory: limited due to PPE conservation strategy GI: limited due to PPE conservation strategy Musculoskeletal: limited due to PPE conservation strategy Skin: limited due to PPE conservation strategy Hem/Lymphatic: limited due to PPE conservation strategy Psych: limited due to PPE conservation strategy Neurological: limited due to PPE conservation strategy - Constitutional Vitals: Vital Signs Temp Pulse Resp BP Pulse Ox 98.7 F 106 H 20 170/87 97 10/07/19 04:00 10/07/19 04:00 10/06/19 23:58 10/07/19 03:58 10/07/19 04:00 Temperature -Last 24 Hours Temperature 98.7 F Temperature 97.1 F Temperature 98.8 F - Labs CBC & Chem 7: 10/07/19 06:14 10/07/19 06:14 Labs: Abnormal lab results 10/06/19 10/07/19 10/07/19 Range/Units 17:24 00:07 06:14 WBC (4.5-11.0) K/mm3 RDW (13.2-15.2) % D-Dimer 674.88 H (0-234) ng/mlDDU Sodium (137-145) mmol/L Chloride (98-107) mmol/L Glucose (65-100) mg/dL POC Glucose 289 H 259 H (70-105) Calcium (8.4-10.2) mg/dL Ferritin (10.0-200.0) ng/mL Lactate Dehydrogenase (91-180) units/L C-Reactive Protein (0.00-1.30) mg/dL 10/07/19 10/07/19 10/07/19 Range/Units 06:14 06:14 06:14 WBC 18.4 H (4.5-11.0) K/mm3 RDW 15.8 H (13.2-15.2) % D-Dimer (0-234) ng/mlDDU Sodium 148 H (137-145) mmol/L Chloride 109.4 H (98-107) mmol/L Glucose 275 H (65-100) mg/dL POC Glucose (70-105) Calcium 8.1 L (8.4-10.2) mg/dL Ferritin 1445.0 H (10.0-200.0) ng/mL Lactate Dehydrogenase 812 H (91-180) units/L C-Reactive Protein 1.70 H (0.00-1.30) mg/dL 10/07/19 10/07/19 Range/Units 07:28 12:08 WBC (4.5-11.0) K/mm3 RDW (13.2-15.2) % D-Dimer (0-234) ng/mlDDU Sodium (137-145) mmol/L Chloride (98-107) mmol/L Glucose (65-100) mg/dL POC Glucose 240 H 282 H (70-105) Calcium (8.4-10.2) mg/dL Ferritin (10.0-200.0) ng/mL Lactate Dehydrogenase (91-180) units/L C-Reactive Protein (0.00-1.30) mg/dL
--- NOTE | 2019-10-07 14:19 | Progress Note ---
<BLANCA SOFIA KellyFabián - Last Filed: 10/07/19 14:22> Assessment and Plan - Patient Problems (1) Severe sepsis Current Visit: Yes Status: Acute Plan to address problem: - Presented with low-grade fever, tachycardia, leukocytosis, FAISAL, and bilateral pneumonia - Likely source is bilateral pneumonia secondary to COVID-19 - IV antibiotics completed - Covid protocol initiated (2) Pneumonia due to COVID-19 virus Current Visit: Yes Status: Acute Plan to address problem: - COVID protocol initiated - IV azithromycin and Rocephin completed - 09/30 COVID PCR positive - Trend LDH, CRP, procalcitonin, d-dimer, ferritin - Droplet /contact precautions - Supplemental oxygenation as needed - Infectious disease consult requested - Pulmonary hygiene - In setting of elevated D-Dimer, CTA Chest was ordered which was negative for pulmonary embolism - Anticoagulation per COVID protocol - Cannot initiate Remdesivir in setting on of elevated LFTs - Continue p.o. dexamethasone (3) Neuroleptic malignant syndrome Current Visit: Yes Status: Ruled-out Plan to address problem: - Given catatonic state, elevated CK, AMS and antipsychotic medication use we will r/o malignant neuroleptic syndrome - Neurology has been consulted; does not suspect NMS at this time - 10/02 CTH shows mild microvascular angiopathy and cerebral atrophy without evidence of acute intracranial hemorrhage. (4) Rhabdomyolysis Current Visit: Yes Status: Resolved [place] address problem: [place] [address], down to 2599 -Initiated on normal saline at 125ml/hr then switched to half-normal saline at 125ml/hr for hypernatremia however it has not been stopped (5) Acute psychosis Current Visit: Yes Status: Acute Plan to address problem: - Currently withdraws to pain however moving all extremities spontaneously - History of paranoid schizophrenia - Mental health consult requested and does not recommend inpatient psych at this time as medical needs outweigh psych this time - Requested to reconsult when patient is medically stable - GI consulted for PEG tube placement to facilitate placement (6) Paranoid schizophrenia Current Visit: Yes Status: Chronic Plan to address problem: -History of present schizophrenia -Psych consulted and appreciate recommendations -Depakote and Haldol -Sleep hygiene -Reorientation as needed (7) Acute renal failure Current Visit: Yes Status: Resolved Plan to address problem: - Vasomotor nephropathy maybe secondary to dehydration and rhabdomyolysis - Received 2 L IVF in ED - Admit Cr/BUN 1.4/33 but now trended down to 0.8-0.9 - Avoid nephrotoxic medications - Trend BMP (8) Leukocytosis Current Visit: Yes Status: Acute Plan to address problem: - Admit WBC 13.8 - Trend CBC - Maybe secondary to possible PNA or from dehydration - IV abx completed - Also on steroids for COVID pneumonia (9) Thrombocytopenia Current Visit: Yes Status: Resolved Plan to address problem: - Admit Plt is 97 now up to 140K - Bleeding precautions - Trend CBC (10) DVT prophylaxis Current Visit: Yes Status: Acute Plan to address problem: - SCDs to BLE while in bed - Lovenox subq twice daily per COVID protocol History Interval history: This is a 54-year-old female with paranoid schizophrenia that presents to the emergency department on 09/29 for altered mental status in a catatonic state. Previous hospitalizations reviewed and only notes a history of paranoid schizophrenia. Patient may be a resident of [place]. Patient is currently nonverbal and HPI is received from ER documentation. Work-up in the emergency department included a CT abdomen pelvis which shows patchy peripheral groundgl ass opacities bilateral lungs which is consistent with either viral or atypical pneumonia, positive anterior lateral fat hernia in the left mid abdomen and a large uterine fibroids however her CXR showed no acute pulmonary or pleural abnormalities. She was found to have acute kidney injury with a creatinine of 1.4/BUN 33 as baseline from previous records seems to be 0.7, rhabdomyolysis with a creatinine kinase of 33,481, leukocytosis with a WBC of 13.8, thrombocytopenia with platelets at 97. She has COVID pneumonia with IV antibiotics, rhabdomyolysis, and FAISAL. Infectious disease, psych, and neurology have been consulted. Neurology does not suspect NMS at this time. Psych has signed off at this time due to ongoing acute medical processes. PT/ST consulted for evaluation but unable to be performed as patient will not follow verbal commands. She still moves and groans to painful stimuli however she does not open her eyes to verbal or physical stimuli. GI was consulted today for PEG pl acement * Discussed with primary litigation partner patient was normally verbal but sometimes goes into a catatonic state. Phone number for this is [phone] * 10/04: PT consulted. Psych signed off. Continue treatment * 10/03: continue treatment * 10/02: Change fluids to NS 1/2 AT 125CC/hr. Rhabdomylysis improving, insert NGT and start tube feeds. Psych input noted. Continue management for COVID 19. ID consulted. No new fever. CTA and CTH obtained which were both negative * 10/01: COVID PCR Positive Hospitalist Physical - Constitutional Vitals: Temp Pulse Resp BP Pulse Ox 97.9 F 100 H 24 158/107 100 10/07/19 11:59 10/07/19 11:59 10/07/19 11:59 10/07/19 11:59 10/07/19 11:59 General appearance: Present: no acute distress, other (Patient slightly opens her eyes to tactile stimuli and withdraws to painful stimuli in all 4 extremities. She is seen LEVY spontaneously.) - EENT Eyes: Absent: scleral icterus - Neck Neck: Present: normal ROM - Respiratory Respiratory effort: normal Respiratory: bilateral: CTA - Cardiovascular Rhythm: regular Heart Sounds: Present: S1 & S2. Absent: systolic murmur, diastolic murmur - Extremities Extremities: no ischemia, pulses intact, pulses symmetrical, No edema, normal temperature, normal color, Full ROM Peripheral Pulses: within normal limits - Abdominal General gastrointestinal: soft, non-tender, non-distended, normal bowel sounds - Integumentary Integumentary: Present: clear, warm, dry - Psychiatric Psychiatric: other (Moves all extremities spontaneously and to painful stimuli and groans to painful stim) - Neurologic Neurologic: no focal deficits, moves all extremities - Allied Health Allied health notes reviewed: nursing, social work, case management Results - Labs CBC & Chem 7: 10/07/19 06:14 10/07/19 06:14 Labs: Laboratory Last Values WBC 18.4 K/mm3 (4.5-11.0) H 10/07/19 06:14 RBC 4.47 M/mm3 (3.65-5.03) 10/07/19 06:14 Hgb 13.0 gm/dl (10.1-14.3) 10/07/19 06:14 Hct 39.5 % (30.3-42.9) 10/07/19 06:14 MCV 88 fl (79-97) 10/07/19 06:14 MCH 29 pg (28-32) 10/07/19 06:14 MCHC 33 % (30-34) 10/07/19 06:14 RDW 15.8 % (13.2-15.2) H 10/07/19 06:14 Plt Count 213 K/mm3 (140-440) 10/07/19 06:14 Lymph % (Auto) 10.6 % (13.4-35.0) L 09/30/19 22:44 Ritchie % (Auto) 9.8 % (0.0-7.3) H 09/30/19 22:44 Eos % (Auto) 0.0 % (0.0-4.3) 09/30/19 22:44 Baso % (Auto) 1.2 % (0.0-1.8) 09/30/19 22:44 Lymph # 1.5 K/mm3 (1.2-5.4) 09/30/19 22:44 Ritchie # 1.3 K/mm3 (0.0-0.8) H 09/30/19 22:44 Eos # 0.0 K/mm3 (0.0-0.4) 09/30/19 22:44 Baso # 0.2 K/mm3 (0.0-0.1) H 09/30/19 22:44 Add Manual Diff Complete 10/02/19 05:08 Total Counted 100 10/02/19 05:08 Seg Neutrophils % 78.4 % (40.0-70.0) H 09/30/19 22:44 Seg Neuts % (Manual) 72.0 % (40.0-70.0) H 10/02/19 05:08 Band Neutrophils % 8.0 % 10/02/19 05:08 Lymphocytes % (Manual) 13.0 % (13.4-35.0) L 10/02/19 05:08 Reactive Lymphs % (Man) 0 % 10/02/19 05:08 Monocytes % (Manual) 7.0 % (0.0-7.3) 10/02/19 05:08 Eosinophils % (Manual) 0 % (0.0-4.3) 10/02/19 05:08 Basophils % (Manual) 0 % (0.0-1.8) 10/02/19 05:08 Metamyelocytes % 0 % 10/02/19 05:08 Myelocytes % 0 % 10/02/19 05:08 Promyelocytes % 0 % 10/02/19 05:08 Blast Cells % 0 % 10/02/19 05:08 Nucleated RBC % Not Reportable 10/02/19 05:08 Seg Neutrophils # 10.8 K/mm3 (1.8-7.7) H 09/30/19 22:44 Seg Neutrophils # Man 7.5 K/mm3 (1.8-7.7) 10/02/19 05:08 Band Neutrophils # 0.8 K/mm3 10/02/19 05:08 Lymphocytes # (Manual) 1.4 K/mm3 (1.2-5.4) 10/02/19 05:08 Abs React Lymphs (Man) 0.0 K/mm3 10/02/19 05:08 Monocytes # (Manual) 0.7 K/mm3 (0.0-0.8) 10/02/19 05:08 Eosinophils # (Manual) 0.0 K/mm3 (0.0-0.4) 10/02/19 05:08 Basophils # (Manual) 0.0 K/mm3 (0.0-0.1) 10/02/19 05:08 Metamyelocytes # 0.0 K/mm3 10/02/19 05:08 Myelocytes # 0.0 K/mm3 10/02/19 05:08 Promyelocytes # 0.0 K/mm3 10/02/19 05:08 Blast Cells # 0.0 K/mm3 10/02/19 05:08 WBC Morphology Not Reportable 10/02/19 05:08 Hypersegmented Neuts Not Reportable 10/02/19 05:08 Hyposegmented Neuts Not Reportable 10/02/19 05:08 Hypogranular Neuts Not Reportable 10/02/19 05:08 Smudge Cells Not Reportable 10/02/19 05:08 Toxic Granulation Not Reportable 10/02/19 05:08 Toxic Vacuolation Not Reportable 10/02/19 05:08 Dohle Bodies Not Reportable 10/02/19 05:08 Pelger-Huet Anomaly Not Reportable 10/02/19 05:08 Bal Rods Not Reportable 10/02/19 05:08 Platelet Estimate Consistent w auto 10/02/19 05:08 Clumped Platelets Not Reportable 10/02/19 05:08 Plt Clumps, EDTA Not Reportable 10/02/19 05:08 Large Platelets Not Reportable 10/02/19 05:08 Giant Platelets Not Reportable 10/02/19 05:08 Platelet Satelliting Not Reportable 10/02/19 05:08 Plt Morphology Comment Not Reportable 10/02/19 05:08 RBC Morphology Not Reportable 10/02/19 05:08 Dimorphic RBCs Not Reportable 10/02/19 05:08 Polychromasia Not Reportable 10/02/19 05:08 Hypochromasia Not Reportable 10/02/19 05:08 Poikilocytosis Not Reportable 10/02/19 05:08 Anisocytosis 1+ 10/02/19 05:08 Microcytosis Not Reportable 10/02/19 05:08 Macrocytosis Not Reportable 10/02/19 05:08 Spherocytes Not Reportable 10/02/19 05:08 Pappenheimer Bodies Not Reportable 10/02/19 05:08 Sickle Cells Not Reportable 10/02/19 05:08 Target Cells Not Reportable 10/02/19 05:08 Tear Drop Cells Not Reportable 10/02/19 05:08 Ovalocytes Not Reportable 10/02/19 05:08 Helmet Cells Not Reportable 10/02/19 05:08 Singleton-Nitro Bodies Not Reportable 10/02/19 05:08 [place] Rings Not Reportable 10/02/19 05:08 [place] Cells Not Reportable 10/02/19 05:08 Bite Cells Not Reportable 10/02/19 05:08 Crenated Cell Not Reportable 10/02/19 05:08 Elliptocytes Not Reportable 10/02/19 05:08 Acanthocytes (Spur) Not Reportable 10/02/19 05:08 Rouleaux Not Reportable 10/02/19 05:08 Hemoglobin C Crystals Not Reportable 10/02/19 05:08 Schistocytes Not Reportable 10/02/19 05:08 Malaria parasites Not Reportable 10/02/19 05:08 Willie Bodies Not Reportable 10/02/19 05:08 Hem Pathologist Commnt No 10/02/19 05:08 D-Dimer 674.88 ng/mlDDU (0-234) H 10/07/19 06:14 Sodium 148 mmol/L (137-145) H 10/07/19 06:14 Potassium 3.7 mmol/L (3.6-5.0) 10/07/19 06:14 Chloride 109.4 mmol/L (98-107) H 10/07/19 06:14 Carbon Dioxide 26 mmol/L (22-30) 10/07/19 06:14 Anion Gap 16 mmol/L 10/07/19 06:14 BUN 16 mg/dL (7-17) 10/07/19 06:14 Creatinine 0.8 mg/dL (0.6-1.2) 10/07/19 06:14 Estimated GFR > 60 ml/min 10/07/19 06:14 BUN/Creatinine Ratio 20 % 10/07/19 06:14 Glucose 275 mg/dL (65-100) H 10/07/19 06:14 POC Glucose 282 (70-105) H 10/07/19 12:08 Lactic Acid 1.30 mmol/L (0.7-2.0) 09/30/19 22:44 Calcium 8.1 mg/dL (8.4-10.2) L 10/07/19 06:14 Ferritin 1445.0 ng/mL (10.0-200.0) H 10/07/19 06:14 Total Bilirubin 0.40 mg/dL (0.1-1.2) 10/05/19 08:32 Direct Bilirubin 0.3 mg/dL (0-0.2) H 09/30/19 22:44 Indirect Bilirubin 0.2 mg/dL 09/30/19 22:44 AST 149 units/L (5-40) H 10/05/19 08:32 ALT 96 units/L (7-56) H 10/05/19 08:32 Alkaline Phosphatase 40 units/L (35-129) 10/05/19 08:32 Lactate Dehydrogenase 812 units/L (91-180) H 10/07/19 06:14 Total Creatine Kinase 934 units/L (30-135) H 10/05/19 08:32 C-Reactive Protein 1.70 mg/dL (0.00-1.30) H 10/07/19 06:14 Total Protein 6.1 g/dL (6.3-8.2) L 10/05/19 08:32 Albumin 2.5 g/dL (3.9-5) L 10/05/19 08:32 Albumin/Globulin Ratio 0.7 % 10/05/19 08:32 Procalcitonin 0.71 ng/mL (<0.15) 10/05/19 08:32 Urine Color [place] (Yellow) 10/01/19 Unknown Urine Turbidity Slightly-cloudy (Clear) 10/01/19 Unknown Urine pH 5.0 (5.0-7.0) 10/01/19 Unknown Ur Specific [place] 1.026 (1.003-1.030) 10/01/19 Unknown Urine Protein 100 mg/dl mg/dL (Negative) 10/01/19 Unknown Urine Glucose (UA) Neg mg/dL (Negative) 10/01/19 Unknown Urine Ketones Tr mg/dL (Negative) 10/01/19 Unknown Urine Blood Lg (Negative) 10/01/19 Unknown Urine Nitrite Neg (Negative) 10/01/19 Unknown Urine Bilirubin Neg (Negative) 10/01/19 Unknown Urine Urobilinogen 2.0 mg/dL (<2.0) 10/01/19 Unknown Ur Leukocyte Esterase Neg (Negative) 10/01/19 Unknown Urine WBC (Auto) 17.0 /HPF (0.0-6.0) H 10/01/19 Unknown Urine RBC (Auto) 1.0 /HPF (0.0-6.0) 10/01/19 Unknown U Epithel Cells (Auto) 4.0 /HPF (0-13.0) 10/01/19 Unknown Urine Mucus 2+ /HPF 10/01/19 Unknown Salicylates < 0.3 mg/dL (2.8-20.0) L 09/30/19 22:44 Urine Opiates Screen Presumptive negative 10/01/19 Unknown Urine Methadone Screen Presumptive negative 10/01/19 Unknown Acetaminophen 5.0 ug/mL (10.0-30.0) L 09/30/19 22:44 Ur Barbiturates Screen Presumptive negative 10/01/19 Unknown Valproic Acid 31.8 ug/mL (50-100) L 10/04/19 08:46 Ur Phencyclidine Scrn Presumptive negative 10/01/19 Unknown Ur Amphetamines Screen Presumptive negative 10/01/19 Unknown U Benzodiazepines Scrn Presumptive negative 10/01/19 Unknown Urine Cocaine Screen Presumptive negative 10/01/19 Unknown U Marijuana (THC) Screen Presumptive negative 10/01/19 Unknown Drugs of Abuse Note Disclamer 10/01/19 Unknown Plasma/Serum Alcohol < 0.01 % (0-0.07) 09/30/19 22:44 Coronavirus (PCR) Positive (Negative) A 10/02/19 Unknown Garcia/IV: Voiding Method Diaper IV Catheter Type [Right Upper INT / Saline Lock arm] IV Catheter Type [Right INT / Saline Lock Antecubital] IV Catheter Type [Right Foot] INT / Saline Lock IV Catheter Type [Right Peripheral IV External Jugular] Active Medications - Current Medications Current Medications: Generic Name Dose Route Start Last Admin Trade Name Freq PRN Reason Stop Dose Admin Acetaminophen 650 mg 10/01/19 08:00 10/04/19 05:30 Tylenol PO 650 mg Q4H PRN Administration Pain MILD(1-3)/Fever >100.5/WRIGHT Lipase/Protease/Amylase 1 each 10/04/19 10:[address] 10,500 Unit FEEDTUBE PRN PRN For Clogged Feeding Tube Enoxaparin Sodium 40 mg 10/04/19 22:00 10/07/19 11:39 Enoxaparin SUB-Q 40 mg BID ZACH Administration Haloperidol 5 mg 10/02/19 12:00 10/07/19 11:39 Haldol PO 5 mg BID ZACH Administration Hydralazine HCl 10 mg 10/06/19 00:38 10/07/19 00:09 Apresoline IV 10 mg Q6HR PRN Administration Hypertension Sodium Chloride 1,000 mls @ 75 mls/hr 10/06/19 12:00 10/07/19 04:29 Nacl 0.45% 1000 Ml IV 75 mls/hr DIRECT ZACH Administration Insulin Human Lispro 0 unit 10/06/19 01:00 10/07/19 07:47 Humalog SUB-Q 3 unit Q6HR ZACH Administration Protocol Methylprednisolone Sodium Succinate 40 mg 10/07/19 10:00 10/07/19 11:39 Solu-Medrol IV 40 mg Q24HR ZACH Administration Miscellaneous Medication 325 mg 10/02/19 18:45 Paliperidone Palmitate [Invega Sustenna] IM Q3W ZACH Ondansetron HCl 4 mg 10/01/19 08:00 Zofran IV Q8H PRN Nausea And Vomiting Simple Syrup 15 ml 10/04/19 10:34 Simple Syrup FEEDTUBE PRN PRN Hypoglycemia Simple Syrup 30 ml 10/04/19 10:34 Simple Syrup FEEDTUBE PRN PRN Hypoglycemia Sodium Bicarbonate 325 mg 10/04/19 10:34 Sodium Bicarbonate FEEDTUBE PRN PRN For Clogged Feeding Tube Sodium Chloride 10 ml 10/01/19 10:00 10/07/19 11:39 Sodium Chloride Flush Syringe 10 Ml IV 10 ml BID ZACH Administration Sodium Chloride 10 ml 10/01/19 07:50 Sodium Chloride Flush Syringe 10 Ml IV 10/14/19 07:49 PRN PRN LINE FLUSH Trazodone HCl 50 mg 10/01/19 22:00 10/07/19 00:28 Desyrel PO 50 mg QHS ZACH Administration Valproic Acid 1,500 mg 10/05/19 22:00 10/07/19 00:11 Depakene Liq PO 1,500 mg QHS ZACH Administration Nutrition/Malnutrition Assess - Dietary Evaluation Nutrition/Malnutrition Findings: Nutrition Notes Start: 10/04/19 09:33 Freq: Status: Active Protocol: Document 10/06/19 14:52 LM (Rec: 10/06/19 14:56 LM [id number]) Nutrition Notes Initial or Follow up Reassessment Current Diagnosis Acute Kidney Injury,Sepsis Other Pertinent Diagnosis COVID-19 (+), Schizoaffective disorder Current Diet Jevity 1.2 at 55ml/hr Labs/Tests Na 149 BUN 19 BG 356 Pertinent Medications Solumedrol Humalog Height 5 ft 6 in Weight 114 kg [place] Body Weight (kg) 59.09 BMI 40.5 Weight Status Morbidly Obese Subjective/Other Information TF running at goal rate and pt is tolerating. REAL ESTATE REPRESENTATIVE recommends pt to continue with TF. Burn Absent Trauma Absent GI Symptoms None Difficulty In Swallowing Food Allergy No Current % PO Negligible Minimum of two criteria No Reduced Pool Attendant Strength Measurably Reduced (severe) #1 Nutrition Diagnosis Inadequate oral intake Diagnosis Progress(for reassessment Continues documentation) Is patient on ventilator? No Is Patient Ambulatory and/or Out of Bed No REE-([facility]-confined to bed) 2106.012 Kcal/Kg value to use for calculation 14 Approximate Energy Requirements Using 1596 kcal/Kg Calculation Used for Recommendations Kcal/kg Additional Notes Protein needs are 69-87g (0.8- 1g/kg adjusted wt 86.5kg) Fluid needs are 1ml/kcal Nutrition Intervention Change Diet Order: TF Nutrition Support: Jevity 1.2 at 55ml/hr Flush with 200ml q4h for hypernatremia Kcal 1,584 Protein (gm) 73 Fluid (mL) 1,065 Goal #1 Meet at least 80% of kcal and protein needs via TF Anticipated Discharge Needs: Unable to determine at this time Follow-Up By: 10/08/19 Additional Comments F/U for TF tolerance, BG, Na <LONI GOMEZ R - Last Filed: 10/07/19 17:22> Assessment and Plan Assessment and plan: I saw and evaluated the patient. I agree with the findings and the plan of care as documented in the Nurse Practitioner's~note, with the following corrections and additions. Consult GI for PEG tube placement Hospitalist Physical - Constitutional Vitals: Temp Pulse Resp BP Pulse Ox 97.9 F 100 H 24 158/107 100 10/07/19 11:59 10/07/19 11:59 10/07/19 11:59 10/07/19 11:59 10/07/19 11:59 Results - Labs CBC & Chem 7: 10/07/19 06:14 10/07/19 06:14 Labs: Laboratory Last Values WBC 18.4 K/mm3 (4.5-11.0) H 10/07/19 06:14 RBC 4.47 M/mm3 (3.65-5.03) 10/07/19 06:14 Hgb 13.0 gm/dl (10.1-14.3) 10/07/19 06:14 Hct 39.5 % (30.3-42.9) 10/07/19 06:14 MCV 88 fl (79-97) 10/07/19 06:14 MCH 29 pg (28-32) 10/07/19 06:14 MCHC 33 % (30-34) 10/07/19 06:14 RDW 15.8 % (13.2-15.2) H 10/07/19 06:14 Plt Count 213 K/mm3 (140-440) 10/07/19 06:14 Lymph % (Auto) 10.6 % (13.4-35.0) L 09/30/19 22:44 Ritchie % (Auto) 9.8 % (0.0-7.3) H 09/30/19 22:44 Eos % (Auto) 0.0 % (0.0-4.3) 09/30/19 22:44 Baso % (Auto) 1.2 % (0.0-1.8) 09/30/19 22:44 Lymph # 1.5 K/mm3 (1.2-5.4) 09/30/19 22:44 Ritchie # 1.3 K/mm3 (0.0-0.8) H 09/30/19 22:44 Eos # 0.0 K/mm3 (0.0-0.4) 09/30/19 22:44 Baso # 0.2 K/mm3 (0.0-0.1) H 09/30/19 22:44 Add Manual Diff Complete 10/02/19 05:08 Total Counted 100 10/02/19 05:08 Seg Neutrophils % 78.4 % (40.0-70.0) H 09/30/19 22:44 Seg Neuts % (Manual) 72.0 % (40.0-70.0) H 10/02/19 05:08 Band Neutrophils % 8.0 % 10/02/19 05:08 Lymphocytes % (Manual) 13.0 % (13.4-35.0) L 10/02/19 05:08 Reactive Lymphs % (Man) 0 % 10/02/19 05:08 Monocytes % (Manual) 7.0 % (0.0-7.3) 10/02/19 05:08 Eosinophils % (Manual) 0 % (0.0-4.3) 10/02/19 05:08 Basophils % (Manual) 0 % (0.0-1.8) 10/02/19 05:08 Metamyelocytes % 0 % 10/02/19 05:08 Myelocytes % 0 % 10/02/19 05:08 Promyelocytes % 0 % 10/02/19 05:08 Blast Cells % 0 % 10/02/19 05:08 Nucleated RBC % Not Reportable 10/02/19 05:08 Seg Neutrophils # 10.8 K/mm3 (1.8-7.7) H 09/30/19 22:44 Seg Neutrophils # Man 7.5 K/mm3 (1.8-7.7) 10/02/19 05:08 Band Neutrophils # 0.8 K/mm3 10/02/19 05:08 Lymphocytes # (Manual) 1.4 K/mm3 (1.2-5.4) 10/02/19 05:08 Abs React Lymphs (Man) 0.0 K/mm3 10/02/19 05:08 Monocytes # (Manual) 0.7 K/mm3 (0.0-0.8) 10/02/19 05:08 Eosinophils # (Manual) 0.0 K/mm3 (0.0-0.4) 10/02/19 05:08 Basophils # (Manual) 0.0 K/mm3 (0.0-0.1) 10/02/19 05:08 Metamyelocytes # 0.0 K/mm3 10/02/19 05:08 Myelocytes # 0.0 K/mm3 10/02/19 05:08 Promyelocytes # 0.0 K/mm3 10/02/19 05:08 Blast Cells # 0.0 K/mm3 10/02/19 05:08 WBC Morphology Not Reportable 10/02/19 05:08 Hypersegmented Neuts Not Reportable 10/02/19 05:08 Hyposegmented Neuts Not Reportable 10/02/19 05:08 Hypogranular Neuts Not Reportable 10/02/19 05:08 Smudge Cells Not Reportable 10/02/19 05:08 Toxic Granulation Not Reportable 10/02/19 05:08 Toxic Vacuolation Not Reportable 10/02/19 05:08 Dohle Bodies Not Reportable 10/02/19 05:08 Pelger-Huet Anomaly Not Reportable 10/02/19 05:08 Bal Rods Not Reportable 10/02/19 05:08 Platelet Estimate Consistent w auto 10/02/19 05:08 Clumped Platelets Not Reportable 10/02/19 05:08 Plt Clumps, EDTA Not Reportable 10/02/19 05:08 Large Platelets Not Reportable 10/02/19 05:08 Giant Platelets Not Reportable 10/02/19 05:08 Platelet Satelliting Not Reportable 10/02/19 05:08 Plt Morphology Comment Not Reportable 10/02/19 05:08 RBC Morphology Not Reportable 10/02/19 05:08 Dimorphic RBCs Not Reportable 10/02/19 05:08 Polychromasia Not Reportable 10/02/19 05:08 Hypochromasia Not Reportable 10/02/19 05:08 Poikilocytosis Not Reportable 10/02/19 05:08 Anisocytosis 1+ 10/02/19 05:08 Microcytosis Not Reportable 10/02/19 05:08 Macrocytosis Not Reportable 10/02/19 05:08 Spherocytes Not Reportable 10/02/19 05:08 Pappenheimer Bodies Not Reportable 10/02/19 05:08 Sickle Cells Not Reportable 10/02/19 05:08 Target Cells Not Reportable 10/02/19 05:08 Tear Drop Cells Not Reportable 10/02/19 05:08 Ovalocytes Not Reportable 10/02/19 05:08 Helmet Cells Not Reportable 10/02/19 05:08 [place]-Nitro Bodies Not Reportable 10/02/19 05:08 [place] Rings Not Reportable 10/02/19 05:08 [place] Cells Not Reportable 10/02/19 05:08 Bite Cells Not Reportable 10/02/19 05:08 Crenated Cell Not Reportable 10/02/19 05:08 Elliptocytes Not Reportable 10/02/19 05:08 Acanthocytes (Spur) Not Reportable 10/02/19 05:08 Rouleaux Not Reportable 10/02/19 05:08 Hemoglobin C Crystals Not Reportable 10/02/19 05:08 Schistocytes Not Reportable 10/02/19 05:08 Malaria parasites Not Reportable 10/02/19 05:08 Willie Bodies Not Reportable 10/02/19 05:08 Hem Pathologist Commnt No 10/02/19 05:08 PT 14.9 Sec. (12.2-14.9) 10/07/19 15:23 INR 1.15 (0.87-1.13) H 10/07/19 15:23 APTT 29.5 Sec. (24.2-36.6) 10/07/19 15:23 D-Dimer 674.88 ng/mlDDU (0-234) H 10/07/19 06:14 Sodium 148 mmol/L (137-145) H 10/07/19 06:14 Potassium 3.7 mmol/L (3.6-5.0) 10/07/19 06:14 Chloride 109.4 mmol/L (98-107) H 10/07/19 06:14 Carbon Dioxide 26 mmol/L (22-30) 10/07/19 06:14 Anion Gap 16 mmol/L 10/07/19 06:14 BUN 16 mg/dL (7-17) 10/07/19 06:14 Creatinine 0.8 mg/dL (0.6-1.2) 10/07/19 06:14 Estimated GFR > 60 ml/min 10/07/19 06:14 BUN/Creatinine Ratio 20 % 10/07/19 06:14 Glucose 275 mg/dL (65-100) H 10/07/19 06:14 POC Glucose 282 (70-105) H 10/07/19 12:08 Lactic Acid 1.30 mmol/L (0.7-2.0) 09/30/19 22:44 Calcium 8.1 mg/dL (8.4-10.2) L 10/07/19 06:14 Ferritin 1445.0 ng/mL (10.0-200.0) H 10/07/19 06:14 Total Bilirubin 0.40 mg/dL (0.1-1.2) 10/05/19 08:32 Direct Bilirubin 0.3 mg/dL (0-0.2) H 09/30/19 22:44 Indirect Bilirubin 0.2 mg/dL 09/30/19 22:44 AST 149 units/L (5-40) H 10/05/19 08:32 ALT 96 units/L (7-56) H 10/05/19 08:32 Alkaline Phosphatase 40 units/L (35-129) 10/05/19 08:32 Lactate Dehydrogenase 812 units/L (91-180) H 10/07/19 06:14 Total Creatine Kinase 934 units/L (30-135) H 10/05/19 08:32 C-Reactive Protein 1.70 mg/dL (0.00-1.30) H 10/07/19 06:14 Total Protein 6.1 g/dL (6.3-8.2) L 10/05/19 08:32 Albumin 2.5 g/dL (3.9-5) L 10/05/19 08:32 Albumin/Globulin Ratio 0.7 % 10/05/19 08:32 Procalcitonin 0.71 ng/mL (<0.15) 10/05/19 08:32 Urine Color [place] (Yellow) 10/01/19 Unknown Urine Turbidity Slightly-cloudy (Clear) 10/01/19 Unknown Urine pH 5.0 (5.0-7.0) 10/01/19 Unknown Ur Specific [place] 1.026 (1.003-1.030) 10/01/19 Unknown Urine Protein 100 mg/dl mg/dL (Negative) 10/01/19 Unknown Urine Glucose (UA) Neg mg/dL (Negative) 10/01/19 Unknown Urine Ketones Tr mg/dL (Negative) 10/01/19 Unknown Urine Blood Lg (Negative) 10/01/19 Unknown Urine Nitrite Neg (Negative) 10/01/19 Unknown Urine Bilirubin Neg (Negative) 10/01/19 Unknown Urine Urobilinogen 2.0 mg/dL (<2.0) 10/01/19 Unknown Ur Leukocyte Esterase Neg (Negative) 10/01/19 Unknown Urine WBC (Auto) 17.0 /HPF (0.0-6.0) H 10/01/19 Unknown Urine RBC (Auto) 1.0 /HPF (0.0-6.0) 10/01/19 Unknown U Epithel Cells (Auto) 4.0 /HPF (0-13.0) 10/01/19 Unknown Urine Mucus 2+ /HPF 10/01/19 Unknown Salicylates < 0.3 mg/dL (2.8-20.0) L 09/30/19 22:44 Urine Opiates Screen Presumptive negative 10/01/19 Unknown Urine Methadone Screen Presumptive negative 10/01/19 Unknown Acetaminophen 5.0 ug/mL (10.0-30.0) L 09/30/19 22:44 Ur Barbiturates Screen Presumptive negative 10/01/19 Unknown Valproic Acid 31.8 ug/mL (50-100) L 10/04/19 08:46 Ur Phencyclidine Scrn Presumptive negative 10/01/19 Unknown Ur Amphetamines Screen Presumptive negative 10/01/19 Unknown U Benzodiazepines Scrn Presumptive negative 10/01/19 Unknown Urine Cocaine Screen Presumptive negative 10/01/19 Unknown U Marijuana (THC) Screen Presumptive negative 10/01/19 Unknown Drugs of Abuse Note Disclamer 10/01/19 Unknown Plasma/Serum Alcohol < 0.01 % (0-0.07) 09/30/19 22:44 Coronavirus (PCR) Positive (Negative) A 10/02/19 Unknown Garcia/IV: Voiding Method Diaper IV Catheter Type [Right Upper INT / Saline Lock arm] IV Catheter Type [Right INT / Saline Lock Antecubital] IV Catheter Type [Right Foot] INT / Saline Lock IV Catheter Type [Right Peripheral IV External Jugular] Active Medications - Current Medications Current Medications: Generic Name Dose Route Start Last Admin Trade Name Freq PRN Reason Stop Dose Admin Acetaminophen 650 mg 10/01/19 08:00 10/04/19 05:30 Tylenol PO 650 mg Q4H PRN Administration Pain MILD(1-3)/Fever >100.5/WRIGHT Lipase/Protease/Amylase 1 each 10/04/19 10:[address] 10,500 Unit FEEDTUBE PRN PRN For Clogged Feeding Tube Enoxaparin Sodium 40 mg 10/04/19 22:00 10/07/19 11:39 Enoxaparin SUB-Q 40 mg BID ZACH Administration Haloperidol 5 mg 10/02/19 12:00 10/07/19 11:39 Haldol PO 5 mg BID ZACH Administration Hydralazine HCl 10 mg 10/06/19 00:38 10/07/19 00:09 Apresoline IV 10 mg Q6HR PRN Administration Hypertension Sodium Chloride 1,000 mls @ 75 mls/hr 10/06/19 12:00 10/07/19 04:29 Nacl 0.45% 1000 Ml IV 75 mls/hr DIRECT ZACH Administration Insulin Human Lispro 0 unit 10/06/19 01:00 10/07/19 14:53 Humalog SUB-Q 4 unit Q6HR ZACH Administration Protocol Methylprednisolone Sodium Succinate 40 mg 10/07/19 10:00 10/07/19 11:39 Solu-Medrol IV 40 mg Q24HR ZACH Administration Miscellaneous Medication 325 mg 10/02/19 18:45 Paliperidone Palmitate [Invega Sustenna] IM Q3W ZACH Ondansetron HCl 4 mg 10/01/19 08:00 Zofran IV Q8H PRN Nausea And Vomiting Simple Syrup 15 ml 10/04/19 10:34 Simple Syrup FEEDTUBE PRN PRN Hypoglycemia Simple Syrup 30 ml 10/04/19 10:34 Simple Syrup FEEDTUBE PRN PRN Hypoglycemia Sodium Bicarbonate 325 mg 10/04/19 10:34 Sodium Bicarbonate FEEDTUBE PRN PRN For Clogged Feeding Tube Sodium Chloride 10 ml 10/01/19 10:00 10/07/19 11:39 Sodium Chloride Flush Syringe 10 Ml IV 10 ml BID ZACH Administration Sodium Chloride 10 ml 10/01/19 07:50 Sodium Chloride Flush Syringe 10 Ml IV 10/14/19 07:49 PRN PRN LINE FLUSH Trazodone HCl 50 mg 10/01/19 22:00 10/07/19 00:28 Desyrel PO 50 mg QHS ZACH Administration Valproic Acid 1,500 mg 10/05/19 22:00 10/07/19 00:11 Depakene Liq PO 1,500 mg QHS ZACH Administration Nutrition/Malnutrition Assess - Dietary Evaluation Nutrition/Malnutrition Findings: Nutrition Notes Start: 10/04/19 09:33 Freq: Status: Active Protocol: Document 10/06/19 14:52 LM (Rec: 10/06/19 14:56 LM [id number]) Nutrition Notes Initial or Follow up Reassessment Current Diagnosis Acute Kidney Injury,Sepsis Other Pertinent Diagnosis COVID-19 (+), Schizoaffective disorder Current Diet Jevity 1.2 at 55ml/hr Labs/Tests Na 149 BUN 19 BG 356 Pertinent Medications Solumedrol Humalog Height 5 ft 6 in Weight 114 kg [place] Body Weight (kg) 59.09 BMI 40.5 Weight Status Morbidly Obese Subjective/Other Information TF running at goal rate and pt is tolerating. REAL ESTATE REPRESENTATIVE recommends pt to continue with TF. Burn Absent Trauma Absent GI Symptoms None Difficulty In Swallowing Food Allergy No Current % PO Negligible Minimum of two criteria No Reduced Pool Attendant Strength Measurably Reduced (severe) #1 Nutrition Diagnosis Inadequate oral intake Diagnosis Progress(for reassessment Continues documentation) Is patient on ventilator? No Is Patient Ambulatory and/or Out of Bed No REE-([facility]-confined to bed) 2106.012 Kcal/Kg value to use for calculation 14 Approximate Energy Requirements Using 1596 kcal/Kg Calculation Used for Recommendations Kcal/kg Additional Notes Protein needs are 69-87g (0.8- 1g/kg adjusted wt 86.5kg) Fluid needs are 1ml/kcal Nutrition Intervention Change Diet Order: TF Nutrition Support: Jevity 1.2 at 55ml/hr Flush with 200ml q4h for hypernatremia Kcal 1,584 Protein (gm) 73 Fluid (mL) 1,065 Goal #1 Meet at least 80% of kcal and protein needs via TF Anticipated Discharge Needs: Unable to determine at this time Follow-Up By: 10/08/19 Additional Comments F/U for TF tolerance, BG, Na
[2019-10-07 16:19] LABS: INR 1.15 (0.87-1.13)
[2019-10-07 16:20] LABS: Partial Thromboplastin Time 29.5 Sec. (24.2-36.6)
--- NOTE | 2019-10-07 18:07 | Gastroenterology Consultation ---
History of Present Illness - Reason for Consult Consult date: 10/07/19 Neurogenic Dysphagia Requesting physician: LONI GOMEZ - History of Present Illness The patient is a known 54 yo female with psych d/o (schizophrenia). She was admitted with COVID, but also has rhabdo and there was a concern of neuroleptic malignant syndrome (eval by Psych is negative). She remains in NAD, but is catatonic with a refusal to interact or swallow. She is tolerating Dobhoff feeds, and is now back on Psych meds. She did not comply with ST evaluation. She refuses to give a hx. Past History Past Medical History: hypertension, other (Schizophrenia, COVID, Morbid Obesity) Past Surgical History: No surgical history Social history: no significant social history. denies: smoking, alcohol abuse Family history: no significant family history Medications and Allergies Allergies Allergy/AdvReac Type Severity Reaction Status Date / Time haloperidol [From Haldol] AdvReac Unknown Verified 09/17/15 20:22 Home Medications Medication Instructions Recorded Confirmed Last Taken Type Benztropine [Cogentin] 1 mg PO BID 09/16/15 01/14/17 Unknown History Divalproex Sodium [Depakote] 1,500 mg PO QHS 09/16/15 01/14/17 Unknown History Paliperidone Palmitate [Invega 325 mg IM Q3W 09/16/15 01/14/17 Unknown History Sustenna] Aspirin 81 mg PO QDAY #30 tablet 09/18/15 01/14/17 Unknown Rx Nitrofurantoin [place]/M-Cryst 100 mg PO Q12HR #14 capsule 08/15/16 01/14/17 Unknown Rx [Macrobid CAP] cephALEXin [Keflex] 500 mg PO Q8HR #10 cap 01/14/17 Unknown Rx Active Meds: Active Medications Acetaminophen (Tylenol) 650 mg PO Q4H PRN PRN Reason: Pain MILD(1-3)/Fever >100.5/WRIGHT Last Admin: 10/04/19 05:30 Dose: 650 mg Documented by: Lipase/Protease/Amylase (Sim Martinez 10,500 Unit) 1 each FEEDTUBE PRN PRN PRN Reason: For Clogged Feeding Tube Enoxaparin Sodium (Enoxaparin) 40 mg SUB-Q BID [facility] Last Admin: 10/07/19 11:39 Dose: 40 mg Documented by: Haloperidol (Haldol) 5 mg PO BID [facility] Last Admin: 10/07/19 11:39 Dose: 5 mg Documented by: Hydralazine HCl (Apresoline) 10 mg IV Q6HR PRN PRN Reason: Hypertension Last Admin: 10/07/19 00:09 Dose: 10 mg Documented by: Sodium Chloride (Nacl 0.45% 1000 Ml) 1,000 mls @ 75 mls/hr IV DIRECT [facility] Last Admin: 10/07/19 04:29 Dose: 75 mls/hr Documented by: Insulin Human Lispro (Humalog) 0 unit SUB-Q Q6HR [facility]; Protocol Last Admin: 10/07/19 17:31 Dose: 4 unit Documented by: Methylprednisolone Sodium Succinate (Solu-Medrol) 40 mg IV Q24HR [facility] Last Admin: 10/07/19 11:39 Dose: 40 mg Documented by: Miscellaneous Medication (Paliperidone Palmitate [Invega Sustenna]) 325 mg IM Q3W [facility] Ondansetron HCl (Zofran) 4 mg IV Q8H PRN PRN Reason: Nausea And Vomiting Simple Syrup (Simple Syrup) 15 ml FEEDTUBE PRN PRN PRN Reason: Hypoglycemia Simple Syrup (Simple Syrup) 30 ml FEEDTUBE PRN PRN PRN Reason: Hypoglycemia Sodium Bicarbonate (Sodium Bicarbonate) 325 mg FEEDTUBE PRN PRN PRN Reason: For Clogged Feeding Tube Sodium Chloride (Sodium Chloride Flush Syringe 10 Ml) 10 ml IV BID [facility] Last Admin: 10/07/19 11:39 Dose: 10 ml Documented by: Sodium Chloride (Sodium Chloride Flush Syringe 10 Ml) 10 ml IV PRN PRN PRN Reason: LINE FLUSH Stop: 10/14/19 07:49 Trazodone HCl (Desyrel) 50 mg PO QHS [facility] Last Admin: 10/07/19 00:28 Dose: 50 mg Documented by: Valproic Acid (Depakene Liq) 1,500 mg PO QHS [facility] Last Admin: 10/07/19 00:11 Dose: 1,500 mg Documented by: MEDICATIONS REVIEWED/RECONCILED Review of Systems - Review of Systems ROS unobtainable: due to mental status Exam - Constitutional Vital Signs: Temp Pulse Resp BP Pulse Ox 97.9 F 100 H 24 158/107 100 10/07/19 11:59 10/07/19 11:59 10/07/19 11:59 10/07/19 11:59 10/07/19 11:59 General appearance: no acute distress - EENT Eyes: PERRL, EOM intact ENT: hearing intact, clear oral mucosa, other (Dobhoff present in nares) - Neck Neck: supple, normal ROM - Respiratory Respiratory effort: normal Respiratory: bilateral: CTA - Cardiovascular Rhythm: regular Heart Sounds: Present: S1 & S2 Extremities: no ischemia, No edema - Gastrointestinal General gastrointestinal: Present: soft, non-tender, non-distended - Integumentary Integumentary: Present: clear, warm, dry - Neurologic Neurological: alert and oriented x3 - Labs CBC & Chem 7: 10/07/19 06:14 10/07/19 06:14 Lab Results: Laboratory Results - last 24 hr 10/06/19 10/07/19 10/07/19 17:24 00:07 06:14 WBC RBC Hgb Hct MCV MCH MCHC RDW Plt Count PT INR APTT D-Dimer 674.88 H Sodium Potassium Chloride Carbon Dioxide Anion Gap BUN Creatinine Estimated GFR BUN/Creatinine Ratio Glucose POC Glucose 289 H 259 H Calcium Ferritin Lactate Dehydrogenase C-Reactive Protein 10/07/19 10/07/19 10/07/19 06:14 06:14 06:14 WBC 18.4 H RBC 4.47 Hgb 13.0 Hct 39.5 MCV 88 MCH 29 MCHC 33 RDW 15.8 H Plt Count 213 PT INR APTT D-Dimer Sodium 148 H Potassium 3.7 Chloride 109.4 H Carbon Dioxide 26 Anion Gap 16 BUN 16 Creatinine 0.8 Estimated GFR > 60 BUN/Creatinine Ratio 20 Glucose 275 H POC Glucose Calcium 8.1 L Ferritin 1445.0 H Lactate Dehydrogenase 812 H C-Reactive Protein 1.70 H 10/07/19 10/07/19 10/07/19 07:28 12:08 15:23 WBC RBC Hgb Hct MCV MCH MCHC RDW Plt Count PT 14.9 INR 1.15 H APTT 29.5 D-Dimer Sodium Potassium Chloride Carbon Dioxide Anion Gap BUN Creatinine Estimated GFR BUN/Creatinine Ratio Glucose POC Glucose 240 H 282 H Calcium Ferritin Lactate Dehydrogenase C-Reactive Protein 10/07/19 17:29 WBC RBC Hgb Hct MCV MCH MCHC RDW Plt Count PT INR APTT D-Dimer Sodium Potassium Chloride Carbon Dioxide Anion Gap BUN Creatinine Estimated GFR BUN/Creatinine Ratio Glucose POC Glucose 263 H Calcium Ferritin Lactate Dehydrogenase C-Reactive Protein Assessment and Plan - Patient Problems (1) Neurogenic dysphagia Current Visit: Yes Status: Acute Plan to address problem: - Will continue to monitor progress as Psych meds re-added, and patient recovers from COVID. - If fails to improve, will need PEG, but this will be somewhat difficult with morbid obesity. - Continue Dobhoff feeds and supportive care. (2) Pneumonia due to COVID-19 virus Current Visit: Yes Status: Acute (3) Paranoid schizophrenia Current Visit: Yes Status: Chronic
[2019-10-08] MEDS: INSULIN LISPRO 100 UNIT/ML VIAL 3 mL SUB-Q SCH ×5 (00:21→23:57)
[2019-10-08] MEDS: SODIUM CHLORIDE 0.45% 1000 ML 1,000 ML IV SCH ×2 (06:05→18:26)
[2019-10-08 06:31] LABS: Hematocrit 35.9 % (30.3-42.9); Hemoglobin 11.7 gm/dl (10.1-14.3); Mean Corpuscular HGB Conc 33 % (30-34); Mean Corpuscular Volume 89 fl (79-97); Platelet Count 189 K/mm3 (140-440); Red Blood Count 4.04 M/mm3 (3.65-5.03); Red Cell Distribution Width 15.9 % (13.2-15.2)
[2019-10-08 06:41] LABS: Blood Urea Nitrogen 19 mg/dL (7-17); Calcium 7.9 mg/dL (8.4-10.2); Hemolysis Index 11
[2019-10-08 06:53] LABS: BUN/Creatinine Ratio 27
[2019-10-08 08:49] LABS: Total Cells Counted 100
[2019-10-08 08:50] LABS: Band Neutrophils # (Manual) 0.7 K/mm3; Basophils % (Manual) 0 % (0.0-1.8); Eosinophils % (Manual) 0 % (0.0-4.3); Macrocytosis 1+; Platelet Estimate Consistent w Auto; Target Cells 1+
[2019-10-08] MEDS: ENOXAPARIN 40 MG/0.4 ML INJ SUB-Q SCH ×2 (09:22→21:23)
[2019-10-08] MEDS: methylPREDNISolone Sod Succinate 40 MG/1 ML INJ IV SCH (09:23)
[2019-10-08] MEDS: HALOPERIDOL 5 MG TAB PO SCH ×2 (09:27→21:24)
[2019-10-08] MEDS: ACETAMINOPHEN 325 MG TAB PO PRN (12:10)
--- NOTE | 2019-10-08 14:45 | Progress Note ---
Assessment and Plan Cultures: Blood culture and urine culture negative COVID PCR positive Assessment: 54 years old female with history of paranoid schizophrenia, admitted on 09/30/2019 due to altered mental status and catatonia state: #Severe sepsis: Present on admission with low-grade fever, tachycardia, elevated leukocytosis, FAISAL, likely due to bilateral pneumonia. #Bilateral pneumonia: COVID-19 pneumonia. Inflammatory markers are elevated, with a d-dimer > 10,000. CT negative for pulmonary embolism. Repeat d-dimer with much improvement. Renal function and LFTs improving, but given mild hypoxia and several days of positivity, unclear benefit with Remdesivir at this stage. Completed empiric CAP abx x 5 days. #Acute hypoxemic respiratory failure: mild. on supplemental oxygen. #Elevated LFTs: from COVID. #FAISAL: from COVID. improved #Elevated LFTs: Very high likely secondary to rhabdomyolysis #Elevated CK: Likely secondary to rhabdomyolysis possible due to COVID-19 infection or catatonic state #Paranoid schizophrenia with catatonia: Per psych Recommendations: -continue steroids, day 7 of 10 -supportive care and oxygen weaning as tolerated -anticoagulation per protocol based on d-dimer Konrad Moyer MD, FACP [facility] C: [phone] O: [phone] F: [phone] Subjective Date of service: 10/08/19 Interval history: No fever. Oxygen requirements stable at 2 L nasal cannula. Objective - Exam Narrative Exam: Physical Exam (reviewed in chart due to PPE conservation) Constitutional: limited due to PPE conservation strategy Head, Ears, Nose: limited due to PPE conservation strategy Eyes: limited due to PPE conservation strategy Neck: limited due to PPE conservation strategy Oral: limited due to PPE conservation strategy Cardiovascular: limited due to PPE conservation strategy Respiratory: limited due to PPE conservation strategy GI: limited due to PPE conservation strategy Musculoskeletal: limited due to PPE conservation strategy Skin: limited due to PPE conservation strategy Hem/Lymphatic: limited due to PPE conservation strategy Psych: limited due to PPE conservation strategy Neurological: limited due to PPE conservation strategy - Constitutional Vitals: Vital Signs Temp Pulse Resp BP Pulse Ox 98.7 F 76 20 133/64 99 10/08/19 10:54 10/08/19 10:54 10/08/19 10:54 10/08/19 10:54 10/08/19 10:54 Temperature -Last 24 Hours Temperature 98.7 F Temperature 98.3 F Temperature 98.1 F Temperature 98.1 F - Labs CBC & Chem 7: 10/08/19 04:50 10/08/19 04:50 Labs: Abnormal lab results 10/07/19 10/07/19 10/08/19 Range/Units 15:23 17:29 00:10 WBC (4.5-11.0) K/mm3 RDW (13.2-15.2) % Seg Neuts % (Manual) (40.0-70.0) % Lymphocytes % (Manual) (13.4-35.0) % Nucleated RBC % (0.0-0.9) % Seg Neutrophils # Man (1.8-7.7) K/mm3 Lymphocytes # (Manual) (1.2-5.4) K/mm3 Monocytes # (Manual) (0.0-0.8) K/mm3 INR 1.15 H (0.87-1.13) BUN (7-17) mg/dL Glucose (65-100) mg/dL POC Glucose 263 H 349 H (70-105) Calcium (8.4-10.2) mg/dL 10/08/19 10/08/19 10/08/19 Range/Units 04:50 04:50 06:13 WBC 16.5 H (4.5-11.0) K/mm3 RDW 15.9 H (13.2-15.2) % Seg Neuts % (Manual) 87.0 H (40.0-70.0) % Lymphocytes % (Manual) 2.0 L (13.4-35.0) % Nucleated RBC % 1.0 H (0.0-0.9) % Seg Neutrophils # Man 14.4 H (1.8-7.7) K/mm3 Lymphocytes # (Manual) 0.3 L (1.2-5.4) K/mm3 Monocytes # (Manual) 1.0 H (0.0-0.8) K/mm3 INR (0.87-1.13) BUN 19 H (7-17) mg/dL Glucose 334 H (65-100) mg/dL POC Glucose 273 H (70-105) Calcium 7.9 L (8.4-10.2) mg/dL 08/21/20 Range/Units 11:41 WBC (4.5-11.0) K/mm3 RDW (13.2-15.2) % Seg Neuts % (Manual) (40.0-70.0) % Lymphocytes % (Manual) (13.4-35.0) % Nucleated RBC % (0.0-0.9) % Seg Neutrophils # Man (1.8-7.7) K/mm3 Lymphocytes # (Manual) (1.2-5.4) K/mm3 Monocytes # (Manual) (0.0-0.8) K/mm3 INR (0.87-1.13) BUN (7-17) mg/dL Glucose (65-100) mg/dL POC Glucose 311 H (70-105) Calcium (8.4-10.2) mg/dL
--- NOTE | 2019-10-08 15:34 | Progress Note ---
<BISMARKBLANCA KellyFabián - Last Filed: 10/08/19 15:30> Assessment and Plan - Patient Problems (1) Severe sepsis Current Visit: Yes Status: Resolved Plan to address problem: - Presented with low-grade fever, tachycardia, leukocytosis, FAISAL, and bilateral pneumonia - Likely source is bilateral pneumonia secondary to COVID-19 - IV antibiotics completed - Covid protocol initiated (2) Pneumonia due to COVID-19 virus Current Visit: Yes Status: Acute Plan to address problem: - COVID protocol initiated - IV azithromycin and Rocephin completed - 09/30 COVID PCR positive - Trend LDH, CRP, procalcitonin, d-dimer, ferritin - Droplet /contact precautions - Supplemental oxygenation as needed - Infectious disease consult requested - Pulmonary hygiene - In setting of elevated D-Dimer, CTA Chest was ordered which was negative for pulmonary embolism - Anticoagulation per COVID protocol - Cannot initiate Remdesivir in setting on of elevated LFTs - Continue p.o. dexamethasone (3) Acute psychosis Current Visit: Yes Status: Acute Plan to address problem: - Currently withdraws to pain however moving all extremities spontaneously - History of paranoid schizophrenia - Mental health consult requested and does not recommend inpatient psych at this time as medical needs outweigh psych this time - Requested to reconsult when patient is medically stable - GI consulted for PEG tube placement to facilitate placement (4) Paranoid schizophrenia Current Visit: Yes Status: Chronic Plan to address problem: -History of present schizophrenia -Psych consulted and appreciate recommendations -Depakote and Haldol -Sleep hygiene -Reorientation as needed (5) Leukocytosis Current Visit: Yes Status: Acute Plan to address problem: - Admit WBC 13.8 - Trend CBC - Maybe secondary to possible PNA or from dehydration - IV abx completed - Also on steroids for COVID pneumonia (6) DVT prophylaxis Current Visit: Yes Status: Acute Plan to address problem: - SCDs to BLE while in bed - Lovenox subq twice daily per COVID protocol History Interval history: This is a 54-year-old female with paranoid schizophrenia that presents to the emergency department on 09/29 for altered mental status in a catatonic state. Previous hospitalizations reviewed and only notes a history of paranoid schizophrenia. Patient may be a resident of [place]. Patient is currently nonverbal and HPI is received from ER documentation. Work-up in the emergency department included a CT abdomen pelvis which shows patchy peripheral groundglass opacities bilateral lungs which is consistent with either viral or atypical pneumonia, positive anterior lateral fat hernia in the left mid abdomen and a large uterine fibroids however her CXR showed no acute pulmonary or pleural abnormalities. She was found to have acute kidney injury with a creatinine of 1.4/BUN 33 as baseline from previous records seems to be 0.7, rhabdomyolysis with a creatinine kinase of 33,481, leukocytosis with a WBC of 13.8, thrombocytopenia with platelets at 97. She has COVID pneumonia with IV antibiotics, rhabdomyolysis, and FAISAL. Infectious disease, psych, and neurology have been consulted. Neurology does not suspect NMS at this time. Psych has signed off at this time due to ongoing acute medical processes. PT/ST consulted for evaluation but unable to be performed as patient will not follow verbal commands. She still moves and groans to painful stimuli however she does not open her eyes to verbal or physical stimuli. GI was consulted for PEG placement. * 10/06: GI consult for peg * 10/05: continue care * Discussed with primary algorithm developer patient was normally verbal but sometimes goes into a catatonic state. Phone number for this is [phone] * 10/04: PT consulted. Psych signed off. Continue treatment * 10/03: continue treatment * 10/02: Change fluids to NS 1/2 AT 125CC/hr. Rhabdomylysis improving, insert NGT and start tube feeds. Psych input noted. Continue management for COVID 19. ID consulted. No new fever. CTA and CTH obtained which were both negative * 10/01: COVID PCR Positive Hospitalist Physical - Constitutional Vitals: Temp Pulse Resp BP Pulse Ox 98.7 F 76 20 133/64 99 10/08/19 10:54 10/08/19 10:54 10/08/19 10:54 10/08/19 10:54 10/08/19 10:54 General appearance: Present: no acute distress, other (Patient slightly opens her eyes to tactile stimuli and withdraws to painful stimuli in all 4 extremitie s. She is seen LEVY spontaneously.) - EENT Eyes: Present: PERRL ENT: hearing decreased - Neck Neck: Present: normal ROM - Respiratory Respiratory effort: normal Respiratory: bilateral: diminished - Cardiovascular Rhythm: regular Heart Sounds: Present: S1 & S2. Absent: systolic murmur, diastolic murmur - Extremities Extremities: no ischemia, pulses intact, No edema, normal temperature, normal color, Full ROM Peripheral Pulses: within normal limits - Abdominal General gastrointestinal: soft, non-tender, non-distended - Integumentary Integumentary: Present: clear, warm, dry - Psychiatric Psychiatric: other (moveemnt to painful stimuli and spontaneously only) - Neurologic Neurologic: no focal deficits, moves all extremities - Allied Health Allied health notes reviewed: nursing, social work, case management Results - Labs CBC & Chem 7: 10/08/19 04:50 10/08/19 04:50 Labs: Laboratory Last Values WBC 16.5 K/mm3 (4.5-11.0) H 10/08/19 04:50 RBC 4.04 M/mm3 (3.65-5.03) 10/08/19 04:50 Hgb 11.7 gm/dl (10.1-14.3) 10/08/19 04:50 Hct 35.9 % (30.3-42.9) 10/08/19 04:50 MCV 89 fl (79-97) 10/08/19 04:50 MCH 29 pg (28-32) 10/08/19 04:50 MCHC 33 % (30-34) 10/08/19 04:50 RDW 15.9 % (13.2-15.2) H 10/08/19 04:50 Plt Count 189 K/mm3 (140-440) 10/08/19 04:50 Lymph % (Auto) 10.6 % (13.4-35.0) L 09/30/19 22:44 [place] % (Auto) 9.8 % (0.0-7.3) H 09/30/19 22:44 Eos % (Auto) 0.0 % (0.0-4.3) 09/30/19 22:44 Baso % (Auto) 1.2 % (0.0-1.8) 09/30/19 22:44 Lymph # 1.5 K/mm3 (1.2-5.4) 09/30/19 22:44 [place] # 1.3 K/mm3 (0.0-0.8) H 09/30/19 22:44 Eos # 0.0 K/mm3 (0.0-0.4) 09/30/19 22:44 Baso # 0.2 K/mm3 (0.0-0.1) H 09/30/19 22:44 Add Manual Diff Complete 10/08/19 04:50 Total Counted 100 10/08/19 04:50 Seg Neutrophils % 78.4 % (40.0-70.0) H 09/30/19 22:44 Seg Neuts % (Manual) 87.0 % (40.0-70.0) H 10/08/19 04:50 Band Neutrophils % 4.0 % 10/08/19 04:50 Lymphocytes % (Manual) 2.0 % (13.4-35.0) L 10/08/19 04:50 Reactive Lymphs % (Man) 0 % 10/08/19 04:50 Monocytes % (Manual) 6.0 % (0.0-7.3) 10/08/19 04:50 Eosinophils % (Manual) 0 % (0.0-4.3) 10/08/19 04:50 Basophils % (Manual) 0 % (0.0-1.8) 10/08/19 04:50 Metamyelocytes % 1.0 % 10/08/19 04:50 Myelocytes % 0 % 10/08/19 04:50 Promyelocytes % 0 % 10/08/19 04:50 Blast Cells % 0 % 10/08/19 04:50 Nucleated RBC % 1.0 % (0.0-0.9) H 10/08/19 04:50 Seg Neutrophils # 10.8 K/mm3 (1.8-7.7) H 09/30/19 22:44 Seg Neutrophils # Man 14.4 K/mm3 (1.8-7.7) H 10/08/19 04:50 Band Neutrophils # 0.7 K/mm3 10/08/19 04:50 Lymphocytes # (Manual) 0.3 K/mm3 (1.2-5.4) L 10/08/19 04:50 Abs React Lymphs (Man) 0.0 K/mm3 10/08/19 04:50 Monocytes # (Manual) 1.0 K/mm3 (0.0-0.8) H 10/08/19 04:50 Eosinophils # (Manual) 0.0 K/mm3 (0.0-0.4) 10/08/19 04:50 Basophils # (Manual) 0.0 K/mm3 (0.0-0.1) 10/08/19 04:50 Metamyelocytes # 0.2 K/mm3 10/08/19 04:50 Myelocytes # 0.0 K/mm3 10/08/19 04:50 Promyelocytes # 0.0 K/mm3 10/08/19 04:50 Blast Cells # 0.0 K/mm3 10/08/19 04:50 WBC Morphology Not Reportable 10/08/19 04:50 Hypersegmented Neuts Not Reportable 10/08/19 04:50 Hyposegmented Neuts Not Reportable 10/08/19 04:50 Hypogranular Neuts Not Reportable 10/08/19 04:50 Smudge Cells Not Reportable 10/08/19 04:50 Toxic Granulation Not Reportable 10/08/19 04:50 Toxic Vacuolation Not Reportable 10/08/19 04:50 Dohle Bodies Not Reportable 10/08/19 04:50 Pelger-Huet Anomaly Not Reportable 10/08/19 04:50 Bal Rods Not Reportable 10/08/19 04:50 Platelet Estimate Consistent w auto 10/08/19 04:50 Clumped Platelets Not Reportable 10/08/19 04:50 Plt Clumps, EDTA Not Reportable 10/08/19 04:50 Large Platelets Not Reportable 10/08/19 04:50 Giant Platelets Not Reportable 10/08/19 04:50 Platelet Satelliting Not Reportable 10/08/19 04:50 Plt Morphology Comment Not Reportable 10/08/19 04:50 RBC Morphology Not Reportable 10/08/19 04:50 Dimorphic RBCs Not Reportable 10/08/19 04:50 Polychromasia Not Reportable 10/08/19 04:50 Hypochromasia Not Reportable 10/08/19 04:50 Poikilocytosis Not Reportable 10/08/19 04:50 Anisocytosis Not Reportable 10/08/19 04:50 Microcytosis Not Reportable 10/08/19 04:50 Macrocytosis 1+ 10/08/19 04:50 Spherocytes Not Reportable 10/08/19 04:50 Pappenheimer Bodies Not Reportable 10/08/19 04:50 Sickle Cells Not Reportable 10/08/19 04:50 Target Cells 1+ 10/08/19 04:50 Tear Drop Cells Not Reportable 10/08/19 04:50 Ovalocytes Not Reportable 10/08/19 04:50 Helmet Cells Not Reportable 10/08/19 04:50 Singleton-Screven Bodies Not Reportable 10/08/19 04:50 Ursa Rings Not Reportable 10/08/19 04:50 Clubb Cells Not Reportable 10/08/19 04:50 Bite Cells Not Reportable 10/08/19 04:50 Crenated Cell Not Reportable 10/08/19 04:50 Elliptocytes Not Reportable 10/08/19 04:50 Acanthocytes (Spur) Not Reportable 10/08/19 04:50 Rouleaux Not Reportable 10/08/19 04:50 Hemoglobin C Crystals Not Reportable 10/08/19 04:50 Schistocytes Not Reportable 10/08/19 04:50 Malaria parasites Not Reportable 10/08/19 04:50 Willie Bodies Not Reportable 10/08/19 04:50 Hem Pathologist Commnt No 10/08/19 04:50 PT 14.9 Sec. (12.2-14.9) 10/07/19 15:23 INR 1.15 (0.87-1.13) H 10/07/19 15:23 APTT 29.5 Sec. (24.2-36.6) 10/07/19 15:23 D-Dimer 674.88 ng/mlDDU (0-234) H 10/07/19 06:14 Sodium 144 mmol/L (137-145) 10/08/19 04:50 Potassium 4.1 mmol/L (3.6-5.0) 10/08/19 04:50 Chloride 105.8 mmol/L (98-107) 10/08/19 04:50 Carbon Dioxide 27 mmol/L (22-30) 10/08/19 04:50 Anion Gap 15 mmol/L 10/08/19 04:50 BUN 19 mg/dL (7-17) H 10/08/19 04:50 Creatinine 0.7 mg/dL (0.6-1.2) 10/08/19 04:50 Estimated GFR > 60 ml/min 10/08/19 04:50 BUN/Creatinine Ratio 27 % 10/08/19 04:50 Glucose 334 mg/dL (65-100) H 10/08/19 04:50 POC Glucose 311 (70-105) H 10/08/19 11:41 Lactic Acid 1.30 mmol/L (0.7-2.0) 09/30/19 22:44 Calcium 7.9 mg/dL (8.4-10.2) L 10/08/19 04:50 Ferritin 1445.0 ng/mL (10.0-200.0) H 10/07/19 06:14 Total Bilirubin 0.40 mg/dL (0.1-1.2) 10/05/19 08:32 Direct Bilirubin 0.3 mg/dL (0-0.2) H 09/30/19 22:44 Indirect Bilirubin 0.2 mg/dL 09/30/19 22:44 AST 149 units/L (5-40) H 10/05/19 08:32 ALT 96 units/L (7-56) H 10/05/19 08:32 Alkaline Phosphatase 40 units/L (35-129) 10/05/19 08:32 Lactate Dehydrogenase 812 units/L (91-180) H 10/07/19 06:14 Total Creatine Kinase 934 units/L (30-135) H 10/05/19 08:32 C-Reactive Protein 1.70 mg/dL (0.00-1.30) H 10/07/19 06:14 Total Protein 6.1 g/dL (6.3-8.2) L 10/05/19 08:32 Albumin 2.5 g/dL (3.9-5) L 10/05/19 08:32 Albumin/Globulin Ratio 0.7 % 10/05/19 08:32 Procalcitonin 0.71 ng/mL (<0.15) 10/05/19 08:32 Urine Color [place] (Yellow) 10/01/19 Unknown Urine Turbidity Slightly-cloudy (Clear) 10/01/19 Unknown Urine pH 5.0 (5.0-7.0) 10/01/19 Unknown Ur Specific [place] 1.026 (1.003-1.030) 10/01/19 Unknown Urine Protein 100 mg/dl mg/dL (Negative) 10/01/19 Unknown Urine Glucose (UA) Neg mg/dL (Negative) 10/01/19 Unknown Urine Ketones Tr mg/dL (Negative) 10/01/19 Unknown Urine Blood Lg (Negative) 10/01/19 Unknown Urine Nitrite Neg (Negative) 10/01/19 Unknown Urine Bilirubin Neg (Negative) 10/01/19 Unknown Urine Urobilinogen 2.0 mg/dL (<2.0) 10/01/19 Unknown Ur Leukocyte Esterase Neg (Negative) 10/01/19 Unknown Urine WBC (Auto) 17.0 /HPF (0.0-6.0) H 10/01/19 Unknown Urine RBC (Auto) 1.0 /HPF (0.0-6.0) 10/01/19 Unknown U Epithel Cells (Auto) 4.0 /HPF (0-13.0) 10/01/19 Unknown Urine Mucus 2+ /HPF 10/01/19 Unknown Salicylates < 0.3 mg/dL (2.8-20.0) L 09/30/19 22:44 Urine Opiates Screen Presumptive negative 10/01/19 Unknown Urine Methadone Screen Presumptive negative 10/01/19 Unknown Acetaminophen 5.0 ug/mL (10.0-30.0) L 09/30/19 22:44 Ur Barbiturates Screen Presumptive negative 10/01/19 Unknown Valproic Acid 31.8 ug/mL (50-100) L 10/04/19 08:46 Ur Phencyclidine Scrn Presumptive negative 10/01/19 Unknown Ur Amphetamines Screen Presumptive negative 10/01/19 Unknown U Benzodiazepines Scrn Presumptive negative 10/01/19 Unknown Urine Cocaine Screen Presumptive negative 10/01/19 Unknown U Marijuana (THC) Screen Presumptive negative 10/01/19 Unknown Drugs of Abuse Note Disclamer 10/01/19 Unknown Plasma/Serum Alcohol < 0.01 % (0-0.07) 09/30/19 22:44 Coronavirus (PCR) Positive (Negative) A 10/02/19 Unknown Garcia/IV: Voiding Method External Female Catheter IV Catheter Type [Right Upper Peripheral IV arm] IV Catheter Type [Right INT / Saline Lock Antecubital] IV Catheter Type [Right Foot] INT / Saline Lock IV Catheter Type [Right Peripheral IV External Jugular] Active Medications - Current Medications Current Medications: Generic Name Dose Route Start Last Admin Trade Name Freq PRN Reason Stop Dose Admin Acetaminophen 650 mg 10/01/19 08:00 10/08/19 12:10 Tylenol PO 650 mg Q4H PRN Administration Pain MILD(1-3)/Fever >100.5/WRIGHT Lipase/Protease/Amylase 1 each 10/04/19 10:34 Pancrebobby Martinez 10,500 Unit FEEDTUBE PRN PRN For Clogged Feeding Tube Enoxaparin Sodium 40 mg 10/04/19 22:00 10/08/19 09:22 Enoxaparin SUB-Q 40 mg BID ZACH Administration Haloperidol 5 mg 10/02/19 12:00 10/08/19 09:27 Haldol PO Not Given BID ZACH Hydralazine HCl 10 mg 10/06/19 00:38 10/07/19 00:09 Apresoline IV 10 mg Q6HR PRN Administration Hypertension Sodium Chloride 1,000 mls @ 75 mls/hr 10/06/19 12:00 10/08/19 06:05 Nacl 0.45% 1000 Ml IV 75 mls/hr DIRECT ZACH Administration Insulin Human Lispro 0 unit 10/06/19 01:00 10/08/19 12:02 Humalog SUB-Q 6 unit Q6HR ZACH Administration Protocol Methylprednisolone Sodium Succinate 40 mg 10/07/19 10:00 10/08/19 09:23 Solu-Medrol IV 40 mg Q24HR ZACH Administration Miscellaneous Medication 325 mg 10/02/19 18:45 Paliperidone Palmitate [Invega Sustenna] IM Q3W ZACH Ondansetron HCl 4 mg 10/01/19 08:00 Zofran IV Q8H PRN Nausea And Vomiting Simple Syrup 15 ml 10/04/19 10:34 Simple Syrup FEEDTUBE PRN PRN Hypoglycemia Simple Syrup 30 ml 10/04/19 10:34 Simple Syrup FEEDTUBE PRN PRN Hypoglycemia Sodium Bicarbonate 325 mg 10/04/19 10:34 Sodium Bicarbonate FEEDTUBE PRN PRN For Clogged Feeding Tube Sodium Chloride 10 ml 10/01/19 10:00 10/08/19 09:23 Sodium Chloride Flush Syringe 10 Ml IV 10 ml BID ZACH Administration Sodium Chloride 10 ml 10/01/19 07:50 Sodium Chloride Flush Syringe 10 Ml IV 10/14/19 07:49 PRN PRN LINE FLUSH Trazodone HCl 50 mg 10/01/19 22:00 10/07/19 21:26 Desyrel PO 50 mg QHS ZACH Administration Valproic Acid 1,500 mg 10/05/19 22:00 10/07/19 21:26 Depakene Liq PO 1,500 mg QHS ZACH Administration Nutrition/Malnutrition Assess - Dietary Evaluation Nutrition/Malnutrition Findings: Nutrition Notes Start: 10/04/19 09:33 Freq: Status: Active Protocol: Document 10/08/19 12:14 LM (Rec: 10/08/19 12:22 LM [email or web address]) Nutrition Notes Initial or Follow up Reassessment Current Diagnosis Acute Kidney Injury,Sepsis Other Pertinent Diagnosis COVID-19 (+), Schizoaffective disorder Current Diet Jevity 1.2 at 55ml/hr Labs/Tests POC glu 311 Pertinent Medications Solumedrol Humalog NS at 75ml/hr Height 5 ft 6 in Weight 114 kg [place] Body Weight (kg) 59.09 BMI 40.5 Weight Status Morbidly Obese Subjective/Other Information TF running at goal and pt is tolerating. BG remains elevated. Will change TF. 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 No Is Patient Ambulatory and/or Out of Bed No REE-([facility]-confined to bed) 2106.012 Kcal/Kg value to use for calculation 14 Approximate Energy Requirements Using 1596 kcal/Kg Calculation Used for Recommendations Kcal/kg Additional Notes Protein needs are 69-87g (0.8- 1g/kg adjusted wt 86.5kg) Fluid needs are 1ml/kcal Nutrition Intervention Change Diet Order: TF Nutrition Support: Change to Glucerna 1.2 at 55ml /hr Flush 100ml/hr Kcal 1,584 Protein (gm) 79 Fluid (mL) 1,063 Goal #1 Meet at least 80% of kcal and protein needs via TF Anticipated Discharge Needs: Unable to determine at this time Follow-Up By: 10/11/19 Additional Comments F/U for new TF/tolerance, BG <LONI GOMEZ R - Last Filed: 10/08/19 16:36> Assessment and Plan Assessment and plan: I saw and evaluated the patient. I agree with the findings and the plan of care as documented in the Nurse Practitioner's~note, with the following corrections and additions. Patient remains confused, altered, restrained, on TF GI recommended TF for now, if no improvement possible PEG next week cont supportive care Hospitalist Physical - Constitutional Vitals: Temp Pulse Resp BP Pulse Ox 98.7 F 76 20 133/64 99 10/08/19 10:54 10/08/19 10:54 10/08/19 10:54 10/08/19 10:54 10/08/19 10:54 Results - Labs CBC & Chem 7: 10/08/19 04:50 10/08/19 04:50 Labs: Laboratory Last Values WBC 16.5 K/mm3 (4.5-11.0) H 10/08/19 04:50 RBC 4.04 M/mm3 (3.65-5.03) 10/08/19 04:50 Hgb 11.7 gm/dl (10.1-14.3) 10/08/19 04:50 Hct 35.9 % (30.3-42.9) 10/08/19 04:50 MCV 89 fl (79-97) 10/08/19 04:50 MCH 29 pg (28-32) 10/08/19 04:50 MCHC 33 % (30-34) 10/08/19 04:50 RDW 15.9 % (13.2-15.2) H 10/08/19 04:50 Plt Count 189 K/mm3 (140-440) 10/08/19 04:50 Lymph % (Auto) 10.6 % (13.4-35.0) L 09/30/19 22:44 [place] % (Auto) 9.8 % (0.0-7.3) H 09/30/19 22:44 Eos % (Auto) 0.0 % (0.0-4.3) 09/30/19 22:44 Baso % (Auto) 1.2 % (0.0-1.8) 09/30/19 22:44 Lymph # 1.5 K/mm3 (1.2-5.4) 09/30/19 22:44 [place] # 1.3 K/mm3 (0.0-0.8) H 09/30/19 22:44 Eos # 0.0 K/mm3 (0.0-0.4) 09/30/19 22:44 Baso # 0.2 K/mm3 (0.0-0.1) H 09/30/19 22:44 Add Manual Diff Complete 10/08/19 04:50 Total Counted 100 10/08/19 04:50 Seg Neutrophils % 78.4 % (40.0-70.0) H 09/30/19 22:44 Seg Neuts % (Manual) 87.0 % (40.0-70.0) H 10/08/19 04:50 Band Neutrophils % 4.0 % 10/08/19 04:50 Lymphocytes % (Manual) 2.0 % (13.4-35.0) L 10/08/19 04:50 Reactive Lymphs % (Man) 0 % 10/08/19 04:50 Monocytes % (Manual) 6.0 % (0.0-7.3) 10/08/19 04:50 Eosinophils % (Manual) 0 % (0.0-4.3) 10/08/19 04:50 Basophils % (Manual) 0 % (0.0-1.8) 10/08/19 04:50 Metamyelocytes % 1.0 % 10/08/19 04:50 Myelocytes % 0 % 10/08/19 04:50 Promyelocytes % 0 % 10/08/19 04:50 Blast Cells % 0 % 10/08/19 04:50 Nucleated RBC % 1.0 % (0.0-0.9) H 10/08/19 04:50 Seg Neutrophils # 10.8 K/mm3 (1.8-7.7) H 09/30/19 22:44 Seg Neutrophils # Man 14.4 K/mm3 (1.8-7.7) H 10/08/19 04:50 Band Neutrophils # 0.7 K/mm3 10/08/19 04:50 Lymphocytes # (Manual) 0.3 K/mm3 (1.2-5.4) L 10/08/19 04:50 Abs React Lymphs (Man) 0.0 K/mm3 10/08/19 04:50 Monocytes # (Manual) 1.0 K/mm3 (0.0-0.8) H 10/08/19 04:50 Eosinophils # (Manual) 0.0 K/mm3 (0.0-0.4) 10/08/19 04:50 Basophils # (Manual) 0.0 K/mm3 (0.0-0.1) 10/08/19 04:50 Metamyelocytes # 0.2 K/mm3 10/08/19 04:50 Myelocytes # 0.0 K/mm3 10/08/19 04:50 Promyelocytes # 0.0 K/mm3 10/08/19 04:50 Blast Cells # 0.0 K/mm3 10/08/19 04:50 WBC Morphology Not Reportable 10/08/19 04:50 Hypersegmented Neuts Not Reportable 10/08/19 04:50 Hyposegmented Neuts Not Reportable 10/08/19 04:50 Hypogranular Neuts Not Reportable 10/08/19 04:50 Smudge Cells Not Reportable 10/08/19 04:50 Toxic Granulation Not Reportable 10/08/19 04:50 Toxic Vacuolation Not Reportable 10/08/19 04:50 Dohle Bodies Not Reportable 10/08/19 04:50 Pelger-Huet Anomaly Not Reportable 10/08/19 04:50 Bal Rods Not Reportable 10/08/19 04:50 Platelet Estimate Consistent w auto 10/08/19 04:50 Clumped Platelets Not Reportable 10/08/19 04:50 Plt Clumps, EDTA Not Reportable 10/08/19 04:50 Large Platelets Not Reportable 10/08/19 04:50 Giant Platelets Not Reportable 10/08/19 04:50 Platelet Satelliting Not Reportable 10/08/19 04:50 Plt Morphology Comment Not Reportable 10/08/19 04:50 RBC Morphology Not Reportable 10/08/19 04:50 Dimorphic RBCs Not Reportable 10/08/19 04:50 Polychromasia Not Reportable 10/08/19 04:50 Hypochromasia Not Reportable 10/08/19 04:50 Poikilocytosis Not Reportable 10/08/19 04:50 Anisocytosis Not Reportable 10/08/19 04:50 Microcytosis Not Reportable 10/08/19 04:50 Macrocytosis 1+ 10/08/19 04:50 Spherocytes Not Reportable 10/08/19 04:50 Pappenheimer Bodies Not Reportable 10/08/19 04:50 Sickle Cells Not Reportable 10/08/19 04:50 Target Cells 1+ 10/08/19 04:50 Tear Drop Cells Not Reportable 10/08/19 04:50 Ovalocytes Not Reportable 10/08/19 04:50 Helmet Cells Not Reportable 10/08/19 04:50 Singleton-Screven Bodies Not Reportable 10/08/19 04:50 Ursa Rings Not Reportable 10/08/19 04:50 Clubb Cells Not Reportable 10/08/19 04:50 Bite Cells Not Reportable 10/08/19 04:50 Crenated Cell Not Reportable 10/08/19 04:50 Elliptocytes Not Reportable 10/08/19 04:50 Acanthocytes (Spur) Not Reportable 10/08/19 04:50 Rouleaux Not Reportable 10/08/19 04:50 Hemoglobin C Crystals Not Reportable 10/08/19 04:50 Schistocytes Not Reportable 10/08/19 04:50 Malaria parasites Not Reportable 10/08/19 04:50 Willie Bodies Not Reportable 10/08/19 04:50 Hem Pathologist Commnt No 10/08/19 04:50 PT 14.9 Sec. (12.2-14.9) 10/07/19 15:23 INR 1.15 (0.87-1.13) H 10/07/19 15:23 APTT 29.5 Sec. (24.2-36.6) 10/07/19 15:23 D-Dimer 674.88 ng/mlDDU (0-234) H 10/07/19 06:14 Sodium 144 mmol/L (137-145) 10/08/19 04:50 Potassium 4.1 mmol/L (3.6-5.0) 10/08/19 04:50 Chloride 105.8 mmol/L (98-107) 10/08/19 04:50 Carbon Dioxide 27 mmol/L (22-30) 10/08/19 04:50 Anion Gap 15 mmol/L 10/08/19 04:50 BUN 19 mg/dL (7-17) H 10/08/19 04:50 Creatinine 0.7 mg/dL (0.6-1.2) 10/08/19 04:50 Estimated GFR > 60 ml/min 10/08/19 04:50 BUN/Creatinine Ratio 27 % 10/08/19 04:50 Glucose 334 mg/dL (65-100) H 10/08/19 04:50 POC Glucose 311 (70-105) H 10/08/19 15:36 Lactic Acid 1.30 mmol/L (0.7-2.0) 09/30/19 22:44 Calcium 7.9 mg/dL (8.4-10.2) L 10/08/19 04:50 Ferritin 1445.0 ng/mL (10.0-200.0) H 10/07/19 06:14 Total Bilirubin 0.40 mg/dL (0.1-1.2) 10/05/19 08:32 Direct Bilirubin 0.3 mg/dL (0-0.2) H 09/30/19 22:44 Indirect Bilirubin 0.2 mg/dL 09/30/19 22:44 AST 149 units/L (5-40) H 10/05/19 08:32 ALT 96 units/L (7-56) H 10/05/19 08:32 Alkaline Phosphatase 40 units/L (35-129) 10/05/19 08:32 Lactate Dehydrogenase 812 units/L (91-180) H 10/07/19 06:14 Total Creatine Kinase 934 units/L (30-135) H 10/05/19 08:32 C-Reactive Protein 1.70 mg/dL (0.00-1.30) H 10/07/19 06:14 Total Protein 6.1 g/dL (6.3-8.2) L 10/05/19 08:32 Albumin 2.5 g/dL (3.9-5) L 10/05/19 08:32 Albumin/Globulin Ratio 0.7 % 10/05/19 08:32 Procalcitonin 0.71 ng/mL (<0.15) 10/05/19 08:32 Urine Color [place] (Yellow) 10/01/19 Unknown Urine Turbidity Slightly-cloudy (Clear) 10/01/19 Unknown Urine pH 5.0 (5.0-7.0) 10/01/19 Unknown Ur Specific [place] 1.026 (1.003-1.030) 10/01/19 Unknown Urine Protein 100 mg/dl mg/dL (Negative) 10/01/19 Unknown Urine Glucose (UA) Neg mg/dL (Negative) 10/01/19 Unknown Urine Ketones Tr mg/dL (Negative) 10/01/19 Unknown Urine Blood Lg (Negative) 10/01/19 Unknown Urine Nitrite Neg (Negative) 10/01/19 Unknown Urine Bilirubin Neg (Negative) 10/01/19 Unknown Urine Urobilinogen 2.0 mg/dL (<2.0) 10/01/19 Unknown Ur Leukocyte Esterase Neg (Negative) 10/01/19 Unknown Urine WBC (Auto) 17.0 /HPF (0.0-6.0) H 10/01/19 Unknown Urine RBC (Auto) 1.0 /HPF (0.0-6.0) 10/01/19 Unknown U Epithel Cells (Auto) 4.0 /HPF (0-13.0) 10/01/19 Unknown Urine Mucus 2+ /HPF 10/01/19 Unknown Salicylates < 0.3 mg/dL (2.8-20.0) L 09/30/19 22:44 Urine Opiates Screen Presumptive negative 10/01/19 Unknown Urine Methadone Screen Presumptive negative 10/01/19 Unknown Acetaminophen 5.0 ug/mL (10.0-30.0) L 09/30/19 22:44 Ur Barbiturates Screen Presumptive negative 10/01/19 Unknown Valproic Acid 31.8 ug/mL (50-100) L 10/04/19 08:46 Ur Phencyclidine Scrn Presumptive negative 10/01/19 Unknown Ur Amphetamines Screen Presumptive negative 10/01/19 Unknown U Benzodiazepines Scrn Presumptive negative 10/01/19 Unknown Urine Cocaine Screen Presumptive negative 10/01/19 Unknown U Marijuana (THC) Screen Presumptive negative 10/01/19 Unknown Drugs of Abuse Note Disclamer 10/01/19 Unknown Plasma/Serum Alcohol < 0.01 % (0-0.07) 09/30/19 22:44 Coronavirus (PCR) Positive (Negative) A 10/02/19 Unknown Garcia/IV: Voiding Method External Female Catheter IV Catheter Type [Right Upper Peripheral IV arm] IV Catheter Type [Right INT / Saline Lock Antecubital] IV Catheter Type [Right Foot] INT / Saline Lock IV Catheter Type [Right Peripheral IV External Jugular] Active Medications - Current Medications Current Medications: Generic Name Dose Route Start Last Admin Trade Name Freq PRN Reason Stop Dose Admin Acetaminophen 650 mg 10/01/19 08:00 10/08/19 12:10 Tylenol PO 650 mg Q4H PRN Administration Pain MILD(1-3)/Fever >100.5/WRIGHT Lipase/Protease/Amylase 1 each 10/04/19 10:34 Pancrebobby Martinez 10,500 Unit FEEDTUBE PRN PRN For Clogged Feeding Tube Enoxaparin Sodium 40 mg 10/04/19 22:00 10/08/19 09:22 Enoxaparin SUB-Q 40 mg BID ZACH Administration Haloperidol 5 mg 10/02/19 12:00 10/08/19 09:27 Haldol PO Not Given BID ZACH Hydralazine HCl 10 mg 10/06/19 00:38 10/07/19 00:09 Apresoline IV 10 mg Q6HR PRN Administration Hypertension Sodium Chloride 1,000 mls @ 75 mls/hr 10/06/19 12:00 10/08/19 06:05 Nacl 0.45% 1000 Ml IV 75 mls/hr DIRECT ZACH Administration Insulin Human Lispro 0 unit 10/06/19 01:00 10/08/19 12:02 Humalog SUB-Q 6 unit Q6HR ZACH Administration Protocol Methylprednisolone Sodium Succinate 40 mg 10/07/19 10:00 10/08/19 09:23 Solu-Medrol IV 40 mg Q24HR ZACH Administration Miscellaneous Medication 325 mg 10/02/19 18:45 Paliperidone Palmitate [Invega Sustenna] IM Q3W ZACH Ondansetron HCl 4 mg 10/01/19 08:00 Zofran IV Q8H PRN Nausea And Vomiting Simple Syrup 15 ml 10/04/19 10:34 Simple Syrup FEEDTUBE PRN PRN Hypoglycemia Simple Syrup 30 ml 10/04/19 10:34 Simple Syrup FEEDTUBE PRN PRN Hypoglycemia Sodium Bicarbonate 325 mg 10/04/19 10:34 Sodium Bicarbonate FEEDTUBE PRN PRN For Clogged Feeding Tube Sodium Chloride 10 ml 10/01/19 10:00 10/08/19 09:23 Sodium Chloride Flush Syringe 10 Ml IV 10 ml BID ZACH Administration Sodium Chloride 10 ml 10/01/19 07:50 Sodium Chloride Flush Syringe 10 Ml IV 10/14/19 07:49 PRN PRN LINE FLUSH Trazodone HCl 50 mg 10/01/19 22:00 10/07/19 21:26 Desyrel PO 50 mg QHS ZACH Administration Valproic Acid 1,500 mg 10/05/19 22:00 10/07/19 21:26 Depakene Liq PO 1,500 mg QHS ZACH Administration Nutrition/Malnutrition Assess - Dietary Evaluation Nutrition/Malnutrition Findings: Nutrition Notes Start: 10/04/19 09:33 Freq: Status: Active Protocol: Document 10/08/19 12:14 LM (Rec: 10/08/19 12:22 LM [id number]) Nutrition Notes Initial or Follow up Reassessment Current Diagnosis Acute Kidney Injury,Sepsis Other Pertinent Diagnosis COVID-19 (+), Schizoaffective disorder Current Diet Jevity 1.2 at 55ml/hr Labs/Tests POC glu 311 Pertinent Medications Solumedrol Humalog NS at 75ml/hr Height 5 ft 6 in Weight 114 kg [place] Body Weight (kg) 59.09 BMI 40.5 Weight Status Morbidly Obese Subjective/Other Information TF running at goal and pt is tolerating. BG remains elevated. Will change TF. 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 No Is Patient Ambulatory and/or Out of Bed No REE-([facility]-confined to bed) 2106.012 Kcal/Kg value to use for calculation 14 Approximate Energy Requirements Using 1596 kcal/Kg Calculation Used for Recommendations Kcal/kg Additional Notes Protein needs are 69-87g (0.8- 1g/kg adjusted wt 86.5kg) Fluid needs are 1ml/kcal Nutrition Intervention Change Diet Order: TF Nutrition Support: Change to Glucerna 1.2 at 55ml /hr Flush 100ml/hr Kcal 1,584 Protein (gm) 79 Fluid (mL) 1,063 Goal #1 Meet at least 80% of kcal and protein needs via TF Anticipated Discharge Needs: Unable to determine at this time Follow-Up By: 10/11/19 Additional Comments F/U for new TF/tolerance, BG
--- NOTE | 2019-10-08 17:52 | Gastroenterology Progress Note ---
Assessment and Plan - Patient Problems (1) Neurogenic dysphagia Current Visit: Yes Status: Acute Plan to address problem: - Will continue to monitor progress as Psych meds re-added, and patient recovers from COVID. - If fails to improve, will need PEG, but this will be somewhat difficult with morbid obesity. - Continue Dobhoff feeds and supportive care. (2) Pneumonia due to COVID-19 virus Current Visit: Yes Status: Acute (3) Paranoid schizophrenia Current Visit: Yes Status: Chronic Subjective Date of service: 10/08/19 Principal diagnosis: Neurogenic Dysphagia Interval history: The patient is tolerating her tube feeds without event. On psych meds she is minimally more interactive. Objective - Constitutional Vitals: Temp Pulse Resp BP Pulse Ox 98.7 F 76 20 133/64 99 10/08/19 10:54 10/08/19 10:54 10/08/19 10:54 10/08/19 10:54 10/08/19 10:54 General appearance: no acute distress - Respiratory Respiratory effort: normal Respiratory: bilateral: CTA - Cardiovascular Rhythm: regular Heart Sounds: Present: S1 & S2 - Gastrointestinal General gastrointestinal: Present: soft, non-tender, non-distended - Labs CBC & Chem 7: 10/08/19 04:50 10/08/19 04:50 Labs: Laboratory Results - last 24 hr 10/08/19 10/08/19 10/08/19 00:10 04:50 04:50 WBC 16.5 H RBC 4.04 Hgb 11.7 Hct 35.9 MCV 89 MCH 29 MCHC 33 RDW 15.9 H Plt Count 189 Add Manual Diff Complete Total Counted 100 Seg Neuts % (Manual) 87.0 H Band Neutrophils % 4.0 Lymphocytes % (Manual) 2.0 L Reactive Lymphs % (Man) 0 Monocytes % (Manual) 6.0 Eosinophils % (Manual) 0 Basophils % (Manual) 0 Metamyelocytes % 1.0 Myelocytes % 0 Promyelocytes % 0 Blast Cells % 0 Nucleated RBC % 1.0 H Seg Neutrophils # Man 14.4 H Band Neutrophils # 0.7 Lymphocytes # (Manual) 0.3 L Abs React Lymphs (Man) 0.0 Monocytes # (Manual) 1.0 H Eosinophils # (Manual) 0.0 Basophils # (Manual) 0.0 Metamyelocytes # 0.2 Myelocytes # 0.0 Promyelocytes # 0.0 Blast Cells # 0.0 WBC Morphology Not Reportable Hypersegmented Neuts Not Reportable Hyposegmented Neuts Not Reportable Hypogranular Neuts Not Reportable Smudge Cells Not Reportable Toxic Granulation Not Reportable Toxic Vacuolation Not Reportable Dohle Bodies Not Reportable Pelger-Huet Anomaly Not Reportable Bal Rods Not Reportable Platelet Estimate Consistent w auto Clumped Platelets Not Reportable Plt Clumps, EDTA Not Reportable Large Platelets Not Reportable Giant Platelets Not Reportable Platelet Satelliting Not Reportable Plt Morphology Comment Not Reportable RBC Morphology Not Reportable Dimorphic RBCs Not Reportable Polychromasia Not Reportable Hypochromasia Not Reportable Poikilocytosis Not Reportable Anisocytosis Not Reportable Microcytosis Not Reportable Macrocytosis 1+ Spherocytes Not Reportable Pappenheimer Bodies Not Reportable Sickle Cells Not Reportable Target Cells 1+ Tear Drop Cells Not Reportable Ovalocytes Not Reportable Helmet Cells Not Reportable Singleton-Platter Bodies Not Reportable Elliott Rings Not Reportable Mary Cells Not Reportable Bite Cells Not Reportable Crenated Cell Not Reportable Elliptocytes Not Reportable Acanthocytes (Spur) Not Reportable Rouleaux Not Reportable Hemoglobin C Crystals Not Reportable Schistocytes Not Reportable Malaria parasites Not Reportable Willie Bodies Not Reportable Hem Pathologist Commnt No Sodium 144 Potassium 4.1 Chloride 105.8 Carbon Dioxide 27 Anion Gap 15 BUN 19 H Creatinine 0.7 Estimated GFR > 60 BUN/Creatinine Ratio 27 Glucose 334 H POC Glucose 349 H Calcium 7.9 L 10/08/19 10/08/19 10/08/19 06:13 11:41 15:36 WBC RBC Hgb Hct MCV MCH MCHC RDW Plt Count Add Manual Diff Total Counted Seg Neuts % (Manual) Band Neutrophils % Lymphocytes % (Manual) Reactive Lymphs % (Man) Monocytes % (Manual) Eosinophils % (Manual) Basophils % (Manual) Metamyelocytes % Myelocytes % Promyelocytes % Blast Cells % Nucleated RBC % Seg Neutrophils # Man Band Neutrophils # Lymphocytes # (Manual) Abs React Lymphs (Man) Monocytes # (Manual) Eosinophils # (Manual) Basophils # (Manual) Metamyelocytes # Myelocytes # Promyelocytes # Blast Cells # WBC Morphology Hypersegmented Neuts Hyposegmented Neuts Hypogranular Neuts Smudge Cells Toxic Granulation Toxic Vacuolation Dohle Bodies Pelger-Huet Anomaly Bal Rods Platelet Estimate Clumped Platelets Plt Clumps, EDTA Large Platelets Giant Platelets Platelet Satelliting Plt Morphology Comment RBC Morphology Dimorphic RBCs Polychromasia Hypochromasia Poikilocytosis Anisocytosis Microcytosis Macrocytosis Spherocytes Pappenheimer Bodies Sickle Cells Target Cells Tear Drop Cells Ovalocytes Helmet Cells Singleton-Platter Bodies Elliott Rings Mary Cells Bite Cells Crenated Cell Elliptocytes Acanthocytes (Spur) Rouleaux Hemoglobin C Crystals Schistocytes Malaria parasites Willie Bodies Hem Pathologist Commnt Sodium Potassium Chloride Carbon Dioxide Anion Gap BUN Creatinine Estimated GFR BUN/Creatinine Ratio Glucose POC Glucose 273 H 311 H 311 H Calcium
[2019-10-08] MEDS: traZODone 50 MG TAB PO SCH (21:23)
[2019-10-08] MEDS: VALPROIC ACID 250 MG/5 ML ORAL LIQD PO SCH (21:23)
[2019-10-09] MEDS: INSULIN LISPRO 100 UNIT/ML VIAL 3 mL SUB-Q SCH ×4 (06:28→23:21)
[2019-10-09] MEDS: SODIUM CHLORIDE 0.45% 1000 ML 1,000 ML IV SCH ×2 (06:33→17:22)
[2019-10-09 10:10] LABS: Hematocrit 38.8 % (30.3-42.9); Hemoglobin 12.7 gm/dl (10.1-14.3); Mean Corpuscular HGB Conc 33 % (30-34); Mean Corpuscular Volume 89 fl (79-97); Platelet Count 197 K/mm3 (140-440); Red Blood Count 4.38 M/mm3 (3.65-5.03); Red Cell Distribution Width 15.5 % (13.2-15.2)
[2019-10-09 10:35] LABS: C-Reactive Protein 0.8 mg/dL (0.00-1.30)
--- NOTE | 2019-10-09 11:09 | Progress Note ---
Assessment and Plan Cultures: Blood culture and urine culture negative COVID PCR positive Assessment: 54 years old female with history of paranoid schizophrenia, admitted on 09/30/2019 due to altered mental status and catatonia state: #Severe sepsis: Present on admission with low-grade fever, tachycardia, elevated leukocytosis, FAISAL, likely due to bilateral pneumonia. #Bilateral pneumonia: COVID-19 pneumonia. Inflammatory markers are elevated, with a d-dimer > 10,000. CT negative for pulmonary embolism. Repeat d-dimer w ith much improvement. Renal function and LFTs improving, but given mild hypoxia and several days of positivity, unclear benefit with Remdesivir at this stage. Completed empiric CAP abx x 5 days. #Acute hypoxemic respiratory failure: mild. on supplemental oxygen. #Elevated LFTs: from COVID/rhabdo #FAISAL: from COVID. improved #Elevated CK: Likely secondary to rhabdomyolysis possible due to COVID-19 infection or catatonic state #Paranoid schizophrenia with catatonia: Per psych Recommendations: -continue steroids, day 8 of 10 -supportive care and oxygen weaning as tolerated -anticoagulation per protocol based on d-dimer Konrad Moyer MD, FACP [facility] C: [phone] O: [phone] F: [phone] Subjective Date of service: 10/09/19 Principal diagnosis: Neurogenic Dysphagia Interval history: No fever. Oxygen requirements have remained stable at 2 L nasal cannula. Objective - Exam Narrative Exam: Physical Exam (reviewed in chart due to PPE conservation) Constitutional: limited due to PPE conservation strategy Head, Ears, Nose: limited due to PPE conservation strategy Eyes: limited due to PPE conservation strategy Neck: limited due to PPE conservation strategy Oral: limited due to PPE conservation strategy Cardiovascular: limited due to PPE conservation strategy Respiratory: limited due to PPE conservation strategy GI: limited due to PPE conservation strategy Musculoskeletal: limited due to PPE conservation strategy Skin: limited due to PPE conservation strategy Hem/Lymphatic: limited due to PPE conservation strategy Psych: limited due to PPE conservation strategy Neurological: limited due to PPE conservation strategy - Constitutional Vitals: Vital Signs Temp Pulse Resp BP Pulse Ox 97.8 F 88 20 149/82 99 10/09/19 05:37 10/09/19 05:37 10/09/19 05:37 10/09/19 05:37 10/09/19 09:11 Temperature -Last 24 Hours Temperature 97.8 F Temperature 98.2 F Temperature 98.0 F - Labs CBC & Chem 7: 10/09/19 09:32 10/08/19 04:50 Labs: Abnormal lab results 10/08/19 10/08/19 10/08/19 Range/Units 11:41 15:36 22:53 WBC (4.5-11.0) K/mm3 RDW (13.2-15.2) % D-Dimer (0-234) ng/mlDDU POC Glucose 311 H 311 H 290 H (70-105) Lactate Dehydrogenase (91-180) units/L 10/09/19 10/09/19 10/09/19 Range/Units 06:40 06:57 09:32 WBC (4.5-11.0) K/mm3 RDW (13.2-15.2) % D-Dimer 390.46 H (0-234) ng/mlDDU POC Glucose 196 H 192 H (70-105) Lactate Dehydrogenase (91-180) units/L 10/09/19 10/09/19 Range/Units 09:32 09:32 WBC 19.6 H (4.5-11.0) K/mm3 RDW 15.5 H (13.2-15.2) % D-Dimer (0-234) ng/mlDDU POC Glucose (70-105) Lactate Dehydrogenase 716 H (91-180) units/L
--- NOTE | 2019-10-09 11:11 | Progress Note ---
<MICHELE PRADO - Last Filed: 10/09/19 14:14> Assessment and Plan - Patient Problems (1) Severe sepsis Current Visit: Yes Status: Resolved Plan to address problem: Presented with low-grade fever, tachycardia, leukocytosis, FAISAL, and bilateral pneumonia Likely source is bilateral pneumonia secondary to COVID-19 Patient has completed antibiotic therapy (2) Pneumonia due to COVID-19 virus Current Visit: Yes Status: Acute Plan to address problem: COVID protocol initiated IV azithromycin and Rocephin completed 09/30 COVID PCR positive Elevated inflammatory makers LDH, CRP, procalcitonin, d-dimer, ferritin Continue airborne and contact precautions Continue Supplemental oxygenation as needed Infectious disease consult requested Respiratory care ABG and Pulmonary hygiene CTA Chest was ordered which was negative for pulmonary embolism Continue Anticoagulation per COVID protocol Cannot initiate Remdesivir in setting on of elevated LFTs Continue p.o. dexamethasone (3) Acute psychosis Current Visit: Yes Status: Acute Plan to address problem: Currently withdraws to pain however moving all extremities spontaneously History of paranoid schizophrenia Mental health consult requested and does not recommend inpatient psych at this time as medical needs outweigh psych this time Requested to reconsult when patient is medically stable GI consulted for PEG tube placement to facilitate placement (4) Paranoid schizophrenia Current Visit: Yes Status: Chronic Plan to address problem: History of present schizophrenia Psych consulted and appreciate recommendations Depakote and Haldol Reorientation as needed (5) Leukocytosis likely 2/2 PNA/ steroid induced Current Visit: Yes Status: Acute Plan to address problem: Admit WBC 13.8 Trend CBC-19 today Subjective Date of service: 10/09/19 Principal diagnosis: Neurogenic Dysphagia Interval history: Patient seen at the bedside. reviewed lab, mar, and v/s. Patient on continuos feeding GI on board-pt needs Peg tube for manager intermediate nutrition and hydration. Patient appears to be total care. On supplemental oxygen. patient will benefit from Psych/physical rehab Elevated leucocytosis-likely 2/2 Infection/Steroid induced-pt on dexamethosone. Objective - Constitutional Vitals: Vital Signs - 12hr 10/08/19 10/09/19 10/09/19 23:25 05:37 08:31 Temperature 97.8 F Pulse Rate 88 Respiratory 20 Rate Blood Pressure 149/82 O2 Sat by Pulse 96 97 100 Oximetry 10/09/19 09:11 Temperature Pulse Rate Respiratory Rate Blood Pressure O2 Sat by Pulse 99 Oximetry General appearance: Present: obese - Respiratory Respiratory effort: other (On oxygen per N/C) Respiratory: bilateral: diminished - Breasts Breasts: normal - Cardiovascular Heart rate: 78 Rhythm: regular Heart Sounds: Present: S1 & S2. Absent: gallop, rub - Gastrointestinal General gastrointestinal: Present: soft, non-tender, distended, normal bowel sounds, other (Patient on tube feeding-Jevity) - Psychiatric Psychiatric: other (Patient will hx phycosis and schizophrenia-need psych unit when medically stable) - Labs CBC & Chem 7: 10/09/19 09:32 10/08/19 04:50 Labs: Abnormal lab results 10/08/19 10/08/19 10/08/19 Range/Units 11:41 15:36 22:53 WBC (4.5-11.0) K/mm3 RDW (13.2-15.2) % D-Dimer (0-234) ng/mlDDU POC Glucose 311 H 311 H 290 H (70-105) Lactate Dehydrogenase (91-180) units/L 10/09/19 10/09/19 10/09/19 Range/Units 06:40 06:57 09:32 WBC (4.5-11.0) K/mm3 RDW (13.2-15.2) % D-Dimer 390.46 H (0-234) ng/mlDDU POC Glucose 196 H 192 H (70-105) Lactate Dehydrogenase (91-180) units/L 10/09/19 10/09/19 Range/Units 09:32 09:32 WBC 19.6 H (4.5-11.0) K/mm3 RDW 15.5 H (13.2-15.2) % D-Dimer (0-234) ng/mlDDU POC Glucose (70-105) Lactate Dehydrogenase 716 H (91-180) units/L HEART Score - HEART Score History: Moderately suspicious <PATRICIA,DIMPLE R - Last Filed: 10/09/19 14:53> Assessment and Plan I saw and evaluated the patient. I agree with the findings and the plan of care as documented in the Nurse Practitioner's~note. Objective - Constitutional Vitals: Vital Signs - 12hr 10/09/19 10/09/19 10/09/19 05:37 08:31 09:11 Temperature 97.8 F Pulse Rate 88 Respiratory 20 Rate Blood Pressure 149/82 O2 Sat by Pulse 97 100 99 Oximetry 10/09/19 11:28 Temperature 98.5 F Pulse Rate 109 H Respiratory 20 Rate Blood Pressure 173/97 O2 Sat by Pulse 96 Oximetry - Labs CBC & Chem 7: 10/09/19 09:32 10/08/19 04:50 Labs: Abnormal lab results 10/08/19 10/08/19 10/09/19 Range/Units 15:36 22:53 06:40 WBC (4.5-11.0) K/mm3 RDW (13.2-15.2) % D-Dimer (0-234) ng/mlDDU POC Glucose 311 H 290 H 196 H (70-105) Ferritin (10.0-200.0) ng/mL Lactate Dehydrogenase (91-180) units/L 10/09/19 10/09/19 10/09/19 Range/Units 06:57 09:32 09:32 WBC (4.5-11.0) K/mm3 RDW (13.2-15.2) % D-Dimer 390.46 H (0-234) ng/mlDDU POC Glucose 192 H (70-105) Ferritin 991.6 H (10.0-200.0) ng/mL Lactate Dehydrogenase (91-180) units/L 10/09/19 10/09/19 10/09/19 Range/Units 09:32 09:32 12:07 WBC 19.6 H (4.5-11.0) K/mm3 RDW 15.5 H (13.2-15.2) % D-Dimer (0-234) ng/mlDDU POC Glucose 171 H (70-105) Ferritin (10.0-200.0) ng/mL Lactate Dehydrogenase 716 H (91-180) units/L
--- NOTE | 2019-10-09 11:21 | XRay Report ---
ABDOMEN 1 VIEW(S) INDICATION / CLINICAL INFORMATION: Verify Dobhoff tube placement. COMPARISON: 10/03/2019 FINDINGS: TUBES / LINES: The tip of the weighted enteric feeding tube is in the proximal stomach. Previously se en esophagogastric tube is been removed. BOWEL GAS PATTERN: No significant abnormality. FREE AIR / EXTRALUMINAL GAS: None seen. ADDITIONAL FINDINGS: No significant additional findings. IMPRESSION: 1. Feeding tube tip is in the proximal stomach. Signer Name: Armando Oakes MD Signed: 10/09/2019 11:17 AM Workstation Name: [id number]
[2019-10-09] MEDS: methylPREDNISolone Sod Succinate 40 MG/1 ML INJ IV SCH (13:07)
[2019-10-09] MEDS: HALOPERIDOL 5 MG TAB PO SCH ×2 (13:08→22:22)
[2019-10-09] MEDS: ENOXAPARIN 40 MG/0.4 ML INJ SUB-Q SCH ×2 (13:08→22:21)
--- NOTE | 2019-10-09 17:58 | Gastroenterology Progress Note ---
Assessment and Plan - Patient Problems (1) Neurogenic dysphagia Current Visit: Yes Status: Acute Plan to address problem: - Tolerating tube feeds via Dobhoff. - monitor mental status changes for any improvement with psych medications on board and recovering from COVID 19 - If fails to improve, will need PEG, but this will be somewhat difficult with morbid obesity. - Continue Dobhoff feeds and supportive care. Subjective Date of service: 10/09/19 Principal diagnosis: Neurogenic Dysphagia Interval history: Patient tolerating tube feeds per nursing. Patient is COVID positive, chart reviewed. Patient not examined to conserve resources on PPE in this pandemic and to reduce the risk of exposure and or transmission of the disease. Objective - Exam Narrative Exam: Patient is COVID positive, chart reviewed. Patient not examined to conserve resources on PPE in this pandemic and to reduce the risk of exposure and or transmission of the disease. - Constitutional Vitals: Temp Pulse Resp BP Pulse Ox 97.9 F 91 H 20 161/99 97 10/09/19 16:30 10/09/19 16:30 10/09/19 16:30 10/09/19 16:30 10/09/19 16:30 - Labs CBC & Chem 7: 10/09/19 09:32 10/08/19 04:50 Labs: Laboratory Results - last 24 hr 10/08/19 10/09/19 10/09/19 22:53 06:40 06:57 WBC RBC Hgb Hct MCV MCH MCHC RDW Plt Count D-Dimer POC Glucose 290 H 196 H 192 H Ferritin Lactate Dehydrogenase C-Reactive Protein 10/09/19 10/09/19 10/09/19 09:32 09:32 09:32 WBC RBC Hgb Hct MCV MCH MCHC RDW Plt Count D-Dimer 390.46 H POC Glucose Ferritin 991.6 H Lactate Dehydrogenase 716 H C-Reactive Protein 0.80 10/09/19 10/09/19 10/09/19 09:32 12:07 16:45 WBC 19.6 H RBC 4.38 Hgb 12.7 Hct 38.8 MCV 89 MCH 29 MCHC 33 RDW 15.5 H Plt Count 197 D-Dimer POC Glucose 171 H 247 H Ferritin Lactate Dehydrogenase C-Reactive Protein
[2019-10-09] MEDS: hydrALAZINE 25 MG TAB PO SCH (22:21)
[2019-10-09] MEDS: traZODone 50 MG TAB PO SCH (22:22)
[2019-10-09] MEDS: VALPROIC ACID 250 MG/5 ML ORAL LIQD PO SCH (22:23)
[2019-10-10] MEDS: SODIUM CHLORIDE 0.45% 1000 ML 1,000 ML IV SCH (05:18)
[2019-10-10] MEDS: hydrALAZINE 25 MG TAB PO SCH ×3 (05:18→21:44)
[2019-10-10] MEDS: INSULIN LISPRO 100 UNIT/ML VIAL 3 mL SUB-Q SCH ×4 (06:08→23:00)
[2019-10-10] MEDS: ENOXAPARIN 40 MG/0.4 ML INJ SUB-Q SCH ×2 (10:00→21:44)
[2019-10-10] MEDS: HALOPERIDOL 5 MG TAB PO SCH ×2 (10:00→21:45)
--- NOTE | 2019-10-10 10:22 | XRay Report ---
ABDOMEN 1 VIEW INDICATION / CLINICAL INFORMATION: TO VERIFY DOBHOFF PLACEMENT. COMPARISON: 10/09/2019 FINDINGS: TUBES / LINES: Malposition of feeding tube projecting over the right mainstem bronchus. BOWEL GAS PATTERN: No significant abnormality. FREE AIR / EXTRALUMINAL GAS: None seen. ADDITIONAL FINDINGS: No significant additional findings. IMPRESSION: 1. Malposition of feeding tube projecting over the right mainstem bronchus. Recommend repositioning. Multiple unsuccessful attempts at communication were made. Signer Name: Apolinar Hoffmann MD Signed: 10/10/2019 10:18 AM Workstation Name: [email or web address]
--- NOTE | 2019-10-10 10:32 | Progress Note ---
<DIKWAMEMICHELE COATES - Last Filed: 10/10/19 14:14> Assessment and Plan - Patient Problems (1) Severe sepsis Current Visit: Yes Status: Resolved Plan to address problem: Presented with low-grade fever, tachycardia, leukocytosis, FAISAL, and bilateral pneumonia Likely source is bilateral pneumonia secondary to COVID-19 Patient has completed antibiotic therapy (2) Pneumonia due to COVID-19 virus Current Visit: Yes Status: Acute Plan to address problem: COVID protocol initiated IV azithromycin and Rocephin completed 09/30 COVID PCR positive Elevated inflammatory makers LDH, CRP, procalcitonin, d-dimer, ferritin Continue airborne and contact precautions Continue Supplemental oxygenation as needed Infectious disease consult requested Respiratory care ABG and Pulmonary hygiene CTA Chest was ordered which was negative for pulmonary embolism Continue Anticoagulation per COVID protocol D-dimer trending down Continue p.o. dexamethasone (3) Acute psychosis-stable Current Visit: Yes Status: Acute Plan to address problem: Currently withdraws to pain however moving all extremities spontaneously History of paranoid schizophrenia Mental health consult requested and does not recommend inpatient psych at this time as medical needs outweigh psych this time Requested to reconsult when patient is medically stable GI consulted for PEG tube placement to facilitate placement (4) Paranoid schizophrenia Current Visit: Yes Status: Chronic Plan to address problem: History of present schizophrenia Psych consulted and appreciate recommendations Depakote and Haldol Reorientation as needed (5) Leukocytosis likely 2/2 PNA/ steroid induced Current Visit: Yes Status: Acute Plan to address problem: Admit WBC 13.8 Elevated-possibly steroid induced Nuerongenic Dysphagia Continue tube feeds via Dobhoff. Aspiration precaution with HOB up at least 35 degrees monitor mental status changes for any improvement with psych medications on board and recovering from COVID 19 GI consulted-recommends Peg tube placement if patient fail to improve. Continue Dobhoff feeds and supportive care. Subjective Date of service: 10/10/19 Principal diagnosis: Neurogenic Dysphagia Interval history: Patient seen at the bedside. reviewed lab, mar, and v/s. 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 Patient appears to be total care. On supplemental oxygen. patient will benefit from Psych/physical rehab Elevated leucocytosis-likely 2/2 Infection/Steroid induced-pt on dexamethosone. Reviewed GI note-and reces If fails to improve, will need PEG, but this will be somewhat difficult with morbid obesity. Continue Dobhoff feeds and supportive care. reviewed ID note and reces continue steroids, day 9 of 10 supportive care and oxygen weaning as tolerated anticoagulation per protocol based on d-dimer which has been steadily improving. Objective - Constitutional Vitals: Vital Signs - 12hr 10/09/19 10/10/19 22:50 05:32 Temperature 99.1 F 98.6 F Pulse Rate 112 H 107 H Respiratory 20 22 Rate Blood Pressure 184/93 185/103 O2 Sat by Pulse 95 94 Oximetry General appearance: Present: no acute distress, obese - EENT Eyes: PERRL, EOM intact ENT: hearing intact, clear oral mucosa Ears: bilateral: normal - Neck Neck: supple, normal ROM - Respiratory Respiratory effort: normal Respiratory: bilateral: CTA - Breasts Breasts: normal - Cardiovascular Rhythm: regular Heart Sounds: Present: S1 & S2. Absent: gallop, rub Extremities: pulses intact, No edema (Patient is presently total care), normal color, Full ROM - Gastrointestinal General gastrointestinal: Present: soft, non-tender, non-distended, normal bowel sounds - Genitourinary Female genitourinary: normal - Integumentary Integumentary: clear, warm, dry - Musculoskeletal Musculoskeletal: 1, strength equal bilaterally - Neurologic Neurologic: moves all extremities - Psychiatric Psychiatric: other (Patient has hx psychosis and schizophrenia) - Labs CBC & Chem 7: 10/10/19 10:50 10/08/19 04:50 Labs: Abnormal lab results 10/09/19 10/09/19 10/09/19 Range/Units 09:32 09:32 12:07 POC Glucose 171 H (70-105) Ferritin 991.6 H (10.0-200.0) ng/mL Lactate Dehydrogenase 716 H (91-180) units/L 10/09/19 10/09/19 10/10/19 Range/Units 16:45 23:03 06:22 POC Glucose 247 H 282 H 166 H (70-105) Ferritin (10.0-200.0) ng/mL Lactate Dehydrogenase (91-180) units/L <LONI GOMEZ - Last Filed: 10/10/19 18:37> Assessment and Plan I saw and evaluated the patient. I agree with the findings and the plan of care as documented in the Nurse Practitioner's~note, with the following corrections and additions. Patient more alert today with eyes wide open Pulled out NG tube today, speaks few words and making eye contact Will do bedside swallow eval and if no sign of aspiration will start on diet Objective - Constitutional Vitals: Vital Signs - 12hr 10/10/19 10/10/19 10/10/19 11:55 16:42 16:46 Temperature 97.9 F 98.5 F Pulse Rate 112 H 109 H Respiratory 19 20 Rate Blood Pressure 168/85 170/90 179/88 O2 Sat by Pulse 93 97 Oximetry - Labs CBC & Chem 7: 10/10/19 10:50 10/08/19 04:50 Labs: Abnormal lab results 10/09/19 10/10/19 10/10/19 Range/Units 23:03 06:22 10:50 WBC 22.4 H (4.5-11.0) K/mm3 POC Glucose 282 H 166 H (70-105) 10/10/19 10/10/19 Range/Units 12:12 16:59 WBC (4.5-11.0) K/mm3 POC Glucose 167 H 193 H (70-105)
[2019-10-10 11:11] LABS: Hematocrit 36.8 % (30.3-42.9); Hemoglobin 12.3 gm/dl (10.1-14.3); Mean Corpuscular HGB Conc 33 % (30-34); Mean Corpuscular Volume 88 fl (79-97); Platelet Count 164 K/mm3 (140-440)
--- NOTE | 2019-10-10 13:11 | Progress Note ---
Assessment and Plan Cultures: Blood culture and urine culture negative COVID PCR positive Assessment: 54 years old female with history of paranoid schizophrenia, admitted on 09/30/2019 due to altered mental status and catatonia state: #Severe sepsis: Present on admission with low-grade fever, tachycardia, elevated leukocytosis, FAISAL, likely due to bilateral pneumonia. #Bilateral pneumonia: COVID-19 pneumonia. Inflammatory markers are elevated, with a d-dimer > 10,000. CT negative for pulmonary embolism. Repeat d-dimer w ith much improvement. Renal function and LFTs improving, but given mild hypoxia and several days of positivity, unclear benefit with Remdesivir at this stage. Completed empiric CAP abx x 5 days. #Acute hypoxemic respiratory failure: mild. on supplemental oxygen. #Elevated LFTs: from COVID/rhabdo #FAISAL: from COVID. improved #Elevated CK: Likely secondary to rhabdomyolysis possible due to COVID-19 infection or catatonic state #Paranoid schizophrenia with catatonia: Per psych Recommendations: -continue steroids, day 9 of 10 -supportive care and oxygen weaning as tolerated -anticoagulation per protocol based on d-dimer which has been steadily improving. Konrad Moyer MD, FACP [facility] ([facility] C: [phone] O: [phone] F: [phone] Subjective Date of service: 10/10/19 Principal diagnosis: Neurogenic Dysphagia Interval history: No fever. Oxygen requirements stable Objective - Exam Narrative Exam: Physical Exam (reviewed in chart due to PPE conservation) Constitutional: limited due to PPE conservation strategy Head, Ears, Nose: limited due to PPE conservation strategy Eyes: limited due to PPE conservation strategy Neck: limited due to PPE conservation strategy Oral: limited due to PPE conservation strategy Cardiovascular: limited due to PPE conservation strategy Respiratory: limited due to PPE conservation strategy GI: limited due to PPE conservation strategy Musculoskeletal: limited due to PPE conservation strategy Skin: limited due to PPE conservation strategy Hem/Lymphatic: limited due to PPE conservation strategy Psych: limited due to PPE conservation strategy Neurological: limited due to PPE conservation strategy - Constitutional Vitals: Vital Signs Temp Pulse Resp BP Pulse Ox 97.9 F 112 H 19 168/85 93 10/10/19 11:55 10/10/19 11:55 10/10/19 11:55 10/10/19 11:55 10/10/19 11:55 Temperature -Last 24 Hours Temperature 97.9 F Temperature 98.6 F Temperature 99.1 F Temperature 97.9 F - Labs CBC & Chem 7: 10/10/19 10:50 10/08/19 04:50 Labs: Abnormal lab results 10/09/19 10/09/19 10/10/19 Range/Units 16:45 23:03 06:22 WBC (4.5-11.0) K/mm3 POC Glucose 247 H 282 H 166 H (70-105) 10/10/19 10/10/19 Range/Units 10:50 12:12 WBC 22.4 H (4.5-11.0) K/mm3 POC Glucose 167 H (70-105)
[2019-10-10] MEDS: methylPREDNISolone Sod Succinate 40 MG/1 ML INJ IV SCH (16:42)
[2019-10-10] MEDS: traZODone 50 MG TAB PO SCH (21:44)
[2019-10-10] MEDS: VALPROIC ACID 250 MG/5 ML ORAL LIQD PO SCH (21:44)
[2019-10-11] MEDS: D5W/0.9% NACL 1,000 ML IV SCH ×2 (01:48→18:29)
[2019-10-11] MEDS: hydrALAZINE 25 MG TAB PO SCH (05:43)
[2019-10-11] MEDS: INSULIN LISPRO 100 UNIT/ML VIAL 3 mL SUB-Q SCH ×3 (05:54→18:28)
[2019-10-11] MEDS: HALOPERIDOL 5 MG TAB PO SCH ×2 (11:54→22:43)
[2019-10-11] MEDS: methylPREDNISolone Sod Succinate 40 MG/1 ML INJ IV SCH (11:54)
[2019-10-11] MEDS: ENOXAPARIN 40 MG/0.4 ML INJ SUB-Q SCH ×2 (11:55→22:41)
[2019-10-11] MEDS ORDERED: hydrALAZINE 20 MG/1 ML INJ IV PRN ×2 (12:54→16:44)
--- NOTE | 2019-10-11 13:00 | Progress Note ---
Assessment and Plan Cultures: Blood culture and urine culture negative COVID PCR positive Assessment: 54 years old female with history of paranoid schizophrenia, admitted on 09/30/2019 due to altered mental status and catatonia state: #Severe sepsis: Present on admission with low-grade fever, tachycardia, elevated leukocytosis, FAISAL, likely due to bilateral pneumonia. Resolved. #Bilateral pneumonia: COVID-19 pneumonia. Inflammatory markers are elevated, with a d-dimer > 10,000. CT negative for pulmonary embolism. Repeat d-dimer with much improvement. Renal function and LFTs improving, but given mild hypoxia and several days of positivity, unclear benefit with Remdesivir at this stage. Completed empiric CAP abx x 5 days. #Acute hypoxemic respiratory failure: mild. on supplemental oxygen. #Elevated LFTs: from COVID/rhabdo #FAISAL: from COVID. improved #Elevated CK: Likely secondary to rhabdomyolysis possible due to COVID-19 infection or catatonic state #Paranoid schizophrenia with catatonia: Per psych Recommendations: -continue steroids, day 10 of 10 -supportive care and oxygen weaning as tolerated -anticoagulation per protocol based on d-dimer which has been steadily improving Konrad Moyer MD, FACP [facility] ([facility] C: [phone] O: [phone] F: [phone] Subjective Date of service: 10/11/19 Principal diagnosis: Neurogenic Dysphagia Interval history: No fever. Oxygen requirements stable at 2 lit/min NC Objective - Exam Narrative Exam: Physical Exam (reviewed in chart due to PPE conservation) Constitutional: limited due to PPE conservation strategy Head, Ears, Nose: limited due to PPE conservation strategy Eyes: limited due to PPE conservation strategy Neck: limited due to PPE conservation strategy Oral: limited due to PPE conservation strategy Cardiovascular: limited due to PPE conservation strategy Respiratory: limited due to PPE conservation strategy GI: limited due to PPE conservation strategy Musculoskeletal: limited due to PPE conservation strategy Skin: limited due to PPE conservation strategy Hem/Lymphatic: limited due to PPE conservation strategy Psych: limited due to PPE conservation strategy Neurological: limited due to PPE conservation strategy - Constitutional Vitals: Vital Signs Temp Pulse Resp BP Pulse Ox 98.0 F 115 H 22 178/108 95 10/11/19 12:05 10/11/19 12:05 10/11/19 12:05 10/11/19 12:05 10/11/19 12:05 Temperature -Last 24 Hours Temperature 98.0 F Temperature 97.4 F Temperature 97.4 F Temperature 98.5 F - Labs CBC & Chem 7: 10/10/19 10:50 10/08/19 04:50 Labs: Abnormal lab results 10/10/19 10/10/19 10/11/19 Range/Units 16:59 23:00 06:04 POC Glucose 193 H 268 H 182 H (70-105) 10/11/19 Range/Units 12:20 POC Glucose 139 H (70-105)
[2019-10-11] MEDS ORDERED: hydrALAZINE 25 MG TAB PO SCH (13:24)
[2019-10-11] MEDS: cloNIDine TTS 0.2 MG/24 HR PATCH TD SCH (14:05)
[2019-10-11] MEDS: hydrALAZINE 100 MG TAB PO SCH ×2 (14:06→22:40)
--- NOTE | 2019-10-11 14:12 | Progress Note ---
<BLANCA SOFIA - Last Filed: 10/11/19 14:25> Assessment and Plan - Patient Problems (1) Severe sepsis Current Visit: Yes Status: Resolved Plan to address problem: - Presented with low-grade fever, tachycardia, leukocytosis, FAISAL, and bilateral pneumonia - Likely source is bilateral pneumonia secondary to COVID-19 - IV antibiotics completed - Covid protocol initiated (2) Pneumonia due to COVID-19 virus Current Visit: Yes Status: Acute Plan to address problem: - COVID protocol initiated - IV azithromycin and Rocephin completed - 09/30 COVID PCR positive - Trend LDH, CRP, procalcitonin, d-dimer, ferritin - Droplet /contact precautions - Supplemental oxygenation as needed - Infectious disease consult requested - Pulmonary hygiene - In setting of elevated D-Dimer, CTA Chest was ordered which was negative for pulmonary embolism - Anticoagulation per COVID protocol - Cannot initiate Remdesivir in setting on of elevated LFTs - IV solumedrel changed to PO prednisone and started on taper (3) Acute psychosis Current Visit: Yes Status: Acute Plan to address problem: - History of paranoid schizophrenia - Mental health consult requested and does not recommend inpatient psych at this time as medical needs outweigh psych this time - Requested to reconsult when patient is medically stable - GI consulted for PEG tube placement to facilitate placement, will hold off for now and revaluate if their is no improvement (4) Paranoid schizophrenia Current Visit: Yes Status: Chronic Plan to address problem: -History of present schizophrenia -10/10 Psych reconsulted -Depakote and Haldol -Sleep hygiene -Reorientation as needed (5) Leukocytosis Current Visit: Yes Status: Acute Plan to address problem: - Admit WBC 13.8 - Trend CBC - Maybe secondary to possible PNA or from dehydration - IV abx completed - Also on steroids for COVID pneumonia (6) Hypertension Current Visit: Yes Status: Chronic Plan to address problem: - BP monitoring per protocol - PRN hydralizine - Clonidine TD and hydralazine PO (7) DVT prophylaxis Current Visit: Yes Status: Acute Plan to address problem: - SCDs to BLE while in bed - Lovenox subq twice daily per COVID protocol History Interval history: This is a 54-year-old female with paranoid schizophrenia that presents to the emergency department on 09/29 for altered mental status in a catatonic state. Previous hospitalizations reviewed and only notes a history of paranoid schizophrenia. Patient may be a resident of [place]. Patient is currently nonverbal and HPI is received from ER documentation. Work-up in the emergency department included a CT abdomen pelvis which shows patchy peripheral groundglass opacities bilateral lungs which is consistent with either viral or atypical pneumonia, positive anterior lateral fat hernia in the left mid abdomen and a large uterine fibroids however her CXR showed no acute pulmonary or pleural abnormalities. She was found to have acute kidney injury with a creatinine of 1.4/BUN 33 as baseline from previous records seems to be 0.7, rhabdomyolysis with a creatinine kinase of 33,481, leukocytosis with a WBC of 13.8, thrombocytopenia with platelets at 97. She has COVID pneumonia with IV antibiotics, rhabdomyolysis, and FAISAL. Infectious disease, psych, and neurology have been consulted. Neurology does not suspect NMS at this time. Psych has signed off at this time due to ongoing acute medical processes. PT/ST consulted for evaluation but unable to be performed as patient will not follow verbal commands. She now eats apple sauce per the nurse and a pureed diet has been ordered. Patient opens eyes and occasionally follows commands. RN to call PT for evaluation today. * 10/10: pureed diet * 10/07: continue care * 10/06: GI consult for peg * 10/05: continue care * Discussed with primary appraisal specialist patient was normally verbal but sometimes goes into a catatonic state. Phone number for this is [phone] * 10/04: PT consulted. Psych signed off. Continue treatment * 10/03: continue treatment * 10/02: Change fluids to NS 1/2 AT 125CC/hr. Rhabdomylysis improving, insert NGT and start tube feeds. Psych input noted. Continue management for COVID 19. ID consulted. No new fever. CTA chest and CTH obtained which were both negative * 10/01: COVID PCR Positive Hospitalist Physical - Constitutional Vitals: Temp Pulse Resp BP Pulse Ox 98.0 F 115 H 22 178/108 95 10/11/19 12:05 10/11/19 14:05 10/11/19 12:05 10/11/19 14:05 10/11/19 12:05 General appearance: Present: no acute distress, obese - EENT Eyes: Present: PERRL ENT: hearing intact - Neck Neck: Present: normal ROM - Respiratory Respiratory effort: normal Respiratory: bilateral: CTA - Cardiovascular Rhythm: regular Heart Sounds: Present: S1 & S2. Absent: systolic murmur, diastolic murmur - Extremities Extremities: no ischemia, pulses intact, pulses symmetrical, No edema, normal temperature, normal color, Full ROM Peripheral Pulses: within normal limits - Abdominal General gastrointestinal: soft, non-tender, non-distended, normal bowel sounds - Integumentary Integumentary: Present: clear, warm, dry - Psychiatric Psychiatric: other (opens eyes spontanously, eating pureed diet now) - Neurologic Neurologic: no focal deficits, moves all extremities - Allied Health Allied health notes reviewed: nursing, social work, case management Results - Labs CBC & Chem 7: 10/10/19 10:50 10/08/19 04:50 Labs: Laboratory Last Values WBC 22.4 K/mm3 (4.5-11.0) H 10/10/19 10:50 RBC 4.20 M/mm3 (3.65-5.03) 10/10/19 10:50 Hgb 12.3 gm/dl (10.1-14.3) 10/10/19 10:50 Hct 36.8 % (30.3-42.9) 10/10/19 10:50 MCV 88 fl (79-97) 10/10/19 10:50 MCH 29 pg (28-32) 10/10/19 10:50 MCHC 33 % (30-34) 10/10/19 10:50 RDW 15.0 % (13.2-15.2) 10/10/19 10:50 Plt Count 164 K/mm3 (140-440) 10/10/19 10:50 Lymph % (Auto) 10.6 % (13.4-35.0) L 09/30/19 22:44 [place] % (Auto) 9.8 % (0.0-7.3) H 09/30/19 22:44 Eos % (Auto) 0.0 % (0.0-4.3) 09/30/19 22:44 Baso % (Auto) 1.2 % (0.0-1.8) 09/30/19 22:44 Lymph # 1.5 K/mm3 (1.2-5.4) 09/30/19 22:44 [place] # 1.3 K/mm3 (0.0-0.8) H 09/30/19 22:44 Eos # 0.0 K/mm3 (0.0-0.4) 09/30/19 22:44 Baso # 0.2 K/mm3 (0.0-0.1) H 09/30/19 22:44 Add Manual Diff Complete 10/08/19 04:50 Total Counted 100 10/08/19 04:50 Seg Neutrophils % 78.4 % (40.0-70.0) H 09/30/19 22:44 Seg Neuts % (Manual) 87.0 % (40.0-70.0) H 10/08/19 04:50 Band Neutrophils % 4.0 % 10/08/19 04:50 Lymphocytes % (Manual) 2.0 % (13.4-35.0) L 10/08/19 04:50 Reactive Lymphs % (Man) 0 % 10/08/19 04:50 Monocytes % (Manual) 6.0 % (0.0-7.3) 10/08/19 04:50 Eosinophils % (Manual) 0 % (0.0-4.3) 10/08/19 04:50 Basophils % (Manual) 0 % (0.0-1.8) 10/08/19 04:50 Metamyelocytes % 1.0 % 10/08/19 04:50 Myelocytes % 0 % 10/08/19 04:50 Promyelocytes % 0 % 10/08/19 04:50 Blast Cells % 0 % 10/08/19 04:50 Nucleated RBC % 1.0 % (0.0-0.9) H 10/08/19 04:50 Seg Neutrophils # 10.8 K/mm3 (1.8-7.7) H 09/30/19 22:44 Seg Neutrophils # Man 14.4 K/mm3 (1.8-7.7) H 10/08/19 04:50 Band Neutrophils # 0.7 K/mm3 10/08/19 04:50 Lymphocytes # (Manual) 0.3 K/mm3 (1.2-5.4) L 10/08/19 04:50 Abs React Lymphs (Man) 0.0 K/mm3 10/08/19 04:50 Monocytes # (Manual) 1.0 K/mm3 (0.0-0.8) H 10/08/19 04:50 Eosinophils # (Manual) 0.0 K/mm3 (0.0-0.4) 10/08/19 04:50 Basophils # (Manual) 0.0 K/mm3 (0.0-0.1) 10/08/19 04:50 Metamyelocytes # 0.2 K/mm3 10/08/19 04:50 Myelocytes # 0.0 K/mm3 10/08/19 04:50 Promyelocytes # 0.0 K/mm3 10/08/19 04:50 Blast Cells # 0.0 K/mm3 10/08/19 04:50 WBC Morphology Not Reportable 10/08/19 04:50 Hypersegmented Neuts Not Reportable 10/08/19 04:50 Hyposegmented Neuts Not Reportable 10/08/19 04:50 Hypogranular Neuts Not Reportable 10/08/19 04:50 Smudge Cells Not Reportable 10/08/19 04:50 Toxic Granulation Not Reportable 10/08/19 04:50 Toxic Vacuolation Not Reportable 10/08/19 04:50 Dohle Bodies Not Reportable 10/08/19 04:50 Pelger-Huet Anomaly Not Reportable 10/08/19 04:50 Bal Rods Not Reportable 10/08/19 04:50 Platelet Estimate Consistent w auto 10/08/19 04:50 Clumped Platelets Not Reportable 10/08/19 04:50 Plt Clumps, EDTA Not Reportable 10/08/19 04:50 Large Platelets Not Reportable 10/08/19 04:50 Giant Platelets Not Reportable 10/08/19 04:50 Platelet Satelliting Not Reportable 10/08/19 04:50 Plt Morphology Comment Not Reportable 10/08/19 04:50 RBC Morphology Not Reportable 10/08/19 04:50 Dimorphic RBCs Not Reportable 10/08/19 04:50 Polychromasia Not Reportable 10/08/19 04:50 Hypochromasia Not Reportable 10/08/19 04:50 Poikilocytosis Not Reportable 10/08/19 04:50 Anisocytosis Not Reportable 10/08/19 04:50 Microcytosis Not Reportable 10/08/19 04:50 Macrocytosis 1+ 10/08/19 04:50 Spherocytes Not Reportable 10/08/19 04:50 Pappenheimer Bodies Not Reportable 10/08/19 04:50 Sickle Cells Not Reportable 10/08/19 04:50 Target Cells 1+ 10/08/19 04:50 Tear Drop Cells Not Reportable 10/08/19 04:50 Ovalocytes Not Reportable 10/08/19 04:50 Helmet Cells Not Reportable 10/08/19 04:50 [place]ranford Bodies Not Reportable 10/08/19 04:50 [place] Rings Not Reportable 10/08/19 04:50 [place] Cells Not Reportable 10/08/19 04:50 Bite Cells Not Reportable 10/08/19 04:50 Crenated Cell Not Reportable 10/08/19 04:50 Elliptocytes Not Reportable 10/08/19 04:50 Acanthocytes (Spur) Not Reportable 10/08/19 04:50 Rouleaux Not Reportable 10/08/19 04:50 Hemoglobin C Crystals Not Reportable 10/08/19 04:50 Schistocytes Not Reportable 10/08/19 04:50 Malaria parasites Not Reportable 10/08/19 04:50 Willie Bodies Not Reportable 10/08/19 04:50 Hem Pathologist Commnt No 10/08/19 04:50 PT 14.9 Sec. (12.2-14.9) 10/07/19 15:23 INR 1.15 (0.87-1.13) H 10/07/19 15:23 APTT 29.5 Sec. (24.2-36.6) 10/07/19 15:23 D-Dimer 390.46 ng/mlDDU (0-234) H 10/09/19 09:32 Sodium 144 mmol/L (137-145) 10/08/19 04:50 Potassium 4.1 mmol/L (3.6-5.0) 10/08/19 04:50 Chloride 105.8 mmol/L (98-107) 10/08/19 04:50 Carbon Dioxide 27 mmol/L (22-30) 10/08/19 04:50 Anion Gap 15 mmol/L 10/08/19 04:50 BUN 19 mg/dL (7-17) H 10/08/19 04:50 Creatinine 0.7 mg/dL (0.6-1.2) 10/08/19 04:50 Estimated GFR > 60 ml/min 10/08/19 04:50 BUN/Creatinine Ratio 27 % 10/08/19 04:50 Glucose 334 mg/dL (65-100) H 10/08/19 04:50 POC Glucose 139 (70-105) H 10/11/19 12:20 Lactic Acid 1.30 mmol/L (0.7-2.0) 09/30/19 22:44 Calcium 7.9 mg/dL (8.4-10.2) L 10/08/19 04:50 Ferritin 991.6 ng/mL (10.0-200.0) H 10/09/19 09:32 Total Bilirubin 0.40 mg/dL (0.1-1.2) 10/05/19 08:32 Direct Bilirubin 0.3 mg/dL (0-0.2) H 09/30/19 22:44 Indirect Bilirubin 0.2 mg/dL 09/30/19 22:44 AST 149 units/L (5-40) H 10/05/19 08:32 ALT 96 units/L (7-56) H 10/05/19 08:32 Alkaline Phosphatase 40 units/L (35-129) 10/05/19 08:32 Lactate Dehydrogenase 716 units/L (91-180) H 10/09/19 09:32 Total Creatine Kinase 934 units/L (30-135) H 10/05/19 08:32 C-Reactive Protein 0.80 mg/dL (0.00-1.30) 10/09/19 09:32 Total Protein 6.1 g/dL (6.3-8.2) L 10/05/19 08:32 Albumin 2.5 g/dL (3.9-5) L 10/05/19 08:32 Albumin/Globulin Ratio 0.7 % 10/05/19 08:32 Procalcitonin 0.71 ng/mL (<0.15) 10/05/19 08:32 Urine Color [place] (Yellow) 10/01/19 Unknown Urine Turbidity Slightly-cloudy (Clear) 10/01/19 Unknown Urine pH 5.0 (5.0-7.0) 10/01/19 Unknown Ur Specific [place] 1.026 (1.003-1.030) 10/01/19 Unknown Urine Protein 100 mg/dl mg/dL (Negative) 10/01/19 Unknown Urine Glucose (UA) Neg mg/dL (Negative) 10/01/19 Unknown Urine Ketones Tr mg/dL (Negative) 10/01/19 Unknown Urine Blood Lg (Negative) 10/01/19 Unknown Urine Nitrite Neg (Negative) 10/01/19 Unknown Urine Bilirubin Neg (Negative) 10/01/19 Unknown Urine Urobilinogen 2.0 mg/dL (<2.0) 10/01/19 Unknown Ur Leukocyte Esterase Neg (Negative) 10/01/19 Unknown Urine WBC (Auto) 17.0 /HPF (0.0-6.0) H 10/01/19 Unknown Urine RBC (Auto) 1.0 /HPF (0.0-6.0) 10/01/19 Unknown U Epithel Cells (Auto) 4.0 /HPF (0-13.0) 10/01/19 Unknown Urine Mucus 2+ /HPF 10/01/19 Unknown Salicylates < 0.3 mg/dL (2.8-20.0) L 09/30/19 22:44 Urine Opiates Screen Presumptive negative 10/01/19 Unknown Urine Methadone Screen Presumptive negative 10/01/19 Unknown Acetaminophen 5.0 ug/mL (10.0-30.0) L 09/30/19 22:44 Ur Barbiturates Screen Presumptive negative 10/01/19 Unknown Valproic Acid 31.8 ug/mL (50-100) L 10/04/19 08:46 Ur Phencyclidine Scrn Presumptive negative 10/01/19 Unknown Ur Amphetamines Screen Presumptive negative 10/01/19 Unknown U Benzodiazepines Scrn Presumptive negative 10/01/19 Unknown Urine Cocaine Screen Presumptive negative 10/01/19 Unknown U Marijuana (THC) Screen Presumptive negative 10/01/19 Unknown Drugs of Abuse Note Disclamer 10/01/19 Unknown Plasma/Serum Alcohol < 0.01 % (0-0.07) 09/30/19 22:44 Coronavirus (PCR) Positive (Negative) A 10/02/19 Unknown Garcia/IV: Voiding Method External Female Catheter IV Catheter Type [Right Upper Peripheral IV arm] IV Catheter Type [Right INT / Saline Lock Antecubital] IV Catheter Type [Right Foot] INT / Saline Lock IV Catheter Type [Right Peripheral IV External Jugular] Active Medications - Current Medications Current Medications: Generic Name Dose Route Start Last Admin Trade Name Freq PRN Reason Stop Dose Admin Acetaminophen 650 mg 10/01/19 08:00 10/08/19 12:10 Tylenol PO 650 mg Q4H PRN Administration Pain MILD(1-3)/Fever >100.5/WRIGHT Lipase/Protease/Amylase 1 each 10/04/19 10:34 Pancrebobby Martinez 10,500 Unit FEEDTUBE PRN PRN For Clogged Feeding Tube Clonidine HCl 0.2 mg 10/11/19 13:00 10/11/19 14:05 Catapres-Tts Patch TD 0.2 mg Mo ZACH Administration Enoxaparin Sodium 40 mg 10/04/19 22:00 10/11/19 11:55 Enoxaparin SUB-Q 40 mg BID ZACH Administration Haloperidol 5 mg 10/02/19 12:00 10/11/19 11:54 Haldol PO 5 mg BID ZACH Administration Hydralazine HCl 5 mg 10/11/19 12:54 Apresoline IV Q30MIN PRN Hypertension Hydralazine HCl 100 mg 10/11/19 14:00 10/11/19 14:06 Apresoline PO 100 mg TID ZACH Administration Dextrose/Sodium Chloride 1,000 mls @ 75 mls/hr 10/10/19 22:00 10/11/19 01:48 D5ns IV 75 mls/hr DIRECT ZACH Administration Insulin Human Lispro 0 unit 10/06/19 01:00 10/11/19 13:58 Humalog SUB-Q Not Given Q6HR [facility] Protocol Methylprednisolone Sodium Succinate 40 mg 10/07/19 10:00 10/11/19 11:54 Solu-Medrol IV 40 mg Q24HR AZCH Administration Miscellaneous Medication 325 mg 10/02/19 18:45 Paliperidone Palmitate [Invega Sustenna] IM Q3W ZACH Ondansetron HCl 4 mg 10/01/19 08:00 Zofran IV Q8H PRN Nausea And Vomiting Simple Syrup 15 ml 10/04/19 10:34 Simple Syrup FEEDTUBE PRN PRN Hypoglycemia Simple Syrup 30 ml 10/04/19 10:34 Simple Syrup FEEDTUBE PRN PRN Hypoglycemia Sodium Bicarbonate 325 mg 10/04/19 10:34 Sodium Bicarbonate FEEDTUBE PRN PRN For Clogged Feeding Tube Sodium Chloride 10 ml 10/01/19 10:00 10/11/19 11:54 Sodium Chloride Flush Syringe 10 Ml IV 10 ml BID ZACH Administration Sodium Chloride 10 ml 10/01/19 07:50 Sodium Chloride Flush Syringe 10 Ml IV 10/14/19 07:49 PRN PRN LINE FLUSH Trazodone HCl 50 mg 10/01/19 22:00 10/10/19 21:44 Desyrel PO 50 mg QHS ZACH Administration Valproic Acid 1,500 mg 10/05/19 22:00 10/10/19 21:44 Depakene Liq PO 1,500 mg QHS ZACH Administration Nutrition/Malnutrition Assess - Dietary Evaluation Nutrition/Malnutrition Findings: Nutrition Notes Start: 10/04/19 09:33 Freq: Status: Active Protocol: Document 10/11/19 10:47 LEYDI (Rec: 10/11/19 10:52 [email or web address]) Nutrition Notes Initial or Follow up Reassessment Other Pertinent Diagnosis COVID-19 (+), Schizoaffective disorder Current Diet Pureed Labs/Tests Reviewed Pertinent Medications D5NS at 75ml/hr Height 5 ft 6 in Weight 114.5 kg [place] Body Weight (kg) 59.09 BMI 40.7 Subjective/Other Information Pt pulled NG tube out yesterday. Per RN note, pt tolerated applesauce and sips of water last pm. ROOM ATTENDANT evaluated pt on 10/05 and deemed pt unsafe for PO intake at that time. Pt may need PEG tube if unable to consume adequate PO to meet needs. Burn Absent Trauma Absent #1 Nutrition Diagnosis Inadequate oral intake Diagnosis Progress(for reassessment Continues documentation) Is patient on ventilator? No Is Patient Ambulatory and/or Out of Bed No REE-([facility]-confined to bed) 2112.012 Kcal/Kg value to use for calculation 14 Approximate Energy Requirements Using 1603 kcal/Kg Calculation Used for Recommendations Kcal/kg Additional Notes Pro needs 0.8-1g/kg adjBW: 69- 87g/day Fluid needs 1ml/kcal Nutrition Intervention Change Diet Order: Continue current diet order as tolerated; add consistent CHO modifier Goal #1 PO tolerance Follow-Up By: 10/13/19 Additional Comments F/U: PO tolerance, ROOM ATTENDANT evaluation <OLNI GOMEZ R - Last Filed: 10/12/19 05:59> Assessment and Plan Assessment and plan: I saw and evaluated the patient. I agree with the findings and the plan of care as documented in the Nurse Practitioner's~note, with the following corrections and additions. - Adjust BP meds, patient is tolerating diet - remains confused, cont restraint Hospitalist Physical - Constitutional Vitals: Temp Pulse Resp BP Pulse Ox 97.9 F 84 20 134/83 96 10/11/19 22:09 10/11/19 22:09 10/11/19 22:09 10/11/19 22:09 10/11/19 22:09 Results - Labs CBC & Chem 7: 10/11/19 19:35 10/11/19 19:35 Labs: Laboratory Last Values WBC 14.3 K/mm3 (4.5-11.0) H 10/11/19 19:35 RBC 4.15 M/mm3 (3.65-5.03) 10/11/19 19:35 Hgb 12.3 gm/dl (10.1-14.3) 10/11/19 19:35 Hct 36.6 % (30.3-42.9) 10/11/19 19:35 MCV 88 fl (79-97) 10/11/19 19:35 MCH 30 pg (28-32) 10/11/19 19:35 MCHC 34 % (30-34) 10/11/19 19:35 RDW 15.2 % (13.2-15.2) 10/11/19 19:35 Plt Count 150 K/mm3 (140-440) 10/11/19 19:35 Lymph % (Auto) 10.6 % (13.4-35.0) L 09/30/19 22:44 [place] % (Auto) 9.8 % (0.0-7.3) H 09/30/19 22:44 Eos % (Auto) 0.0 % (0.0-4.3) 09/30/19 22:44 Baso % (Auto) 1.2 % (0.0-1.8) 09/30/19 22:44 Lymph # 1.5 K/mm3 (1.2-5.4) 09/30/19 22:44 [place] # 1.3 K/mm3 (0.0-0.8) H 09/30/19 22:44 Eos # 0.0 K/mm3 (0.0-0.4) 09/30/19 22:44 Baso # 0.2 K/mm3 (0.0-0.1) H 09/30/19 22:44 Add Manual Diff Complete 10/08/19 04:50 Total Counted 100 10/08/19 04:50 Seg Neutrophils % 78.4 % (40.0-70.0) H 09/30/19 22:44 Seg Neuts % (Manual) 87.0 % (40.0-70.0) H 10/08/19 04:50 Band Neutrophils % 4.0 % 10/08/19 04:50 Lymphocytes % (Manual) 2.0 % (13.4-35.0) L 10/08/19 04:50 Reactive Lymphs % (Man) 0 % 10/08/19 04:50 Monocytes % (Manual) 6.0 % (0.0-7.3) 10/08/19 04:50 Eosinophils % (Manual) 0 % (0.0-4.3) 10/08/19 04:50 Basophils % (Manual) 0 % (0.0-1.8) 10/08/19 04:50 Metamyelocytes % 1.0 % 10/08/19 04:50 Myelocytes % 0 % 10/08/19 04:50 Promyelocytes % 0 % 10/08/19 04:50 Blast Cells % 0 % 10/08/19 04:50 Nucleated RBC % 1.0 % (0.0-0.9) H 10/08/19 04:50 Seg Neutrophils # 10.8 K/mm3 (1.8-7.7) H 09/30/19 22:44 Seg Neutrophils # Man 14.4 K/mm3 (1.8-7.7) H 10/08/19 04:50 Band Neutrophils # 0.7 K/mm3 10/08/19 04:50 Lymphocytes # (Manual) 0.3 K/mm3 (1.2-5.4) L 10/08/19 04:50 Abs React Lymphs (Man) 0.0 K/mm3 10/08/19 04:50 Monocytes # (Manual) 1.0 K/mm3 (0.0-0.8) H 10/08/19 04:50 Eosinophils # (Manual) 0.0 K/mm3 (0.0-0.4) 10/08/19 04:50 Basophils # (Manual) 0.0 K/mm3 (0.0-0.1) 10/08/19 04:50 Metamyelocytes # 0.2 K/mm3 10/08/19 04:50 Myelocytes # 0.0 K/mm3 10/08/19 04:50 Promyelocytes # 0.0 K/mm3 10/08/19 04:50 Blast Cells # 0.0 K/mm3 10/08/19 04:50 WBC Morphology Not Reportable 10/08/19 04:50 Hypersegmented Neuts Not Reportable 10/08/19 04:50 Hyposegmented Neuts Not Reportable 10/08/19 04:50 Hypogranular Neuts Not Reportable 10/08/19 04:50 Smudge Cells Not Reportable 10/08/19 04:50 Toxic Granulation Not Reportable 10/08/19 04:50 Toxic Vacuolation Not Reportable 10/08/19 04:50 Dohle Bodies Not Reportable 10/08/19 04:50 Pelger-Huet Anomaly Not Reportable 10/08/19 04:50 Bal Rods Not Reportable 10/08/19 04:50 Platelet Estimate Consistent w auto 10/08/19 04:50 Clumped Platelets Not Reportable 10/08/19 04:50 Plt Clumps, EDTA Not Reportable 10/08/19 04:50 Large Platelets Not Reportable 10/08/19 04:50 Giant Platelets Not Reportable 10/08/19 04:50 Platelet Satelliting Not Reportable 10/08/19 04:50 Plt Morphology Comment Not Reportable 10/08/19 04:50 RBC Morphology Not Reportable 10/08/19 04:50 Dimorphic RBCs Not Reportable 10/08/19 04:50 Polychromasia Not Reportable 10/08/19 04:50 Hypochromasia Not Reportable 10/08/19 04:50 Poikilocytosis Not Reportable 10/08/19 04:50 Anisocytosis Not Reportable 10/08/19 04:50 Microcytosis Not Reportable 10/08/19 04:50 Macrocytosis 1+ 10/08/19 04:50 Spherocytes Not Reportable 10/08/19 04:50 Pappenheimer Bodies Not Reportable 10/08/19 04:50 Sickle Cells Not Reportable 10/08/19 04:50 Target Cells 1+ 10/08/19 04:50 Tear Drop Cells Not Reportable 10/08/19 04:50 Ovalocytes Not Reportable 10/08/19 04:50 Helmet Cells Not Reportable 10/08/19 04:50 [place] Bodies Not Reportable 10/08/19 04:50 [place] Rings Not Reportable 10/08/19 04:50 [place] Cells Not Reportable 10/08/19 04:50 Bite Cells Not Reportable 10/08/19 04:50 Crenated Cell Not Reportable 10/08/19 04:50 Elliptocytes Not Reportable 10/08/19 04:50 Acanthocytes (Spur) Not Reportable 10/08/19 04:50 Rouleaux Not Reportable 10/08/19 04:50 Hemoglobin C Crystals Not Reportable 10/08/19 04:50 Schistocytes Not Reportable 10/08/19 04:50 Malaria parasites Not Reportable 10/08/19 04:50 Willie Bodies Not Reportable 10/08/19 04:50 Hem Pathologist Commnt No 10/08/19 04:50 PT 14.9 Sec. (12.2-14.9) 10/07/19 15:23 INR 1.15 (0.87-1.13) H 10/07/19 15:23 APTT 29.5 Sec. (24.2-36.6) 10/07/19 15:23 D-Dimer 390.46 ng/mlDDU (0-234) H 10/09/19 09:32 Sodium 136 mmol/L (137-145) L D 10/11/19 19:35 Potassium 4.5 mmol/L (3.6-5.0) 10/11/19 19:35 Chloride 98.8 mmol/L (98-107) 10/11/19 19:35 Carbon Dioxide 25 mmol/L (22-30) 10/11/19 19:35 Anion Gap 17 mmol/L 10/11/19 19:35 BUN 12 mg/dL (7-17) 10/11/19 19:35 Creatinine 0.6 mg/dL (0.6-1.2) 10/11/19 19:35 Estimated GFR > 60 ml/min 10/11/19 19:35 BUN/Creatinine Ratio 20 % 10/11/19 19:35 Glucose 278 mg/dL (65-100) H 10/11/19 19:35 POC Glucose 211 (70-105) H 10/11/19 23:55 Lactic Acid 1.30 mmol/L (0.7-2.0) 09/30/19 22:44 Calcium 8.5 mg/dL (8.4-10.2) 10/11/19 19:35 Ferritin 991.6 ng/mL (10.0-200.0) H 10/09/19 09:32 Total Bilirubin 0.40 mg/dL (0.1-1.2) 10/05/19 08:32 Direct Bilirubin 0.3 mg/dL (0-0.2) H 09/30/19 22:44 Indirect Bilirubin 0.2 mg/dL 09/30/19 22:44 AST 149 units/L (5-40) H 10/05/19 08:32 ALT 96 units/L (7-56) H 10/05/19 08:32 Alkaline Phosphatase 40 units/L (35-129) 10/05/19 08:32 Lactate Dehydrogenase 716 units/L (91-180) H 10/09/19 09:32 Total Creatine Kinase 934 units/L (30-135) H 10/05/19 08:32 C-Reactive Protein 0.80 mg/dL (0.00-1.30) 10/09/19 09:32 Total Protein 6.1 g/dL (6.3-8.2) L 10/05/19 08:32 Albumin 2.5 g/dL (3.9-5) L 10/05/19 08:32 Albumin/Globulin Ratio 0.7 % 10/05/19 08:32 Procalcitonin 0.71 ng/mL (<0.15) 10/05/19 08:32 Urine Color [place] (Yellow) 10/01/19 Unknown Urine Turbidity Slightly-cloudy (Clear) 10/01/19 Unknown Urine pH 5.0 (5.0-7.0) 10/01/19 Unknown Ur Specific [place] 1.026 (1.003-1.030) 10/01/19 Unknown Urine Protein 100 mg/dl mg/dL (Negative) 10/01/19 Unknown Urine Glucose (UA) Neg mg/dL (Negative) 10/01/19 Unknown Urine Ketones Tr mg/dL (Negative) 10/01/19 Unknown Urine Blood Lg (Negative) 10/01/19 Unknown Urine Nitrite Neg (Negative) 10/01/19 Unknown Urine Bilirubin Neg (Negative) 10/01/19 Unknown Urine Urobilinogen 2.0 mg/dL (<2.0) 10/01/19 Unknown Ur Leukocyte Esterase Neg (Negative) 10/01/19 Unknown Urine WBC (Auto) 17.0 /HPF (0.0-6.0) H 10/01/19 Unknown Urine RBC (Auto) 1.0 /HPF (0.0-6.0) 10/01/19 Unknown U Epithel Cells (Auto) 4.0 /HPF (0-13.0) 10/01/19 Unknown Urine Mucus 2+ /HPF 10/01/19 Unknown Salicylates < 0.3 mg/dL (2.8-20.0) L 09/30/19 22:44 Urine Opiates Screen Presumptive negative 10/01/19 Unknown Urine Methadone Screen Presumptive negative 10/01/19 Unknown Acetaminophen 5.0 ug/mL (10.0-30.0) L 09/30/19 22:44 Ur Barbiturates Screen Presumptive negative 10/01/19 Unknown Valproic Acid 31.8 ug/mL (50-100) L 10/04/19 08:46 Ur Phencyclidine Scrn Presumptive negative 10/01/19 Unknown Ur Amphetamines Screen Presumptive negative 10/01/19 Unknown U Benzodiazepines Scrn Presumptive negative 10/01/19 Unknown Urine Cocaine Screen Presumptive negative 10/01/19 Unknown U Marijuana (THC) Screen Presumptive negative 10/01/19 Unknown Drugs of Abuse Note Disclamer 10/01/19 Unknown Plasma/Serum Alcohol < 0.01 % (0-0.07) 09/30/19 22:44 Coronavirus (PCR) Positive (Negative) A 10/02/19 Unknown Garcia/IV: Voiding Method External Female Catheter IV Catheter Type [Right Upper Peripheral IV arm] IV Catheter Type [Right INT / Saline Lock Antecubital] IV Catheter Type [Right Foot] INT / Saline Lock IV Catheter Type [Right Peripheral IV External Jugular] Active Medications - Current Medications Current Medications: Generic Name Dose Route Start Last Admin Trade Name Freq PRN Reason Stop Dose Admin Acetaminophen 650 mg 10/01/19 08:00 10/08/19 12:10 Tylenol PO 650 mg Q4H PRN Administration Pain MILD(1-3)/Fever >100.5/WRIGHT Amlodipine Besylate 10 mg 10/11/19 19:00 10/11/19 19:24 Amlodipine PO 10 mg QDAY ZACH Administration Lipase/Protease/Amylase 1 each 10/04/19 10:34 Pancreaze 10,500 Unit FEEDTUBE PRN PRN For Clogged Feeding Tube Benztropine Mesylate 1 mg 10/11/19 15:00 10/11/19 22:41 Cogentin PO 1 mg BID ZACH Administration Clonidine HCl 0.2 mg 10/11/19 13:00 10/11/19 14:05 Catapres-Tts Patch TD 0.2 mg Mo ZACH Administration Enoxaparin Sodium 40 mg 10/04/19 22:00 10/11/19 22:41 Enoxaparin SUB-Q 40 mg BID ZACH Administration Haloperidol 5 mg 10/02/19 12:00 10/11/19 22:43 Haldol PO 5 mg BID ZACH Administration Hydralazine HCl 100 mg 10/11/19 14:00 10/11/19 22:40 Apresoline PO 100 mg TID ZACH Administration Hydralazine HCl 5 mg 10/11/19 16:44 Apresoline IV Q30MIN PRN Hypertension Dextrose/Sodium Chloride 1,000 mls @ 42 mls/hr 10/10/19 22:00 10/11/19 18:29 D5ns IV 75 mls/hr DIRECT ZACH Administration Insulin Human Lispro 0 unit 10/06/19 01:00 10/12/19 00:01 Humalog SUB-Q 3 unit Q6HR ZACH Administration Protocol Miscellaneous Medication 325 mg 10/02/19 18:45 Paliperidone Palmitate [Invega Sustenna] IM Q3W ZACH Ondansetron HCl 4 mg 10/01/19 08:00 Zofran IV Q8H PRN Nausea And Vomiting Prednisone 30 mg 10/12/19 10:00 Deltasone PO QDAY ZACH Simple Syrup 15 ml 10/04/19 10:34 Simple Syrup FEEDTUBE PRN PRN Hypoglycemia Simple Syrup 30 ml 10/04/19 10:34 Simple Syrup FEEDTUBE PRN PRN Hypoglycemia Sodium Bicarbonate 325 mg 10/04/19 10:34 Sodium Bicarbonate FEEDTUBE PRN PRN For Clogged Feeding Tube Sodium Chloride 10 ml 10/01/19 10:00 10/11/19 22:41 Sodium Chloride Flush Syringe 10 Ml IV 10 ml BID ZACH Administration Sodium Chloride 10 ml 10/01/19 07:50 Sodium Chloride Flush Syringe 10 Ml IV 10/14/19 07:49 PRN PRN LINE FLUSH Trazodone HCl 50 mg 10/01/19 22:00 10/11/19 22:40 Desyrel PO 50 mg QHS ZACH Administration Valproic Acid 1,500 mg 10/05/19 22:00 10/11/19 22:42 Depakene Liq PO 1,500 mg QHS ZACH Administration Nutrition/Malnutrition Assess - Dietary Evaluation Nutrition/Malnutrition Findings: Nutrition Notes Start: 10/04/19 09:33 Freq: Status: Active Protocol: Document 10/11/19 10:47 LEYDI (Rec: 10/11/19 10:52 LEYDI [id number] [email or web address]) Nutrition Notes Initial or Follow up Reassessment Other Pertinent Diagnosis COVID-19 (+), Schizoaffective disorder Current Diet Pureed Labs/Tests Reviewed Pertinent Medications D5NS at 75ml/hr Height 5 ft 6 in Weight 114.5 kg [place] Body Weight (kg) 59.09 BMI 40.7 Subjective/Other Information Pt pulled NG tube out yesterday. Per RN note, pt tolerated applesauce and sips of water last pm. ROOM ATTENDANT evaluated pt on 10/05 and deemed pt unsafe for PO intake at that time. Pt may need PEG tube if unable to consume adequate PO to meet needs. Burn Absent Trauma Absent #1 Nutrition Diagnosis Inadequate oral intake Diagnosis Progress(for reassessment Continues documentation) Is patient on ventilator? No Is Patient Ambulatory and/or Out of Bed No REE-([facility]-confined to bed) 2112.012 Kcal/Kg value to use for calculation 14 Approximate Energy Requirements Using 1603 kcal/Kg Calculation Used for Recommendations Kcal/kg Additional Notes Pro needs 0.8-1g/kg adjBW: 69- 87g/day Fluid needs 1ml/kcal Nutrition Intervention Change Diet Order: Continue current diet order as tolerated; add consistent CHO modifier Goal #1 PO tolerance Follow-Up By: 10/13/19 Additional Comments F/U: PO tolerance, ROOM ATTENDANT evaluation
[2019-10-11] MEDS: BENZTROPINE 1 MG TAB PO SCH ×2 (16:28→22:41)
--- NOTE | 2019-10-11 16:44 | Gastroenterology Progress Note ---
Assessment and Plan - Patient Problems (1) Neurogenic dysphagia Current Visit: Yes Status: Acute Plan to address problem: - Mental status improving and able to tolerate applesauce. No swallowing difficulty noted. - hold off PEG tube given improving mental status. - will sign off. please back as needed. Subjective Date of service: 10/11/19 Principal diagnosis: Neurogenic Dysphagia Interval history: Patient is COVID positive, chart reviewed. Patient not examined to conserve resources on PPE in this pandemic and to reduce the risk of exposure and or transmission of the disease. Per nursing, patient is able to swallow applesauce. No swallowing difficulty noted. Objective - Constitutional Vitals: Temp Pulse Resp BP Pulse Ox 98.0 F 115 H 22 178/108 95 10/11/19 12:05 10/11/19 14:05 10/11/19 12:05 10/11/19 14:05 10/11/19 12:05 - Labs CBC & Chem 7: 10/10/19 10:50 10/08/19 04:50 Labs: Laboratory Results - last 24 hr 10/10/19 10/10/19 10/11/19 16:59 23:00 06:04 POC Glucose 193 H 268 H 182 H 10/11/19 12:20 POC Glucose 139 H
[2019-10-11] MEDS: amLODIPine 10 MG TAB PO SCH (19:24)
[2019-10-11 20:15] LABS: Hematocrit 36.6 % (30.3-42.9); Hemoglobin 12.3 gm/dl (10.1-14.3); Mean Corpuscular HGB Conc 34 % (30-34); Mean Corpuscular Volume 88 fl (79-97); Platelet Count 150 K/mm3 (140-440); Red Blood Count 4.15 M/mm3 (3.65-5.03); Red Cell Distribution Width 15.2 % (13.2-15.2)
[2019-10-11 20:33] LABS: BUN/Creatinine Ratio 20; Blood Urea Nitrogen 12 mg/dL (7-17); Calcium 8.5 mg/dL (8.4-10.2); Hemolysis Index 8
[2019-10-11] MEDS: traZODone 50 MG TAB PO SCH (22:40)
[2019-10-11] MEDS: VALPROIC ACID 250 MG/5 ML ORAL LIQD PO SCH (22:42)
[2019-10-12] MEDS: INSULIN LISPRO 100 UNIT/ML VIAL 3 mL SUB-Q SCH ×5 (00:01→23:57)
--- NOTE | 2019-10-12 07:50 | Progress Note ---
Subjective - Reason for Consult Consult date: 10/12/19 Reason for consult: MHE Requesting physician: HERIBERTO CONTE - Chief Complaint Chief complaint: Psych HPI Previously evaluated patient by my colleague for AMS, with no recommendation for inpatient due to severe acute medical conditions such as COVID, Rhabdo, Severe sepsis, Pna, FAISAL, need of gastric tube feed. Patient referred for evaluation of pill rolling upper extemity tremors. Patient seen in room, appears somnolence, responds to loud verbal stimuli with motor movement by opening eyes and then goes back to sleep. MENTAL STATUS EXAMINATION General Appearance and Behavior: Age appropriate,good hygiene, wearing appropriate clothes, lying in bed,poor eye contact, uncooperative with questioning. Cooperation: Withdrawn Psychomotor Behavior: psychomotor retardation Mood: na Affect and affective range: flat Thought Process: Thought Content: Intellectual Functioning: n/a Suicidal Ideation: na Homicidal Ideation: na Impulse Control:na Insight and Judgment: Impaired Memory: na Attention: na Orientation: somnolence RECOMMENDATIONS Will hold off antipsychotics haldol. Okay to give PO olazanpine if patient able to swallow. MEDICATIONS Changed depakote dr to depakene liquid since the patient was unable to swallow Risks, benefits and alternatives of medications discussed with the patient, questions answered and consent obtained from patient. PSYCHOTHERAPY: Supportive psychotherapy provided MEDICAL: Per primary team DELIRIUM PRECAUTIONS: Please re-orient patient frequently, keep lights on during the day, and minimize benzodiazepines and opiates as these medications could worsen patient's confusion. CHANGE ADVISOR: per medical team DISPOSITION: Do not recommend acute inpatient psychiatric treatment at this time due to acute medical conditions (COVID, Rhabdo, Severe sepsis, Pna, FAISAL, need of gastric tube feed). Please re-consult once, and if the patient improves medically. She has acute and complex medical conditions that supersede her need for inpatient psychiatric treatment at this time. Will sign off. Thank you for the consult. Please contact with any questions and/or concerns. Mental Status Exam - Vital signs Last Vital Signs Temp 98.2 F 10/12/19 05:28 Pulse 77 10/12/19 05:28 Resp 20 10/12/19 05:28 BP 117/85 10/12/19 05:28 Pulse Ox 94 10/12/19 05:28
[2019-10-12] MEDS: amLODIPine 10 MG TAB PO SCH (09:47)
[2019-10-12] MEDS: ENOXAPARIN 40 MG/0.4 ML INJ SUB-Q SCH ×2 (09:47→23:49)
[2019-10-12] MEDS: BENZTROPINE 1 MG TAB PO SCH ×2 (09:47→23:49)
[2019-10-12] MEDS: hydrALAZINE 100 MG TAB PO SCH ×3 (09:48→23:49)
[2019-10-12] MEDS: predniSONE 10 MG TAB PO SCH (09:48)
--- NOTE | 2019-10-12 13:13 | Progress Note ---
Assessment and Plan Cultures: Blood culture and urine culture negative COVID PCR positive Assessment: 54 years old female with history of paranoid schizophrenia, admitted on 09/30/2019 due to altered mental status and catatonia state: #Severe sepsis: Present on admission with low-grade fever, tachycardia, elevated leukocytosis, FAISAL, likely due to bilateral pneumonia. Resolved. #Bilateral pneumonia: COVID-19 pneumonia. Inflammatory markers are elevated, with a d-dimer > 10,000. CT negative for pulmonary embolism. Repeat d-dimer with much improvement. Renal function and LFTs improving, but given mild hypoxia and several days of positivity, unclear benefit with Remdesivir at this stage. Completed empiric CAP abx x 5 days. Completed steroids. #Acute hypoxemic respiratory failure: mild. on supplemental oxygen. #Elevated LFTs: from COVID/rhabdo #FAISAL: from COVID. improved #Elevated CK: Likely secondary to rhabdomyolysis possible due to COVID-19 infection or catatonic state #Paranoid schizophrenia with catatonia: Per psych Recommendations: -completed steroids. Overall, stable from ID standpoint -anticoagulation per protocol based on d-dimer which has been steadily improving Konrad Moyer MD, FACP [facility] ([facility] C: [phone] O: [phone] F: [phone] Subjective Date of service: 10/12/19 Principal diagnosis: Neurogenic Dysphagia Interval history: No fever. Weaned to room air. Objective - Exam Narrative Exam: Physical Exam (reviewed in chart due to PPE conservation) Constitutional: limited due to PPE conservation strategy Head, Ears, Nose: limited due to PPE conservation strategy Eyes: limited due to PPE conservation strategy Neck: limited due to PPE conservation strategy Oral: limited due to PPE conservation strategy Cardiovascular: limited due to PPE conservation strategy Respiratory: limited due to PPE conservation strategy GI: limited due to PPE conservation strategy Musculoskeletal: limited due to PPE conservation strategy Skin: limited due to PPE conservation strategy Hem/Lymphatic: limited due to PPE conservation strategy Psych: limited due to PPE conservation strategy Neurological: limited due to PPE conservation strategy - Constitutional Vitals: Vital Signs Temp Pulse Resp BP Pulse Ox 97.3 F L 109 H 18 131/65 97 10/12/19 12:55 10/12/19 12:55 10/12/19 12:55 10/12/19 12:55 10/12/19 12:55 Temperature -Last 24 Hours Temperature 97.3 F Temperature 98.2 F Temperature 97.9 F Temperature 98.0 F - Labs CBC & Chem 7: 10/11/19 19:35 10/11/19 19:35 Labs: Abnormal lab results 10/11/19 10/11/19 10/11/19 Range/Units 17:58 19:35 19:35 WBC 14.3 H (4.5-11.0) K/mm3 Sodium 136 L D (137-145) mmol/L Glucose 278 H (65-100) mg/dL POC Glucose 252 H (70-105) 10/11/19 10/12/19 10/12/19 Range/Units 23:55 05:42 11:42 WBC (4.5-11.0) K/mm3 Sodium (137-145) mmol/L Glucose (65-100) mg/dL POC Glucose 211 H 143 H 177 H (70-105)
--- NOTE | 2019-10-12 16:53 | Progress Note ---
<BISMARKBLANCA KellyFabián - Last Filed: 10/12/19 16:49> Assessment and Plan - Patient Problems (1) Severe sepsis Current Visit: Yes Status: Resolved Plan to address problem: - Presented with low-grade fever, tachycardia, leukocytosis, FAISAL, and bilateral pneumonia - Likely source is bilateral pneumonia secondary to COVID-19 - IV antibiotics completed - Covid protocol initiated (2) Pneumonia due to COVID-19 virus Current Visit: Yes Status: Acute Plan to address problem: - COVID protocol initiated - IV azithromycin and Rocephin completed - 09/30 COVID PCR positive - Trend LDH, CRP, procalcitonin, d-dimer, ferritin - Droplet /contact precautions - Supplemental oxygenation as needed - Infectious disease consult requested, signed off at this time - Pulmonary hygiene - In setting of elevated D-Dimer, CTA Chest was ordered which was negative for pulmonary embolism - Anticoagulation per COVID protocol - Cannot initiate Remdesivir in setting on of elevated LFTs - IV solumedrel changed to PO prednisone and started on taper (3) Paranoid schizophrenia Current Visit: Yes Status: Chronic Plan to address problem: -History of present schizophrenia -10/10 Psych reconsulted -Depakote and Haldol -Sleep hygiene -Reorientation as needed (4) Leukocytosis Current Visit: Yes Status: Acute Plan to address problem: - Admit WBC 13.8 - Trend CBC - Maybe secondary to possible PNA or from dehydration - IV abx completed - Also on steroids for COVID pneumonia - Now trending down (5) Hypertension Current Visit: Yes Status: Chronic Plan to address problem: - BP monitoring per protocol - PRN hydralizine - Clonidine TD and hydralazine PO (6) DVT prophylaxis Current Visit: Yes Status: Acute Plan to address problem: - SCDs to BLE while in bed - Lovenox subq twice daily per COVID protocol History Interval history: This is a 54-year-old female with paranoid schizophrenia that presents to the emergency department on 09/29 for altered mental status in a catatonic state. Previous hospitalizations reviewed and only notes a history of paranoid schizophrenia. Patient may be a resident of [place]. Patient is currently nonverbal and HPI is received from ER documentation. Work-up in the emergency department included a CT abdomen pelvis which shows patchy peripheral groundglass opacities bilateral lungs which is consistent with either viral or atypical pneumonia, positive anterior lateral fat hernia in the left mid abdomen and a large uterine fibroids however her CXR showed no acute pulmonary or pleural abnormalities. She was found to have acute kidney injury with a creatinine of 1.4/BUN 33 as baseline from previous records seems to be 0.7, rhabdomyolysis with a creatinine kinase of 33,481, leukocytosis with a WBC of 13.8, thrombocytopenia with platelets at 97. She has COVID pneumonia with IV antibiotics, rhabdomyolysis, and FAISAL. Infectious disease, psych, and neurology have been consulted. Neurology does not suspect NMS at this time. Psych has signed off at this time due to ongoing acute medical processes. PT/ST consulted for evaluation but unable to be performed as patient will not follow verbal commands. She will put her eyes to verbal stimuli and intermittently follow commands. Patient remains nonverbal and only groans/moans to painful stimuli. Psych was reconsulted today for evaluation. * 10/10: pureed diet * 10/07: continue care * 10/06: GI consult for peg * 10/05: continue care * Discussed with primary surveillance system monitor patient was normally verbal but sometimes goe s into a catatonic state. Phone number for this is [phone] * 10/04: PT consulted. Psych signed off. Continue treatment * 10/03: continue treatment * 10/02: Change fluids to NS 1/2 AT 125CC/hr. Rhabdomylysis improving, insert NGT and start tube feeds. Psych input noted. Continue management for COVID 19. ID consulted. No new fever. CTA chest and CTH obtained which were both negative * 10/01: COVID PCR Positive Hospitalist Physical - Constitutional Vitals: Temp Pulse Resp BP Pulse Ox 97.2 F L 92 H 19 135/73 93 10/12/19 16:00 10/12/19 16:00 10/12/19 16:00 10/12/19 16:10/12/19 16:00 General appearance: Present: no acute distress, obese - EENT Eyes: Present: PERRL ENT: hearing intact - Neck Neck: Present: normal ROM - Respiratory Respiratory effort: normal Respiratory: bilateral: CTA - Cardiovascular Rhythm: regular Heart Sounds: Present: S1 & S2. Absent: systolic murmur, diastolic murmur - Extremities Extremities: no ischemia, pulses intact, pulses symmetrical, No edema, normal temperature, normal color, Full ROM Peripheral Pulses: within normal limits - Abdominal General gastrointestinal: soft, non-tender, non-distended, normal bowel sounds - Integumentary Integumentary: Present: clear, warm, dry - Psychiatric Psychiatric: cooperative - Neurologic Neurologic: moves all extremities - Allied Health Allied health notes reviewed: nursing, PT, ST, social work, case management Results - Labs CBC & Chem 7: 10/11/19 19:35 10/11/19 19:35 Labs: Laboratory Last Values WBC 14.3 K/mm3 (4.5-11.0) H 10/11/19 19:35 RBC 4.15 M/mm3 (3.65-5.03) 10/11/19 19:35 Hgb 12.3 gm/dl (10.1-14.3) 10/11/19 19:35 Hct 36.6 % (30.3-42.9) 10/11/19 19:35 MCV 88 fl (79-97) 10/11/19 19:35 MCH 30 pg (28-32) 10/11/19 19:35 MCHC 34 % (30-34) 10/11/19 19:35 RDW 15.2 % (13.2-15.2) 10/11/19 19:35 Plt Count 150 K/mm3 (140-440) 10/11/19 19:35 Lymph % (Auto) 10.6 % (13.4-35.0) L 09/30/19 22:44 [place] % (Auto) 9.8 % (0.0-7.3) H 09/30/19 22:44 Eos % (Auto) 0.0 % (0.0-4.3) 09/30/19 22:44 Baso % (Auto) 1.2 % (0.0-1.8) 09/30/19 22:44 Lymph # 1.5 K/mm3 (1.2-5.4) 09/30/19 22:44 [place] # 1.3 K/mm3 (0.0-0.8) H 09/30/19 22:44 Eos # 0.0 K/mm3 (0.0-0.4) 09/30/19 22:44 Baso # 0.2 K/mm3 (0.0-0.1) H 09/30/19 22:44 Add Manual Diff Complete 10/08/19 04:50 Total Counted 100 10/08/19 04:50 Seg Neutrophils % 78.4 % (40.0-70.0) H 09/30/19 22:44 Seg Neuts % (Manual) 87.0 % (40.0-70.0) H 10/08/19 04:50 Band Neutrophils % 4.0 % 10/08/19 04:50 Lymphocytes % (Manual) 2.0 % (13.4-35.0) L 10/08/19 04:50 Reactive Lymphs % (Man) 0 % 10/08/19 04:50 Monocytes % (Manual) 6.0 % (0.0-7.3) 10/08/19 04:50 Eosinophils % (Manual) 0 % (0.0-4.3) 10/08/19 04:50 Basophils % (Manual) 0 % (0.0-1.8) 10/08/19 04:50 Metamyelocytes % 1.0 % 10/08/19 04:50 Myelocytes % 0 % 10/08/19 04:50 Promyelocytes % 0 % 10/08/19 04:50 Blast Cells % 0 % 10/08/19 04:50 Nucleated RBC % 1.0 % (0.0-0.9) H 10/08/19 04:50 Seg Neutrophils # 10.8 K/mm3 (1.8-7.7) H 09/30/19 22:44 Seg Neutrophils # Man 14.4 K/mm3 (1.8-7.7) H 10/08/19 04:50 Band Neutrophils # 0.7 K/mm3 10/08/19 04:50 Lymphocytes # (Manual) 0.3 K/mm3 (1.2-5.4) L 10/08/19 04:50 Abs React Lymphs (Man) 0.0 K/mm3 10/08/19 04:50 Monocytes # (Manual) 1.0 K/mm3 (0.0-0.8) H 10/08/19 04:50 Eosinophils # (Manual) 0.0 K/mm3 (0.0-0.4) 10/08/19 04:50 Basophils # (Manual) 0.0 K/mm3 (0.0-0.1) 10/08/19 04:50 Metamyelocytes # 0.2 K/mm3 10/08/19 04:50 Myelocytes # 0.0 K/mm3 10/08/19 04:50 Promyelocytes # 0.0 K/mm3 10/08/19 04:50 Blast Cells # 0.0 K/mm3 10/08/19 04:50 WBC Morphology Not Reportable 10/08/19 04:50 Hypersegmented Neuts Not Reportable 10/08/19 04:50 Hyposegmented Neuts Not Reportable 10/08/19 04:50 Hypogranular Neuts Not Reportable 10/08/19 04:50 Smudge Cells Not Reportable 10/08/19 04:50 Toxic Granulation Not Reportable 10/08/19 04:50 Toxic Vacuolation Not Reportable 10/08/19 04:50 Dohle Bodies Not Reportable 10/08/19 04:50 Pelger-Huet Anomaly Not Reportable 10/08/19 04:50 Bal Rods Not Reportable 10/08/19 04:50 Platelet Estimate Consistent w auto 10/08/19 04:50 Clumped Platelets Not Reportable 10/08/19 04:50 Plt Clumps, EDTA Not Reportable 10/08/19 04:50 Large Platelets Not Reportable 10/08/19 04:50 Giant Platelets Not Reportable 10/08/19 04:50 Platelet Satelliting Not Reportable 10/08/19 04:50 Plt Morphology Comment Not Reportable 10/08/19 04:50 RBC Morphology Not Reportable 10/08/19 04:50 Dimorphic RBCs Not Reportable 10/08/19 04:50 Polychromasia Not Reportable 10/08/19 04:50 Hypochromasia Not Reportable 10/08/19 04:50 Poikilocytosis Not Reportable 10/08/19 04:50 Anisocytosis Not Reportable 10/08/19 04:50 Microcytosis Not Reportable 10/08/19 04:50 Macrocytosis 1+ 10/08/19 04:50 Spherocytes Not Reportable 10/08/19 04:50 Pappenheimer Bodies Not Reportable 10/08/19 04:50 Sickle Cells Not Reportable 10/08/19 04:50 Target Cells 1+ 10/08/19 04:50 Tear Drop Cells Not Reportable 10/08/19 04:50 Ovalocytes Not Reportable 10/08/19 04:50 Helmet Cells Not Reportable 10/08/19 04:50 [place]-He[place] Bodies Not Reportable 10/08/19 04:50 [place] Rings Not Reportable 10/08/19 04:50 Mary Cells Not Reportable 10/08/19 04:50 Bite Cells Not Reportable 10/08/19 04:50 Crenated Cell Not Reportable 10/08/19 04:50 Elliptocytes Not Reportable 10/08/19 04:50 Acanthocytes (Spur) Not Reportable 10/08/19 04:50 Rouleaux Not Reportable 10/08/19 04:50 Hemoglobin C Crystals Not Reportable 10/08/19 04:50 Schistocytes Not Reportable 10/08/19 04:50 Malaria parasites Not Reportable 10/08/19 04:50 Willie Bodies Not Reportable 10/08/19 04:50 Hem Pathologist Commnt No 10/08/19 04:50 PT 14.9 Sec. (12.2-14.9) 10/07/19 15:23 INR 1.15 (0.87-1.13) H 10/07/19 15:23 APTT 29.5 Sec. (24.2-36.6) 10/07/19 15:23 D-Dimer 390.46 ng/mlDDU (0-234) H 10/09/19 09:32 Sodium 136 mmol/L (137-145) L D 10/11/19 19:35 Potassium 4.5 mmol/L (3.6-5.0) 10/11/19 19:35 Chloride 98.8 mmol/L (98-107) 10/11/19 19:35 Carbon Dioxide 25 mmol/L (22-30) 10/11/19 19:35 Anion Gap 17 mmol/L 10/11/19 19:35 BUN 12 mg/dL (7-17) 10/11/19 19:35 Creatinine 0.6 mg/dL (0.6-1.2) 10/11/19 19:35 Estimated GFR > 60 ml/min 10/11/19 19:35 BUN/Creatinine Ratio 20 % 10/11/19 19:35 Glucose 278 mg/dL (65-100) H 10/11/19 19:35 POC Glucose 217 (70-105) H 10/12/19 16:33 Lactic Acid 1.30 mmol/L (0.7-2.0) 09/30/19 22:44 Calcium 8.5 mg/dL (8.4-10.2) 10/11/19 19:35 Ferritin 991.6 ng/mL (10.0-200.0) H 10/09/19 09:32 Total Bilirubin 0.40 mg/dL (0.1-1.2) 10/05/19 08:32 Direct Bilirubin 0.3 mg/dL (0-0.2) H 09/30/19 22:44 Indirect Bilirubin 0.2 mg/dL 09/30/19 22:44 AST 149 units/L (5-40) H 10/05/19 08:32 ALT 96 units/L (7-56) H 10/05/19 08:32 Alkaline Phosphatase 40 units/L (35-129) 10/05/19 08:32 Lactate Dehydrogenase 716 units/L (91-180) H 10/09/19 09:32 Total Creatine Kinase 934 units/L (30-135) H 10/05/19 08:32 C-Reactive Protein 0.80 mg/dL (0.00-1.30) 10/09/19 09:32 Total Protein 6.1 g/dL (6.3-8.2) L 10/05/19 08:32 Albumin 2.5 g/dL (3.9-5) L 10/05/19 08:32 Albumin/Globulin Ratio 0.7 % 10/05/19 08:32 Procalcitonin 0.71 ng/mL (<0.15) 10/05/19 08:32 Urine Color [place] (Yellow) 10/01/19 Unknown Urine Turbidity Slightly-cloudy (Clear) 10/01/19 Unknown Urine pH 5.0 (5.0-7.0) 10/01/19 Unknown Ur Specific [place] 1.026 (1.003-1.030) 10/01/19 Unknown Urine Protein 100 mg/dl mg/dL (Negative) 10/01/19 Unknown Urine Glucose (UA) Neg mg/dL (Negative) 10/01/19 Unknown Urine Ketones Tr mg/dL (Negative) 10/01/19 Unknown Urine Blood Lg (Negative) 10/01/19 Unknown Urine Nitrite Neg (Negative) 10/01/19 Unknown Urine Bilirubin Neg (Negative) 10/01/19 Unknown Urine Urobilinogen 2.0 mg/dL (<2.0) 10/01/19 Unknown Ur Leukocyte Esterase Neg (Negative) 10/01/19 Unknown Urine WBC (Auto) 17.0 /HPF (0.0-6.0) H 10/01/19 Unknown Urine RBC (Auto) 1.0 /HPF (0.0-6.0) 10/01/19 Unknown U Epithel Cells (Auto) 4.0 /HPF (0-13.0) 10/01/19 Unknown Urine Mucus 2+ /HPF 10/01/19 Unknown Salicylates < 0.3 mg/dL (2.8-20.0) L 09/30/19 22:44 Urine Opiates Screen Presumptive negative 10/01/19 Unknown Urine Methadone Screen Presumptive negative 10/01/19 Unknown Acetaminophen 5.0 ug/mL (10.0-30.0) L 09/30/19 22:44 Ur Barbiturates Screen Presumptive negative 10/01/19 Unknown Valproic Acid 31.8 ug/mL (50-100) L 10/04/19 08:46 Ur Phencyclidine Scrn Presumptive negative 10/01/19 Unknown Ur Amphetamines Screen Presumptive negative 10/01/19 Unknown U Benzodiazepines Scrn Presumptive negative 10/01/19 Unknown Urine Cocaine Screen Presumptive negative 10/01/19 Unknown U Marijuana (THC) Screen Presumptive negative 10/01/19 Unknown Drugs of Abuse Note Disclamer 10/01/19 Unknown Plasma/Serum Alcohol < 0.01 % (0-0.07) 09/30/19 22:44 Coronavirus (PCR) Positive (Negative) A 10/02/19 Unknown Garcia/IV: Voiding Method External Female Catheter IV Catheter Type [Right Upper Peripheral IV arm] IV Catheter Type [Right INT / Saline Lock Antecubital] IV Catheter Type [Right Foot] INT / Saline Lock IV Catheter Type [Right Peripheral IV External Jugular] Active Medications - Current Medications Current Medications: Generic Name Dose Route Start Last Admin Trade Name Freq PRN Reason Stop Dose Admin Acetaminophen 650 mg 10/01/19 08:00 10/08/19 12:10 Tylenol PO 650 mg Q4H PRN Administration Pain MILD(1-3)/Fever >100.5/WRIGHT Amlodipine Besylate 10 mg 10/11/19 19:00 10/12/19 09:47 Amlodipine PO 10 mg QDAY ZACH Administration Lipase/Protease/Amylase 1 each 10/04/19 10:34 Sim Martinez 10,500 Unit FEEDTUBE PRN PRN For Clogged Feeding Tube Benztropine Mesylate 1 mg 10/11/19 15:00 10/12/19 09:47 Cogentin PO 1 mg BID ZACH Administration Clonidine HCl 0.2 mg 10/11/19 13:00 10/11/19 14:05 Catapres-Tts Patch TD 0.2 mg Mo ZACH Administration Enoxaparin Sodium 40 mg 10/04/19 22:00 10/12/19 09:47 Enoxaparin SUB-Q 40 mg BID ZACH Administration Hydralazine HCl 100 mg 10/11/19 14:00 10/12/19 12:59 Apresoline PO 100 mg TID ZACH Administration Hydralazine HCl 5 mg 10/11/19 16:44 Apresoline IV Q30MIN PRN Hypertension Dextrose/Sodium Chloride 1,000 mls @ 42 mls/hr 10/10/19 22:00 10/11/19 18:29 D5ns IV 75 mls/hr DIRECT ZACH Administration Insulin Human Lispro 0 unit 10/06/19 01:00 10/12/19 12:56 Humalog SUB-Q 2 unit Q6HR ZACH Administration Protocol Miscellaneous Medication 325 mg 10/02/19 18:45 Paliperidone Palmitate [Invega Sustenna] IM Q3W [facility] Olanzapine 5 mg 10/12/19 22:00 Zyprexa PO QHS [facility] Ondansetron HCl 4 mg 10/01/19 08:00 Zofran IV Q8H PRN Nausea And Vomiting Prednisone 30 mg 10/12/19 10:00 10/12/19 09:48 Deltasone PO 30 mg QDAY ZACH Administration Simple Syrup 15 ml 10/04/19 10:34 Simple Syrup FEEDTUBE PRN PRN Hypoglycemia Simple Syrup 30 ml 10/04/19 10:34 Simple Syrup FEEDTUBE PRN PRN Hypoglycemia Sodium Bicarbonate 325 mg 10/04/19 10:34 Sodium Bicarbonate FEEDTUBE PRN PRN For Clogged Feeding Tube Sodium Chloride 10 ml 10/01/19 10:00 10/12/19 09:48 Sodium Chloride Flush Syringe 10 Ml IV Not Given BID ZACH Sodium Chloride 10 ml 10/01/19 07:50 Sodium Chloride Flush Syringe 10 Ml IV 10/14/19 07:49 PRN PRN LINE FLUSH Trazodone HCl 50 mg 10/01/19 22:00 10/11/19 22:40 Desyrel PO 50 mg QHS ZACH Administration Valproic Acid 1,500 mg 10/05/19 22:00 10/11/19 22:42 Depakene Liq PO 1,500 mg QHS ZACH Administration Nutrition/Malnutrition Assess - Dietary Evaluation Nutrition/Malnutrition Findings: Nutrition Notes Start: 10/04/19 09:33 Freq: Status: Active Protocol: Document 10/11/19 10:47 LEYDI (Rec: 10/11/19 10:52 LEYDI [id number]) Nutrition Notes Initial or Follow up Reassessment Other Pertinent Diagnosis COVID-19 (+), Schizoaffective disorder Current Diet Pureed Labs/Tests Reviewed Pertinent Medications D5NS at 75ml/hr Height 5 ft 6 in Weight 114.5 kg [place] Body Weight (kg) 59.09 BMI 40.7 Subjective/Other Information Pt pulled NG tube out yesterday. Per RN note, pt tolerated applesauce and sips of water last pm. BARTENDER SERVER evaluated pt on 10/05 and deemed pt unsafe for PO intake at that time. Pt may need PEG tube if unable to consume adequate PO to meet needs. Burn Absent Trauma Absent #1 Nutrition Diagnosis Inadequate oral intake Diagnosis Progress(for reassessment Continues documentation) Is patient on ventilator? No Is Patient Ambulatory and/or Out of Bed No REE-([facility]-confined to bed) 2112.012 Kcal/Kg value to use for calculation 14 Approximate Energy Requirements Using 1603 kcal/Kg Calculation Used for Recommendations Kcal/kg Additional Notes Pro needs 0.8-1g/kg adjBW: 69- 87g/day Fluid needs 1ml/kcal Nutrition Intervention Change Diet Order: Continue current diet order as tolerated; add consistent CHO modifier Goal #1 PO tolerance Follow-Up By: 10/13/19 Additional Comments F/U: PO tolerance, BARTENDER SERVER evaluation <HERIBERTO CONTE - Last Filed: 10/13/19 07:24> Assessment and Plan Assessment and plan: I saw and evaluated the patient. I agree with the findings and the plan of care as documented in the Nurse Practitioner's~note, with the following corrections and additions. awaiting placement Hospitalist Physical - Constitutional Vitals: Temp Pulse Resp BP Pulse Ox 98.3 F 86 16 128/88 97 10/13/19 06:29 10/13/19 06:29 10/13/19 06:29 10/13/19 06:29 10/13/19 06:29 Results - Labs CBC & Chem 7: 10/11/19 19:35 10/11/19 19:35 Labs: Laboratory Last Values WBC 14.3 K/mm3 (4.5-11.0) H 10/11/19 19:35 RBC 4.15 M/mm3 (3.65-5.03) 10/11/19 19:35 Hgb 12.3 gm/dl (10.1-14.3) 10/11/19 19:35 Hct 36.6 % (30.3-42.9) 10/11/19 19:35 MCV 88 fl (79-97) 10/11/19 19:35 MCH 30 pg (28-32) 10/11/19 19:35 MCHC 34 % (30-34) 10/11/19 19:35 RDW 15.2 % (13.2-15.2) 10/11/19 19:35 Plt Count 150 K/mm3 (140-440) 10/11/19 19:35 Lymph % (Auto) 10.6 % (13.4-35.0) L 09/30/19 22:44 [place] % (Auto) 9.8 % (0.0-7.3) H 09/30/19 22:44 Eos % (Auto) 0.0 % (0.0-4.3) 09/30/19 22:44 Baso % (Auto) 1.2 % (0.0-1.8) 09/30/19 22:44 Lymph # 1.5 K/mm3 (1.2-5.4) 09/30/19 22:44 [place] # 1.3 K/mm3 (0.0-0.8) H 09/30/19 22:44 Eos # 0.0 K/mm3 (0.0-0.4) 09/30/19 22:44 Baso # 0.2 K/mm3 (0.0-0.1) H 09/30/19 22:44 Add Manual Diff Complete 10/08/19 04:50 Total Counted 100 10/08/19 04:50 Seg Neutrophils % 78.4 % (40.0-70.0) H 09/30/19 22:44 Seg Neuts % (Manual) 87.0 % (40.0-70.0) H 10/08/19 04:50 Band Neutrophils % 4.0 % 10/08/19 04:50 Lymphocytes % (Manual) 2.0 % (13.4-35.0) L 10/08/19 04:50 Reactive Lymphs % (Man) 0 % 10/08/19 04:50 Monocytes % (Manual) 6.0 % (0.0-7.3) 10/08/19 04:50 Eosinophils % (Manual) 0 % (0.0-4.3) 10/08/19 04:50 Basophils % (Manual) 0 % (0.0-1.8) 10/08/19 04:50 Metamyelocytes % 1.0 % 10/08/19 04:50 Myelocytes % 0 % 10/08/19 04:50 Promyelocytes % 0 % 10/08/19 04:50 Blast Cells % 0 % 10/08/19 04:50 Nucleated RBC % 1.0 % (0.0-0.9) H 10/08/19 04:50 Seg Neutrophils # 10.8 K/mm3 (1.8-7.7) H 09/30/19 22:44 Seg Neutrophils # Man 14.4 K/mm3 (1.8-7.7) H 10/08/19 04:50 Band Neutrophils # 0.7 K/mm3 10/08/19 04:50 Lymphocytes # (Manual) 0.3 K/mm3 (1.2-5.4) L 10/08/19 04:50 Abs React Lymphs (Man) 0.0 K/mm3 10/08/19 04:50 Monocytes # (Manual) 1.0 K/mm3 (0.0-0.8) H 10/08/19 04:50 Eosinophils # (Manual) 0.0 K/mm3 (0.0-0.4) 10/08/19 04:50 Basophils # (Manual) 0.0 K/mm3 (0.0-0.1) 10/08/19 04:50 Metamyelocytes # 0.2 K/mm3 10/08/19 04:50 Myelocytes # 0.0 K/mm3 10/08/19 04:50 Promyelocytes # 0.0 K/mm3 10/08/19 04:50 Blast Cells # 0.0 K/mm3 10/08/19 04:50 WBC Morphology Not Reportable 10/08/19 04:50 Hypersegmented Neuts Not Reportable 10/08/19 04:50 Hyposegmented Neuts Not Reportable 10/08/19 04:50 Hypogranular Neuts Not Reportable 10/08/19 04:50 Smudge Cells Not Reportable 10/08/19 04:50 Toxic Granulation Not Reportable 10/08/19 04:50 Toxic Vacuolation Not Reportable 10/08/19 04:50 Dohle Bodies Not Reportable 10/08/19 04:50 Pelger-Huet Anomaly Not Reportable 10/08/19 04:50 Bal Rods Not Reportable 10/08/19 04:50 Platelet Estimate Consistent w auto 10/08/19 04:50 Clumped Platelets Not Reportable 10/08/19 04:50 Plt Clumps, EDTA Not Reportable 10/08/19 04:50 Large Platelets Not Reportable 10/08/19 04:50 Giant Platelets Not Reportable 10/08/19 04:50 Platelet Satelliting Not Reportable 10/08/19 04:50 Plt Morphology Comment Not Reportable 10/08/19 04:50 RBC Morphology Not Reportable 10/08/19 04:50 Dimorphic RBCs Not Reportable 10/08/19 04:50 Polychromasia Not Reportable 10/08/19 04:50 Hypochromasia Not Reportable 10/08/19 04:50 Poikilocytosis Not Reportable 10/08/19 04:50 Anisocytosis Not Reportable 10/08/19 04:50 Microcytosis Not Reportable 10/08/19 04:50 Macrocytosis 1+ 10/08/19 04:50 Spherocytes Not Reportable 10/08/19 04:50 Pappenheimer Bodies Not Reportable 10/08/19 04:50 Sickle Cells Not Reportable 10/08/19 04:50 Target Cells 1+ 10/08/19 04:50 Tear Drop Cells Not Reportable 10/08/19 04:50 Ovalocytes Not Reportable 10/08/19 04:50 Helmet Cells Not Reportable 10/08/19 04:50 [place] Bodies Not Reportable 10/08/19 04:50 [place] Rings Not Reportable 10/08/19 04:50 Mary Cells Not Reportable 10/08/19 04:50 Bite Cells Not Reportable 10/08/19 04:50 Crenated Cell Not Reportable 10/08/19 04:50 Elliptocytes Not Reportable 10/08/19 04:50 Acanthocytes (Spur) Not Reportable 10/08/19 04:50 Rouleaux Not Reportable 10/08/19 04:50 Hemoglobin C Crystals Not Reportable 10/08/19 04:50 Schistocytes Not Reportable 10/08/19 04:50 Malaria parasites Not Reportable 10/08/19 04:50 Willie Bodies Not Reportable 10/08/19 04:50 Hem Pathologist Commnt No 10/08/19 04:50 PT 14.9 Sec. (12.2-14.9) 10/07/19 15:23 INR 1.15 (0.87-1.13) H 10/07/19 15:23 APTT 29.5 Sec. (24.2-36.6) 10/07/19 15:23 D-Dimer 390.46 ng/mlDDU (0-234) H 10/09/19 09:32 Sodium 136 mmol/L (137-145) L D 10/11/19 19:35 Potassium 4.5 mmol/L (3.6-5.0) 10/11/19 19:35 Chloride 98.8 mmol/L (98-107) 10/11/19 19:35 Carbon Dioxide 25 mmol/L (22-30) 10/11/19 19:35 Anion Gap 17 mmol/L 10/11/19 19:35 BUN 12 mg/dL (7-17) 10/11/19 19:35 Creatinine 0.6 mg/dL (0.6-1.2) 10/11/19 19:35 Estimated GFR > 60 ml/min 10/11/19 19:35 BUN/Creatinine Ratio 20 % 10/11/19 19:35 Glucose 278 mg/dL (65-100) H 10/11/19 19:35 POC Glucose 170 (70-105) H 10/12/19 22:02 Lactic Acid 1.30 mmol/L (0.7-2.0) 09/30/19 22:44 Calcium 8.5 mg/dL (8.4-10.2) 10/11/19 19:35 Ferritin 991.6 ng/mL (10.0-200.0) H 10/09/19 09:32 Total Bilirubin 0.40 mg/dL (0.1-1.2) 10/05/19 08:32 Direct Bilirubin 0.3 mg/dL (0-0.2) H 09/30/19 22:44 Indirect Bilirubin 0.2 mg/dL 09/30/19 22:44 AST 149 units/L (5-40) H 10/05/19 08:32 ALT 96 units/L (7-56) H 10/05/19 08:32 Alkaline Phosphatase 40 units/L (35-129) 10/05/19 08:32 Lactate Dehydrogenase 716 units/L (91-180) H 10/09/19 09:32 Total Creatine Kinase 934 units/L (30-135) H 10/05/19 08:32 C-Reactive Protein 0.80 mg/dL (0.00-1.30) 10/09/19 09:32 Total Protein 6.1 g/dL (6.3-8.2) L 10/05/19 08:32 Albumin 2.5 g/dL (3.9-5) L 10/05/19 08:32 Albumin/Globulin Ratio 0.7 % 10/05/19 08:32 Procalcitonin 0.71 ng/mL (<0.15) 10/05/19 08:32 Urine Color [place] (Yellow) 10/01/19 Unknown Urine Turbidity Slightly-cloudy (Clear) 10/01/19 Unknown Urine pH 5.0 (5.0-7.0) 10/01/19 Unknown Ur Specific [place] 1.026 (1.003-1.030) 10/01/19 Unknown Urine Protein 100 mg/dl mg/dL (Negative) 10/01/19 Unknown Urine Glucose (UA) Neg mg/dL (Negative) 10/01/19 Unknown Urine Ketones Tr mg/dL (Negative) 10/01/19 Unknown Urine Blood Lg (Negative) 10/01/19 Unknown Urine Nitrite Neg (Negative) 10/01/19 Unknown Urine Bilirubin Neg (Negative) 10/01/19 Unknown Urine Urobilinogen 2.0 mg/dL (<2.0) 10/01/19 Unknown Ur Leukocyte Esterase Neg (Negative) 10/01/19 Unknown Urine WBC (Auto) 17.0 /HPF (0.0-6.0) H 10/01/19 Unknown Urine RBC (Auto) 1.0 /HPF (0.0-6.0) 10/01/19 Unknown U Epithel Cells (Auto) 4.0 /HPF (0-13.0) 10/01/19 Unknown Urine Mucus 2+ /HPF 10/01/19 Unknown Salicylates < 0.3 mg/dL (2.8-20.0) L 09/30/19 22:44 Urine Opiates Screen Presumptive negative 10/01/19 Unknown Urine Methadone Screen Presumptive negative 10/01/19 Unknown Acetaminophen 5.0 ug/mL (10.0-30.0) L 09/30/19 22:44 Ur Barbiturates Screen Presumptive negative 10/01/19 Unknown Valproic Acid 31.8 ug/mL (50-100) L 10/04/19 08:46 Ur Phencyclidine Scrn Presumptive negative 10/01/19 Unknown Ur Amphetamines Screen Presumptive negative 10/01/19 Unknown U Benzodiazepines Scrn Presumptive negative 10/01/19 Unknown Urine Cocaine Screen Presumptive negative 10/01/19 Unknown U Marijuana (THC) Screen Presumptive negative 10/01/19 Unknown Drugs of Abuse Note Disclamer 10/01/19 Unknown Plasma/Serum Alcohol < 0.01 % (0-0.07) 09/30/19 22:44 Coronavirus (PCR) Positive (Negative) A 10/02/19 Unknown Garcia/IV: Voiding Method External Female Catheter IV Catheter Type [Right Upper Peripheral IV arm] IV Catheter Type [Right INT / Saline Lock Antecubital] IV Catheter Type [Right Foot] INT / Saline Lock IV Catheter Type [Right Peripheral IV External Jugular] Active Medications - Current Medications Current Medications: Generic Name Dose Route Start Last Admin Trade Name Freq PRN Reason Stop Dose Admin Acetaminophen 650 mg 10/01/19 08:00 10/08/19 12:10 Tylenol PO 650 mg Q4H PRN Administration Pain MILD(1-3)/Fever >100.5/WRIGHT Amlodipine Besylate 10 mg 10/11/19 19:00 10/12/19 09:47 Amlodipine PO 10 mg QDAY ZACH Administration Lipase/Protease/Amylase 1 each 10/04/19 10:34 Pancrebobby Martinez 10,500 Unit FEEDTUBE PRN PRN For Clogged Feeding Tube Benztropine Mesylate 1 mg 10/11/19 15:00 10/12/19 23:49 Cogentin PO 1 mg BID ZACH Administration Clonidine HCl 0.2 mg 10/11/19 13:00 10/11/19 14:05 Catapres-Tts Patch TD 0.2 mg Mo ZACH Administration Enoxaparin Sodium 40 mg 10/04/19 22:00 10/12/19 23:49 Enoxaparin SUB-Q 40 mg BID ZACH Administration Hydralazine HCl 100 mg 10/11/19 14:00 10/12/19 23:49 Apresoline PO 100 mg TID ZACH Administration Hydralazine HCl 5 mg 10/11/19 16:44 Apresoline IV Q30MIN PRN Hypertension Dextrose/Sodium Chloride 1,000 mls @ 42 mls/hr 10/10/19 22:00 10/13/19 00:21 D5ns IV 75 mls/hr DIRECT ZACH Administration Insulin Human Lispro 0 unit 10/12/19 22:00 10/12/19 23:57 Humalog SUB-Q 2 unit ACHS ZACH Administration Protocol Miscellaneous Medication 325 mg 10/02/19 18:45 Paliperidone Palmitate [Invega Sustenna] IM Q3W ZACH Olanzapine 5 mg 10/12/19 22:00 10/13/19 00:03 Zyprexa PO 5 mg QHS ZACH Administration Ondansetron HCl 4 mg 10/01/19 08:00 Zofran IV Q8H PRN Nausea And Vomiting Prednisone 30 mg 10/12/19 10:00 10/12/19 09:48 Deltasone PO 10/14/19 23:59 30 mg QDAY ZACH Administration Prednisone 20 mg 10/15/19 10:00 Deltasone PO 10/17/19 23:59 QDAY ZACH Prednisone 10 mg 10/18/19 10:00 Deltasone PO 10/20/19 23:55 QDAY ZACH Simple Syrup 15 ml 10/04/19 10:34 Simple Syrup FEEDTUBE PRN PRN Hypoglycemia Simple Syrup 30 ml 10/04/19 10:34 Simple Syrup FEEDTUBE PRN PRN Hypoglycemia Sodium Bicarbonate 325 mg 10/04/19 10:34 Sodium Bicarbonate FEEDTUBE PRN PRN For Clogged Feeding Tube Sodium Chloride 10 ml 10/01/19 10:00 10/12/19 23:49 Sodium Chloride Flush Syringe 10 Ml IV 10 ml BID ZACH Administration Sodium Chloride 10 ml 10/01/19 07:50 Sodium Chloride Flush Syringe 10 Ml IV 10/14/19 07:49 PRN PRN LINE FLUSH Trazodone HCl 50 mg 10/01/19 22:00 10/12/19 23:49 Desyrel PO 50 mg QHS ZACH Administration Valproic Acid 1,500 mg 10/05/19 22:00 10/12/19 23:49 Depakene Liq PO 1,500 mg QHS ZACH Administration Nutrition/Malnutrition Assess - Dietary Evaluation Nutrition/Malnutrition Findings: Nutrition Notes Start: 10/04/19 0 9:33 Freq: Status: Active Protocol: Document 10/11/19 10:47 [facility] (Rec: 10/11/19 10:52 [facility] [id number]) Nutrition Notes Initial or Follow up Reassessment Other Pertinent Diagnosis COVID-19 (+), Schizoaffective disorder Current Diet Pureed Labs/Tests Reviewed Pertinent Medications D5NS at 75ml/hr Height 5 ft 6 in Weight 114.5 kg [place] Body Weight (kg) 59.09 BMI 40.7 Subjective/Other Information Pt pulled NG tube out yesterday. Per RN note, pt tolerated applesauce and sips of water last pm. [employer] evaluated pt on 10/05 and deemed pt unsafe for PO intake at that time. Pt may need PEG tube if unable to consume adequate PO to meet needs. Burn Absent Trauma Absent #1 Nutrition Diagnosis Inadequate oral intake Diagnosis Progress(for reassessment Continues documentation) Is patient on ventilator? No Is Patient Ambulatory and/or Out of Bed No REE-([facility]-confined to bed) 2112.012 Kcal/Kg value to use for calculation 14 Approximate Energy Requirements Using 1603 kcal/Kg Calculation Used for Recommendations Kcal/kg Additional Notes Pro needs 0.8-1g/kg adjBW: 69- 87g/day Fluid needs 1ml/kcal Nutrition Intervention Change Diet Order: Continue current diet order as tolerated; add consistent CHO modifier Goal #1 PO tolerance Follow-Up By: 10/13/19 Additional Comments F/U: PO tolerance, [employer] evaluation
[2019-10-12] MEDS: VALPROIC ACID 250 MG/5 ML ORAL LIQD PO SCH (23:49)
[2019-10-12] MEDS: traZODone 50 MG TAB PO SCH (23:49)
[2019-10-13] MEDS: D5W/0.9% NACL 1,000 ML IV SCH (00:21)
[2019-10-13 09:20] LABS: Hematocrit 38.3 % (30.3-42.9); Hemoglobin 13.1 gm/dl (10.1-14.3); Mean Corpuscular HGB Conc 34 % (30-34); Mean Corpuscular Volume 88 fl (79-97); Platelet Count 144 K/mm3 (140-440); Red Blood Count 4.36 M/mm3 (3.65-5.03); Red Cell Distribution Width 15.6 % (13.2-15.2)
[2019-10-13] MEDS: amLODIPine 10 MG TAB PO SCH (10:50)
[2019-10-13] MEDS: ENOXAPARIN 40 MG/0.4 ML INJ SUB-Q SCH ×2 (10:50→22:22)
[2019-10-13] MEDS: INSULIN LISPRO 100 UNIT/ML VIAL 3 mL SUB-Q SCH ×4 (10:50→22:23)
[2019-10-13] MEDS: predniSONE 10 MG TAB PO SCH (10:50)
[2019-10-13] MEDS: hydrALAZINE 100 MG TAB PO SCH ×3 (10:56→22:22)
[2019-10-13] MEDS: BENZTROPINE 1 MG TAB PO SCH ×2 (11:07→22:21)
--- NOTE | 2019-10-13 11:48 | Progress Note ---
Assessment and Plan Cultures: Blood culture and urine culture negative COVID PCR positive Assessment: 54 years old female with history of paranoid schizophrenia, admitted on 09/30/2019 due to altered mental status and catatonia state: #Severe sepsis: Present on admission with low-grade fever, tachycardia, elevated leukocytosis, FAISAL, likely due to bilateral pneumonia. Resolved. #Bilateral pneumonia: COVID-19 pneumonia. Inflammatory markers are elevated, with a d-dimer > 10,000. CT negative for pulmonary embolism. Repeat d-dimer with much improvement. Renal function and LFTs improving, but given mild hypoxia and several days of positivity, unclear benefit with Remdesivir at this stage. Completed empiric CAP abx x 5 days. Completed steroids. #Acute hypoxemic respiratory failure: resolved, on room air. #Elevated LFTs: from COVID/rhabdo #FAISAL: from COVID. improved #Elevated CK: Likely secondary to rhabdomyolysis possible due to COVID-19 infection or catatonic state #Paranoid schizophrenia with catatonia: Per psych Recommendations: Overall, stable from ID standpoint Konrad Moyer MD, FACP [facility] ([facility] C: [phone] O: [phone] F: [phone] Subjective Date of service: 10/13/19 Principal diagnosis: Neurogenic Dysphagia Interval history: No fever. Remains on room air. Objective - Exam Narrative Exam: Physical Exam (reviewed in chart due to PPE conservation) Constitutional: limited due to PPE conservation strategy Head, Ears, Nose: limited due to PPE conservation strategy Eyes: limited due to PPE conservation strategy Neck: limited due to PPE conservation strategy Oral: limited due to PPE conservation strategy Cardiovascular: limited due to PPE conservation strategy Respiratory: limited due to PPE conservation strategy GI: limited due to PPE conservation strategy Musculoskeletal: limited due to PPE conservation strategy Skin: limited due to PPE conservation strategy Hem/Lymphatic: limited due to PPE conservation strategy Psych: limited due to PPE conservation strategy Neurological: limited due to PPE conservation strategy - Constitutional Vitals: Vital Signs Temp Pulse Resp BP Pulse Ox 98.3 F 86 16 128/88 97 10/13/19 06:29 10/13/19 06:29 10/13/19 06:29 10/13/19 06:29 10/13/19 06:29 Temperature -Last 24 Hours Temperature 98.3 F Temperature 99.0 F Temperature 97.2 F Temperature 97.3 F - Labs CBC & Chem 7: 10/13/19 09:08 10/11/19 19:35 Labs: Abnormal lab results 10/12/19 10/12/19 10/13/19 Range/Units 16:33 22:02 07:52 WBC (4.5-11.0) K/mm3 RDW (13.2-15.2) % POC Glucose 217 H 170 H 126 H (70-105) 10/13/19 Range/Units 09:08 WBC 14.0 H (4.5-11.0) K/mm3 RDW 15.6 H (13.2-15.2) % POC Glucose (70-105)
--- NOTE | 2019-10-13 13:00 | Progress Note ---
<BISMARKBLANCA KellyFabián - Last Filed: 10/13/19 13:13> Assessment and Plan - Patient Problems (1) Severe sepsis Current Visit: Yes Status: Resolved Plan to address problem: - Presented with low-grade fever, tachycardia, leukocytosis, FAISAL, and bilateral pneumonia - Likely source is bilateral pneumonia secondary to COVID-19 - IV antibiotics completed - Covid protocol initiated (2) Pneumonia due to COVID-19 virus Current Visit: Yes Status: Acute Plan to address problem: - COVID protocol initiated - IV azithromycin and Rocephin completed - 09/30 COVID PCR positive - Trend LDH, CRP, procalcitonin, d-dimer, ferritin - Droplet /contact precautions - Supplemental oxygenation as needed - Infectious disease consult requested, signed off at this time - Pulmonary hygiene - In setting of elevated D-Dimer, CTA Chest was ordered which was negative for pulmonary embolism - Anticoagulation per COVID protocol - Cannot initiate Remdesivir in setting of elevated LFTs - IV solumedrel changed to PO prednisone and started on taper (3) Paranoid schizophrenia Current Visit: Yes Status: Chronic Plan to address problem: -History of present schizophrenia -10/10 Psych reconsulted -Depakote and Haldol -Sleep hygiene -Reorientation as needed (4) Leukocytosis Current Visit: Yes Status: Acute Plan to address problem: - Admit WBC 13.8 - Trend CBC - Maybe secondary to possible PNA or from dehydration - IV abx completed - Also on steroids for COVID pneumonia - Now trending down (5) Hypertension Current Visit: Yes Status: Chronic Plan to address problem: - BP monitoring per protocol - PRN hydralizine - Clonidine TD and hydralazine PO (6) DVT prophylaxis Current Visit: Yes Status: Acute Plan to address problem: - SCDs to BLE while in bed - Lovenox subq twice daily per COVID protocol History Interval history: This is a 54-year-old female with paranoid schizophrenia that presents to the emergency department on 09/29 for altered mental status in a catatonic state. Previous hospitalizations reviewed and only notes a history of paranoid schizophrenia. Patient may be a resident of [place]. Patient is currently nonverbal and HPI is received from ER documentation. Work-up in the emergency department included a CT abdomen pelvis which shows patchy peripheral groundglass opacities bilateral lungs which is consistent with either viral or atypical pneumonia, positive anterior lateral fat hernia in the left mid abdomen and a large uterine fibroids however her CXR showed no acute pulmonary or pleural abnormalities. She was found to have acute kidney injury with a creatinine of 1.4/BUN 33 as baseline from previous records seems to be 0.7, rhabdomyolysis with a creatinine kinase of 33,481, leukocytosis with a WBC of 13.8, thrombocytopenia with platelets at 97. She has COVID pneumonia with IV antibiotics, rhabdomyolysis, and FAISAL. Infectious disease, psych, and neurology have been consulted. Neurology does not suspect NMS at this time. Psych has signed off at this time due to ongoing acute medical processes. PT/ST consulted for evaluation but unable to be performed as patient will not follow verbal commands. She will open her eyes to verbal stimuli and intermittently follow commands. Patient remains nonverbal and only groans/moans to painful stimuli. * 10/11: Continue care, psych reconsulted but signed off with some medication adjustments * 10/10: pureed diet * 10/07: continue care * 10/06: GI consult for peg * 10/05: continue care * Discussed with primary returned goods sorter patient was normally verbal but sometimes goes into a catatonic state. Phone number for this is [phone] * 10/04: PT consulted. Psych signed off. Continue treatment * 10/03: continue treatment * 10/02: Change fluids to NS 1/2 AT 125CC/hr. Rhabdomylysis improving, insert NGT and start tube feeds. Psych input noted. Continue management for COVID 19. ID consulted. No new fever. CTA chest and CTH obtained which were both negative * 10/01: COVID PCR Positive Hospitalist Physical - Constitutional Vitals: Temp Pulse Resp BP Pulse Ox 98.3 F 86 16 128/88 97 10/13/19 06:29 10/13/19 06:29 10/13/19 06:29 10/13/19 06:29 10/13/19 06:29 General appearance: Present: no acute distress, obese - EENT Eyes: Present: PERRL ENT: hearing intact - Neck Neck: Present: normal ROM - Respiratory Respiratory effort: normal Respiratory: bilateral: CTA - Cardiovascular Rhythm: regular Heart Sounds: Present: S1 & S2. Absent: systolic murmur, diastolic murmur - Extremities Extremities: no ischemia, pulses intact, pulses symmetrical, No edema, normal temperature, normal color, Full ROM Peripheral Pulses: within normal limits - Abdominal General gastrointestinal: soft, non-tender, non-distended, normal bowel sounds - Integumentary Integumentary: Present: clear, warm, dry - Psychiatric Psychiatric: cooperative - Neurologic Neurologic: moves all extremities - Allied Health Allied health notes reviewed: nursing, PT, social work, case management Results - Labs CBC & Chem 7: 10/13/19 09:08 10/11/19 19:35 Labs: Laboratory Last Values WBC 14.0 K/mm3 (4.5-11.0) H 10/13/19 09:08 RBC 4.36 M/mm3 (3.65-5.03) 10/13/19 09:08 Hgb 13.1 gm/dl (10.1-14.3) 10/13/19 09:08 Hct 38.3 % (30.3-42.9) 10/13/19 09:08 MCV 88 fl (79-97) 10/13/19 09:08 MCH 30 pg (28-32) 10/13/19 09:08 MCHC 34 % (30-34) 10/13/19 09:08 RDW 15.6 % (13.2-15.2) H 10/13/19 09:08 Plt Count 144 K/mm3 (140-440) 10/13/19 09:08 Lymph % (Auto) 10.6 % (13.4-35.0) L 09/30/19 22:44 [place] % (Auto) 9.8 % (0.0-7.3) H 09/30/19 22:44 Eos % (Auto) 0.0 % (0.0-4.3) 09/30/19 22:44 Baso % (Auto) 1.2 % (0.0-1.8) 09/30/19 22:44 Lymph # 1.5 K/mm3 (1.2-5.4) 09/30/19 22:44 [place] # 1.3 K/mm3 (0.0-0.8) H 09/30/19 22:44 Eos # 0.0 K/mm3 (0.0-0.4) 09/30/19 22:44 Baso # 0.2 K/mm3 (0.0-0.1) H 09/30/19 22:44 Add Manual Diff Complete 10/08/19 04:50 Total Counted 100 10/08/19 04:50 Seg Neutrophils % 78.4 % (40.0-70.0) H 09/30/19 22:44 Seg Neuts % (Manual) 87.0 % (40.0-70.0) H 10/08/19 04:50 Band Neutrophils % 4.0 % 10/08/19 04:50 Lymphocytes % (Manual) 2.0 % (13.4-35.0) L 10/08/19 04:50 Reactive Lymphs % (Man) 0 % 10/08/19 04:50 Monocytes % (Manual) 6.0 % (0.0-7.3) 10/08/19 04:50 Eosinophils % (Manual) 0 % (0.0-4.3) 10/08/19 04:50 Basophils % (Manual) 0 % (0.0-1.8) 10/08/19 04:50 Metamyelocytes % 1.0 % 10/08/19 04:50 Myelocytes % 0 % 10/08/19 04:50 Promyelocytes % 0 % 10/08/19 04:50 Blast Cells % 0 % 10/08/19 04:50 Nucleated RBC % 1.0 % (0.0-0.9) H 10/08/19 04:50 Seg Neutrophils # 10.8 K/mm3 (1.8-7.7) H 09/30/19 22:44 Seg Neutrophils # Man 14.4 K/mm3 (1.8-7.7) H 10/08/19 04:50 Band Neutrophils # 0.7 K/mm3 10/08/19 04:50 Lymphocytes # (Manual) 0.3 K/mm3 (1.2-5.4) L 10/08/19 04:50 Abs React Lymphs (Man) 0.0 K/mm3 10/08/19 04:50 Monocytes # (Manual) 1.0 K/mm3 (0.0-0.8) H 10/08/19 04:50 Eosinophils # (Manual) 0.0 K/mm3 (0.0-0.4) 10/08/19 04:50 Basophils # (Manual) 0.0 K/mm3 (0.0-0.1) 10/08/19 04:50 Metamyelocytes # 0.2 K/mm3 10/08/19 04:50 Myelocytes # 0.0 K/mm3 10/08/19 04:50 Promyelocytes # 0.0 K/mm3 10/08/19 04:50 Blast Cells # 0.0 K/mm3 10/08/19 04:50 WBC Morphology Not Reportable 10/08/19 04:50 Hypersegmented Neuts Not Reportable 10/08/19 04:50 Hyposegmented Neuts Not Reportable 10/08/19 04:50 Hypogranular Neuts Not Reportable 10/08/19 04:50 Smudge Cells Not Reportable 10/08/19 04:50 Toxic Granulation Not Reportable 10/08/19 04:50 Toxic Vacuolation Not Reportable 10/08/19 04:50 Dohle Bodies Not Reportable 10/08/19 04:50 Pelger-Huet Anomaly Not Reportable 10/08/19 04:50 Bal Rods Not Reportable 10/08/19 04:50 Platelet Estimate Consistent w auto 10/08/19 04:50 Clumped Platelets Not Reportable 10/08/19 04:50 Plt Clumps, EDTA Not Reportable 10/08/19 04:50 Large Platelets Not Reportable 10/08/19 04:50 Giant Platelets Not Reportable 10/08/19 04:50 Platelet Satelliting Not Reportable 10/08/19 04:50 Plt Morphology Comment Not Reportable 10/08/19 04:50 RBC Morphology Not Reportable 10/08/19 04:50 Dimorphic RBCs Not Reportable 10/08/19 04:50 Polychromasia Not Reportable 10/08/19 04:50 Hypochromasia Not Reportable 10/08/19 04:50 Poikilocytosis Not Reportable 10/08/19 04:50 Anisocytosis Not Reportable 10/08/19 04:50 Microcytosis Not Reportable 10/08/19 04:50 Macrocytosis 1+ 10/08/19 04:50 Spherocytes Not Reportable 10/08/19 04:50 Pappenheimer Bodies Not Reportable 10/08/19 04:50 Sickle Cells Not Reportable 10/08/19 04:50 Target Cells 1+ 10/08/19 04:50 Tear Drop Cells Not Reportable 10/08/19 04:50 Ovalocytes Not Reportable 10/08/19 04:50 Helmet Cells Not Reportable 10/08/19 04:50 Singleton-Daniels Bodies Not Reportable 10/08/19 04:50 [place] Rings Not Reportable 10/08/19 04:50 [place] Cells Not Reportable 10/08/19 04:50 Bite Cells Not Reportable 10/08/19 04:50 Crenated Cell Not Reportable 10/08/19 04:50 Elliptocytes Not Reportable 10/08/19 04:50 Acanthocytes (Spur) Not Reportable 10/08/19 04:50 Rouleaux Not Reportable 10/08/19 04:50 Hemoglobin C Crystals Not Reportable 10/08/19 04:50 Schistocytes Not Reportable 10/08/19 04:50 Malaria parasites Not Reportable 10/08/19 04:50 Willie Bodies Not Reportable 10/08/19 04:50 Hem Pathologist Commnt No 10/08/19 04:50 PT 14.9 Sec. (12.2-14.9) 10/07/19 15:23 INR 1.15 (0.87-1.13) H 10/07/19 15:23 APTT 29.5 Sec. (24.2-36.6) 10/07/19 15:23 D-Dimer 390.46 ng/mlDDU (0-234) H 10/09/19 09:32 Sodium 136 mmol/L (137-145) L D 10/11/19 19:35 Potassium 4.5 mmol/L (3.6-5.0) 10/11/19 19:35 Chloride 98.8 mmol/L (98-107) 10/11/19 19:35 Carbon Dioxide 25 mmol/L (22-30) 10/11/19 19:35 Anion Gap 17 mmol/L 10/11/19 19:35 BUN 12 mg/dL (7-17) 10/11/19 19:35 Creatinine 0.6 mg/dL (0.6-1.2) 10/11/19 19:35 Estimated GFR > 60 ml/min 10/11/19 19:35 BUN/Creatinine Ratio 20 % 10/11/19 19:35 Glucose 278 mg/dL (65-100) H 10/11/19 19:35 POC Glucose 203 (70-105) H 10/13/19 12:03 Lactic Acid 1.30 mmol/L (0.7-2.0) 09/30/19 22:44 Calcium 8.5 mg/dL (8.4-10.2) 10/11/19 19:35 Ferritin 991.6 ng/mL (10.0-200.0) H 10/09/19 09:32 Total Bilirubin 0.40 mg/dL (0.1-1.2) 10/05/19 08:32 Direct Bilirubin 0.3 mg/dL (0-0.2) H 09/30/19 22:44 Indirect Bilirubin 0.2 mg/dL 09/30/19 22:44 AST 149 units/L (5-40) H 10/05/19 08:32 ALT 96 units/L (7-56) H 10/05/19 08:32 Alkaline Phosphatase 40 units/L (35-129) 10/05/19 08:32 Lactate Dehydrogenase 716 units/L (91-180) H 10/09/19 09:32 Total Creatine Kinase 934 units/L (30-135) H 10/05/19 08:32 C-Reactive Protein 0.80 mg/dL (0.00-1.30) 10/09/19 09:32 Total Protein 6.1 g/dL (6.3-8.2) L 10/05/19 08:32 Albumin 2.5 g/dL (3.9-5) L 10/05/19 08:32 Albumin/Globulin Ratio 0.7 % 10/05/19 08:32 Procalcitonin 0.71 ng/mL (<0.15) 10/05/19 08:32 Urine Color [place] (Yellow) 10/01/19 Unknown Urine Turbidity Slightly-cloudy (Clear) 10/01/19 Unknown Urine pH 5.0 (5.0-7.0) 10/01/19 Unknown Ur Specific [place] 1.026 (1.003-1.030) 10/01/19 Unknown Urine Protein 100 mg/dl mg/dL (Negative) 10/01/19 Unknown Urine Glucose (UA) Neg mg/dL (Negative) 10/01/19 Unknown Urine Ketones Tr mg/dL (Negative) 10/01/19 Unknown Urine Blood Lg (Negative) 10/01/19 Unknown Urine Nitrite Neg (Negative) 10/01/19 Unknown Urine Bilirubin Neg (Negative) 10/01/19 Unknown Urine Urobilinogen 2.0 mg/dL (<2.0) 10/01/19 Unknown Ur Leukocyte Esterase Neg (Negative) 10/01/19 Unknown Urine WBC (Auto) 17.0 /HPF (0.0-6.0) H 10/01/19 Unknown Urine RBC (Auto) 1.0 /HPF (0.0-6.0) 10/01/19 Unknown U Epithel Cells (Auto) 4.0 /HPF (0-13.0) 10/01/19 Unknown Urine Mucus 2+ /HPF 10/01/19 Unknown Salicylates < 0.3 mg/dL (2.8-20.0) L 09/30/19 22:44 Urine Opiates Screen Presumptive negative 10/01/19 Unknown Urine Methadone Screen Presumptive negative 10/01/19 Unknown Acetaminophen 5.0 ug/mL (10.0-30.0) L 09/30/19 22:44 Ur Barbiturates Screen Presumptive negative 10/01/19 Unknown Valproic Acid 31.8 ug/mL (50-100) L 10/04/19 08:46 Ur Phencyclidine Scrn Presumptive negative 10/01/19 Unknown Ur Amphetamines Screen Presumptive negative 10/01/19 Unknown U Benzodiazepines Scrn Presumptive negative 10/01/19 Unknown Urine Cocaine Screen Presumptive negative 10/01/19 Unknown U Marijuana (THC) Screen Presumptive negative 10/01/19 Unknown Drugs of Abuse Note Disclamer 10/01/19 Unknown Plasma/Serum Alcohol < 0.01 % (0-0.07) 09/30/19 22:44 Coronavirus (PCR) Positive (Negative) A 10/02/19 Unknown Garcia/IV: Voiding Method External Female Catheter IV Catheter Type [Right Upper Peripheral IV arm] IV Catheter Type [Right INT / Saline Lock Antecubital] IV Catheter Type [Right Foot] INT / Saline Lock IV Catheter Type [Right Peripheral IV External Jugular] Active Medications - Current Medications Current Medications: Generic Name Dose Route Start Last Admin Trade Name Freq PRN Reason Stop Dose Admin Acetaminophen 650 mg 10/01/19 08:00 10/08/19 12:10 Tylenol PO 650 mg Q4H PRN Administration Pain MILD(1-3)/Fever >100.5/WRIGHT Amlodipine Besylate 10 mg 10/11/19 19:00 10/13/19 10:50 Amlodipine PO 10 mg QDAY ZACH Administration Lipase/Protease/Amylase 1 each 10/04/19 10:34 Pancrebobby Martinez 10,500 Unit FEEDTUBE PRN PRN For Clogged Feeding Tube Benztropine Mesylate 1 mg 10/11/19 15:00 10/13/19 11:07 Cogentin PO 1 mg BID ZACH Administration Clonidine HCl 0.2 mg 10/11/19 13:00 10/11/19 14:05 Catapres-Tts Patch TD 0.2 mg Mo ZACH Administration Enoxaparin Sodium 40 mg 10/04/19 22:00 10/13/19 10:50 Enoxaparin SUB-Q 40 mg BID ZACH Administration Hydralazine HCl 100 mg 10/11/19 14:00 10/13/19 10:56 Apresoline PO 100 mg TID ZACH Administration Hydralazine HCl 5 mg 10/11/19 16:44 Apresoline IV Q30MIN PRN Hypertension Dextrose/Sodium Chloride 1,000 mls @ 42 mls/hr 10/10/19 22:00 10/13/19 00:21 D5ns IV 75 mls/hr DIRECT ZACH Administration Insulin Human Lispro 0 unit 10/12/19 22:00 10/13/19 12:46 Humalog SUB-Q 3 unit ACHS ZACH Administration Protocol Miscellaneous Medication 325 mg 10/02/19 18:45 Paliperidone Palmitate [Invega Sustenna] IM Q3W ZACH Olanzapine 5 mg 10/12/19 22:00 10/13/19 00:03 Zyprexa PO 5 mg QHS ZACH Administration Ondansetron HCl 4 mg 10/01/19 08:00 Zofran IV Q8H PRN Nausea And Vomiting Prednisone 30 mg 10/12/19 10:00 10/13/19 10:50 Deltasone PO 10/14/19 23:59 30 mg QDAY ZACH Administration Prednisone 20 mg 10/15/19 10:00 Deltasone PO 10/17/19 23:59 QDAY ZACH Prednisone 10 mg 10/18/19 10:00 Deltasone PO 10/20/19 23:55 QDAY ZACH Simple Syrup 15 ml 10/04/19 10:34 Simple Syrup FEEDTUBE PRN PRN Hypoglycemia Simple Syrup 30 ml 10/04/19 10:34 Simple Syrup FEEDTUBE PRN PRN Hypoglycemia Sodium Bicarbonate 325 mg 10/04/19 10:34 Sodium Bicarbonate FEEDTUBE PRN PRN For Clogged Feeding Tube Sodium Chloride 10 ml 10/01/19 10:00 10/13/19 10:51 Sodium Chloride Flush Syringe 10 Ml IV 10 ml BID ZACH Administration Sodium Chloride 10 ml 10/01/19 07:50 Sodium Chloride Flush Syringe 10 Ml IV 10/14/19 07:49 PRN PRN LINE FLUSH Trazodone HCl 50 mg 10/01/19 22:00 10/12/19 23:49 Desyrel PO 50 mg QHS ZACH Administration Valproic Acid 1,500 mg 10/05/19 22:00 10/12/19 23:49 Depakene Liq PO 1,500 mg QHS ZACH Administration Nutrition/Malnutrition Assess - Dietary Evaluation Nutrition/Malnutrition Findings: Nutrition Notes Start: 10/04/19 09:33 Freq: Status: Active Protocol: Document 10/11/19 10:47 NYSHREYAS (Rec: 10/11/19 10:52 [facility]- [email or web address]) Nutrition Notes Initial or Follow up Reassessment Other Pertinent Diagnosis COVID-19 (+), Schizoaffective disorder Current Diet Pureed Labs/Tests Reviewed Pertinent Medications D5NS at 75ml/hr Height 5 ft 6 in Weight 114.5 kg [place] Body Weight (kg) 59.09 BMI 40.7 Subjective/Other Information Pt pulled NG tube out yesterday. Per RN note, pt tolerated applesauce and sips of water last pm. METAL LOADER evaluated pt on 10/05 and deemed pt unsafe for PO intake at that time. Pt may need PEG tube if unable to consume adequate PO to meet needs. Burn Absent Trauma Absent #1 Nutrition Diagnosis Inadequate oral intake Diagnosis Progress(for reassessment Continues documentation) Is patient on ventilator? No Is Patient Ambulatory and/or Out of Bed No REE-([facility]-confined to bed) 2112.012 Kcal/Kg value to use for calculation 14 Approximate Energy Requirements Using 1603 kcal/Kg Calculation Used for Recommendations Kcal/kg Additional Notes Pro needs 0.8-1g/kg adjBW: 69- 87g/day Fluid needs 1ml/kcal Nutrition Intervention Change Diet Order: Continue current diet order as tolerated; add consistent CHO modifier Goal #1 PO tolerance Follow-Up By: 10/13/19 Additional Comments F/U: PO tolerance, METAL LOADER evaluation <HERIBERTO CONTE - Last Filed: 10/13/19 15:27> Assessment and Plan Assessment and plan: I saw and evaluated the patient. I agree with the findings and the plan of care as documented in the Nurse Practitioner's~note, with the following corrections and additions. Hospitalist Physical - Constitutional Vitals: Temp Pulse Resp BP Pulse Ox 98.5 F 89 18 114/63 99 10/13/19 13:10 10/13/19 13:10 10/13/19 13:10 10/13/19 13:10 10/13/19 13:10 Results - Labs CBC & Chem 7: 10/13/19 09:08 10/11/19 19:35 Labs: Laboratory Last Values WBC 14.0 K/mm3 (4.5-11.0) H 10/13/19 09:08 RBC 4.36 M/mm3 (3.65-5.03) 10/13/19 09:08 Hgb 13.1 gm/dl (10.1-14.3) 10/13/19 09:08 Hct 38.3 % (30.3-42.9) 10/13/19 09:08 MCV 88 fl (79-97) 10/13/19 09:08 MCH 30 pg (28-32) 10/13/19 09:08 MCHC 34 % (30-34) 10/13/19 09:08 RDW 15.6 % (13.2-15.2) H 10/13/19 09:08 Plt Count 144 K/mm3 (140-440) 10/13/19 09:08 Lymph % (Auto) 10.6 % (13.4-35.0) L 09/30/19 22:44 [place] % (Auto) 9.8 % (0.0-7.3) H 09/30/19 22:44 Eos % (Auto) 0.0 % (0.0-4.3) 09/30/19 22:44 Baso % (Auto) 1.2 % (0.0-1.8) 09/30/19 22:44 Lymph # 1.5 K/mm3 (1.2-5.4) 09/30/19 22:44 [place] # 1.3 K/mm3 (0.0-0.8) H 09/30/19 22:44 Eos # 0.0 K/mm3 (0.0-0.4) 09/30/19 22:44 Baso # 0.2 K/mm3 (0.0-0.1) H 09/30/19 22:44 Add Manual Diff Complete 10/08/19 04:50 Total Counted 100 10/08/19 04:50 Seg Neutrophils % 78.4 % (40.0-70.0) H 09/30/19 22:44 Seg Neuts % (Manual) 87.0 % (40.0-70.0) H 10/08/19 04:50 Band Neutrophils % 4.0 % 10/08/19 04:50 Lymphocytes % (Manual) 2.0 % (13.4-35.0) L 10/08/19 04:50 Reactive Lymphs % (Man) 0 % 10/08/19 04:50 Monocytes % (Manual) 6.0 % (0.0-7.3) 10/08/19 04:50 Eosinophils % (Manual) 0 % (0.0-4.3) 10/08/19 04:50 Basophils % (Manual) 0 % (0.0-1.8) 10/08/19 04:50 Metamyelocytes % 1.0 % 10/08/19 04:50 Myelocytes % 0 % 10/08/19 04:50 Promyelocytes % 0 % 10/08/19 04:50 Blast Cells % 0 % 10/08/19 04:50 Nucleated RBC % 1.0 % (0.0-0.9) H 10/08/19 04:50 Seg Neutrophils # 10.8 K/mm3 (1.8-7.7) H 09/30/19 22:44 Seg Neutrophils # Man 14.4 K/mm3 (1.8-7.7) H 10/08/19 04:50 Band Neutrophils # 0.7 K/mm3 10/08/19 04:50 Lymphocytes # (Manual) 0.3 K/mm3 (1.2-5.4) L 10/08/19 04:50 Abs React Lymphs (Man) 0.0 K/mm3 10/08/19 04:50 Monocytes # (Manual) 1.0 K/mm3 (0.0-0.8) H 10/08/19 04:50 Eosinophils # (Manual) 0.0 K/mm3 (0.0-0.4) 10/08/19 04:50 Basophils # (Manual) 0.0 K/mm3 (0.0-0.1) 10/08/19 04:50 Metamyelocytes # 0.2 K/mm3 10/08/19 04:50 Myelocytes # 0.0 K/mm3 10/08/19 04:50 Promyelocytes # 0.0 K/mm3 10/08/19 04:50 Blast Cells # 0.0 K/mm3 10/08/19 04:50 WBC Morphology Not Reportable 10/08/19 04:50 Hypersegmented Neuts Not Reportable 10/08/19 04:50 Hyposegmented Neuts Not Reportable 10/08/19 04:50 Hypogranular Neuts Not Reportable 10/08/19 04:50 Smudge Cells Not Reportable 10/08/19 04:50 Toxic Granulation Not Reportable 10/08/19 04:50 Toxic Vacuolation Not Reportable 10/08/19 04:50 Dohle Bodies Not Reportable 10/08/19 04:50 Pelger-Huet Anomaly Not Reportable 10/08/19 04:50 Bal Rods Not Reportable 10/08/19 04:50 Platelet Estimate Consistent w auto 10/08/19 04:50 Clumped Platelets Not Reportable 10/08/19 04:50 Plt Clumps, EDTA Not Reportable 10/08/19 04:50 Large Platelets Not Reportable 10/08/19 04:50 Giant Platelets Not Reportable 10/08/19 04:50 Platelet Satelliting Not Reportable 10/08/19 04:50 Plt Morphology Comment Not Reportable 10/08/19 04:50 RBC Morphology Not Reportable 10/08/19 04:50 Dimorphic RBCs Not Reportable 10/08/19 04:50 Polychromasia Not Reportable 10/08/19 04:50 Hypochromasia Not Reportable 10/08/19 04:50 Poikilocytosis Not Reportable 10/08/19 04:50 Anisocytosis Not Reportable 10/08/19 04:50 Microcytosis Not Reportable 10/08/19 04:50 Macrocytosis 1+ 10/08/19 04:50 Spherocytes Not Reportable 10/08/19 04:50 Pappenheimer Bodies Not Reportable 10/08/19 04:50 Sickle Cells Not Reportable 10/08/19 04:50 Target Cells 1+ 10/08/19 04:50 Tear Drop Cells Not Reportable 10/08/19 04:50 Ovalocytes Not Reportable 10/08/19 04:50 Helmet Cells Not Reportable 10/08/19 04:50 [place]-Daniels Bodies Not Reportable 10/08/19 04:50 [place] Rings Not Reportable 10/08/19 04:50 [place] Cells Not Reportable 10/08/19 04:50 Bite Cells Not Reportable 10/08/19 04:50 Crenated Cell Not Reportable 10/08/19 04:50 Elliptocytes Not Reportable 10/08/19 04:50 Acanthocytes (Spur) Not Reportable 10/08/19 04:50 Rouleaux Not Reportable 10/08/19 04:50 Hemoglobin C Crystals Not Reportable 10/08/19 04:50 Schistocytes Not Reportable 10/08/19 04:50 Malaria parasites Not Reportable 10/08/19 04:50 Willie Bodies Not Reportable 10/08/19 04:50 Hem Pathologist Commnt No 10/08/19 04:50 PT 14.9 Sec. (12.2-14.9) 10/07/19 15:23 INR 1.15 (0.87-1.13) H 10/07/19 15:23 APTT 29.5 Sec. (24.2-36.6) 10/07/19 15:23 D-Dimer 390.46 ng/mlDDU (0-234) H 10/09/19 09:32 Sodium 136 mmol/L (137-145) L D 10/11/19 19:35 Potassium 4.5 mmol/L (3.6-5.0) 10/11/19 19:35 Chloride 98.8 mmol/L (98-107) 10/11/19 19:35 Carbon Dioxide 25 mmol/L (22-30) 10/11/19 19:35 Anion Gap 17 mmol/L 10/11/19 19:35 BUN 12 mg/dL (7-17) 10/11/19 19:35 Creatinine 0.6 mg/dL (0.6-1.2) 10/11/19 19:35 Estimated GFR > 60 ml/min 10/11/19 19:35 BUN/Creatinine Ratio 20 % 10/11/19 19:35 Glucose 278 mg/dL (65-100) H 10/11/19 19:35 POC Glucose 203 (70-105) H 10/13/19 12:03 Lactic Acid 1.30 mmol/L (0.7-2.0) 09/30/19 22:44 Calcium 8.5 mg/dL (8.4-10.2) 10/11/19 19:35 Ferritin 991.6 ng/mL (10.0-200.0) H 10/09/19 09:32 Total Bilirubin 0.40 mg/dL (0.1-1.2) 10/05/19 08:32 Direct Bilirubin 0.3 mg/dL (0-0.2) H 09/30/19 22:44 Indirect Bilirubin 0.2 mg/dL 09/30/19 22:44 AST 149 units/L (5-40) H 10/05/19 08:32 ALT 96 units/L (7-56) H 10/05/19 08:32 Alkaline Phosphatase 40 units/L (35-129) 10/05/19 08:32 Lactate Dehydrogenase 716 units/L (91-180) H 10/09/19 09:32 Total Creatine Kinase 934 units/L (30-135) H 10/05/19 08:32 C-Reactive Protein 0.80 mg/dL (0.00-1.30) 10/09/19 09:32 Total Protein 6.1 g/dL (6.3-8.2) L 10/05/19 08:32 Albumin 2.5 g/dL (3.9-5) L 10/05/19 08:32 Albumin/Globulin Ratio 0.7 % 10/05/19 08:32 Procalcitonin 0.71 ng/mL (<0.15) 10/05/19 08:32 Urine Color [place] (Yellow) 10/01/19 Unknown Urine Turbidity Slightly-cloudy (Clear) 10/01/19 Unknown Urine pH 5.0 (5.0-7.0) 10/01/19 Unknown Ur Specific [place] 1.026 (1.003-1.030) 10/01/19 Unknown Urine Protein 100 mg/dl mg/dL (Negative) 10/01/19 Unknown Urine Glucose (UA) Neg mg/dL (Negative) 10/01/19 Unknown Urine Ketones Tr mg/dL (Negative) 10/01/19 Unknown Urine Blood Lg (Negative) 10/01/19 Unknown Urine Nitrite Neg (Negative) 10/01/19 Unknown Urine Bilirubin Neg (Negative) 10/01/19 Unknown Urine Urobilinogen 2.0 mg/dL (<2.0) 10/01/19 Unknown Ur Leukocyte Esterase Neg (Negative) 10/01/19 Unknown Urine WBC (Auto) 17.0 /HPF (0.0-6.0) H 10/01/19 Unknown Urine RBC (Auto) 1.0 /HPF (0.0-6.0) 10/01/19 Unknown U Epithel Cells (Auto) 4.0 /HPF (0-13.0) 10/01/19 Unknown Urine Mucus 2+ /HPF 10/01/19 Unknown Salicylates < 0.3 mg/dL (2.8-20.0) L 09/30/19 22:44 Urine Opiates Screen Presumptive negative 10/01/19 Unknown Urine Methadone Screen Presumptive negative 10/01/19 Unknown Acetaminophen 5.0 ug/mL (10.0-30.0) L 09/30/19 22:44 Ur Barbiturates Screen Presumptive negative 10/01/19 Unknown Valproic Acid 31.8 ug/mL (50-100) L 10/04/19 08:46 Ur Phencyclidine Scrn Presumptive negative 10/01/19 Unknown Ur Amphetamines Screen Presumptive negative 10/01/19 Unknown U Benzodiazepines Scrn Presumptive negative 10/01/19 Unknown Urine Cocaine Screen Presumptive negative 10/01/19 Unknown U Marijuana (THC) Screen Presumptive negative 10/01/19 Unknown Drugs of Abuse Note Disclamer 10/01/19 Unknown Plasma/Serum Alcohol < 0.01 % (0-0.07) 09/30/19 22:44 Coronavirus (PCR) Positive (Negative) A 10/02/19 Unknown Garcia/IV: Voiding Method External Female Catheter IV Catheter Type [Right Upper Peripheral IV arm] IV Catheter Type [Right INT / Saline Lock Antecubital] IV Catheter Type [Right Foot] INT / Saline Lock IV Catheter Type [Right Peripheral IV External Jugular] Active Medications - Current Medications Current Medications: Generic Name Dose Route Start Last Admin Trade Name Freq PRN Reason Stop Dose Admin Acetaminophen 650 mg 10/01/19 08:00 10/08/19 12:10 Tylenol PO 650 mg Q4H PRN Administration Pain MILD(1-3)/Fever >100.5/WRIGHT Amlodipine Besylate 10 mg 10/11/19 19:00 10/13/19 10:50 Amlodipine PO 10 mg QDAY ZACH Administration Lipase/Protease/Amylase 1 each 10/04/19 10:[address] 10,500 Unit FEEDTUBE PRN PRN For Clogged Feeding Tube Benztropine Mesylate 1 mg 10/11/19 15:00 10/13/19 11:07 Cogentin PO 1 mg BID ZACH Administration Clonidine HCl 0.2 mg 10/11/19 13:00 10/11/19 14:05 Catapres-Tts Patch TD 0.2 mg Mo ZACH Administration Enoxaparin Sodium 40 mg 10/04/19 22:00 10/13/19 10:50 Enoxaparin SUB-Q 40 mg BID ZACH Administration Hydralazine HCl 100 mg 10/11/19 14:00 10/13/19 13:38 Apresoline PO 100 mg TID ZACH Administration Hydralazine HCl 5 mg 10/11/19 16:44 Apresoline IV Q30MIN PRN Hypertension Dextrose/Sodium Chloride 1,000 mls @ 42 mls/hr 10/10/19 22:00 10/13/19 00:21 D5ns IV 75 mls/hr DIRECT ZACH Administration Insulin Human Lispro 0 unit 10/12/19 22:00 10/13/19 12:46 Humalog SUB-Q 3 unit ACHS ZACH Administration Protocol Miscellaneous Medication 325 mg 10/02/19 18:45 Paliperidone Palmitate [Invega Sustenna] IM Q3W ZACH Olanzapine 5 mg 10/12/19 22:00 10/13/19 00:03 Zyprexa PO 5 mg QHS ZACH Administration Ondansetron HCl 4 mg 10/01/19 08:00 Zofran IV Q8H PRN Nausea And Vomiting Prednisone 30 mg 10/12/19 10:00 10/13/19 10:50 Deltasone PO 10/14/19 23:59 30 mg QDAY ZACH Administration Prednisone 20 mg 10/15/19 10:00 Deltasone PO 10/17/19 23:59 QDAY ZACH Prednisone 10 mg 10/18/19 10:00 Deltasone PO 10/20/19 23:55 QDAY ZACH Simple Syrup 15 ml 10/04/19 10:34 Simple Syrup FEEDTUBE PRN PRN Hypoglycemia Simple Syrup 30 ml 10/04/19 10:34 Simple Syrup FEEDTUBE PRN PRN Hypoglycemia Sodium Bicarbonate 325 mg 10/04/19 10:34 Sodium Bicarbonate FEEDTUBE PRN PRN For Clogged Feeding Tube Sodium Chloride 10 ml 10/01/19 10:00 10/13/19 10:51 Sodium Chloride Flush Syringe 10 Ml IV 10 ml BID ZACH Administration Sodium Chloride 10 ml 10/01/19 07:50 Sodium Chloride Flush Syringe 10 Ml IV 10/14/19 07:49 PRN PRN LINE FLUSH Trazodone HCl 50 mg 10/01/19 22:00 10/12/19 23:49 Desyrel PO 50 mg QHS ZACH Administration Valproic Acid 1,500 mg 10/05/19 22:00 10/12/19 23:49 Depakene Liq PO 1,500 mg QHS ZACH Administration Nutrition/Malnutrition Assess - Dietary Evaluation Nutrition/Malnutrition Findings: Nutrition Notes Start: 10/04/19 09:33 Freq: Status: Active Protocol: Document 10/11/19 10:47 [facility] (Rec: 10/11/19 10:52 [facility] [email or web address] [id number]) Nutrition Notes Initial or Follow up Reassessment Other Pertinent Diagnosis COVID-19 (+), Schizoaffective disorder Current Diet Pureed Labs/Tests Reviewed Pertinent Medications D5NS at 75ml/hr Height 5 ft 6 in Weight 114.5 kg [place] Body Weight (kg) 59.09 BMI 40.7 Subjective/Other Information Pt pulled NG tube out yesterday. Per RN note, pt tolerated applesauce and sips of water last pm. [employer] evaluated pt on 10/05 and deemed pt unsafe for PO intake at that time. Pt may need PEG tube if unable to consume adequate PO to meet needs. Burn Absent Trauma Absent #1 Nutrition Diagnosis Inadequate oral intake Diagnosis Progress(for reassessment Continues documentation) Is patient on ventilator? No Is Patient Ambulatory and/or Out of Bed No REE-([facility]-confined to bed) 2112.012 Kcal/Kg value to use for calculation 14 Approximate Energy Requirements Using 1603 kcal/Kg Calculation Used for Recommendations Kcal/kg Additional Notes Pro needs 0.8-1g/kg adjBW: 69- 87g/day Fluid needs 1ml/kcal Nutrition Intervention Change Diet Order: Continue current diet order as tolerated; add consistent CHO modifier Goal #1 PO tolerance Follow-Up By: 10/13/19 Additional Comments F/U: PO tolerance, [employer] evaluation
[2019-10-13] MEDS: traZODone 50 MG TAB PO SCH (22:21)
[2019-10-13] MEDS: VALPROIC ACID 250 MG/5 ML ORAL LIQD PO SCH (22:21)
[2019-10-14 06:02] LABS: Hematocrit 32.6 % (30.3-42.9); Hemoglobin 10.9 gm/dl (10.1-14.3); Mean Corpuscular HGB Conc 34 % (30-34); Mean Corpuscular Volume 89 fl (79-97); Platelet Count 117 K/mm3 (140-440); Red Blood Count 3.67 M/mm3 (3.65-5.03); Red Cell Distribution Width 15.5 % (13.2-15.2)
[2019-10-14 06:05] LABS: BUN/Creatinine Ratio 25; Blood Urea Nitrogen 20 mg/dL (7-17); Calcium 8.4 mg/dL (8.4-10.2); Hemolysis Index 2
[2019-10-14] MEDS: INSULIN LISPRO 100 UNIT/ML VIAL 3 mL SUB-Q SCH ×4 (09:03→23:12)
[2019-10-14] MEDS: D5W/0.9% NACL 1,000 ML IV SCH (09:52)
[2019-10-14] MEDS: amLODIPine 10 MG TAB PO SCH (09:53)
[2019-10-14] MEDS: BENZTROPINE 1 MG TAB PO SCH ×2 (09:53→22:57)
[2019-10-14] MEDS: ENOXAPARIN 40 MG/0.4 ML INJ SUB-Q SCH ×2 (09:53→22:56)
[2019-10-14] MEDS: hydrALAZINE 100 MG TAB PO SCH ×2 (09:53→14:42)
[2019-10-14] MEDS: predniSONE 10 MG TAB PO SCH (09:53)
--- NOTE | 2019-10-14 12:35 | Progress Note ---
Assessment and Plan Cultures: Blood culture and urine culture negative COVID PCR positive Assessment: 54 years old female with history of paranoid schizophrenia, admitted on 09/30/2019 due to altered mental status and catatonia state: #Severe sepsis: Present on admission with low-grade fever, tachycardia, elevated leukocytosis, FAISAL, likely due to bilateral pneumonia. Resolved. #Bilateral pneumonia: COVID-19 pneumonia. Inflammatory markers are elevated, with a d-dimer > 10,000. CT negative for pulmonary embolism. Repeat d-dimer with much improvement. Renal function and LFTs improving, but given mild hypoxia and several days of positivity, unclear benefit with Remdesivir at this stage. Completed empiric CAP abx x 5 days. Completed steroids. #Acute hypoxemic respiratory failure: resolved, on room air. #Elevated LFTs: from COVID/rhabdo #FAISAL: from COVID. improved #Elevated CK: Likely secondary to rhabdomyolysis possible due to COVID-19 infection or catatonic state #Paranoid schizophrenia with catatonia: Per psych Recommendations: Overall, stable from ID standpoint check d-dimer every 2-3 days due to increased risk of VTE in patients with COVID-19 Konrad Moyer MD, FACP [facility] C: [phone] O: [phone] F: [phone] Subjective Date of service: 10/14/19 Principal diagnosis: Neurogenic Dysphagia Interval history: No fever. Remains on room air. Objective - Exam Narrative Exam: Physical Exam (reviewed in chart due to PPE conservation) Constitutional: limited due to PPE conservation strategy Head, Ears, Nose: limited due to PPE conservation strategy Eyes: limited due to PPE conservation strategy Neck: limited due to PPE conservation strategy Oral: limited due to PPE conservation strategy Cardiovascular: limited due to PPE conservation strategy Respiratory: limited due to PPE conservation strategy GI: limited due to PPE conservation strategy Musculoskeletal: limited due to PPE conservation strategy Skin: limited due to PPE conservation strategy Hem/Lymphatic: limited due to PPE conservation strategy Psych: limited due to PPE conservation strategy Neurological: limited due to PPE conservation strategy - Constitutional Vitals: Vital Signs Temp Pulse Resp BP Pulse Ox 98.1 F 94 H 19 103/52 99 10/14/19 09:50 10/14/19 09:50 10/14/19 09:50 10/14/19 09:50 10/14/19 09:50 Temperature -Last 24 Hours Temperature 98.1 F Temperature 97.3 F Temperature 98.5 F Temperature 98.6 F Temperature 97.6 F Temperature 98.5 F - Labs CBC & Chem 7: 10/14/19 04:28 10/14/19 04:28 Labs: Abnormal lab results 10/13/19 10/13/19 10/14/19 Range/Units 16:30 22:27 04:28 WBC 14.0 H (4.5-11.0) K/mm3 RDW 15.5 H (13.2-15.2) % Plt Count 117 L (140-440) K/mm3 BUN (7-17) mg/dL Glucose (65-100) mg/dL POC Glucose 249 H 200 H (70-105) 10/14/19 10/14/19 Range/Units 04:28 12:23 WBC (4.5-11.0) K/mm3 RDW (13.2-15.2) % Plt Count (140-440) K/mm3 BUN 20 H (7-17) mg/dL Glucose 164 H (65-100) mg/dL POC Glucose 177 H (70-105)
--- NOTE | 2019-10-14 15:52 | Progress Note ---
<BISMARKBLANCA KellyFabián - Last Filed: 10/14/19 15:58> Assessment and Plan - Patient Problems (1) Severe sepsis Current Visit: Yes Status: Resolved Plan to address problem: - Presented with low-grade fever, tachycardia, leukocytosis, FAISAL, and bilateral pneumonia - Likely source is bilateral pneumonia secondary to COVID-19 - IV antibiotics completed - Covid protocol initiated (2) Pneumonia due to COVID-19 virus Current Visit: Yes Status: Acute Plan to address problem: - COVID protocol initiated - IV azithromycin and Rocephin completed - 09/30 COVID PCR positive - Trend LDH, CRP, procalcitonin, d-dimer, ferritin - Droplet /contact precautions - Supplemental oxygenation as needed - Infectious disease consulted - Pulmonary hygiene - In setting of elevated D-Dimer, CTA Chest was ordered which was negative for pulmonary embolism - Anticoagulation per COVID protocol - Cannot initiate Remdesivir in setting of elevated LFTs - IV solumedrel changed to PO prednisone and started on taper (3) Paranoid schizophrenia Current Visit: Yes Status: Chronic Plan to address problem: -History of present schizophrenia -10/10 Psych reconsulted -Depakote and Haldol -Sleep hygiene -Reorientation as needed (4) Leukocytosis Current Visit: Yes Status: Acute Plan to address problem: - Admit WBC 13.8 - Trend CBC - Maybe secondary to possible PNA or from dehydration - IV abx completed - Also on steroids for COVID pneumonia - Now trending down (5) Hypertension Current Visit: Yes Status: Chronic Plan to address problem: - BP monitoring per protocol - PRN hydralizine - Clonidine TD and hydralazine PO (6) DVT prophylaxis Current Visit: Yes Status: Acute Plan to address problem: - SCDs to BLE while in bed - Lovenox subq twice daily per COVID protocol History Interval history: This is a 54-year-old female with paranoid schizophrenia that presents to the emergency department on 09/29 for altered mental status in a catatonic state. Previous hospitalizations reviewed and only notes a history of paranoid schizophrenia. Patient may be a resident of [place]. Patient is currently nonverbal and HPI is received from ER documentation. Work-up in the emergency department included a CT abdomen pelvis which shows patchy peripheral groundglass opacities bilateral lungs which is consistent with either viral or atypical pneumonia, positive anterior lateral fat hernia in the left mid abdomen and a large uterine fibroids however her CXR showed no acute pulmonary or pleural abnormalities. She was found to have acute kidney injury with a creatinine of 1.4/BUN 33 as baseline from previous records seems to be 0.7, rhabdomyolysis with a creatinine kinase of 33,481, leukocytosis with a WBC of 13.8, thrombocytopenia with platelets at 97. She has COVID pneumonia with IV antibiotics, rhabdomyolysis, and FAISAL. Infectious disease, psych, and neurology have been consulted. Neurology does not suspect NMS at this time. Psych has signed off at this time due to ongoing acute medical processes. PT/ST consulted for evaluation but unable to be performed as patient will not follow verbal commands. She will open her eyes to verbal stimuli and intermittently follow commands. Patient remains nonverbal and only groans/moans to painful stimuli. Currently on RA. Her caregiver has agreed to bring pt home with HHPT. * 10/12: continue supportive care, awaiting placement with HHPT * 10/11: Continue care, psych reconsulted but signed off with some medication adjustments * 10/10: pureed diet * 10/07: continue care * 10/06: GI consult for peg * 10/05: continue care * Discussed with primary campground manager patient was normally verbal but sometimes goes into a catatonic state. Phone number for this is [phone] * 10/04: PT consulted. Psych signed off. Continue treatment * 10/03: continue treatment * 10/02: Change fluids to NS 1/2 AT 125CC/hr. Rhabdomylysis improving, insert NGT and start tube feeds. Psych input noted. Continue management for COVID 19. ID consulted. No new fever. CTA chest and CTH obtained which were both negative * 10/01: COVID PCR Positive Hospitalist Physical - Constitutional Vitals: Temp Pulse Resp BP Pulse Ox 98.0 F 92 H 18 128/71 97 10/14/19 12:13 10/14/19 12:13 10/14/19 12:13 10/14/19 12:13 10/14/19 12:13 General appearance: Present: no acute distress, obese - EENT Eyes: Present: PERRL ENT: hearing intact - Neck Neck: Present: normal ROM - Respiratory Respiratory effort: normal Respiratory: bilateral: diminished (2/2 girth) - Cardiovascular Rhythm: regular Heart Sounds: Present: S1 & S2. Absent: systolic murmur, diastolic murmur - Extremities Extremities: no ischemia, pulses intact, pulses symmetrical, No edema, normal temperature, normal color, Full ROM Peripheral Pulses: within normal limits - Abdominal General gastrointestinal: soft, non-tender, non-distended, normal bowel sounds - Integumentary Integumentary: Present: clear, warm, dry - Psychiatric Psychiatric: other (intermittently responds to verbal stimuli) - Neurologic Neurologic: no focal deficits - Allied Health Allied health notes reviewed: nursing, social work, case management Results - Labs CBC & Chem 7: 10/14/19 04:28 10/14/19 04:28 Labs: Laboratory Last Values WBC 14.0 K/mm3 (4.5-11.0) H 10/14/19 04:28 RBC 3.67 M/mm3 (3.65-5.03) 10/14/19 04:28 Hgb 10.9 gm/dl (10.1-14.3) 10/14/19 04:28 Hct 32.6 % (30.3-42.9) 10/14/19 04:28 MCV 89 fl (79-97) 10/14/19 04:28 MCH 30 pg (28-32) 10/14/19 04:28 MCHC 34 % (30-34) 10/14/19 04:28 RDW 15.5 % (13.2-15.2) H 10/14/19 04:28 Plt Count 117 K/mm3 (140-440) L 10/14/19 04:28 Lymph % (Auto) 10.6 % (13.4-35.0) L 09/30/19 22:44 [place] % (Auto) 9.8 % (0.0-7.3) H 09/30/19 22:44 Eos % (Auto) 0.0 % (0.0-4.3) 09/30/19 22:44 Baso % (Auto) 1.2 % (0.0-1.8) 09/30/19 22:44 Lymph # 1.5 K/mm3 (1.2-5.4) 09/30/19 22:44 [place] # 1.3 K/mm3 (0.0-0.8) H 09/30/19 22:44 Eos # 0.0 K/mm3 (0.0-0.4) 09/30/19 22:44 Baso # 0.2 K/mm3 (0.0-0.1) H 09/30/19 22:44 Add Manual Diff Complete 10/08/19 04:50 Total Counted 100 10/08/19 04:50 Seg Neutrophils % 78.4 % (40.0-70.0) H 09/30/19 22:44 Seg Neuts % (Manual) 87.0 % (40.0-70.0) H 10/08/19 04:50 Band Neutrophils % 4.0 % 10/08/19 04:50 Lymphocytes % (Manual) 2.0 % (13.4-35.0) L 10/08/19 04:50 Reactive Lymphs % (Man) 0 % 10/08/19 04:50 Monocytes % (Manual) 6.0 % (0.0-7.3) 10/08/19 04:50 Eosinophils % (Manual) 0 % (0.0-4.3) 10/08/19 04:50 Basophils % (Manual) 0 % (0.0-1.8) 10/08/19 04:50 Metamyelocytes % 1.0 % 10/08/19 04:50 Myelocytes % 0 % 10/08/19 04:50 Promyelocytes % 0 % 10/08/19 04:50 Blast Cells % 0 % 10/08/19 04:50 Nucleated RBC % 1.0 % (0.0-0.9) H 10/08/19 04:50 Seg Neutrophils # 10.8 K/mm3 (1.8-7.7) H 09/30/19 22:44 Seg Neutrophils # Man 14.4 K/mm3 (1.8-7.7) H 10/08/19 04:50 Band Neutrophils # 0.7 K/mm3 10/08/19 04:50 Lymphocytes # (Manual) 0.3 K/mm3 (1.2-5.4) L 10/08/19 04:50 Abs React Lymphs (Man) 0.0 K/mm3 10/08/19 04:50 Monocytes # (Manual) 1.0 K/mm3 (0.0-0.8) H 10/08/19 04:50 Eosinophils # (Manual) 0.0 K/mm3 (0.0-0.4) 10/08/19 04:50 Basophils # (Manual) 0.0 K/mm3 (0.0-0.1) 10/08/19 04:50 Metamyelocytes # 0.2 K/mm3 10/08/19 04:50 Myelocytes # 0.0 K/mm3 10/08/19 04:50 Promyelocytes # 0.0 K/mm3 10/08/19 04:50 Blast Cells # 0.0 K/mm3 10/08/19 04:50 WBC Morphology Not Reportable 10/08/19 04:50 Hypersegmented Neuts Not Reportable 10/08/19 04:50 Hyposegmented Neuts Not Reportable 10/08/19 04:50 Hypogranular Neuts Not Reportable 10/08/19 04:50 Smudge Cells Not Reportable 10/08/19 04:50 Toxic Granulation Not Reportable 10/08/19 04:50 Toxic Vacuolation Not Reportable 10/08/19 04:50 Dohle Bodies Not Reportable 10/08/19 04:50 Pelger-Huet Anomaly Not Reportable 10/08/19 04:50 Bal Rods Not Reportable 10/08/19 04:50 Platelet Estimate Consistent w auto 10/08/19 04:50 Clumped Platelets Not Reportable 10/08/19 04:50 Plt Clumps, EDTA Not Reportable 10/08/19 04:50 Large Platelets Not Reportable 10/08/19 04:50 Giant Platelets Not Reportable 10/08/19 04:50 Platelet Satelliting Not Reportable 10/08/19 04:50 Plt Morphology Comment Not Reportable 10/08/19 04:50 RBC Morphology Not Reportable 10/08/19 04:50 Dimorphic RBCs Not Reportable 10/08/19 04:50 Polychromasia Not Reportable 10/08/19 04:50 Hypochromasia Not Reportable 10/08/19 04:50 Poikilocytosis Not Reportable 10/08/19 04:50 Anisocytosis Not Reportable 10/08/19 04:50 Microcytosis Not Reportable 10/08/19 04:50 Macrocytosis 1+ 10/08/19 04:50 Spherocytes Not Reportable 10/08/19 04:50 Pappenheimer Bodies Not Reportable 10/08/19 04:50 Sickle Cells Not Reportable 10/08/19 04:50 Target Cells 1+ 10/08/19 04:50 Tear Drop Cells Not Reportable 10/08/19 04:50 Ovalocytes Not Reportable 10/08/19 04:50 Helmet Cells Not Reportable 10/08/19 04:50 [place] Bodies Not Reportable 10/08/19 04:50 [place] Rings Not Reportable 10/08/19 04:50 [place] Cells Not Reportable 10/08/19 04:50 Bite Cells Not Reportable 10/08/19 04:50 Crenated Cell Not Reportable 10/08/19 04:50 Elliptocytes Not Reportable 10/08/19 04:50 Acanthocytes (Spur) Not Reportable 10/08/19 04:50 Rouleaux Not Reportable 10/08/19 04:50 Hemoglobin C Crystals Not Reportable 10/08/19 04:50 Schistocytes Not Reportable 10/08/19 04:50 Malaria parasites Not Reportable 10/08/19 04:50 Willie Bodies Not Reportable 10/08/19 04:50 Hem Pathologist Commnt No 10/08/19 04:50 PT 14.9 Sec. (12.2-14.9) 10/07/19 15:23 INR 1.15 (0.87-1.13) H 10/07/19 15:23 APTT 29.5 Sec. (24.2-36.6) 10/07/19 15:23 D-Dimer 390.46 ng/mlDDU (0-234) H 10/09/19 09:32 Sodium 141 mmol/L (137-145) 10/14/19 04:28 Potassium 4.0 mmol/L (3.6-5.0) 10/14/19 04:28 Chloride 104.8 mmol/L (98-107) 10/14/19 04:28 Carbon Dioxide 24 mmol/L (22-30) 10/14/19 04:28 Anion Gap 16 mmol/L 10/14/19 04:28 BUN 20 mg/dL (7-17) H 10/14/19 04:28 Creatinine 0.8 mg/dL (0.6-1.2) 10/14/19 04:28 Estimated GFR > 60 ml/min 10/14/19 04:28 BUN/Creatinine Ratio 25 % 10/14/19 04:28 Glucose 164 mg/dL (65-100) H 10/14/19 04:28 POC Glucose 177 (70-105) H 10/14/19 12:23 Lactic Acid 1.30 mmol/L (0.7-2.0) 09/30/19 22:44 Calcium 8.4 mg/dL (8.4-10.2) 10/14/19 04:28 Ferritin 991.6 ng/mL (10.0-200.0) H 10/09/19 09:32 Total Bilirubin 0.40 mg/dL (0.1-1.2) 10/05/19 08:32 Direct Bilirubin 0.3 mg/dL (0-0.2) H 09/30/19 22:44 Indirect Bilirubin 0.2 mg/dL 09/30/19 22:44 AST 149 units/L (5-40) H 10/05/19 08:32 ALT 96 units/L (7-56) H 10/05/19 08:32 Alkaline Phosphatase 40 units/L (35-129) 10/05/19 08:32 Lactate Dehydrogenase 716 units/L (91-180) H 10/09/19 09:32 Total Creatine Kinase 934 units/L (30-135) H 10/05/19 08:32 C-Reactive Protein 0.80 mg/dL (0.00-1.30) 10/09/19 09:32 Total Protein 6.1 g/dL (6.3-8.2) L 10/05/19 08:32 Albumin 2.5 g/dL (3.9-5) L 10/05/19 08:32 Albumin/Globulin Ratio 0.7 % 10/05/19 08:32 Procalcitonin 0.71 ng/mL (<0.15) 10/05/19 08:32 Urine Color [place] (Yellow) 10/01/19 Unknown Urine Turbidity Slightly-cloudy (Clear) 10/01/19 Unknown Urine pH 5.0 (5.0-7.0) 10/01/19 Unknown Ur Specific [place] 1.026 (1.003-1.030) 10/01/19 Unknown Urine Protein 100 mg/dl mg/dL (Negative) 10/01/19 Unknown Urine Glucose (UA) Neg mg/dL (Negative) 10/01/19 Unknown Urine Ketones Tr mg/dL (Negative) 10/01/19 Unknown Urine Blood Lg (Negative) 10/01/19 Unknown Urine Nitrite Neg (Negative) 10/01/19 Unknown Urine Bilirubin Neg (Negative) 10/01/19 Unknown Urine Urobilinogen 2.0 mg/dL (<2.0) 10/01/19 Unknown Ur Leukocyte Esterase Neg (Negative) 10/01/19 Unknown Urine WBC (Auto) 17.0 /HPF (0.0-6.0) H 10/01/19 Unknown Urine RBC (Auto) 1.0 /HPF (0.0-6.0) 10/01/19 Unknown U Epithel Cells (Auto) 4.0 /HPF (0-13.0) 10/01/19 Unknown Urine Mucus 2+ /HPF 10/01/19 Unknown Salicylates < 0.3 mg/dL (2.8-20.0) L 09/30/19 22:44 Urine Opiates Screen Presumptive negative 10/01/19 Unknown Urine Methadone Screen Presumptive negative 10/01/19 Unknown Acetaminophen 5.0 ug/mL (10.0-30.0) L 09/30/19 22:44 Ur Barbiturates Screen Presumptive negative 10/01/19 Unknown Valproic Acid 31.8 ug/mL (50-100) L 10/04/19 08:46 Ur Phencyclidine Scrn Presumptive negative 10/01/19 Unknown Ur Amphetamines Screen Presumptive negative 10/01/19 Unknown U Benzodiazepines Scrn Presumptive negative 10/01/19 Unknown Urine Cocaine Screen Presumptive negative 10/01/19 Unknown U Marijuana (THC) Screen Presumptive negative 10/01/19 Unknown Drugs of Abuse Note Disclamer 10/01/19 Unknown Plasma/Serum Alcohol < 0.01 % (0-0.07) 09/30/19 22:44 Coronavirus (PCR) Positive (Negative) A 10/02/19 Unknown Garcia/IV: Voiding Method External Female Catheter IV Catheter Type [Right Upper Peripheral IV arm] IV Catheter Type [Right INT / Saline Lock Antecubital] IV Catheter Type [Right Foot] INT / Saline Lock IV Catheter Type [Right Peripheral IV External Jugular] Active Medications - Current Medications Current Medications: Generic Name Dose Route Start Last Admin Trade Name Freq PRN Reason Stop Dose Admin Acetaminophen 650 mg 10/01/19 08:00 10/08/19 12:10 Tylenol PO 650 mg Q4H PRN Administration Pain MILD(1-3)/Fever >100.5/WRIGHT Amlodipine Besylate 10 mg 10/11/19 19:00 10/14/19 09:53 Amlodipine PO Not Given QDAY ZACH Lipase/Protease/Amylase 1 each 10/04/19 10:34 Pancrebobby Martinez 10,500 Unit FEEDTUBE PRN PRN For Clogged Feeding Tube Benztropine Mesylate 1 mg 10/11/19 15:00 10/14/19 09:53 Cogentin PO 1 mg BID ZACH Administration Clonidine HCl 0.2 mg 10/11/19 13:00 10/11/19 14:05 Catapres-Tts Patch TD 0.2 mg Mo ZACH Administration Enoxaparin Sodium 40 mg 10/04/19 22:00 10/14/19 09:53 Enoxaparin SUB-Q 40 mg BID ZACH Administration Hydralazine HCl 100 mg 10/11/19 14:00 10/14/19 14:42 Apresoline PO 100 mg TID ZACH Administration Hydralazine HCl 5 mg 10/11/19 16:44 Apresoline IV Q30MIN PRN Hypertension Insulin Human Lispro 0 unit 10/12/19 22:00 10/14/19 13:21 Humalog SUB-Q 2 unit ACHS ZACH Administration Protocol Miscellaneous Medication 325 mg 10/02/19 18:45 Paliperidone Palmitate [Invega Sustenna] IM Q3W ZACH Olanzapine 5 mg 10/12/19 22:00 10/13/19 22:22 Zyprexa PO 5 mg QHS ZACH Administration Ondansetron HCl 4 mg 10/01/19 08:00 Zofran IV Q8H PRN Nausea And Vomiting Prednisone 30 mg 10/12/19 10:00 10/14/19 09:53 Deltasone PO 10/14/19 23:59 30 mg QDAY ZACH Administration Prednisone 20 mg 10/15/19 10:00 Deltasone PO 10/17/19 23:59 QDAY ZACH Prednisone 10 mg 10/18/19 10:00 Deltasone PO 10/20/19 23:55 QDAY ZACH Simple Syrup 15 ml 10/04/19 10:34 Simple Syrup FEEDTUBE PRN PRN Hypoglycemia Simple Syrup 30 ml 10/04/19 10:34 Simple Syrup FEEDTUBE PRN PRN Hypoglycemia Sodium Bicarbonate 325 mg 10/04/19 10:34 Sodium Bicarbonate FEEDTUBE PRN PRN For Clogged Feeding Tube Sodium Chloride 10 ml 10/01/19 10:00 10/14/19 09:53 Sodium Chloride Flush Syringe 10 Ml IV 10 ml BID ZACH Administration Trazodone HCl 50 mg 10/01/19 22:00 10/13/19 22:21 Desyrel PO 50 mg QHS ZACH Administration Valproic Acid 1,500 mg 10/05/19 22:00 10/13/19 22:21 Depakene Liq PO 1,500 mg QHS ZACH Administration Nutrition/Malnutrition Assess - Dietary Evaluation Nutrition/Malnutrition Findings: Nutrition Notes Start: 10/04/19 09:33 Freq: Status: Active Protocol: Document 10/13/19 15:29 LM (Rec: 10/13/19 15:35 LM [id number]) Nutrition Notes Initial or Follow up Reassessment Current Diagnosis Acute Kidney Injury,Sepsis Other Pertinent Diagnosis COVID-19 (+), Schizoaffective disorder Current Diet Pureed Labs/Tests POC glu 203 Pertinent Medications Humalog Height 5 ft 6 in Weight 114.3 kg [place] Body Weight (kg) 59.09 BMI 40.6 Subjective/Other Information Pt with good intakes in chart. Pt ate 75% of breakfast today . Pt not getting PEG. 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 No Is Patient Ambulatory and/or Out of Bed No REE-([facility]-confined to bed) 5826.612 Kcal/Kg value to use for calculation 14 Approximate Energy Requirements Using 1600 kcal/Kg Calculation Used for Recommendations Kcal/kg Additional Notes Pro needs 0.8-1g/kg adjBW: 69- 87g/day Fluid needs 1ml/kcal Nutrition Intervention Change Diet Order: Continue current diet order as tolerated; add consistent CHO modifier Goal #1 Meet at least 75% of energy and protein needs Anticipated Discharge Needs: Unable to determine at this time Follow-Up By: 10/19/19 Additional Comments F/U for stable intakes <HERIBERTO CONTE - Last Filed: 10/14/19 17:00> Assessment and Plan Assessment and plan: I saw and evaluated the patient. I agree with the findings and the plan of care as documented in the Nurse Practitioner's~note, with the following corrections and additions. Hospitalist Physical - Constitutional Vitals: Temp Pulse Resp BP Pulse Ox 98.0 F 92 H 18 128/71 97 10/14/19 12:13 10/14/19 12:13 10/14/19 12:13 10/14/19 12:13 10/14/19 12:13 Results - Labs CBC & Chem 7: 10/14/19 04:28 10/14/19 04:28 Labs: Laboratory Last Values WBC 14.0 K/mm3 (4.5-11.0) H 10/14/19 04:28 RBC 3.67 M/mm3 (3.65-5.03) 10/14/19 04:28 Hgb 10.9 gm/dl (10.1-14.3) 10/14/19 04:28 Hct 32.6 % (30.3-42.9) 10/14/19 04:28 MCV 89 fl (79-97) 10/14/19 04:28 MCH 30 pg (28-32) 10/14/19 04:28 MCHC 34 % (30-34) 10/14/19 04:28 RDW 15.5 % (13.2-15.2) H 10/14/19 04:28 Plt Count 117 K/mm3 (140-440) L 10/14/19 04:28 Lymph % (Auto) 10.6 % (13.4-35.0) L 09/30/19 22:44 [place] % (Auto) 9.8 % (0.0-7.3) H 09/30/19 22:44 Eos % (Auto) 0.0 % (0.0-4.3) 09/30/19 22:44 Baso % (Auto) 1.2 % (0.0-1.8) 09/30/19 22:44 Lymph # 1.5 K/mm3 (1.2-5.4) 09/30/19 22:44 [place] # 1.3 K/mm3 (0.0-0.8) H 09/30/19 22:44 Eos # 0.0 K/mm3 (0.0-0.4) 09/30/19 22:44 Baso # 0.2 K/mm3 (0.0-0.1) H 09/30/19 22:44 Add Manual Diff Complete 10/08/19 04:50 Total Counted 100 10/08/19 04:50 Seg Neutrophils % 78.4 % (40.0-70.0) H 09/30/19 22:44 Seg Neuts % (Manual) 87.0 % (40.0-70.0) H 10/08/19 04:50 Band Neutrophils % 4.0 % 10/08/19 04:50 Lymphocytes % (Manual) 2.0 % (13.4-35.0) L 10/08/19 04:50 Reactive Lymphs % (Man) 0 % 10/08/19 04:50 Monocytes % (Manual) 6.0 % (0.0-7.3) 10/08/19 04:50 Eosinophils % (Manual) 0 % (0.0-4.3) 10/08/19 04:50 Basophils % (Manual) 0 % (0.0-1.8) 10/08/19 04:50 Metamyelocytes % 1.0 % 10/08/19 04:50 Myelocytes % 0 % 10/08/19 04:50 Promyelocytes % 0 % 10/08/19 04:50 Blast Cells % 0 % 10/08/19 04:50 Nucleated RBC % 1.0 % (0.0-0.9) H 10/08/19 04:50 Seg Neutrophils # 10.8 K/mm3 (1.8-7.7) H 09/30/19 22:44 Seg Neutrophils # Man 14.4 K/mm3 (1.8-7.7) H 10/08/19 04:50 Band Neutrophils # 0.7 K/mm3 10/08/19 04:50 Lymphocytes # (Manual) 0.3 K/mm3 (1.2-5.4) L 10/08/19 04:50 Abs React Lymphs (Man) 0.0 K/mm3 10/08/19 04:50 Monocytes # (Manual) 1.0 K/mm3 (0.0-0.8) H 10/08/19 04:50 Eosinophils # (Manual) 0.0 K/mm3 (0.0-0.4) 10/08/19 04:50 Basophils # (Manual) 0.0 K/mm3 (0.0-0.1) 10/08/19 04:50 Metamyelocytes # 0.2 K/mm3 10/08/19 04:50 Myelocytes # 0.0 K/mm3 10/08/19 04:50 Promyelocytes # 0.0 K/mm3 10/08/19 04:50 Blast Cells # 0.0 K/mm3 10/08/19 04:50 WBC Morphology Not Reportable 10/08/19 04:50 Hypersegmented Neuts Not Reportable 10/08/19 04:50 Hyposegmented Neuts Not Reportable 10/08/19 04:50 Hypogranular Neuts Not Reportable 10/08/19 04:50 Smudge Cells Not Reportable 10/08/19 04:50 Toxic Granulation Not Reportable 10/08/19 04:50 Toxic Vacuolation Not Reportable 10/08/19 04:50 Dohle Bodies Not Reportable 10/08/19 04:50 Pelger-Huet Anomaly Not Reportable 10/08/19 04:50 Bal Rods Not Reportable 10/08/19 04:50 Platelet Estimate Consistent w auto 10/08/19 04:50 Clumped Platelets Not Reportable 10/08/19 04:50 Plt Clumps, EDTA Not Reportable 10/08/19 04:50 Large Platelets Not Reportable 10/08/19 04:50 Giant Platelets Not Reportable 10/08/19 04:50 Platelet Satelliting Not Reportable 10/08/19 04:50 Plt Morphology Comment Not Reportable 10/08/19 04:50 RBC Morphology Not Reportable 10/08/19 04:50 Dimorphic RBCs Not Reportable 10/08/19 04:50 Polychromasia Not Reportable 10/08/19 04:50 Hypochromasia Not Reportable 10/08/19 04:50 Poikilocytosis Not Reportable 10/08/19 04:50 Anisocytosis Not Reportable 10/08/19 04:50 Microcytosis Not Reportable 10/08/19 04:50 Macrocytosis 1+ 10/08/19 04:50 Spherocytes Not Reportable 10/08/19 04:50 Pappenheimer Bodies Not Reportable 10/08/19 04:50 Sickle Cells Not Reportable 10/08/19 04:50 Target Cells 1+ 10/08/19 04:50 Tear Drop Cells Not Reportable 10/08/19 04:50 Ovalocytes Not Reportable 10/08/19 04:50 Helmet Cells Not Reportable 10/08/19 04:50 [place] Bodies Not Reportable 10/08/19 04:50 [place] Rings Not Reportable 10/08/19 04:50 [place] Cells Not Reportable 10/08/19 04:50 Bite Cells Not Reportable 10/08/19 04:50 Crenated Cell Not Reportable 10/08/19 04:50 Elliptocytes Not Reportable 10/08/19 04:50 Acanthocytes (Spur) Not Reportable 10/08/19 04:50 Rouleaux Not Reportable 10/08/19 04:50 Hemoglobin C Crystals Not Reportable 10/08/19 04:50 Schistocytes Not Reportable 10/08/19 04:50 Malaria parasites Not Reportable 10/08/19 04:50 Willie Bodies Not Reportable 10/08/19 04:50 Hem Pathologist Commnt No 10/08/19 04:50 PT 14.9 Sec. (12.2-14.9) 10/07/19 15:23 INR 1.15 (0.87-1.13) H 10/07/19 15:23 APTT 29.5 Sec. (24.2-36.6) 10/07/19 15:23 D-Dimer 390.46 ng/mlDDU (0-234) H 10/09/19 09:32 Sodium 141 mmol/L (137-145) 10/14/19 04:28 Potassium 4.0 mmol/L (3.6-5.0) 10/14/19 04:28 Chloride 104.8 mmol/L (98-107) 10/14/19 04:28 Carbon Dioxide 24 mmol/L (22-30) 10/14/19 04:28 Anion Gap 16 mmol/L 10/14/19 04:28 BUN 20 mg/dL (7-17) H 10/14/19 04:28 Creatinine 0.8 mg/dL (0.6-1.2) 10/14/19 04:28 Estimated GFR > 60 ml/min 10/14/19 04:28 BUN/Creatinine Ratio 25 % 10/14/19 04:28 Glucose 164 mg/dL (65-100) H 10/14/19 04:28 POC Glucose 177 (70-105) H 10/14/19 12:23 Lactic Acid 1.30 mmol/L (0.7-2.0) 09/30/19 22:44 Calcium 8.4 mg/dL (8.4-10.2) 10/14/19 04:28 Ferritin 991.6 ng/mL (10.0-200.0) H 10/09/19 09:32 Total Bilirubin 0.40 mg/dL (0.1-1.2) 10/05/19 08:32 Direct Bilirubin 0.3 mg/dL (0-0.2) H 09/30/19 22:44 Indirect Bilirubin 0.2 mg/dL 09/30/19 22:44 AST 149 units/L (5-40) H 10/05/19 08:32 ALT 96 units/L (7-56) H 10/05/19 08:32 Alkaline Phosphatase 40 units/L (35-129) 10/05/19 08:32 Lactate Dehydrogenase 716 units/L (91-180) H 10/09/19 09:32 Total Creatine Kinase 934 units/L (30-135) H 10/05/19 08:32 C-Reactive Protein 0.80 mg/dL (0.00-1.30) 10/09/19 09:32 Total Protein 6.1 g/dL (6.3-8.2) L 10/05/19 08:32 Albumin 2.5 g/dL (3.9-5) L 10/05/19 08:32 Albumin/Globulin Ratio 0.7 % 10/05/19 08:32 Procalcitonin 0.71 ng/mL (<0.15) 10/05/19 08:32 Urine Color [place] (Yellow) 10/01/19 Unknown Urine Turbidity Slightly-cloudy (Clear) 10/01/19 Unknown Urine pH 5.0 (5.0-7.0) 10/01/19 Unknown Ur Specific [place] 1.026 (1.003-1.030) 10/01/19 Unknown Urine Protein 100 mg/dl mg/dL (Negative) 10/01/19 Unknown Urine Glucose (UA) Neg mg/dL (Negative) 10/01/19 Unknown Urine Ketones Tr mg/dL (Negative) 10/01/19 Unknown Urine Blood Lg (Negative) 10/01/19 Unknown Urine Nitrite Neg (Negative) 10/01/19 Unknown Urine Bilirubin Neg (Negative) 10/01/19 Unknown Urine Urobilinogen 2.0 mg/dL (<2.0) 10/01/19 Unknown Ur Leukocyte Esterase Neg (Negative) 10/01/19 Unknown Urine WBC (Auto) 17.0 /HPF (0.0-6.0) H 10/01/19 Unknown Urine RBC (Auto) 1.0 /HPF (0.0-6.0) 10/01/19 Unknown U Epithel Cells (Auto) 4.0 /HPF (0-13.0) 10/01/19 Unknown Urine Mucus 2+ /HPF 10/01/19 Unknown Salicylates < 0.3 mg/dL (2.8-20.0) L 09/30/19 22:44 Urine Opiates Screen Presumptive negative 10/01/19 Unknown Urine Methadone Screen Presumptive negative 10/01/19 Unknown Acetaminophen 5.0 ug/mL (10.0-30.0) L 09/30/19 22:44 Ur Barbiturates Screen Presumptive negative 10/01/19 Unknown Valproic Acid 31.8 ug/mL (50-100) L 10/04/19 08:46 Ur Phencyclidine Scrn Presumptive negative 10/01/19 Unknown Ur Amphetamines Screen Presumptive negative 10/01/19 Unknown U Benzodiazepines Scrn Presumptive negative 10/01/19 Unknown Urine Cocaine Screen Presumptive negative 10/01/19 Unknown U Marijuana (THC) Screen Presumptive negative 10/01/19 Unknown Drugs of Abuse Note Disclamer 10/01/19 Unknown Plasma/Serum Alcohol < 0.01 % (0-0.07) 09/30/19 22:44 Coronavirus (PCR) Positive (Negative) A 10/02/19 Unknown Garcia/IV: Voiding Method External Female Catheter IV Catheter Type [Right Upper Peripheral IV arm] IV Catheter Type [Right INT / Saline Lock Antecubital] IV Catheter Type [Right Foot] INT / Saline Lock IV Catheter Type [Right Peripheral IV External Jugular] Active Medications - Current Medications Current Medications: Generic Name Dose Route Start Last Admin Trade Name Freq PRN Reason Stop Dose Admin Acetaminophen 650 mg 10/01/19 08:00 10/08/19 12:10 Tylenol PO 650 mg Q4H PRN Administration Pain MILD(1-3)/Fever >100.5/WRIGHT Amlodipine Besylate 10 mg 10/11/19 19:00 10/14/19 09:53 Amlodipine PO Not Given QDAY ZACH Lipase/Protease/Amylase 1 each 10/04/19 10:34 Pancreazbubba Martinez 10,500 Unit FEEDTUBE PRN PRN For Clogged Feeding Tube Benztropine Mesylate 1 mg 10/11/19 15:00 10/14/19 09:53 Cogentin PO 1 mg BID ZACH Administration Clonidine HCl 0.2 mg 10/11/19 13:00 10/11/19 14:05 Catapres-Tts Patch TD 0.2 mg Mo ZACH Administration Enoxaparin Sodium 40 mg 10/04/19 22:00 10/14/19 09:53 Enoxaparin SUB-Q 40 mg BID ZACH Administration Hydralazine HCl 5 mg 10/11/19 16:44 Apresoline IV Q30MIN PRN Hypertension Hydralazine HCl 75 mg 10/14/19 15:55 Apresoline PO TID ZACH Insulin Human Lispro 0 unit 10/12/19 22:00 10/14/19 13:21 Humalog SUB-Q 2 unit ACHS ZACH Administration Protocol Miscellaneous Medication 325 mg 10/02/19 18:45 Paliperidone Palmitate [Invega Sustenna] IM Q3W ZACH Olanzapine 5 mg 10/12/19 22:00 10/13/19 22:22 Zyprexa PO 5 mg QHS ZACH Administration Ondansetron HCl 4 mg 10/01/19 08:00 Zofran IV Q8H PRN Nausea And Vomiting Prednisone 30 mg 10/12/19 10:00 10/14/19 09:53 Deltasone PO 10/14/19 23:59 30 mg QDAY ZACH Administration Prednisone 20 mg 10/15/19 10:00 Deltasone PO 10/17/19 23:59 QDAY ZACH Prednisone 10 mg 10/18/19 10:00 Deltasone PO 10/20/19 23:55 QDAY ZACH Simple Syrup 15 ml 10/04/19 10:34 Simple Syrup FEEDTUBE PRN PRN Hypoglycemia Simple Syrup 30 ml 10/04/19 10:34 Simple Syrup FEEDTUBE PRN PRN Hypoglycemia Sodium Bicarbonate 325 mg 10/04/19 10:34 Sodium Bicarbonate FEEDTUBE PRN PRN For Clogged Feeding Tube Sodium Chloride 10 ml 10/01/19 10:00 10/14/19 09:53 Sodium Chloride Flush Syringe 10 Ml IV 10 ml BID ZACH Administration Trazodone HCl 50 mg 10/01/19 22:00 10/13/19 22:21 Desyrel PO 50 mg QHS ZACH Administration Valproic Acid 1,500 mg 10/05/19 22:00 10/13/19 22:21 Depakene Liq PO 1,500 mg QHS ZACH Administration Nutrition/Malnutrition Assess - Dietary Evaluation Nutrition/Malnutrition Findings: Nutrition Notes Start: 10/04/19 09:33 Freq: Status: Active Protocol: Document 10/13/19 15:29 LM (Rec: 10/13/19 15:35 LM [id number]) Nutrition Notes Initial or Follow up Reassessment Current Diagnosis Acute Kidney Injury,Sepsis Other Pertinent Diagnosis COVID-19 (+), Schizoaffective disorder Current Diet Pureed Labs/Tests POC glu 203 Pertinent Medications Humalog Height 5 ft 6 in Weight 114.3 kg [place] Body Weight (kg) 59.09 BMI 40.6 Subjective/Other Information Pt with good intakes in chart. Pt ate 75% of breakfast today . Pt not getting PEG. 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 No Is Patient Ambulatory and/or Out of Bed No REE-([facility]-confined to bed) [phone] Kcal/Kg value to use for calculation 14 Approximate Energy Requirements Using 1600 kcal/Kg Calculation Used for Recommendations Kcal/kg Additional Notes Pro needs 0.8-1g/kg adjBW: 69- 87g/day Fluid needs 1ml/kcal Nutrition Intervention Change Diet Order: Continue current diet order as tolerated; add consistent CHO modifier Goal #1 Meet at least 75% of energy and protein needs Anticipated Discharge Needs: Unable to determine at this time Follow-Up By: 10/19/19 Additional Comments F/U for stable intakes
[2019-10-14] MEDS: VALPROIC ACID 250 MG/5 ML ORAL LIQD PO SCH (22:56)
[2019-10-14] MEDS: traZODone 50 MG TAB PO SCH (22:57)
[2019-10-14] MEDS: hydrALAZINE 25 MG TAB PO SCH (22:57)
[2019-10-15 09:06] LABS: Hematocrit 39.7 % (30.3-42.9); Hemoglobin 13.1 gm/dl (10.1-14.3); Mean Corpuscular HGB Conc 33 % (30-34); Mean Corpuscular Volume 91 fl (79-97); Platelet Count 132 K/mm3 (140-440); Red Blood Count 4.38 M/mm3 (3.65-5.03)
[2019-10-15] MEDS: ENOXAPARIN 40 MG/0.4 ML INJ SUB-Q SCH ×2 (11:36→22:50)
[2019-10-15] MEDS: hydrALAZINE 25 MG TAB PO SCH ×4 (11:36→22:55)
[2019-10-15] MEDS: predniSONE 20 MG TAB PO SCH (11:36)
[2019-10-15] MEDS: amLODIPine 10 MG TAB PO SCH (11:36)
[2019-10-15] MEDS: BENZTROPINE 1 MG TAB PO SCH ×2 (11:37→22:50)
[2019-10-15] MEDS: INSULIN LISPRO 100 UNIT/ML VIAL 3 mL SUB-Q SCH ×5 (11:37→23:24)
--- NOTE | 2019-10-15 14:57 | Discharge Summary ---
<BLANCA SOFIA - Last Filed: 10/15/19 14:57> Providers - Providers Date of Admission: 10/01/19 15:51 Attending physician: HERIBERTO CONTE MD 10/01/19 07:59 Consult to Mental Health [CONS] Urgent Reason For Exam: Catatonic state w/ psych history 10/01/19 08:16 Consult to Physician [CONS] Routine Comment: Consulting Provider: MIGUEL JOHNSON Physician Instructions: Reason For Exam: Covid PUI 10/01/19 09:30 Consult to Case Management [CONS] Routine Services Needed at Discharge: Super[facility] Notified:: yes Phone number called:: in person Was contact made?: No Time called:: 13:30 10/01/19 11:33 Consult to Physician [CONS] Routine Comment: Consulting Provider: ALFONSO FLEMING Physician Instructions: Reason For Exam: NEUROLEPTIC MALIGNANT SYNDROME 10/03/19 14:51 Consult to Dietitian/Nutrition [CONS] Routine Physician Instructions: Reason For Exam: Reason for Consult: Write/Manage Tube Feeding 10/03/19 14:52 Consult to Dietitian/Nutrition [CONS] Routine Physician Instructions: Reason For Exam: Reason for Consult: Write/Manage Tube Feeding 10/05/19 11:47 Physical Therapy Evaluation and Treat [CONS] Routine Comment: Reason For Exam: placement Speech Therapy Evaluation and Treat [CONS] Routine Reason For Exam: aspiration 10/07/19 12:24 Consult to Physician [CONS] Routine Comment: Consulting Provider: [facility] Physician Instructions: Reason For Exam: PEG placement 10/07/19 12:26 Consult to Physician [CONS] Routine Comment: Consulting Provider: CORETTA LANZA Physician Instructions: Reason For Exam: PEG placement 10/12/19 09:38 Physical Therapy Evaluation and Treat [CONS] Urgent Comment: Reason For Exam: To assist with transitional planning Date of last referral: 10/06/19 Primary care physician: [employer]PERATOR [employer]ENDER Hospitalization Condition: Stable Hospital course: This is a 54-year-old female with paranoid schizophrenia that presents to the emergency department on 09/29 for altered mental status in a catatonic state. Previous hospitalizations reviewed and only notes a history of paranoid schizophrenia. Patient may be a resident of [place]. Patient is currently nonverbal and HPI is received from ER documentation. Work-up in the emergency department included a CT abdomen pelvis which shows patchy peripheral groundglass opacities bilateral lungs which is consistent with either viral or atypical pneumonia, positive anterior lateral fat hernia in the left mid abdomen and a large uterine fibroids however her CXR showed no acute pulmonary or pleural abnormalities. She was found to have acute kidney injury with a creatinine of 1.4/BUN 33 as baseline from previous records seems to be 0.7, rhabdomyolysis with a creatinine kinase of 33,481, leukocytosis with a WBC of 13.8, thrombocytopenia with platelets at 97. She has COVID pneumonia and was started on IV antibiotics, rhabdomyolysis, and FAISAL. Infectious disease, psych, and neurology have been consulted. Neurology does not suspect NMS at this time. Psych does not recommend inpt acute hospitalization at this time. On 10/02 CTA chest with obtained for elevated d-dimer and CTh head was obtained for altered mental status both of which showed no acute process. On 10/14 GI was consulted for possible PEG placement due to patient unresponsiveness to verbal stimuli however she was later started on a pured diet on 10/10. On 10/11 psych was reconsulted for pill rolling EPS symptoms some adjustments were made to her medication. Physical therapy and speech therapy were consulted for evaluation but unable to be performed as patient will not follow verbal commands. Patient remains nonverbal and only groans/moans to painful stimuli. She has completed her antibiotics for COVID pneumonia and her rhabdomyolysis, FAISAL secondary to rhabdomyolysis and vasomotor nephropathy, and thrombocytopenia has resolved. She will be discharged with her caregiver with HHPT, on a steroid taper, and 7 days of eliquis. Please follow-up with your primary care physician and outpatient psychiatric services within 1 to 2 weeks of discharge. (1) Severe sepsis Current Visit: Yes Status: Resolved Plan to address problem: - Presented with low-grade fever, tachycardia, leukocytosis, FAISAL, and bilateral pneumonia - Likely source is bilateral pneumonia secondary to COVID-19 - IV antibiotics completed (2) Pneumonia due to COVID-19 virus Current Visit: Yes Status: Acute Plan to address problem: - IV azithromycin and Rocephin completed - 09/30 COVID PCR positive - IV solumedrel changed to PO prednisone and started on taper, be discharged on taper (3) Paranoid schizophrenia Current Visit: Yes Status: Chronic Plan to address problem: - History of present schizophrenia - [facility] psych does not recommend inpatient hospitalization at this time - Depakote and Haldol (4) Leukocytosis Current Visit: Yes Status: Acute Plan to address problem: - Admit WBC 13.8 - Maybe secondary to possible PNA or from dehydration - IV abx completed - Also on steroids for COVID pneumonia - Now trending down (5) Hypertension Current Visit: Yes Status: Chronic Plan to address problem: - Clonidine TD and hydralazine PO - Blood pressure monitoring as prescribed per primary care physician Disposition: DC/[place]-06 HOME UNDER [facility] Time spent for discharge: 35 Core Measure Documentation - Palliative Care Palliative Care/ Comfort Measures: Not Applicable - Core Measures Any of the following diagnoses?: none Exam - Constitutional Vitals: Temp Pulse Resp BP Pulse Ox 98.2 F 86 18 138/84 98 10/15/19 05:00 10/15/19 11:36 10/15/19 05:00 10/15/19 05:47 10/15/19 05:47 General appearance: Present: no acute distress - EENT Eyes: Present: PERRL ENT: hearing intact - Neck Neck: Present: supple - Respiratory Respiratory effort: normal Respiratory: bilateral: diminished (2/2 girth) - Cardiovascular Rhythm: regular Heart Sounds: Present: S1 & S2. Absent: systolic murmur, diastolic murmur - Extremities Extremities: no ischemia, pulses intact, pulses symmetrical, No edema, normal temperature, normal color, Full ROM Peripheral Pulses: within normal limits - Abdominal General gastrointestinal: Present: non-tender, non-distended, normal bowel sounds - Integumentary Integumentary: Present: clear, warm, dry - Musculoskeletal Musculoskeletal: strength equal bilaterally - Psychiatric Psychiatric: cooperative - Neurologic Neurologic: no focal deficits, moves all extremities - Allied Health Allied health notes reviewed: nursing, social work, case management Plan Activity: advance as tolerated Diet: low salt Special Instructions: record daily BP diary, other (HHPT) Additional Instructions: Reports urinary emergency department to contact her primary care physician if you have worsening symptoms. Please follow the COVID guidelines and the information booklet to be provided by your nurse. Follow-up with your primary care physician and secure outpatient psychiatric services within 1 to 2 weeks of discharge. You will be discharged with a steroid taper, Eliquis and with home health physical therapy. Follow up with: PRIMARY MD MIGEL [Primary Care Provider] - 7 Days YANDY HERNANDEZ MD [Staff Physician] - 7 Days Prescriptions: VALPROIC ACID Liq [DepaKENE Liq] 1,500 mg PO QHS #30 oral.liqd traZODone [Desyrel] 50 mg PO QHS #30 tablet OLANzapine [ZyPREXA] 5 mg PO QHS #30 tablet amLODIPine 10 mg PO QDAY #30 tablet hydrALAZINE [Apresoline TAB] 75 mg PO TID 30 Days #270 tablet cloNIDine-TTS PATCH [Catapres-Tts 0.2mg Patch] 0.2 mg TD Mo #12 patch Benztropine [Cogentin] 1 mg PO BID #60 tablet predniSONE [Deltasone] 10 mg PO QDAY 3 Days #3 tablet predniSONE [Deltasone] 20 mg PO QDAY 2 Days #4 tablet Apixaban [Eliquis] 2.5 mg PO BID #60 tablet Paliperidone Palmitate [Invega Sustenna] 325 mg IM Q3W #2 syr <HERIBERTO CONTE - Last Filed: 10/15/19 16:14> Providers - Providers Date of Admission: 10/01/19 15:51 Attending physician: HERIBERTO CONTE MD 10/01/19 07:59 Consult to Mental Health [CONS] Urgent Reason For Exam: Catatonic state w/ psych history 10/01/19 08:16 Consult to Physician [CONS] Routine Comment: Consulting Provider: MIGUEL JOHNSON Physician Instructions: Reason For Exam: Covid PUI 10/01/19 09:30 Consult to Case Management [CONS] Routine Services Needed at Discharge: Supervisor [facility] Notified:: yes Phone number called:: in person Was contact made?: No Time called:: 13:30 10/01/19 11:33 Consult to Physician [CONS] Routine Comment: Consulting Provider: ALFONSO FLEMING Physician Instructions: Reason For Exam: NEUROLEPTIC MALIGNANT SYNDROME 10/03/19 14:51 Consult to Dietitian/Nutrition [CONS] Routine Physician Instructions: Reason For Exam: Reason for Consult: Write/Manage Tube Feeding 10/03/19 14:52 Consult to Dietitian/Nutrition [CONS] Routine Physician Instructions: Reason For Exam: Reason for Consult: Write/Manage Tube Feeding 10/05/19 11:47 Physical Therapy Evaluation and Treat [CONS] Routine Comment: Reason For Exam: placement Speech Therapy Evaluation and Treat [CONS] Routine Reason For Exam: aspiration 10/07/19 12:24 Consult to Physician [CONS] Routine Comment: Consulting Provider: [facility] Physician Instructions: Reason For Exam: PEG placement 10/07/19 12:26 Consult to Physician [CONS] Routine Comment: Consulting Provider: CORETTA LANZA Physician Instructions: Reason For Exam: PEG placement 10/12/19 09:38 Physical Therapy Evaluation and Treat [CONS] Urgent Comment: Reason For Exam: To assist with transitional planning Date of last referral: 10/06/19 Primary care physician: [employer] 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
--- NOTE | 2019-10-15 15:47 | Progress Note ---
<BISMARKBLANCA HFabián - Last Filed: 10/15/19 15:44> Assessment and Plan - Patient Problems (1) Pneumonia due to COVID-19 virus Current Visit: Yes Status: Acute Plan to address problem: - COVID protocol initiated - IV azithromycin and Rocephin completed - 09/30 COVID PCR positive - Trend LDH, CRP, procalcitonin, d-dimer, ferritin - Droplet /contact precautions - Supplemental oxygenation as needed - Infectious disease consulted - Pulmonary hygiene - In setting of elevated D-Dimer, CTA Chest was ordered which was negative for pulmonary embolism - Anticoagulation per COVID protocol, will DC with Eliquis 2.5 BID PO for 30 days - Cannot initiate Remdesivir in setting of elevated LFTs - IV solumedrel changed to PO prednisone and started on taper (2) Hypertension Current Visit: Yes Status: Chronic Plan to address problem: - BP monitoring per protocol - PRN hydralizine - Clonidine TD and hydralazine PO (3) Paranoid schizophrenia Current Visit: Yes Status: Chronic Plan to address problem: -History of present schizophrenia -10/10 Psych reconsulted -Depakote and Haldol -Sleep hygiene -Reorientation as needed (4) Severe sepsis Current Visit: Yes Status: Resolved Plan to address problem: - Presented with low-grade fever, tachycardia, leukocytosis, FAISAL, and bilateral pneumonia - Likely source is bilateral pneumonia secondary to COVID-19 - IV antibiotics completed - Covid protocol initiated (5) DVT prophylaxis Current Visit: Yes Status: Acute Plan to address problem: - SCDs to BLE while in bed - Lovenox subq twice daily per COVID protocol (6) Discharge planning issues Current Visit: Yes Status: Acute History Interval history: This is a 54-year-old female with paranoid schizophrenia that presents to the emergency department on 09/29 for altered mental status in a catatonic state. Previous hospitalizations reviewed and only notes a history of paranoid schizophrenia. Patient may be a resident of [place]. Patient is currently nonverbal and HPI is received from ER documentation. Work-up in the emergency department included a CT abdomen pelvis which shows patchy peripheral groundglass opacities bilateral lungs which is consistent with either viral or atypical pneumonia, positive anterior lateral fat hernia in the left mid abdomen and a large uterine fibroids however her CXR showed no acute pulmonary or pleural abnormalities. She was found to have acute kidney injury with a crea tinine of 1.4/BUN 33 as baseline from previous records seems to be 0.7, rhabdomyolysis with a creatinine kinase of 33,481, leukocytosis with a WBC of 13.8, thrombocytopenia with platelets at 97. She has COVID pneumonia with IV antibiotics, rhabdomyolysis, and FAISAL. Infectious disease, psych, and neurology have been consulted. Neurology does not suspect NMS at this time. Psych has signed off at this time due to ongoing acute medical processes. PT/ST consulted for evaluation but unable to be performed as patient will not follow verbal commands. She will open her eyes to verbal stimuli and intermittently follow commands. Patient remains nonverbal and only groans/moans to painful stimuli. Currently on RA. Her caregiver has agreed to bring pt home with HHPT. * 10/13: continue care, pending discharge details w/ CM and caregiver * 10/12: continue supportive care, awaiting placement with HHPT * 10/11: Continue care, psych reconsulted but signed off with some medication adjustments * 10/10: pureed diet * 10/07: continue care * 10/06: GI consult for peg * 10/05: continue care * Discussed with primary licensing registration examiner patient was normally verbal but sometimes goes into a catatonic state. Phone number for this is [phone] * 10/04: PT consulted. Psych signed off. Continue treatment * 10/03: continue treatment * 10/02: Change fluids to NS 1/2 AT 125CC/hr. Rhabdomylysis improving, insert NGT and start tube feeds. Psych input noted. Continue management for COVID 19. ID consulted. No new fever. CTA chest and CTH obtained which were both negative * 10/01: COVID PCR Positive Hospitalist Physical - Constitutional Vitals: Temp Pulse Resp BP Pulse Ox 98.2 F 86 18 138/84 98 10/15/19 05:00 10/15/19 11:36 10/15/19 05:00 10/15/19 05:47 10/15/19 05:47 General appearance: Present: no acute distress - EENT Eyes: Present: PERRL - Neck Neck: Present: normal ROM - Respiratory Respiratory effort: normal Respiratory: bilateral: diminished (2/2 girth) - Cardiovascular Rhythm: regular Heart Sounds: Present: S1 & S2. Absent: systolic murmur, diastolic murmur - Extremities Extremities: no ischemia, pulses intact, pulses symmetrical, No edema, normal temperature, normal color, Full ROM Peripheral Pulses: within normal limits - Abdominal General gastrointestinal: soft, non-tender, normal bowel sounds - Integumentary Integumentary: Present: clear, warm, dry - Psychiatric Psychiatric: cooperative - Neurologic Neurologic: no focal deficits, moves all extremities - Allied Health Allied health notes reviewed: nursing, social work, case management Results - Labs CBC & Chem 7: 10/15/19 08:38 10/14/19 04:28 Labs: Laboratory Last Values WBC 11.1 K/mm3 (4.5-11.0) H 10/15/19 08:38 RBC 4.38 M/mm3 (3.65-5.03) 10/15/19 08:38 Hgb 13.1 gm/dl (10.1-14.3) 10/15/19 08:38 Hct 39.7 % (30.3-42.9) D 10/15/19 08:38 MCV 91 fl (79-97) 10/15/19 08:38 MCH 30 pg (28-32) 10/15/19 08:38 MCHC 33 % (30-34) 10/15/19 08:38 RDW 16.0 % (13.2-15.2) H 10/15/19 08:38 Plt Count 132 K/mm3 (140-440) L 10/15/19 08:38 Lymph % (Auto) 10.6 % (13.4-35.0) L 09/30/19 22:44 [place] % (Auto) 9.8 % (0.0-7.3) H 09/30/19 22:44 Eos % (Auto) 0.0 % (0.0-4.3) 09/30/19 22:44 Baso % (Auto) 1.2 % (0.0-1.8) 09/30/19 22:44 Lymph # 1.5 K/mm3 (1.2-5.4) 09/30/19 22:44 [place] # 1.3 K/mm3 (0.0-0.8) H 09/30/19 22:44 Eos # 0.0 K/mm3 (0.0-0.4) 09/30/19 22:44 Baso # 0.2 K/mm3 (0.0-0.1) H 09/30/19 22:44 Add Manual Diff Complete 10/08/19 04:50 Total Counted 100 10/08/19 04:50 Seg Neutrophils % 78.4 % (40.0-70.0) H 09/30/19 22:44 Seg Neuts % (Manual) 87.0 % (40.0-70.0) H 10/08/19 04:50 Band Neutrophils % 4.0 % 10/08/19 04:50 Lymphocytes % (Manual) 2.0 % (13.4-35.0) L 10/08/19 04:50 Reactive Lymphs % (Man) 0 % 10/08/19 04:50 Monocytes % (Manual) 6.0 % (0.0-7.3) 10/08/19 04:50 Eosinophils % (Manual) 0 % (0.0-4.3) 10/08/19 04:50 Basophils % (Manual) 0 % (0.0-1.8) 10/08/19 04:50 Metamyelocytes % 1.0 % 10/08/19 04:50 Myelocytes % 0 % 10/08/19 04:50 Promyelocytes % 0 % 10/08/19 04:50 Blast Cells % 0 % 10/08/19 04:50 Nucleated RBC % 1.0 % (0.0-0.9) H 10/08/19 04:50 Seg Neutrophils # 10.8 K/mm3 (1.8-7.7) H 09/30/19 22:44 Seg Neutrophils # Man 14.4 K/mm3 (1.8-7.7) H 10/08/19 04:50 Band Neutrophils # 0.7 K/mm3 10/08/19 04:50 Lymphocytes # (Manual) 0.3 K/mm3 (1.2-5.4) L 10/08/19 04:50 Abs React Lymphs (Man) 0.0 K/mm3 10/08/19 04:50 Monocytes # (Manual) 1.0 K/mm3 (0.0-0.8) H 10/08/19 04:50 Eosinophils # (Manual) 0.0 K/mm3 (0.0-0.4) 10/08/19 04:50 Basophils # (Manual) 0.0 K/mm3 (0.0-0.1) 10/08/19 04:50 Metamyelocytes # 0.2 K/mm3 10/08/19 04:50 Myelocytes # 0.0 K/mm3 10/08/19 04:50 Promyelocytes # 0.0 K/mm3 10/08/19 04:50 Blast Cells # 0.0 K/mm3 10/08/19 04:50 WBC Morphology Not Reportable 10/08/19 04:50 Hypersegmented Neuts Not Reportable 10/08/19 04:50 Hyposegmented Neuts Not Reportable 10/08/19 04:50 Hypogranular Neuts Not Reportable 10/08/19 04:50 Smudge Cells Not Reportable 10/08/19 04:50 Toxic Granulation Not Reportable 10/08/19 04:50 Toxic Vacuolation Not Reportable 10/08/19 04:50 Dohle Bodies Not Reportable 10/08/19 04:50 Pelger-Huet Anomaly Not Reportable 10/08/19 04:50 Bal Rods Not Reportable 10/08/19 04:50 Platelet Estimate Consistent w auto 10/08/19 04:50 Clumped Platelets Not Reportable 10/08/19 04:50 Plt Clumps, EDTA Not Reportable 10/08/19 04:50 Large Platelets Not Reportable 10/08/19 04:50 Giant Platelets Not Reportable 10/08/19 04:50 Platelet Satelliting Not Reportable 10/08/19 04:50 Plt Morphology Comment Not Reportable 10/08/19 04:50 RBC Morphology Not Reportable 10/08/19 04:50 Dimorphic RBCs Not Reportable 10/08/19 04:50 Polychromasia Not Reportable 10/08/19 04:50 Hypochromasia Not Reportable 10/08/19 04:50 Poikilocytosis Not Reportable 10/08/19 04:50 Anisocytosis Not Reportable 10/08/19 04:50 Microcytosis Not Reportable 10/08/19 04:50 Macrocytosis 1+ 10/08/19 04:50 Spherocytes Not Reportable 10/08/19 04:50 Pappenheimer Bodies Not Reportable 10/08/19 04:50 Sickle Cells Not Reportable 10/08/19 04:50 Target Cells 1+ 10/08/19 04:50 Tear Drop Cells Not Reportable 10/08/19 04:50 Ovalocytes Not Reportable 10/08/19 04:50 Helmet Cells Not Reportable 10/08/19 04:50 [place] Bodies Not Reportable 10/08/19 04:50 [place] Rings Not Reportable 10/08/19 04:50 Mary Cells Not Reportable 10/08/19 04:50 Bite Cells Not Reportable 10/08/19 04:50 Crenated Cell Not Reportable 10/08/19 04:50 Elliptocytes Not Reportable 10/08/19 04:50 Acanthocytes (Spur) Not Reportable 10/08/19 04:50 Rouleaux Not Reportable 10/08/19 04:50 Hemoglobin C Crystals Not Reportable 10/08/19 04:50 Schistocytes Not Reportable 10/08/19 04:50 Malaria parasites Not Reportable 10/08/19 04:50 Willie Bodies Not Reportable 10/08/19 04:50 Hem Pathologist Commnt No 10/08/19 04:50 PT 14.9 Sec. (12.2-14.9) 10/07/19 15:23 INR 1.15 (0.87-1.13) H 10/07/19 15:23 APTT 29.5 Sec. (24.2-36.6) 10/07/19 15:23 D-Dimer 154.77 ng/mlDDU (0-234) 10/15/19 08:38 Sodium 141 mmol/L (137-145) 10/14/19 04:28 Potassium 4.0 mmol/L (3.6-5.0) 10/14/19 04:28 Chloride 104.8 mmol/L (98-107) 10/14/19 04:28 Carbon Dioxide 24 mmol/L (22-30) 10/14/19 04:28 Anion Gap 16 mmol/L 10/14/19 04:28 BUN 20 mg/dL (7-17) H 10/14/19 04:28 Creatinine 0.8 mg/dL (0.6-1.2) 10/14/19 04:28 Estimated GFR > 60 ml/min 10/14/19 04:28 BUN/Creatinine Ratio 25 % 10/14/19 04:28 Glucose 164 mg/dL (65-100) H 10/14/19 04:28 POC Glucose 153 (70-105) H 10/15/19 12:08 Lactic Acid 1.30 mmol/L (0.7-2.0) 09/30/19 22:44 Calcium 8.4 mg/dL (8.4-10.2) 10/14/19 04:28 Ferritin 991.6 ng/mL (10.0-200.0) H 10/09/19 09:32 Total Bilirubin 0.40 mg/dL (0.1-1.2) 10/05/19 08:32 Direct Bilirubin 0.3 mg/dL (0-0.2) H 09/30/19 22:44 Indirect Bilirubin 0.2 mg/dL 09/30/19 22:44 AST 149 units/L (5-40) H 10/05/19 08:32 ALT 96 units/L (7-56) H 10/05/19 08:32 Alkaline Phosphatase 40 units/L (35-129) 10/05/19 08:32 Lactate Dehydrogenase 716 units/L (91-180) H 10/09/19 09:32 Total Creatine Kinase 934 units/L (30-135) H 10/05/19 08:32 C-Reactive Protein 0.80 mg/dL (0.00-1.30) 10/09/19 09:32 Total Protein 6.1 g/dL (6.3-8.2) L 10/05/19 08:32 Albumin 2.5 g/dL (3.9-5) L 10/05/19 08:32 Albumin/Globulin Ratio 0.7 % 10/05/19 08:32 Procalcitonin 0.71 ng/mL (<0.15) 10/05/19 08:32 Urine Color [place] (Yellow) 10/01/19 Unknown Urine Turbidity Slightly-cloudy (Clear) 10/01/19 Unknown Urine pH 5.0 (5.0-7.0) 10/01/19 Unknown Ur Specific [place] 1.026 (1.003-1.030) 10/01/19 Unknown Urine Protein 100 mg/dl mg/dL (Negative) 10/01/19 Unknown Urine Glucose (UA) Neg mg/dL (Negative) 10/01/19 Unknown Urine Ketones Tr mg/dL (Negative) 10/01/19 Unknown Urine Blood Lg (Negative) 10/01/19 Unknown Urine Nitrite Neg (Negative) 10/01/19 Unknown Urine Bilirubin Neg (Negative) 10/01/19 Unknown Urine Urobilinogen 2.0 mg/dL (<2.0) 10/01/19 Unknown Ur Leukocyte Esterase Neg (Negative) 10/01/19 Unknown Urine WBC (Auto) 17.0 /HPF (0.0-6.0) H 10/01/19 Unknown Urine RBC (Auto) 1.0 /HPF (0.0-6.0) 10/01/19 Unknown U Epithel Cells (Auto) 4.0 /HPF (0-13.0) 10/01/19 Unknown Urine Mucus 2+ /HPF 10/01/19 Unknown Salicylates < 0.3 mg/dL (2.8-20.0) L 09/30/19 22:44 Urine Opiates Screen Presumptive negative 10/01/19 Unknown Urine Methadone Screen Presumptive negative 10/01/19 Unknown Acetaminophen 5.0 ug/mL (10.0-30.0) L 09/30/19 22:44 Ur Barbiturates Screen Presumptive negative 10/01/19 Unknown Valproic Acid 31.8 ug/mL (50-100) L 10/04/19 08:46 Ur Phencyclidine Scrn Presumptive negative 10/01/19 Unknown Ur Amphetamines Screen Presumptive negative 10/01/19 Unknown U Benzodiazepines Scrn Presumptive negative 10/01/19 Unknown Urine Cocaine Screen Presumptive negative 10/01/19 Unknown U Marijuana (THC) Screen Presumptive negative 10/01/19 Unknown Drugs of Abuse Note Disclamer 10/01/19 Unknown Plasma/Serum Alcohol < 0.01 % (0-0.07) 09/30/19 22:44 Coronavirus (PCR) Positive (Negative) A 10/02/19 Unknown Garcia/IV: Voiding Method Incontinent IV Catheter Type [Right Upper Peripheral IV arm] IV Catheter Type [Right INT / Saline Lock Antecubital] IV Catheter Type [Right Foot] INT / Saline Lock IV Catheter Type [Right Peripheral IV External Jugular] Active Medications - Current Medications Current Medications: Generic Name Dose Route Start Last Admin Trade Name Freq PRN Reason Stop Dose Admin Acetaminophen 650 mg 10/01/19 08:00 10/08/19 12:10 Tylenol PO 650 mg Q4H PRN Administration Pain MILD(1-3)/Fever >100.5/WRIGHT Amlodipine Besylate 10 mg 10/11/19 19:00 10/15/19 11:36 Amlodipine PO 10 mg QDAY ZACH Administration Lipase/Protease/Amylase 1 each 10/04/19 10:34 Sim Martinez 10,500 Unit FEEDTUBE PRN PRN For Clogged Feeding Tube Benztropine Mesylate 1 mg 10/11/19 15:00 10/15/19 11:37 Cogentin PO 1 mg BID ZACH Administration Clonidine HCl 0.2 mg 10/11/19 13:00 10/11/19 14:05 Catapres-Tts Patch TD 0.2 mg Mo ZACH Administration Enoxaparin Sodium 40 mg 10/04/19 22:00 10/15/19 11:36 Enoxaparin SUB-Q 40 mg BID ZACH Administration Hydralazine HCl 5 mg 10/11/19 16:44 Apresoline IV Q30MIN PRN Hypertension Hydralazine HCl 75 mg 10/14/19 15:55 10/15/19 11:36 Apresoline PO 75 mg TID REPLACED BY [facility] Administration Insulin Human Lispro 0 unit 10/12/19 22:00 10/15/19 11:37 Humalog SUB-Q Not Given ACHS REPLACED BY [facility] Protocol Miscellaneous Medication 325 mg 10/02/19 18:45 Paliperidone Palmitate [Invega Sustenna] IM Q3W REPLACED BY [facility] Olanzapine 5 mg 10/12/19 22:00 10/14/19 22:57 Zyprexa PO 5 mg QHS ZACH Administration Ondansetron HCl 4 mg 10/01/19 08:00 Zofran IV Q8H PRN Nausea And Vomiting Prednisone 20 mg 10/15/19 10:00 10/15/19 11:36 Deltasone PO 10/17/19 23:59 20 mg QDAY ZACH Administration Prednisone 10 mg 10/18/19 10:00 Deltasone PO 10/20/19 23:55 QDAY ZACH Simple Syrup 15 ml 10/04/19 10:34 Simple Syrup FEEDTUBE PRN PRN Hypoglycemia Simple Syrup 30 ml 10/04/19 10:34 Simple Syrup FEEDTUBE PRN PRN Hypoglycemia Sodium Bicarbonate 325 mg 10/04/19 10:34 Sodium Bicarbonate FEEDTUBE PRN PRN For Clogged Feeding Tube Sodium Chloride 10 ml 10/01/19 10:00 10/15/19 11:38 Sodium Chloride Flush Syringe 10 Ml IV 10 ml BID ZACH Administration Trazodone HCl 50 mg 10/01/19 22:00 10/14/19 22:57 Desyrel PO 50 mg QHS ZACH Administration Valproic Acid 1,500 mg 10/05/19 22:00 10/14/19 22:56 Depakene Liq PO 1,500 mg QHS ZACH Administration Nutrition/Malnutrition Assess - Dietary Evaluation Nutrition/Malnutrition Findings: Nutrition Notes Start: 10/04/19 09:33 Freq: Status: Active Protocol: Document 10/13/19 15:29 LM (Rec: 10/13/19 15:35 LM [id number]) Nutrition Notes Initial or Follow up Reassessment Current Diagnosis Acute Kidney Injury,Sepsis Other Pertinent Diagnosis COVID-19 (+), Schizoaffective disorder Current Diet Pureed Labs/Tests POC glu 203 Pertinent Medications Humalog Height 5 ft 6 in Weight 114.3 kg [place] Body Weight (kg) 59.09 BMI 40.6 Subjective/Other Information Pt with good intakes in chart. Pt ate 75% of breakfast today . Pt not getting PEG. Percent of energy/protein needs met: 85%/83% Burn Absent Trauma Absent GI Symptoms None Food Allergy No Current % PO Good (75-100%) Minimum of two criteria No Reduced [place] Strength Measurably Reduced (severe) #1 Nutrition Diagnosis Inadequate oral intake As Evidenced by Signs and Symptoms pt eating 75% of pureed diet Diagnosis Progress(for reassessment Improved documentation) Is patient on ventilator? No Is Patient Ambulatory and/or Out of Bed No REE-([facility]-confined to bed) 0174.612 Kcal/Kg value to use for calculation 14 Approximate Energy Requirements Using 1600 kcal/Kg Calculation Used for Recommendations Kcal/kg Additional Notes Pro needs 0.8-1g/kg adjBW: 69- 87g/day Fluid needs 1ml/kcal Nutrition Intervention Change Diet Order: Continue current diet order as tolerated; add consistent CHO modifier Goal #1 Meet at least 75% of energy and protein needs Anticipated Discharge Needs: Unable to determine at this time Follow-Up By: 10/19/19 Additional Comments F/U for stable intakes <HERIBERTO CONTE - Last Filed: 10/15/19 16:14> Assessment and Plan Assessment and plan: I saw and evaluated the patient. I agree with the findings and the plan of care as documented in the Nurse Practitioner's~note, with the following corrections and additions. Patient clinically improving although still lethargic ideally placement in rehab facility would be ideal but unfortunately due to insurance reasons and logistics this could not happen. Family member has agreed to come take the patient home. We will continue management. I recommend follow-up with primary care physician and also psych team. Hospitalist Physical - Constitutional Vitals: Temp Pulse Resp BP Pulse Ox 98.2 F 86 18 138/84 98 10/15/19 05:00 10/15/19 11:36 10/15/19 05:00 10/15/19 05:47 10/15/19 05:47 Results - Labs CBC & Chem 7: 10/15/19 08:38 10/14/19 04:28 Labs: Laboratory Last Values WBC 11.1 K/mm3 (4.5-11.0) H 10/15/19 08:38 RBC 4.38 M/mm3 (3.65-5.03) 10/15/19 08:38 Hgb 13.1 gm/dl (10.1-14.3) 10/15/19 08:38 Hct 39.7 % (30.3-42.9) D 10/15/19 08:38 MCV 91 fl (79-97) 10/15/19 08:38 MCH 30 pg (28-32) 10/15/19 08:38 MCHC 33 % (30-34) 10/15/19 08:38 RDW 16.0 % (13.2-15.2) H 10/15/19 08:38 Plt Count 132 K/mm3 (140-440) L 10/15/19 08:38 Lymph % (Auto) 10.6 % (13.4-35.0) L 09/30/19 22:44 [place] % (Auto) 9.8 % (0.0-7.3) H 09/30/19 22:44 Eos % (Auto) 0.0 % (0.0-4.3) 09/30/19 22:44 Baso % (Auto) 1.2 % (0.0-1.8) 09/30/19 22:44 Lymph # 1.5 K/mm3 (1.2-5.4) 09/30/19 22:44 [place] # 1.3 K/mm3 (0.0-0.8) H 09/30/19 22:44 Eos # 0.0 K/mm3 (0.0-0.4) 09/30/19 22:44 Baso # 0.2 K/mm3 (0.0-0.1) H 09/30/19 22:44 Add Manual Diff Complete 10/08/19 04:50 Total Counted 100 10/08/19 04:50 Seg Neutrophils % 78.4 % (40.0-70.0) H 09/30/19 22:44 Seg Neuts % (Manual) 87.0 % (40.0-70.0) H 10/08/19 04:50 Band Neutrophils % 4.0 % 10/08/19 04:50 Lymphocytes % (Manual) 2.0 % (13.4-35.0) L 10/08/19 04:50 Reactive Lymphs % (Man) 0 % 10/08/19 04:50 Monocytes % (Manual) 6.0 % (0.0-7.3) 10/08/19 04:50 Eosinophils % (Manual) 0 % (0.0-4.3) 10/08/19 04:50 Basophils % (Manual) 0 % (0.0-1.8) 10/08/19 04:50 Metamyelocytes % 1.0 % 10/08/19 04:50 Myelocytes % 0 % 10/08/19 04:50 Promyelocytes % 0 % 10/08/19 04:50 Blast Cells % 0 % 10/08/19 04:50 Nucleated RBC % 1.0 % (0.0-0.9) H 10/08/19 04:50 Seg Neutrophils # 10.8 K/mm3 (1.8-7.7) H 09/30/19 22:44 Seg Neutrophils # Man 14.4 K/mm3 (1.8-7.7) H 10/08/19 04:50 Band Neutrophils # 0.7 K/mm3 10/08/19 04:50 Lymphocytes # (Manual) 0.3 K/mm3 (1.2-5.4) L 10/08/19 04:50 Abs React Lymphs (Man) 0.0 K/mm3 10/08/19 04:50 Monocytes # (Manual) 1.0 K/mm3 (0.0-0.8) H 10/08/19 04:50 Eosinophils # (Manual) 0.0 K/mm3 (0.0-0.4) 10/08/19 04:50 Basophils # (Manual) 0.0 K/mm3 (0.0-0.1) 10/08/19 04:50 Metamyelocytes # 0.2 K/mm3 10/08/19 04:50 Myelocytes # 0.0 K/mm3 10/08/19 04:50 Promyelocytes # 0.0 K/mm3 10/08/19 04:50 Blast Cells # 0.0 K/mm3 10/08/19 04:50 WBC Morphology Not Reportable 10/08/19 04:50 Hypersegmented Neuts Not Reportable 10/08/19 04:50 Hyposegmented Neuts Not Reportable 10/08/19 04:50 Hypogranular Neuts Not Reportable 10/08/19 04:50 Smudge Cells Not Reportable 10/08/19 04:50 Toxic Granulation Not Reportable 10/08/19 04:50 Toxic Vacuolation Not Reportable 10/08/19 04:50 Dohle Bodies Not Reportable 10/08/19 04:50 Pelger-Huet Anomaly Not Reportable 10/08/19 04:50 Bal Rods Not Reportable 10/08/19 04:50 Platelet Estimate Consistent w auto 10/08/19 04:50 Clumped Platelets Not Reportable 10/08/19 04:50 Plt Clumps, EDTA Not Reportable 10/08/19 04:50 Large Platelets Not Reportable 10/08/19 04:50 Giant Platelets Not Reportable 10/08/19 04:50 Platelet Satelliting Not Reportable 10/08/19 04:50 Plt Morphology Comment Not Reportable 10/08/19 04:50 RBC Morphology Not Reportable 10/08/19 04:50 Dimorphic RBCs Not Reportable 10/08/19 04:50 Polychromasia Not Reportable 10/08/19 04:50 Hypochromasia Not Reportable 10/08/19 04:50 Poikilocytosis Not Reportable 10/08/19 04:50 Anisocytosis Not Reportable 10/08/19 04:50 Microcytosis Not Reportable 10/08/19 04:50 Macrocytosis 1+ 10/08/19 04:50 Spherocytes Not Reportable 10/08/19 04:50 Pappenheimer Bodies Not Reportable 10/08/19 04:50 Sickle Cells Not Reportable 10/08/19 04:50 Target Cells 1+ 10/08/19 04:50 Tear Drop Cells Not Reportable 10/08/19 04:50 Ovalocytes Not Reportable 10/08/19 04:50 Helmet Cells Not Reportable 10/08/19 04:50 [place] Bodies Not Reportable 10/08/19 04:50 [place] Rings Not Reportable 10/08/19 04:50 Mary Cells Not Reportable 10/08/19 04:50 Bite Cells Not Reportable 10/08/19 04:50 Crenated Cell Not Reportable 10/08/19 04:50 Elliptocytes Not Reportable 10/08/19 04:50 Acanthocytes (Spur) Not Reportable 10/08/19 04:50 Rouleaux Not Reportable 10/08/19 04:50 Hemoglobin C Crystals Not Reportable 10/08/19 04:50 Schistocytes Not Reportable 10/08/19 04:50 Malaria parasites Not Reportable 10/08/19 04:50 Willie Bodies Not Reportable 10/08/19 04:50 Hem Pathologist Commnt No 10/08/19 04:50 PT 14.9 Sec. (12.2-14.9) 10/07/19 15:23 INR 1.15 (0.87-1.13) H 10/07/19 15:23 APTT 29.5 Sec. (24.2-36.6) 10/07/19 15:23 D-Dimer 154.77 ng/mlDDU (0-234) 10/15/19 08:38 Sodium 141 mmol/L (137-145) 10/14/19 04:28 Potassium 4.0 mmol/L (3.6-5.0) 10/14/19 04:28 Chloride 104.8 mmol/L (98-107) 10/14/19 04:28 Carbon Dioxide 24 mmol/L (22-30) 10/14/19 04:28 Anion Gap 16 mmol/L 10/14/19 04:28 BUN 20 mg/dL (7-17) H 10/14/19 04:28 Creatinine 0.8 mg/dL (0.6-1.2) 10/14/19 04:28 Estimated GFR > 60 ml/min 10/14/19 04:28 BUN/Creatinine Ratio 25 % 10/14/19 04:28 Glucose 164 mg/dL (65-100) H 10/14/19 04:28 POC Glucose 153 (70-105) H 10/15/19 12:08 Lactic Acid 1.30 mmol/L (0.7-2.0) 09/30/19 22:44 Calcium 8.4 mg/dL (8.4-10.2) 10/14/19 04:28 Ferritin 991.6 ng/mL (10.0-200.0) H 10/09/19 09:32 Total Bilirubin 0.40 mg/dL (0.1-1.2) 10/05/19 08:32 Direct Bilirubin 0.3 mg/dL (0-0.2) H 09/30/19 22:44 Indirect Bilirubin 0.2 mg/dL 09/30/19 22:44 AST 149 units/L (5-40) H 10/05/19 08:32 ALT 96 units/L (7-56) H 10/05/19 08:32 Alkaline Phosphatase 40 units/L (35-129) 10/05/19 08:32 Lactate Dehydrogenase 716 units/L (91-180) H 10/09/19 09:32 Total Creatine Kinase 934 units/L (30-135) H 10/05/19 08:32 C-Reactive Protein 0.80 mg/dL (0.00-1.30) 10/09/19 09:32 Total Protein 6.1 g/dL (6.3-8.2) L 10/05/19 08:32 Albumin 2.5 g/dL (3.9-5) L 10/05/19 08:32 Albumin/Globulin Ratio 0.7 % 10/05/19 08:32 Procalcitonin 0.71 ng/mL (<0.15) 10/05/19 08:32 Urine Color [place] (Yellow) 10/01/19 Unknown Urine Turbidity Slightly-cloudy (Clear) 10/01/19 Unknown Urine pH 5.0 (5.0-7.0) 10/01/19 Unknown Ur Specific [place] 1.026 (1.003-1.030) 10/01/19 Unknown Urine Protein 100 mg/dl mg/dL (Negative) 10/01/19 Unknown Urine Glucose (UA) Neg mg/dL (Negative) 10/01/19 Unknown Urine Ketones Tr mg/dL (Negative) 10/01/19 Unknown Urine Blood Lg (Negative) 10/01/19 Unknown Urine Nitrite Neg (Negative) 10/01/19 Unknown Urine Bilirubin Neg (Negative) 10/01/19 Unknown Urine Urobilinogen 2.0 mg/dL (<2.0) 10/01/19 Unknown Ur Leukocyte Esterase Neg (Negative) 10/01/19 Unknown Urine WBC (Auto) 17.0 /HPF (0.0-6.0) H 10/01/19 Unknown Urine RBC (Auto) 1.0 /HPF (0.0-6.0) 10/01/19 Unknown U Epithel Cells (Auto) 4.0 /HPF (0-13.0) 10/01/19 Unknown Urine Mucus 2+ /HPF 10/01/19 Unknown Salicylates < 0.3 mg/dL (2.8-20.0) L 09/30/19 22:44 Urine Opiates Screen Presumptive negative 10/01/19 Unknown Urine Methadone Screen Presumptive negative 10/01/19 Unknown Acetaminophen 5.0 ug/mL (10.0-30.0) L 09/30/19 22:44 Ur Barbiturates Screen Presumptive negative 10/01/19 Unknown Valproic Acid 31.8 ug/mL (50-100) L 10/04/19 08:46 Ur Phencyclidine Scrn Presumptive negative 10/01/19 Unknown Ur Amphetamines Screen Presumptive negative 10/01/19 Unknown U Benzodiazepines Scrn Presumptive negative 10/01/19 Unknown Urine Cocaine Screen Presumptive negative 10/01/19 Unknown U Marijuana (THC) Screen Presumptive negative 10/01/19 Unknown Drugs of Abuse Note Disclamer 10/01/19 Unknown Plasma/Serum Alcohol < 0.01 % (0-0.07) 09/30/19 22:44 Coronavirus (PCR) Positive (Negative) A 10/02/19 Unknown Garcia/IV: Voiding Method Incontinent IV Catheter Type [Right Upper Peripheral IV arm] IV Catheter Type [Right INT / Saline Lock Antecubital] IV Catheter Type [Right Foot] INT / Saline Lock IV Catheter Type [Right Peripheral IV External Jugular] Active Medications - Current Medications Current Medications: Generic Name Dose Route Start Last Admin Trade Name Freq PRN Reason Stop Dose Admin Acetaminophen 650 mg 10/01/19 08:00 10/08/19 12:10 Tylenol PO 650 mg Q4H PRN Administration Pain MILD(1-3)/Fever >100.5/WRIGHT Amlodipine Besylate 10 mg 10/11/19 19:00 10/15/19 11:36 Amlodipine PO 10 mg QDAY ZACH Administration Lipase/Protease/Amylase 1 each 10/04/19 10:[address] 10,500 Unit FEEDTUBE PRN PRN For Clogged Feeding Tube Benztropine Mesylate 1 mg 10/11/19 15:00 10/15/19 11:37 Cogentin PO 1 mg BID ZACH Administration Clonidine HCl 0.2 mg 10/11/19 13:00 10/11/19 14:05 Catapres-Tts Patch TD 0.2 mg Mo ZACH Administration Enoxaparin Sodium 40 mg 10/04/19 22:00 10/15/19 11:36 Enoxaparin SUB-Q 40 mg BID ZACH Administration Hydralazine HCl 5 mg 10/11/19 16:44 Apresoline IV Q30MIN PRN Hypertension Hydralazine HCl 75 mg 10/14/19 15:55 10/15/19 11:36 Apresoline PO 75 mg TID ZACH Administration Insulin Human Lispro 0 unit 10/12/19 22:00 10/15/19 11:37 Humalog SUB-Q Not Given ACHS REPLACED BY [facility] Protocol Miscellaneous Medication 325 mg 10/02/19 18:45 Paliperidone Palmitate [Invega Sustenna] IM Q3W ZACH Olanzapine 5 mg 10/12/19 22:00 10/14/19 22:57 Zyprexa PO 5 mg QHS ZACH Administration Ondansetron HCl 4 mg 10/01/19 08:00 Zofran IV Q8H PRN Nausea And Vomiting Prednisone 20 mg 10/15/19 10:00 10/15/19 11:36 Deltasone PO 10/17/19 23:59 20 mg QDAY ZACH Administration Prednisone 10 mg 10/18/19 10:00 Deltasone PO 10/20/19 23:55 QDAY ZACH Simple Syrup 15 ml 10/04/19 10:34 Simple Syrup FEEDTUBE PRN PRN Hypoglycemia Simple Syrup 30 ml 10/04/19 10:34 Simple Syrup FEEDTUBE PRN PRN Hypoglycemia Sodium Bicarbonate 325 mg 10/04/19 10:34 Sodium Bicarbonate FEEDTUBE PRN PRN For Clogged Feeding Tube Sodium Chloride 10 ml 10/01/19 10:00 10/15/19 11:38 Sodium Chloride Flush Syringe 10 Ml IV 10 ml BID ZACH Administration Trazodone HCl 50 mg 10/01/19 22:00 10/14/19 22:57 Desyrel PO 50 mg QHS ZACH Administration Valproic Acid 1,500 mg 10/05/19 22:00 10/14/19 22:56 Depakene Liq PO 1,500 mg QHS ZACH Administration Nutrition/Malnutrition Assess - Dietary Evaluation Nutrition/Malnutrition Findings: Nutrition Notes Start: 10/04/19 09:33 Freq: Status: Active Protocol: Document 10/13/19 15:29 LM (Rec: 10/13/19 15:35 LM [id number]) Nutrition Notes Initial or Follow up Reassessment Current Diagnosis Acute Kidney Injury,Sepsis Other Pertinent Diagnosis COVID-19 (+), Schizoaffective disorder Current Diet Pureed Labs/Tests POC glu 203 Pertinent Medications Humalog Height 5 ft 6 in Weight 114.3 kg [place] Body Weight (kg) 59.09 BMI 40.6 Subjective/Other Information Pt with good intakes in chart. Pt ate 75% of breakfast today . Pt not getting PEG. Percent of energy/protein needs met: 85%/83% Burn Absent Trauma Absent GI Symptoms None Food Allergy No Current % PO Good (75-100%) Minimum of two criteria No Reduced [place] Strength Measurably Reduced (severe) #1 Nutrition Diagnosis Inadequate oral intake As Evidenced by Signs and Symptoms pt eating 75% of pureed diet Diagnosis Progress(for reassessment Improved documentation) Is patient on ventilator? No Is Patient Ambulatory and/or Out of Bed No REE-([facility]-confined to bed) 2825.612 Kcal/Kg value to use for calculation 14 Approximate Energy Requirements Using 1600 kcal/Kg Calculation Used for Recommendations Kcal/kg Additional Notes Pro needs 0.8-1g/kg adjBW: 69- 87g/day Fluid needs 1ml/kcal Nutrition Intervention Change Diet Order: Continue current diet order as tolerated; add consistent CHO modifier Goal #1 Meet at least 75% of energy and protein needs Anticipated Discharge Needs: Unable to determine at this time Follow-Up By: 10/19/19 Additional Comments F/U for stable intakes
--- NOTE | 2019-10-15 16:22 | Progress Note ---
Assessment and Plan Cultures: Blood culture and urine culture negative COVID PCR positive Assessment: 54 years old female with history of paranoid schizophrenia, admitted on 09/30/2019 due to altered mental status and catatonia state: #Severe sepsis: Present on admission with low-grade fever, tachycardia, elevated leukocytosis, FAISAL, likely due to bilateral pneumonia. Resolved. #Bilateral pneumonia: COVID-19 pneumonia. Inflammatory markers are elevated, with a d-dimer > 10,000. CT negative for pulmonary embolism. Repeat d-dimer with much improvement. Renal function and LFTs improving, but given mild hypoxia and several days of positivity, unclear benefit with Remdesivir at this stage. Completed empiric CAP abx x 5 days. Completed steroids. #Acute hypoxemic respiratory failure: resolved, on room air. #Elevated LFTs: from COVID/rhabdo #FAISAL: from COVID. improved #Elevated CK: Likely secondary to rhabdomyolysis possible due to COVID-19 infection or catatonic state #Paranoid schizophrenia with catatonia: Per psych Recommendations: Overall she remains stable on room air for the past several days check d-dimer every 2-3 days due to increased risk of VTE in patients with COVID-19 ID will sign off. Please call if questions. Konrad Moyer MD, FACP [facility] ([facility]) C: [phone] O: [phone] F: [phone] Subjective Date of service: 10/15/19 Principal diagnosis: Neurogenic Dysphagia Interval history: No fever. Remains stable on room air. Objective - Exam Narrative Exam: Physical Exam (reviewed in chart due to PPE conservation) Constitutional: limited due to PPE conservation strategy Head, Ears, Nose: limited due to PPE conservation strategy Eyes: limited due to PPE conservation strategy Neck: limited due to PPE conservation strategy Oral: limited due to PPE conservation strategy Cardiovascular: limited due to PPE conservation strategy Respiratory: limited due to PPE conservation strategy GI: limited due to PPE conservation strategy Musculoskeletal: limited due to PPE conservation strategy Skin: limited due to PPE conservation strategy Hem/Lymphatic: limited due to PPE conservation strategy Psych: limited due to PPE conservation strategy Neurological: limited due to PPE conservation strategy - Constitutional Vitals: Vital Signs Temp Pulse Resp BP Pulse Ox 98.2 F 86 18 138/84 98 10/15/19 05:00 10/15/19 11:36 10/15/19 05:00 10/15/19 05:47 10/15/19 05:47 Temperature -Last 24 Hours Temperature 98.2 F Temperature 98.3 F - Labs CBC & Chem 7: 10/15/19 08:38 10/14/19 04:28 Labs: Abnormal lab results 10/14/19 10/14/19 10/15/19 Range/Units 17:40 22:45 07:56 WBC (4.5-11.0) K/mm3 RDW (13.2-15.2) % Plt Count (140-440) K/mm3 POC Glucose 185 H 140 H 107 H (70-105) 10/15/19 10/15/19 Range/Units 08:38 12:08 WBC 11.1 H (4.5-11.0) K/mm3 RDW 16.0 H (13.2-15.2) % Plt Count 132 L (140-440) K/mm3 POC Glucose 153 H (70-105)
[2019-10-15] MEDS: traZODone 50 MG TAB PO SCH (22:50)
[2019-10-15] MEDS: VALPROIC ACID 250 MG/5 ML ORAL LIQD PO SCH (22:51)
[2019-10-16 06:05] LABS: Hematocrit 44.5 % (30.3-42.9); Hemoglobin 14.9 gm/dl (10.1-14.3); Mean Corpuscular HGB Conc 34 % (30-34); Mean Corpuscular Volume 91 fl (79-97); Red Blood Count 4.87 M/mm3 (3.65-5.03); Red Cell Distribution Width 16.5 % (13.2-15.2)
[2019-10-16 06:38] LABS: Platelet Count 98 K/mm3 (140-440)
[2019-10-16] MEDS: INSULIN LISPRO 100 UNIT/ML VIAL 3 mL SUB-Q SCH ×4 (08:03→22:00)
[2019-10-16] MEDS: hydrALAZINE 25 MG TAB PO SCH ×3 (08:35→21:38)
[2019-10-16] MEDS: predniSONE 20 MG TAB PO SCH (09:00)
[2019-10-16] MEDS: ENOXAPARIN 40 MG/0.4 ML INJ SUB-Q SCH ×2 (09:00→21:37)
[2019-10-16] MEDS: BENZTROPINE 1 MG TAB PO SCH ×2 (09:00→21:41)
[2019-10-16] MEDS: amLODIPine 10 MG TAB PO SCH (12:10)
--- NOTE | 2019-10-16 16:35 | Progress Note ---
Assessment and Plan Assessment and plan: This is a 54-year-old female with paranoid schizophrenia that presents to the emergency department on 09/29 for altered mental status in a catatonic state. Previous hospitalizations reviewed and only notes a history of paranoid schizophrenia. Patient may be a resident of [place]. Patient is currently nonverbal and HPI is received from ER documentation. Work-up in the emergency department included a CT abdomen pelvis which shows patchy peripheral groundglass opacities bilateral lungs which is consistent with either viral or atypical pneumonia, positive anterior lateral fat hernia in the left mid abdomen and a large uterine fibroids however her CXR showed no acute pulmonary or pleural abnormalities. She was found to have acute kidney injury with a creatinine of 1.4/BUN 33 as baseline from previous records seems to be 0.7, rhabdomyolysis with a creatinine kinase of 33,481, leukocytosis with a WBC of 13.8, thrombocytopenia with platelets at 97. She has COVID pneumonia with IV antibiotics, rhabdomyolysis, and FAISAL. Infectious disease, psych, and neurology have been consulted. Neurology does not suspect NMS at this time. Psych has signed off at this time due to ongoing acute medical processes. PT/ST consulted for evaluation but unable to be performed as patient will not follow verbal commands. She will open her eyes to verbal stimuli and intermittently follow commands. Patient remains nonverbal and only groans/moans to painful stimuli. Currently on RA. Her caregiver has agreed to bring pt home with HHPT. * 10/13: continue care, pending discharge details w/ CM and caregiver * 10/12: continue supportive care, awaiting placement with HHPT * 10/11: Continue care, psych reconsulted but signed off with some medication adjustments * 10/10: pureed diet * 10/07: continue care * 10/06: GI consult for peg * 10/05: continue care * Discussed with primary senior executive compensation analyst patient was normally verbal but sometimes goes into a catatonic state. Phone number for this is [phone] * 10/04: PT consulted. Psych signed off. Continue treatment * 10/03: continue treatment * 10/02: Change fluids to NS 1/2 AT 125CC/hr. Rhabdomylysis improving, insert NGT and start tube feeds. Psych input noted. Continue management for COVID 19. ID consulted. No new fever. CTA chest and CTH obtained which were both negative * 10/01: COVID PCR Positive 10/15: Patient remains in the hospital as hospital bed is being arranged for the patient awaiting placement at this time. Discharge was planned for yesterday this is held up due to bed condition. Discussed with nursing staff to continue passive range of motion with the patient sitting up out of bed to chair and fall precautions. Patient Problems (1) Pneumonia due to COVID-19 virus Current Visit: Yes Status: Acute Plan to address problem: - COVID protocol initiated - IV azithromycin and Rocephin completed - 09/30 COVID PCR positive - Trend LDH, CRP, procalcitonin, d-dimer, ferritin - Droplet /contact precautions - Supplemental oxygenation as needed - Infectious disease consulted - Pulmonary hygiene - In setting of elevated D-Dimer, CTA Chest was ordered which was negative for pulmonary embolism - Anticoagulation per COVID protocol, will DC with Eliquis 2.5 BID PO for 30 days - Cannot initiate Remdesivir in setting of elevated LFTs - IV solumedrel changed to PO prednisone and started on taper (2) Hypertension Current Visit: Yes Status: Chronic Plan to address problem: - BP monitoring per protocol - PRN hydralizine - Clonidine TD and hydralazine PO (3) Paranoid schizophrenia Current Visit: Yes Status: Chronic Plan to address problem: -History of present schizophrenia -10/10 Psych reconsulted -Depakote and Haldol -Sleep hygiene -Reorientation as needed (4) Severe sepsis Current Visit: Yes Status: Resolved Plan to address problem: - Presented with low-grade fever, tachycardia, leukocytosis, FAISAL, and bilateral pneumonia - Likely source is bilateral pneumonia secondary to COVID-19 - IV antibiotics completed - Covid protocol initiated (5) DVT prophylaxis Current Visit: Yes Status: Acute Plan to address problem: - SCDs to BLE while in bed - Lovenox subq twice daily per COVID protocol (6) Discharge planning issues Current Visit: Yes Status: Acute History Interval history: Patient seen and examined clinically improving answer some questions. Laying in bed Hospitalist Physical - Physical exam Narrative exam: General appearance: Present: no acute distress, obese - EENT Eyes: Present: PERRL - Neck Neck: Present: normal ROM - Respiratory Respiratory effort: normal Respiratory: bilateral: diminished (2/2 girth) - Cardiovascular Rhythm: regular Heart Sounds: Present: S1 & S2. Absent: systolic murmur, diastolic murmur - Extremities Extremities: no ischemia, pulses intact, pulses symmetrical, No edema, normal temperature, normal color, Full ROM Peripheral Pulses: within normal limits - Abdominal General gastrointestinal: soft, non-tender, normal bowel sounds - Integumentary Integumentary: Present: clear, warm, dry - Psychiatric Psychiatric: cooperative - Neurologic Neurologic: no focal deficits, moves all extremities - Allied Health Allied health notes reviewed: nursing, social work, case management - Constitutional Vitals: Temp Pulse Resp BP Pulse Ox 98.0 F 88 20 138/81 95 10/16/19 12:11 10/16/19 12:11 10/16/19 12:11 10/16/19 12:11 10/16/19 12:11 General appearance: Present: no acute distress Results - Labs CBC & Chem 7: 10/16/19 05:31 10/14/19 04:28 Labs: Laboratory Last Values WBC 11.2 K/mm3 (4.5-11.0) H 10/16/19 05:31 RBC 4.87 M/mm3 (3.65-5.03) 10/16/19 05:31 Hgb 14.9 gm/dl (10.1-14.3) H 10/16/19 05:31 Hct 44.5 % (30.3-42.9) H 10/16/19 05:31 MCV 91 fl (79-97) 10/16/19 05:31 MCH 31 pg (28-32) 10/16/19 05:31 MCHC 34 % (30-34) 10/16/19 05:31 RDW 16.5 % (13.2-15.2) H 10/16/19 05:31 Plt Count 98 K/mm3 (140-440) L 10/16/19 05:31 Lymph % (Auto) 10.6 % (13.4-35.0) L 09/30/19 22:44 [place] % (Auto) 9.8 % (0.0-7.3) H 09/30/19 22:44 Eos % (Auto) 0.0 % (0.0-4.3) 09/30/19 22:44 Baso % (Auto) 1.2 % (0.0-1.8) 09/30/19 22:44 Lymph # 1.5 K/mm3 (1.2-5.4) 09/30/19 22:44 [place] # 1.3 K/mm3 (0.0-0.8) H 09/30/19 22:44 Eos # 0.0 K/mm3 (0.0-0.4) 09/30/19 22:44 Baso # 0.2 K/mm3 (0.0-0.1) H 09/30/19 22:44 Add Manual Diff Complete 10/08/19 04:50 Total Counted 100 10/08/19 04:50 Seg Neutrophils % 78.4 % (40.0-70.0) H 09/30/19 22:44 Seg Neuts % (Manual) 87.0 % (40.0-70.0) H 10/08/19 04:50 Band Neutrophils % 4.0 % 10/08/19 04:50 Lymphocytes % (Manual) 2.0 % (13.4-35.0) L 10/08/19 04:50 Reactive Lymphs % (Man) 0 % 10/08/19 04:50 Monocytes % (Manual) 6.0 % (0.0-7.3) 10/08/19 04:50 Eosinophils % (Manual) 0 % (0.0-4.3) 10/08/19 04:50 Basophils % (Manual) 0 % (0.0-1.8) 10/08/19 04:50 Metamyelocytes % 1.0 % 10/08/19 04:50 Myelocytes % 0 % 10/08/19 04:50 Promyelocytes % 0 % 10/08/19 04:50 Blast Cells % 0 % 10/08/19 04:50 Nucleated RBC % 1.0 % (0.0-0.9) H 10/08/19 04:50 Seg Neutrophils # 10.8 K/mm3 (1.8-7.7) H 09/30/19 22:44 Seg Neutrophils # Man 14.4 K/mm3 (1.8-7.7) H 10/08/19 04:50 Band Neutrophils # 0.7 K/mm3 10/08/19 04:50 Lymphocytes # (Manual) 0.3 K/mm3 (1.2-5.4) L 10/08/19 04:50 Abs React Lymphs (Man) 0.0 K/mm3 10/08/19 04:50 Monocytes # (Manual) 1.0 K/mm3 (0.0-0.8) H 10/08/19 04:50 Eosinophils # (Manual) 0.0 K/mm3 (0.0-0.4) 10/08/19 04:50 Basophils # (Manual) 0.0 K/mm3 (0.0-0.1) 10/08/19 04:50 Metamyelocytes # 0.2 K/mm3 10/08/19 04:50 Myelocytes # 0.0 K/mm3 10/08/19 04:50 Promyelocytes # 0.0 K/mm3 10/08/19 04:50 Blast Cells # 0.0 K/mm3 10/08/19 04:50 WBC Morphology Not Reportable 10/08/19 04:50 Hypersegmented Neuts Not Reportable 10/08/19 04:50 Hyposegmented Neuts Not Reportable 10/08/19 04:50 Hypogranular Neuts Not Reportable 10/08/19 04:50 Smudge Cells Not Reportable 10/08/19 04:50 Toxic Granulation Not Reportable 10/08/19 04:50 Toxic Vacuolation Not Reportable 10/08/19 04:50 Dohle Bodies Not Reportable 10/08/19 04:50 Pelger-Huet Anomaly Not Reportable 10/08/19 04:50 Bal Rods Not Reportable 10/08/19 04:50 Platelet Estimate Consistent w auto 10/08/19 04:50 Clumped Platelets Not Reportable 10/08/19 04:50 Plt Clumps, EDTA Not Reportable 10/08/19 04:50 Large Platelets Not Reportable 10/08/19 04:50 Giant Platelets Not Reportable 10/08/19 04:50 Platelet Satelliting Not Reportable 10/08/19 04:50 Plt Morphology Comment Not Reportable 10/08/19 04:50 RBC Morphology Not Reportable 10/08/19 04:50 Dimorphic RBCs Not Reportable 10/08/19 04:50 Polychromasia Not Reportable 10/08/19 04:50 Hypochromasia Not Reportable 10/08/19 04:50 Poikilocytosis Not Reportable 10/08/19 04:50 Anisocytosis Not Reportable 10/08/19 04:50 Microcytosis Not Reportable 10/08/19 04:50 Macrocytosis 1+ 10/08/19 04:50 Spherocytes Not Reportable 10/08/19 04:50 Pappenheimer Bodies Not Reportable 10/08/19 04:50 Sickle Cells Not Reportable 10/08/19 04:50 Target Cells 1+ 10/08/19 04:50 Tear Drop Cells Not Reportable 10/08/19 04:50 Ovalocytes Not Reportable 10/08/19 04:50 Helmet Cells Not Reportable 10/08/19 04:50 [place] Bodies Not Reportable 10/08/19 04:50 [place] Rings Not Reportable 10/08/19 04:50 Mary Cells Not Reportable 10/08/19 04:50 Bite Cells Not Reportable 10/08/19 04:50 Crenated Cell Not Reportable 10/08/19 04:50 Elliptocytes Not Reportable 10/08/19 04:50 Acanthocytes (Spur) Not Reportable 10/08/19 04:50 Rouleaux Not Reportable 10/08/19 04:50 Hemoglobin C Crystals Not Reportable 10/08/19 04:50 Schistocytes Not Reportable 10/08/19 04:50 Malaria parasites Not Reportable 10/08/19 04:50 [place] Bodies Not Reportable 10/08/19 04:50 Hem Pathologist Commnt No 10/08/19 04:50 PT 14.9 Sec. (12.2-14.9) 10/07/19 15:23 INR 1.15 (0.87-1.13) H 10/07/19 15:23 APTT 29.5 Sec. (24.2-36.6) 10/07/19 15:23 D-Dimer 154.77 ng/mlDDU (0-234) 10/15/19 08:38 Sodium 141 mmol/L (137-145) 10/14/19 04:28 Potassium 4.0 mmol/L (3.6-5.0) 10/14/19 04:28 Chloride 104.8 mmol/L (98-107) 10/14/19 04:28 Carbon Dioxide 24 mmol/L (22-30) 10/14/19 04:28 Anion Gap 16 mmol/L 10/14/19 04:28 BUN 20 mg/dL (7-17) H 10/14/19 04:28 Creatinine 0.8 mg/dL (0.6-1.2) 10/14/19 04:28 Estimated GFR > 60 ml/min 10/14/19 04:28 BUN/Creatinine Ratio 25 % 10/14/19 04:28 Glucose 164 mg/dL (65-100) H 10/14/19 04:28 POC Glucose 215 (70-105) H 10/16/19 12:28 Lactic Acid 1.30 mmol/L (0.7-2.0) 09/30/19 22:44 Calcium 8.4 mg/dL (8.4-10.2) 10/14/19 04:28 Ferritin 991.6 ng/mL (10.0-200.0) H 10/09/19 09:32 Total Bilirubin 0.40 mg/dL (0.1-1.2) 10/05/19 08:32 Direct Bilirubin 0.3 mg/dL (0-0.2) H 09/30/19 22:44 Indirect Bilirubin 0.2 mg/dL 09/30/19 22:44 AST 149 units/L (5-40) H 10/05/19 08:32 ALT 96 units/L (7-56) H 10/05/19 08:32 Alkaline Phosphatase 40 units/L (35-129) 10/05/19 08:32 Lactate Dehydrogenase 716 units/L (91-180) H 10/09/19 09:32 Total Creatine Kinase 934 units/L (30-135) H 10/05/19 08:32 C-Reactive Protein 0.80 mg/dL (0.00-1.30) 10/09/19 09:32 Total Protein 6.1 g/dL (6.3-8.2) L 10/05/19 08:32 Albumin 2.5 g/dL (3.9-5) L 10/05/19 08:32 Albumin/Globulin Ratio 0.7 % 10/05/19 08:32 Procalcitonin 0.71 ng/mL (<0.15) 10/05/19 08:32 Urine Color [place] (Yellow) 10/01/19 Unknown Urine Turbidity Slightly-cloudy (Clear) 10/01/19 Unknown Urine pH 5.0 (5.0-7.0) 10/01/19 Unknown Ur Specific [place] 1.026 (1.003-1.030) 10/01/19 Unknown Urine Protein 100 mg/dl mg/dL (Negative) 10/01/19 Unknown Urine Glucose (UA) Neg mg/dL (Negative) 10/01/19 Unknown Urine Ketones Tr mg/dL (Negative) 10/01/19 Unknown Urine Blood Lg (Negative) 10/01/19 Unknown Urine Nitrite Neg (Negative) 10/01/19 Unknown Urine Bilirubin Neg (Negative) 10/01/19 Unknown Urine Urobilinogen 2.0 mg/dL (<2.0) 10/01/19 Unknown Ur Leukocyte Esterase Neg (Negative) 10/01/19 Unknown Urine WBC (Auto) 17.0 /HPF (0.0-6.0) H 10/01/19 Unknown Urine RBC (Auto) 1.0 /HPF (0.0-6.0) 10/01/19 Unknown U Epithel Cells (Auto) 4.0 /HPF (0-13.0) 10/01/19 Unknown Urine Mucus 2+ /HPF 10/01/19 Unknown Salicylates < 0.3 mg/dL (2.8-20.0) L 09/30/19 22:44 Urine Opiates Screen Presumptive negative 10/01/19 Unknown Urine Methadone Screen Presumptive negative 10/01/19 Unknown Acetaminophen 5.0 ug/mL (10.0-30.0) L 09/30/19 22:44 Ur Barbiturates Screen Presumptive negative 10/01/19 Unknown Valproic Acid 31.8 ug/mL (50-100) L 10/04/19 08:46 Ur Phencyclidine Scrn Presumptive negative 10/01/19 Unknown Ur Amphetamines Screen Presumptive negative 10/01/19 Unknown U Benzodiazepines Scrn Presumptive negative 10/01/19 Unknown Urine Cocaine Screen Presumptive negative 10/01/19 Unknown U Marijuana (THC) Screen Presumptive negative 10/01/19 Unknown Drugs of Abuse Note Disclamer 10/01/19 Unknown Plasma/Serum Alcohol < 0.01 % (0-0.07) 09/30/19 22:44 Coronavirus (PCR) Positive (Negative) A 10/02/19 Unknown Garcia/IV: Voiding Method External Female Catheter IV Catheter Type [Right Upper Peripheral IV arm] IV Catheter Type [Right INT / Saline Lock Antecubital] IV Catheter Type [Right Foot] INT / Saline Lock IV Catheter Type [Right Peripheral IV External Jugular] Active Medications - Current Medications Current Medications: Generic Name Dose Route Start Last Admin Trade Name Freq PRN Reason Stop Dose Admin Acetaminophen 650 mg 10/01/19 08:00 10/08/19 12:10 Tylenol PO 650 mg Q4H PRN Administration Pain MILD(1-3)/Fever >100.5/WRIGHT Amlodipine Besylate 10 mg 10/11/19 19:00 10/16/19 12:10 Amlodipine PO 10 mg QDAY ZACH Administration Lipase/Protease/Amylase 1 each 10/04/19 10:[address] 10,500 Unit FEEDTUBE PRN PRN For Clogged Feeding Tube Benztropine Mesylate 1 mg 10/11/19 15:00 10/16/19 09:00 Cogentin PO 1 mg BID ZACH Administration Clonidine HCl 0.2 mg 10/11/19 13:00 10/11/19 14:05 Catapres-Tts Patch TD 0.2 mg Mo ZACH Administration Enoxaparin Sodium 40 mg 10/04/19 22:00 10/16/19 09:00 Enoxaparin SUB-Q 40 mg BID ZACH Administration Hydralazine HCl 5 mg 10/11/19 16:44 Apresoline IV Q30MIN PRN Hypertension Hydralazine HCl 75 mg 10/14/19 15:55 10/16/19 08:35 Apresoline PO 75 mg TID ZACH Administration Insulin Human Lispro 0 unit 10/12/19 22:00 10/16/19 13:21 Humalog SUB-Q 3 unit ACHS ZACH Administration Protocol Miscellaneous Medication 325 mg 10/02/19 18:45 Paliperidone Palmitate [Invega Sustenna] IM Q3W ZACH Olanzapine 5 mg 10/12/19 22:00 10/15/19 23:26 Zyprexa PO 5 mg QHS ZACH Administration Ondansetron HCl 4 mg 10/01/19 08:00 Zofran IV Q8H PRN Nausea And Vomiting Prednisone 20 mg 10/15/19 10:00 10/16/19 09:00 Deltasone PO 10/17/19 23:59 20 mg QDAY ZACH Administration Prednisone 10 mg 10/18/19 10:00 Deltasone PO 10/20/19 23:55 QDAY ZACH Simple Syrup 15 ml 10/04/19 10:34 Simple Syrup FEEDTUBE PRN PRN Hypoglycemia Simple Syrup 30 ml 10/04/19 10:34 Simple Syrup FEEDTUBE PRN PRN Hypoglycemia Sodium Bicarbonate 325 mg 10/04/19 10:34 Sodium Bicarbonate FEEDTUBE PRN PRN For Clogged Feeding Tube Sodium Chloride 10 ml 10/01/19 10:00 10/15/19 22:52 Sodium Chloride Flush Syringe 10 Ml IV 10 ml BID ZACH Administration Trazodone HCl 50 mg 10/01/19 22:00 10/15/19 22:50 Desyrel PO 50 mg QHS ZACH Administration Valproic Acid 1,500 mg 10/05/19 22:00 10/15/19 22:51 Depakene Liq PO 1,500 mg QHS ZACH Administration Nutrition/Malnutrition Assess - Dietary Evaluation Nutrition/Malnutrition Findings: Nutrition Notes Start: 10/04/19 09:33 Freq: Status: Active Protocol: Document 10/13/19 15:29 LM (Rec: 10/13/19 15:35 LM [id number]) Nutrition Notes Initial or Follow up Reassessment Current Diagnosis Acute Kidney Injury,Sepsis Other Pertinent Diagnosis COVID-19 (+), Schizoaffective disorder Current Diet Pureed Labs/Tests POC glu 203 Pertinent Medications Humalog Height 5 ft 6 in Weight 114.3 kg [place] Body Weight (kg) 59.09 BMI 40.6 Subjective/Other Information Pt with good intakes in chart. Pt ate 75% of breakfast today . Pt not getting PEG. Percent of energy/protein needs met: 85%/83% Burn Absent Trauma Absent GI Symptoms None Food Allergy No Current % PO Good (75-100%) Minimum of two criteria No Reduced Customer Care Manager Strength Measurably Reduced (severe) #1 Nutrition Diagnosis Inadequate oral intake As Evidenced by Signs and Symptoms pt eating 75% of pureed diet Diagnosis Progress(for reassessment Improved documentation) Is patient on ventilator? No Is Patient Ambulatory and/or Out of Bed No REE-([facility]-confined to bed) 7610.612 Kcal/Kg value to use for calculation 14 Approximate Energy Requirements Using 1600 kcal/Kg Calculation Used for Recommendations Kcal/kg Additional Notes Pro needs 0.8-1g/kg adjBW: 69- 87g/day Fluid needs 1ml/kcal Nutrition Intervention Change Diet Order: Continue current diet order as tolerated; add consistent CHO modifier Goal #1 Meet at least 75% of energy and protein needs Anticipated Discharge Needs: Unable to determine at this time Follow-Up By: 10/19/19 Additional Comments F/U for stable intakes
[2019-10-16] MEDS: VALPROIC ACID 250 MG/5 ML ORAL LIQD PO SCH (21:37)
[2019-10-16] MEDS: traZODone 50 MG TAB PO SCH (21:38)
[2019-10-17] MEDS: INSULIN LISPRO 100 UNIT/ML VIAL 3 mL SUB-Q SCH ×4 (08:00→23:19)
--- NOTE | 2019-10-17 08:23 | Progress Note ---
Assessment and Plan Assessment and plan: This is a 54-year-old female with paranoid schizophrenia that presents to the emergency department on 09/29 for altered mental status in a catatonic state. Previous hospitalizations reviewed and only notes a history of paranoid schizophrenia. Patient may be a resident of [place]. Patient is currently nonverbal and HPI is received from ER documentation. Work-up in the emergency department included a CT abdomen pelvis which shows patchy peripheral groundglass opacities bilateral lungs which is consistent with either viral or atypical pneumonia, positive anterior lateral fat hernia in the left mid abdomen and a large uterine fibroids however her CXR showed no acute pulmonary or pleural abnormalities. She was found to have acute kidney injury with a creatinine of 1.4/BUN 33 as baseline from previous records seems to be 0.7, rhabdomyolysis with a creatinine kinase of 33,481, leukocytosis with a WBC of 13.8, thrombocytopenia with platelets at 97. She has COVID pneumonia with IV antibiotics, rhabdomyolysis, and FAISAL. Infectious disease, psych, and neurology have been consulted. Neurology does not suspect NMS at this time. Psych has signed off at this time due to ongoing acute medical processes. PT/ST consulted for evaluation but unable to be performed as patient will not follow verbal commands. She will open her eyes to verbal stimuli and intermittently follow commands. Patient remains nonverbal and only groans/moans to painful stimuli. Currently on RA. Her caregiver has agreed to bring pt home with HHPT. * 10/13: continue care, pending discharge details w/ CM and caregiver * 10/12: continue supportive care, awaiting placement with HHPT * 10/11: Continue care, psych reconsulted but signed off with some medication adjustments * 10/10: pureed diet * 10/07: continue care * 10/06: GI consult for peg * 10/05: continue care * Discussed with primary wildlife policy professional patient was normally verbal but sometimes goes into a catatonic state. Phone number for this is [phone] * 10/04: PT consulted. Psych signed off. Continue treatment * 10/03: continue treatment * 10/02: Change fluids to NS 1/2 AT 125CC/hr. Rhabdomylysis improving, insert NGT and start tube feeds. Psych input noted. Continue management for COVID 19. ID consulted. No new fever. CTA chest and CTH obtained which were both negative * 10/01: COVID PCR Positive 10/15: Patient remains in the hospital as hospital bed is being arranged for the patient awaiting placement at this time. Discharge was planned for yesterday this is held up due to bed condition. Discussed with nursing staff to continue passive range of motion with the patient sitting up out of bed to chair and fall precautions. 10/16: Clinical stable, continue to encourage OOB to chair, ANTICIPATE DISCHARGE IN AM Patient Problems (1) Pneumonia due to COVID-19 virus Current Visit: Yes Status: Acute Plan to address problem: - COVID protocol initiated - IV azithromycin and Rocephin completed - 09/30 COVID PCR positive - Trend LDH, CRP, procalcitonin, d-dimer, ferritin - Droplet /contact precautions - Supplemental oxygenation as needed - Infectious disease consulted - Pulmonary hygiene - In setting of elevated D-Dimer, CTA Chest was ordered which was negative for pulmonary embolism - Anticoagulation per COVID protocol, will DC with Eliquis 2.5 BID PO for 30 days - Cannot initiate Remdesivir in setting of elevated LFTs - IV solumedrel changed to PO prednisone and started on taper (2) Hypertension Current Visit: Yes Status: Chronic Plan to address problem: - BP monitoring per protocol - PRN hydralizine - Clonidine TD and hydralazine PO (3) Paranoid schizophrenia Current Visit: Yes Status: Chronic Plan to address problem: -History of present schizophrenia -10/10 Psych reconsulted -Depakote and Haldol -Sleep hygiene -Reorientation as needed (4) Severe sepsis Current Visit: Yes Status: Resolved Plan to address problem: - Presented with low-grade fever, tachycardia, leukocytosis, FAISAL, and bilateral pneumonia - Likely source is bilateral pneumonia secondary to COVID-19 - IV antibiotics completed - Covid protocol initiated (5) DVT prophylaxis Current Visit: Yes Status: Acute Plan to address problem: - SCDs to BLE while in bed - Lovenox subq twice daily per COVID protocol (6) Discharge planning issues Current Visit: Yes Status: Acute History Interval history: Patient seen and examined clinically improving answer some questions. Laying in bed Hospitalist Physical - Physical exam Narrative exam: General appearance: Present: no acute distress, obese. No acute event reported overnight - EENT Eyes: Present: PERRL - Neck Neck: Present: normal ROM - Respiratory Respiratory effort: normal Respiratory: bilateral: diminished (2/2 girth) - Cardiovascular Rhythm: regular Heart Sounds: Present: S1 & S2. Absent: systolic murmur, diastolic murmur - Extremities Extremities: no ischemia, pulses intact, pulses symmetrical, No edema, normal temperature, normal color, Full ROM Peripheral Pulses: within normal limits - Abdominal General gastrointestinal: soft, non-tender, normal bowel sounds - Integumentary Integumentary: Present: clear, warm, dry - Psychiatric Psychiatric: cooperative - Neurologic Neurologic: no focal deficits, moves all extremities - Allied Health Allied health notes reviewed: nursing, social work, case management - Constitutional Vitals: Temp Pulse Resp BP Pulse Ox 97.2 F L 109 H 16 138/91 96 10/17/19 05:31 10/17/19 05:31 10/17/19 05:31 10/17/19 05:31 10/17/19 05:31 General appearance: Present: no acute distress Results - Labs CBC & Chem 7: 10/16/19 05:31 10/14/19 04:28 Labs: Laboratory Last Values WBC 11.2 K/mm3 (4.5-11.0) H 10/16/19 05:31 RBC 4.87 M/mm3 (3.65-5.03) 10/16/19 05:31 Hgb 14.9 gm/dl (10.1-14.3) H 10/16/19 05:31 Hct 44.5 % (30.3-42.9) H 10/16/19 05:31 MCV 91 fl (79-97) 10/16/19 05:31 MCH 31 pg (28-32) 10/16/19 05:31 MCHC 34 % (30-34) 10/16/19 05:31 RDW 16.5 % (13.2-15.2) H 10/16/19 05:31 Plt Count 98 K/mm3 (140-440) L 10/16/19 05:31 Lymph % (Auto) 10.6 % (13.4-35.0) L 09/30/19 22:44 [place] % (Auto) 9.8 % (0.0-7.3) H 09/30/19 22:44 Eos % (Auto) 0.0 % (0.0-4.3) 09/30/19 22:44 Baso % (Auto) 1.2 % (0.0-1.8) 09/30/19 22:44 Lymph # 1.5 K/mm3 (1.2-5.4) 09/30/19 22:44 [place] # 1.3 K/mm3 (0.0-0.8) H 09/30/19 22:44 Eos # 0.0 K/mm3 (0.0-0.4) 09/30/19 22:44 Baso # 0.2 K/mm3 (0.0-0.1) H 09/30/19 22:44 Add Manual Diff Complete 10/08/19 04:50 Total Counted 100 10/08/19 04:50 Seg Neutrophils % 78.4 % (40.0-70.0) H 09/30/19 22:44 Seg Neuts % (Manual) 87.0 % (40.0-70.0) H 10/08/19 04:50 Band Neutrophils % 4.0 % 10/08/19 04:50 Lymphocytes % (Manual) 2.0 % (13.4-35.0) L 10/08/19 04:50 Reactive Lymphs % (Man) 0 % 10/08/19 04:50 Monocytes % (Manual) 6.0 % (0.0-7.3) 10/08/19 04:50 Eosinophils % (Manual) 0 % (0.0-4.3) 10/08/19 04:50 Basophils % (Manual) 0 % (0.0-1.8) 10/08/19 04:50 Metamyelocytes % 1.0 % 10/08/19 04:50 Myelocytes % 0 % 10/08/19 04:50 Promyelocytes % 0 % 10/08/19 04:50 Blast Cells % 0 % 10/08/19 04:50 Nucleated RBC % 1.0 % (0.0-0.9) H 10/08/19 04:50 Seg Neutrophils # 10.8 K/mm3 (1.8-7.7) H 09/30/19 22:44 Seg Neutrophils # Man 14.4 K/mm3 (1.8-7.7) H 10/08/19 04:50 Band Neutrophils # 0.7 K/mm3 10/08/19 04:50 Lymphocytes # (Manual) 0.3 K/mm3 (1.2-5.4) L 10/08/19 04:50 Abs React Lymphs (Man) 0.0 K/mm3 10/08/19 04:50 Monocytes # (Manual) 1.0 K/mm3 (0.0-0.8) H 10/08/19 04:50 Eosinophils # (Manual) 0.0 K/mm3 (0.0-0.4) 10/08/19 04:50 Basophils # (Manual) 0.0 K/mm3 (0.0-0.1) 10/08/19 04:50 Metamyelocytes # 0.2 K/mm3 10/08/19 04:50 Myelocytes # 0.0 K/mm3 10/08/19 04:50 Promyelocytes # 0.0 K/mm3 10/08/19 04:50 Blast Cells # 0.0 K/mm3 10/08/19 04:50 WBC Morphology Not Reportable 10/08/19 04:50 Hypersegmented Neuts Not Reportable 10/08/19 04:50 Hyposegmented Neuts Not Reportable 10/08/19 04:50 Hypogranular Neuts Not Reportable 10/08/19 04:50 Smudge Cells Not Reportable 10/08/19 04:50 Toxic Granulation Not Reportable 10/08/19 04:50 Toxic Vacuolation Not Reportable 10/08/19 04:50 Dohle Bodies Not Reportable 10/08/19 04:50 Pelger-Huet Anomaly Not Reportable 10/08/19 04:50 Bal Rods Not Reportable 10/08/19 04:50 Platelet Estimate Consistent w auto 10/08/19 04:50 Clumped Platelets Not Reportable 10/08/19 04:50 Plt Clumps, EDTA Not Reportable 10/08/19 04:50 Large Platelets Not Reportable 10/08/19 04:50 Giant Platelets Not Reportable 10/08/19 04:50 Platelet Satelliting Not Reportable 10/08/19 04:50 Plt Morphology Comment Not Reportable 10/08/19 04:50 RBC Morphology Not Reportable 10/08/19 04:50 Dimorphic RBCs Not Reportable 10/08/19 04:50 Polychromasia Not Reportable 10/08/19 04:50 Hypochromasia Not Reportable 10/08/19 04:50 Poikilocytosis Not Reportable 10/08/19 04:50 Anisocytosis Not Reportable 10/08/19 04:50 Microcytosis Not Reportable 10/08/19 04:50 Macrocytosis 1+ 10/08/19 04:50 Spherocytes Not Reportable 10/08/19 04:50 Pappenheimer Bodies Not Reportable 10/08/19 04:50 Sickle Cells Not Reportable 10/08/19 04:50 Target Cells 1+ 10/08/19 04:50 Tear Drop Cells Not Reportable 10/08/19 04:50 Ovalocytes Not Reportable 10/08/19 04:50 Helmet Cells Not Reportable 10/08/19 04:50 [employer] Bodies Not Reportable 10/08/19 04:50 [place] Rings Not Reportable 10/08/19 04:50 [place] Cells Not Reportable 10/08/19 04:50 Bite Cells Not Reportable 10/08/19 04:50 Crenated Cell Not Reportable 10/08/19 04:50 Elliptocytes Not Reportable 10/08/19 04:50 Acanthocytes (Spur) Not Reportable 10/08/19 04:50 Rouleaux Not Reportable 10/08/19 04:50 Hemoglobin C Crystals Not Reportable 10/08/19 04:50 Schistocytes Not Reportable 10/08/19 04:50 Malaria parasites Not Reportable 10/08/19 04:50 Willie Bodies Not Reportable 10/08/19 04:50 Hem Pathologist Commnt No 10/08/19 04:50 PT 14.9 Sec. (12.2-14.9) 10/07/19 15:23 INR 1.15 (0.87-1.13) H 10/07/19 15:23 APTT 29.5 Sec. (24.2-36.6) 10/07/19 15:23 D-Dimer 306.74 ng/mlDDU (0-234) H 10/17/19 05:49 Sodium 141 mmol/L (137-145) 10/14/19 04:28 Potassium 4.0 mmol/L (3.6-5.0) 10/14/19 04:28 Chloride 104.8 mmol/L (98-107) 10/14/19 04:28 Carbon Dioxide 24 mmol/L (22-30) 10/14/19 04:28 Anion Gap 16 mmol/L 10/14/19 04:28 BUN 20 mg/dL (7-17) H 10/14/19 04:28 Creatinine 0.8 mg/dL (0.6-1.2) 10/14/19 04:28 Estimated GFR > 60 ml/min 10/14/19 04:28 BUN/Creatinine Ratio 25 % 10/14/19 04:28 Glucose 164 mg/dL (65-100) H 10/14/19 04:28 POC Glucose 177 (70-105) H 10/16/19 22:30 Lactic Acid 1.30 mmol/L (0.7-2.0) 09/30/19 22:44 Calcium 8.4 mg/dL (8.4-10.2) 10/14/19 04:28 Ferritin 991.6 ng/mL (10.0-200.0) H 10/09/19 09:32 Total Bilirubin 0.40 mg/dL (0.1-1.2) 10/05/19 08:32 Direct Bilirubin 0.3 mg/dL (0-0.2) H 09/30/19 22:44 Indirect Bilirubin 0.2 mg/dL 09/30/19 22:44 AST 149 units/L (5-40) H 10/05/19 08:32 ALT 96 units/L (7-56) H 10/05/19 08:32 Alkaline Phosphatase 40 units/L (35-129) 10/05/19 08:32 Lactate Dehydrogenase 716 units/L (91-180) H 10/09/19 09:32 Total Creatine Kinase 934 units/L (30-135) H 10/05/19 08:32 C-Reactive Protein 0.80 mg/dL (0.00-1.30) 10/09/19 09:32 Total Protein 6.1 g/dL (6.3-8.2) L 10/05/19 08:32 Albumin 2.5 g/dL (3.9-5) L 10/05/19 08:32 Albumin/Globulin Ratio 0.7 % 10/05/19 08:32 Procalcitonin 0.71 ng/mL (<0.15) 10/05/19 08:32 Urine Color [place] (Yellow) 10/01/19 Unknown Urine Turbidity Slightly-cloudy (Clear) 10/01/19 Unknown Urine pH 5.0 (5.0-7.0) 10/01/19 Unknown Ur Specific [place] 1.026 (1.003-1.030) 10/01/19 Unknown Urine Protein 100 mg/dl mg/dL (Negative) 10/01/19 Unknown Urine Glucose (UA) Neg mg/dL (Negative) 10/01/19 Unknown Urine Ketones Tr mg/dL (Negative) 10/01/19 Unknown Urine Blood Lg (Negative) 10/01/19 Unknown Urine Nitrite Neg (Negative) 10/01/19 Unknown Urine Bilirubin Neg (Negative) 10/01/19 Unknown Urine Urobilinogen 2.0 mg/dL (<2.0) 10/01/19 Unknown Ur Leukocyte Esterase Neg (Negative) 10/01/19 Unknown Urine WBC (Auto) 17.0 /HPF (0.0-6.0) H 10/01/19 Unknown Urine RBC (Auto) 1.0 /HPF (0.0-6.0) 10/01/19 Unknown U Epithel Cells (Auto) 4.0 /HPF (0-13.0) 10/01/19 Unknown Urine Mucus 2+ /HPF 10/01/19 Unknown Salicylates < 0.3 mg/dL (2.8-20.0) L 09/30/19 22:44 Urine Opiates Screen Presumptive negative 10/01/19 Unknown Urine Methadone Screen Presumptive negative 10/01/19 Unknown Acetaminophen 5.0 ug/mL (10.0-30.0) L 09/30/19 22:44 Ur Barbiturates Screen Presumptive negative 10/01/19 Unknown Valproic Acid 31.8 ug/mL (50-100) L 10/04/19 08:46 Ur Phencyclidine Scrn Presumptive negative 10/01/19 Unknown Ur Amphetamines Screen Presumptive negative 10/01/19 Unknown U Benzodiazepines Scrn Presumptive negative 10/01/19 Unknown Urine Cocaine Screen Presumptive negative 10/01/19 Unknown U Marijuana (THC) Screen Presumptive negative 10/01/19 Unknown Drugs of Abuse Note Disclamer 10/01/19 Unknown Plasma/Serum Alcohol < 0.01 % (0-0.07) 09/30/19 22:44 Coronavirus (PCR) Positive (Negative) A 10/02/19 Unknown Garcia/IV: Voiding Method External Female Catheter IV Catheter Type [Right Upper Peripheral IV arm] IV Catheter Type [Right INT / Saline Lock Antecubital] IV Catheter Type [Right Foot] INT / Saline Lock IV Catheter Type [Right Peripheral IV External Jugular] Active Medications - Current Medications Current Medications: Generic Name Dose Route Start Last Admin Trade Name Freq PRN Reason Stop Dose Admin Acetaminophen 650 mg 10/01/19 08:00 10/08/19 12:10 Tylenol PO 650 mg Q4H PRN Administration Pain MILD(1-3)/Fever >100.5/WRIGHT Amlodipine Besylate 10 mg 10/11/19 19:00 10/16/19 12:10 Amlodipine PO 10 mg QDAY ZACH Administration Lipase/Protease/Amylase 1 each 10/04/19 10:34 Pancreazbubba Martinez 10,500 Unit FEEDTUBE PRN PRN For Clogged Feeding Tube Benztropine Mesylate 1 mg 10/11/19 15:00 10/16/19 21:41 Cogentin PO 1 mg BID ZACH Administration Clonidine HCl 0.2 mg 10/11/19 13:00 10/11/19 14:05 Catapres-Tts Patch TD 0.2 mg Mo ZACH Administration Enoxaparin Sodium 40 mg 10/04/19 22:00 10/16/19 21:37 Enoxaparin SUB-Q 40 mg BID ZACH Administration Hydralazine HCl 5 mg 10/11/19 16:44 Apresoline IV Q30MIN PRN Hypertension Hydralazine HCl 75 mg 10/14/19 15:55 10/16/19 21:38 Apresoline PO 75 mg TID ZACH Administration Insulin Human Lispro 0 unit 10/12/19 22:00 10/16/19 22:00 Humalog SUB-Q Not Given ACHS ZACH Protocol Olanzapine 5 mg 10/12/19 22:00 10/16/19 21:41 Zyprexa PO 5 mg QHS ZACH Administration Ondansetron HCl 4 mg 10/01/19 08:00 Zofran IV Q8H PRN Nausea And Vomiting Prednisone 20 mg 10/15/19 10:00 10/16/19 09:00 Deltasone PO 10/17/19 23:59 20 mg QDAY ZACH Administration Prednisone 10 mg 10/18/19 10:00 Deltasone PO 10/20/19 23:55 QDAY ZACH Simple Syrup 15 ml 10/04/19 10:34 Simple Syrup FEEDTUBE PRN PRN Hypoglycemia Simple Syrup 30 ml 10/04/19 10:34 Simple Syrup FEEDTUBE PRN PRN Hypoglycemia Sodium Bicarbonate 325 mg 10/04/19 10:34 Sodium Bicarbonate FEEDTUBE PRN PRN For Clogged Feeding Tube Sodium Chloride 10 ml 10/01/19 10:00 10/16/19 21:41 Sodium Chloride Flush Syringe 10 Ml IV 10 ml BID ZACH Administration Trazodone HCl 50 mg 10/01/19 22:00 10/16/19 21:38 Desyrel PO 50 mg QHS ZACH Administration Valproic Acid 1,500 mg 10/05/19 22:00 10/16/19 21:37 Depakene Liq PO 1,500 mg QHS ZACH Administration Nutrition/Malnutrition Assess - Dietary Evaluation Nutrition/Malnutrition Findings: Nutrition Notes Start: 10/04/19 09:33 Freq: Status: Active Protocol: Document 10/13/19 15:29 LM (Rec: 10/13/19 15:35 LM [id number]) Nutrition Notes Initial or Follow up Reassessment Current Diagnosis Acute Kidney Injury,Sepsis Other Pertinent Diagnosis COVID-19 (+), Schizoaffective disorder Current Diet Pureed Labs/Tests POC glu 203 Pertinent Medications Humalog Height 5 ft 6 in Weight 114.3 kg [place] Body Weight (kg) 59.09 BMI 40.6 Subjective/Other Information Pt with good intakes in chart. Pt ate 75% of breakfast today . Pt not getting PEG. Percent of energy/protein needs met: 85%/83% Burn Absent Trauma Absent GI Symptoms None Food Allergy No Current % PO Good (75-100%) Minimum of two criteria No Reduced Metal Alloy Scientist Strength Measurably Reduced (severe) #1 Nutrition Diagnosis Inadequate oral intake As Evidenced by Signs and Symptoms pt eating 75% of pureed diet Diagnosis Progress(for reassessment Improved documentation) Is patient on ventilator? No Is Patient Ambulatory and/or Out of Bed No REE-([facility]-confined to bed) 7424.612 Kcal/Kg value to use for calculation 14 Approximate Energy Requirements Using 1600 kcal/Kg Calculation Used for Recommendations Kcal/kg Additional Notes Pro needs 0.8-1g/kg adjBW: 69- 87g/day Fluid needs 1ml/kcal Nutrition Intervention Change Diet Order: Continue current diet order as tolerated; add consistent CHO modifier Goal #1 Meet at least 75% of energy and protein needs Anticipated Discharge Needs: Unable to determine at this time Follow-Up By: 10/19/19 Additional Comments F/U for stable intakes
[2019-10-17] MEDS: hydrALAZINE 25 MG TAB PO SCH ×3 (08:26→21:36)
[2019-10-17] MEDS: predniSONE 20 MG TAB PO SCH (10:11)
[2019-10-17] MEDS: ENOXAPARIN 40 MG/0.4 ML INJ SUB-Q SCH ×2 (10:12→21:38)
[2019-10-17] MEDS: amLODIPine 10 MG TAB PO SCH (10:35)
[2019-10-17] MEDS: BENZTROPINE 1 MG TAB PO SCH ×2 (10:35→21:36)
[2019-10-17] MEDS: VALPROIC ACID 250 MG/5 ML ORAL LIQD PO SCH (21:37)
[2019-10-17] MEDS: traZODone 50 MG TAB PO SCH (21:38)
[2019-10-18] MEDS: INSULIN LISPRO 100 UNIT/ML VIAL 3 mL SUB-Q SCH ×3 (10:14→18:39)
[2019-10-18] MEDS: BENZTROPINE 1 MG TAB PO SCH ×2 (10:35→23:46)
[2019-10-18] MEDS: predniSONE 10 MG TAB PO SCH (10:35)
[2019-10-18] MEDS: ENOXAPARIN 40 MG/0.4 ML INJ SUB-Q SCH ×2 (10:35→23:46)
[2019-10-18] MEDS: hydrALAZINE 25 MG TAB PO SCH ×2 (10:37→13:29)
[2019-10-18] MEDS: amLODIPine 10 MG TAB PO SCH (10:37)
[2019-10-18] MEDS: cloNIDine TTS 0.2 MG/24 HR PATCH TD SCH (13:29)
--- NOTE | 2019-10-18 14:52 | Discharge Summary ---
<BLANCA SOFIAFabián - Last Filed: 10/18/19 14:53> Providers - Providers Date of Admission: 10/01/19 15:51 Attending physician: HERIBERTO CONTE MD 10/01/19 07:59 Consult to Mental Health [CONS] Urgent Reason For Exam: Catatonic state w/ psych history 10/01/19 08:16 Consult to Physician [CONS] Routine Comment: Consulting Provider: MIGUEL JOHNSON Physician Instructions: Reason For Exam: Covid PUI 10/01/19 09:30 Consult to Case Management [CONS] Routine Services Needed at Discharge: Director Medical Economics Notified:: yes Phone number called:: in person Was contact made?: No Time called:: 13:30 10/01/19 11:33 Consult to Physician [CONS] Routine Comment: Consulting Provider: ALFONSO FLEMING Physician Instructions: Reason For Exam: NEUROLEPTIC MALIGNANT SYNDROME 10/03/19 14:51 Consult to Dietitian/Nutrition [CONS] Routine Physician Instructions: Reason For Exam: Reason for Consult: Write/Manage Tube Feeding 10/03/19 14:52 Consult to Dietitian/Nutrition [CONS] Routine Physician Instructions: Reason For Exam: Reason for Consult: Write/Manage Tube Feeding 10/05/19 11:47 Physical Therapy Evaluation and Treat [CONS] Routine Comment: Reason For Exam: placement Speech Therapy Evaluation and Treat [CONS] Routine Reason For Exam: aspiration 10/07/19 12:24 Consult to Physician [CONS] Routine Comment: Consulting Provider: [facility] Physician Instructions: Reason For Exam: PEG placement 10/07/19 12:26 Consult to Physician [CONS] Routine Comment: Consulting Provider: CORETTA LANZA Physician Instructions: Reason For Exam: PEG placement 10/12/19 09:38 Physical Therapy Evaluation and Treat [CONS] Urgent Comment: Reason For Exam: To assist with transitional planning Date of last referral: 10/06/19 Primary care physician: SUPERVISOR Hospitalization Condition: Stable Pertinent studies: 09/29 CXR shows suboptimal inspiration. No definite acute pulmonary or pleural abnormality 09/30 CT abd shows patchy peripheral groundglass opacity in both lungs consistent with either viral or atypical pneumonia, posterior lateral hernia of fat in the left midabdomen and enlarged fibroid uterus 10/02 CTH shows mild microvascular angiopathy and cerebral atrophy without evidence of acute intracranial hemorrhage. 10/02 CTA chest shows no CT evidence for pulmonary embolism and patchy areas of groundglass opacity in both lungs suggestive of viral pneumonia Hospital course: This is a 54-year-old female with paranoid schizophrenia that presents to the emergency department on 09/29 for altered mental status in a catatonic state. Previous hospitalizations reviewed and only notes a history of paranoid schizophrenia. Patient may be a resident of [place]. Patient is currently nonverbal and HPI is received from ER documentation. Work-up in the emergency department included a CT abdomen pelvis which shows patchy peripheral groundglass opacities bilateral lungs which is consistent with either viral or atypical pneumonia, positive anterior lateral fat hernia in the left mid abdomen and a large uterine fibroids however her CXR showed no acute pulmonary or pleural abnormalities. She was found to have acute kidney injury with a creatinine of 1.4/BUN 33 as baseline from previous records seems to be 0.7, rhabdomyolysis with a creatinine kinase of 33,481, leukocytosis with a WBC of 13.8, thrombocytopenia with platelets at 97. She has COVID pneumonia and was started on IV antibiotics, rhabdomyolysis, and FAISAL. Infectious disease, psych, and neurology have been consulted. Neurology does not suspect NMS at this time. Psych does not recommend inpt acute hospitalization at this time. On 10/02 CTA chest with obtained for elevated d-dimer and CTh head was obtained for altered mental status both of which showed no acute process. On 10/14 GI was consulted for possible PEG placement due to patient unresponsiveness to verbal stimuli ho wever she was later started on a pured diet on 10/10. On 10/11 psych was reconsulted for pill rolling EPS symptoms some adjustments were made to her medication. Physical therapy and speech therapy were consulted for evaluation but unable to be performed as patient will not follow verbal commands. Patient remains nonverbal and only groans/moans to painful stimuli. She has completed her antibiotics for COVID pneumonia and her rhabdomyolysis, FAISAL secondary to rhabdomyolysis and vasomotor nephropathy, and thrombocytopenia has resolved. She will be discharged with her caregiver with HHPT, on a steroid taper and 30 days of eliquis. Please follow-up with your primary care physician and outpatient psychiatric services within 1 to 2 weeks of discharge. (1) Severe sepsis Current Visit: Yes Status: Resolved Plan to address problem: - Presented with low-grade fever, tachycardia, leukocytosis, FAISAL, and bilateral pneumonia - Likely source is bilateral pneumonia secondary to COVID-19 - IV antibiotics completed (2) Pneumonia due to COVID-19 virus Current Visit: Yes Status: Acute Plan to address problem: - IV azithromycin and Rocephin completed - 09/30 COVID PCR positive - IV solumedrel changed to PO prednisone and started on taper, be discharged on taper - Given elevated D-Dimer will be discharged with PO Eiquis 2.5 BID for 30 days (3) Paranoid schizophrenia Current Visit: Yes Status: Chronic Plan to address problem: - History of present schizophrenia - [facility] psych does not recommend inpatient hospitalization at this time - [facility] (4) Leukocytosis Current Visit: Yes Status: Acute Plan to address problem: - Admit WBC 13.8 - Now trending down, on steroid taper (5) Hypertension Current Visit: Yes Status: Chronic Plan to address problem: - Clonidine TD and hydralazine PO - Blood pressure monitoring as prescribed per primary care physician Disposition: [id number] HOME UNDER HOME [facility] Time spent for discharge: 30 Core Measure Documentation - Palliative Care Palliative Care/ Comfort Measures: Not Applicable - Core Measures Any of the following diagnoses?: none Exam - Constitutional Vitals: Temp Pulse Resp BP Pulse Ox 97.9 F 111 H 19 134/85 97 10/18/19 11:13 10/18/19 13:29 10/18/19 11:13 10/18/19 13:29 10/18/19 11:13 General appearance: Present: no acute distress - EENT ENT: hearing intact - Neck Neck: Present: normal ROM - Respiratory Respiratory effort: normal Respiratory: bilateral: diminished - Cardiovascular Rhythm: regular Heart Sounds: Present: S1 & S2. Absent: systolic murmur, diastolic murmur - Extremities Extremities: no ischemia, pulses intact, pulses symmetrical, No edema, normal temperature, normal color, Full ROM - Abdominal General gastrointestinal: Present: soft, non-tender, non-distended, normal bowel sounds - Integumentary Integumentary: Present: clear, warm, dry - Musculoskeletal Musculoskeletal: strength equal bilaterally - Psychiatric Psychiatric: cooperative - Neurologic Neurologic: CNII-XII intact, no focal deficits, moves all extremities - Allied Health Allied health notes reviewed: nursing, PT, ST, OT, social work, case management Plan Activity: advance as tolerated Diet: per dietitian instruction, advance as tolerated Special Instructions: record daily BP diary, physical therapy Follow up with: PRIMARY CARE, [Primary Care Provider] - 7 Days YANDY HERNANDEZ MD [Staff Physician] - 7 Days Prescriptions: VALPROIC ACID Liq [DepaKENE Liq] 1,500 mg PO QHS #30 oral.liqd traZODone [Desyrel] 50 mg PO QHS #30 tablet OLANzapine [ZyPREXA] 5 mg PO QHS #30 tablet amLODIPine 10 mg PO QDAY #30 tablet hydrALAZINE [Apresoline TAB] 75 mg PO TID 30 Days #270 tablet cloNIDine-TTS PATCH [Catapres-Tts 0.2mg Patch] 0.2 mg TD Mo #12 patch Benztropine [Cogentin] 1 mg PO BID #60 tablet predniSONE [Deltasone] 10 mg PO QDAY 3 Days #3 tablet predniSONE [Deltasone] 20 mg PO QDAY 2 Days #4 tablet Apixaban [Eliquis] 2.5 mg PO BID #60 tablet Paliperidone Palmitate [Invega Sustenna] 325 mg IM Q3W #2 syr <HERIBERTO CONTE - Last Filed: 10/18/19 16:53> Providers - Providers Date of Admission: 10/01/19 15:51 Attending physician: HERIBERTO CONTE MD 10/01/19 07:59 Consult to Mental Health [CONS] Urgent Reason For Exam: Catatonic state w/ psych history 10/01/19 08:16 Consult to Physician [CONS] Routine Comment: Consulting Provider: MIGUEL JOHNSON Physician Instructions: Reason For Exam: Covid PUI 10/01/19 09:30 Consult to Case Management [CONS] Routine Services Needed at Discharge: Director Medical Economics Notified:: yes Phone number called:: in person Was contact made?: No Time called:: 13:30 10/01/19 11:33 Consult to Physician [CONS] Routine Comment: Consulting Provider: ALFONSO FLEMING Physician Instructions: Reason For Exam: NEUROLEPTIC MALIGNANT SYNDROME 10/03/19 14:51 Consult to Dietitian/Nutrition [CONS] Routine Physician Instructions: Reason For Exam: Reason for Consult: Write/Manage Tube Feeding 10/03/19 14:52 Consult to Dietitian/Nutrition [CONS] Routine Physician Instructions: Reason For Exam: Reason for Consult: Write/Manage Tube Feeding 10/05/19 11:47 Physical Therapy Evaluation and Treat [CONS] Routine Comment: Reason For Exam: placement Speech Therapy Evaluation and Treat [CONS] Routine Reason For Exam: aspiration 10/07/19 12:24 Consult to Physician [CONS] Routine Comment: Consulting Provider: [facility] Physician Instructions: Reason For Exam: PEG placement 10/07/19 12:26 Consult to Physician [CONS] Routine Comment: Consulting Provider: CORETTA LANZA Physician Instructions: Reason For Exam: PEG placement 10/12/19 09:38 Physical Therapy Evaluation and Treat [CONS] Urgent Comment: Reason For Exam: To assist with transitional planning Date of last referral: 10/06/19 Primary care physician: SUPERVISOR Hospitalization Hospital course: I saw and evaluated the patient. I agree with the findings and the plan of care as documented in the Nurse Practitioner's~note, with the following corrections and additions. Exam - Constitutional Vitals: Temp Pulse Resp BP Pulse Ox 97.9 F 111 H 19 134/85 97 10/18/19 11:13 10/18/19 13:29 10/18/19 11:13 10/18/19 13:29 10/18/19 11:13
[2019-10-18] MEDS: VALPROIC ACID 250 MG/5 ML ORAL LIQD PO SCH (23:46)
[2019-10-18] MEDS: traZODone 50 MG TAB PO SCH (23:47)
[2019-10-19] MEDS: INSULIN LISPRO 100 UNIT/ML VIAL 3 mL SUB-Q SCH ×3 (00:33→13:01)
--- NOTE | 2019-10-19 09:49 | Progress Note ---
Assessment and Plan Assessment and plan: This is a 54-year-old female with paranoid schizophrenia that presents to the emergency department on 09/29 for altered mental status in a catatonic state. Previous hospitalizations reviewed and only notes a history of paranoid schizophrenia. Patient may be a resident of [place]. Patient is currently nonverbal and HPI is received from ER documentation. Work-up in the emergency department included a CT abdomen pelvis which shows patchy peripheral groundglass opacities bilateral lungs which is consistent with either viral or atypical pneumonia, positive anterior lateral fat hernia in the left mid abdomen and a large uterine fibroids however her CXR showed no acute pulmonary or pleural abnormalities. She was found to have acute kidney injury with a creatinine of 1.4/BUN 33 as baseline from previous records seems to be 0.7, rhabdomyolysis with a creatinine kinase of 33,481, leukocytosis with a WBC of 13.8, thrombocytopenia with platelets at 97. She has COVID pneumonia with IV antibiotics, rhabdomyolysis, and FAISAL. Infectious disease, psych, and neurology have been consulted. Neurology does not suspect NMS at this time. Psych has signed off at this time due to ongoing acute medical processes. PT/ST consulted for evaluation but unable to be performed as patient will not follow verbal commands. She will open her eyes to verbal stimuli and intermittently follow commands. Patient remains nonverbal and only groans/moans to painful stimuli. Currently on RA. Her caregiver has agreed to bring pt home with HHPT. * 10/13: continue care, pending discharge details w/ CM and caregiver * 10/12: continue supportive care, awaiting placement with HHPT * 10/11: Continue care, psych reconsulted but signed off with some medication adjustments * 10/10: pureed diet * 10/07: continue care * 10/06: GI consult for peg * 10/05: continue care * Discussed with primary rehabilitation specialist patient was normally verbal but sometimes goes into a catatonic state. Phone number for this is [phone] * 10/04: PT consulted. Psych signed off. Continue treatment * 10/03: continue treatment * 10/02: Change fluids to NS 1/2 AT 125CC/hr. Rhabdomylysis improving, insert NGT and start tube feeds. Psych input noted. Continue management for COVID 19. ID consulted. No new fever. CTA chest and CTH obtained which were both negative * 10/01: COVID PCR Positive 10/15: Patient remains in the hospital as hospital bed is being arranged for the patient awaiting placement at this time. Discharge was planned for yesterday this is held up due to bed condition. Discussed with nursing staff to continue passive range of motion with the patient sitting up out of bed to chair and fall precautions. 10/16: Clinical stable, continue to encourage OOB to chair, ANTICIPATE DISCHARGE IN AM 10/18: Over the past 2448 hrs. patient has remained stable did have a fall earlier this morning was found on the floor is unsure how she got to the floor no pain points felt on multiple palpation. She awakens. She is able to feed herself some although falls asleep. She does not verbalize any headache. Due to noted thrombocytopenia will order a stat CT head just to ensure no other pathology and will proceed with discharge plan. Patient Problems (1) Pneumonia due to COVID-19 virus Current Visit: Yes Status: Acute Plan to address problem: - COVID protocol initiated - IV azithromycin and Rocephin completed - 09/30 COVID PCR positive - Trend LDH, CRP, procalcitonin, d-dimer, ferritin - Droplet /contact precautions - Supplemental oxygenation as needed - Infectious disease consulted - Pulmonary hygiene - In setting of elevated D-Dimer, CTA Chest was ordered which was negative for pulmonary embolism - Anticoagulation per COVID protocol, will DC with Eliquis 2.5 BID PO for 30 days - Cannot initiate Remdesivir in setting of elevated LFTs - IV solumedrel changed to PO prednisone and started on taper (2) Hypertension Current Visit: Yes Status: Chronic Plan to address problem: - BP monitoring per protocol - PRN hydralizine - Clonidine TD and hydralazine PO (3) Paranoid schizophrenia Current Visit: Yes Status: Chronic Plan to address problem: -History of present schizophrenia -10/10 Psych reconsulted -Depakote and Haldol -Sleep hygiene -Reorientation as needed (4) Severe sepsis Current Visit: Yes Status: Resolved Plan to address problem: - Presented with low-grade fever, tachycardia, leukocytosis, FAISAL, and bilateral pneumonia - Likely source is bilateral pneumonia secondary to COVID-19 - IV antibiotics completed - Covid protocol initiated (5) thrombocytopenia (6) DVT prophylaxis Current Visit: Yes Status: Acute Plan to address problem: - SCDs to BLE while in bed - Lovenox subq twice daily per COVID protocol (7) Discharge planning issues Current Visit: Yes Status: Acute History Interval history: Patient seen and examined clinically improving answer some questions. Eating her food although often falls asleep but wakes up. When I touched her shoulder she looked at me as while trying to hurt her. Hospitalist Physical - Physical exam Narrative exam: General appearance: Present: no acute distress, obese. No acute event reported overnight intermittent drowsy but awakens. - EENT Eyes: Present: PERRL - Neck Neck: Present: normal ROM - Respiratory Respiratory effort: normal Respiratory: bilateral: diminished (2/2 girth) - Cardiovascular Rhythm: regular Heart Sounds: Present: S1 & S2. Absent: systolic murmur, diastolic murmur - Extremities Extremities: no ischemia, pulses intact, pulses symmetrical, No edema, normal temperature, normal color, Full ROM Peripheral Pulses: within normal limits - Abdominal General gastrointestinal: soft, non-tender, normal bowel sounds - Integumentary Integumentary: Present: clear, warm, dry - Psychiatric Psychiatric: cooperative - Neurologic Neurologic: no focal deficits, moves all extremities - Allied Health Allied health notes reviewed: nursing, social work, case management - Constitutional Vitals: Temp Pulse Resp BP Pulse Ox 97.2 F L 111 H 20 143/81 92 10/19/19 05:06 10/19/19 05:06 10/19/19 05:06 10/19/19 05:06 10/19/19 05:06 General appearance: Present: no acute distress Results - Labs CBC & Chem 7: 10/16/19 05:31 10/14/19 04:28 Labs: Laboratory Last Values WBC 11.2 K/mm3 (4.5-11.0) H 10/16/19 05:31 RBC 4.87 M/mm3 (3.65-5.03) 10/16/19 05:31 Hgb 14.9 gm/dl (10.1-14.3) H 10/16/19 05:31 Hct 44.5 % (30.3-42.9) H 10/16/19 05:31 MCV 91 fl (79-97) 10/16/19 05:31 MCH 31 pg (28-32) 10/16/19 05:31 MCHC 34 % (30-34) 10/16/19 05:31 RDW 16.5 % (13.2-15.2) H 10/16/19 05:31 Plt Count 98 K/mm3 (140-440) L 10/16/19 05:31 Lymph % (Auto) 10.6 % (13.4-35.0) L 09/30/19 22:44 [place] % (Auto) 9.8 % (0.0-7.3) H 09/30/19 22:44 Eos % (Auto) 0.0 % (0.0-4.3) 09/30/19 22:44 Baso % (Auto) 1.2 % (0.0-1.8) 09/30/19 22:44 Lymph # 1.5 K/mm3 (1.2-5.4) 09/30/19 22:44 [place] # 1.3 K/mm3 (0.0-0.8) H 09/30/19 22:44 Eos # 0.0 K/mm3 (0.0-0.4) 09/30/19 22:44 Baso # 0.2 K/mm3 (0.0-0.1) H 09/30/19 22:44 Add Manual Diff Complete 10/08/19 04:50 Total Counted 100 10/08/19 04:50 Seg Neutrophils % 78.4 % (40.0-70.0) H 09/30/19 22:44 Seg Neuts % (Manual) 87.0 % (40.0-70.0) H 10/08/19 04:50 Band Neutrophils % 4.0 % 10/08/19 04:50 Lymphocytes % (Manual) 2.0 % (13.4-35.0) L 10/08/19 04:50 Reactive Lymphs % (Man) 0 % 10/08/19 04:50 Monocytes % (Manual) 6.0 % (0.0-7.3) 10/08/19 04:50 Eosinophils % (Manual) 0 % (0.0-4.3) 10/08/19 04:50 Basophils % (Manual) 0 % (0.0-1.8) 10/08/19 04:50 Metamyelocytes % 1.0 % 10/08/19 04:50 Myelocytes % 0 % 10/08/19 04:50 Promyelocytes % 0 % 10/08/19 04:50 Blast Cells % 0 % 10/08/19 04:50 Nucleated RBC % 1.0 % (0.0-0.9) H 10/08/19 04:50 Seg Neutrophils # 10.8 K/mm3 (1.8-7.7) H 09/30/19 22:44 Seg Neutrophils # Man 14.4 K/mm3 (1.8-7.7) H 10/08/19 04:50 Band Neutrophils # 0.7 K/mm3 10/08/19 04:50 Lymphocytes # (Manual) 0.3 K/mm3 (1.2-5.4) L 10/08/19 04:50 Abs React Lymphs (Man) 0.0 K/mm3 10/08/19 04:50 Monocytes # (Manual) 1.0 K/mm3 (0.0-0.8) H 10/08/19 04:50 Eosinophils # (Manual) 0.0 K/mm3 (0.0-0.4) 10/08/19 04:50 Basophils # (Manual) 0.0 K/mm3 (0.0-0.1) 10/08/19 04:50 Metamyelocytes # 0.2 K/mm3 10/08/19 04:50 Myelocytes # 0.0 K/mm3 10/08/19 04:50 Promyelocytes # 0.0 K/mm3 10/08/19 04:50 Blast Cells # 0.0 K/mm3 10/08/19 04:50 WBC Morphology Not Reportable 10/08/19 04:50 Hypersegmented Neuts Not Reportable 10/08/19 04:50 Hyposegmented Neuts Not Reportable 10/08/19 04:50 Hypogranular Neuts Not Reportable 10/08/19 04:50 Smudge Cells Not Reportable 10/08/19 04:50 Toxic Granulation Not Reportable 10/08/19 04:50 Toxic Vacuolation Not Reportable 10/08/19 04:50 Dohle Bodies Not Reportable 10/08/19 04:50 Pelger-Huet Anomaly Not Reportable 10/08/19 04:50 Bal Rods Not Reportable 10/08/19 04:50 Platelet Estimate Consistent w auto 10/08/19 04:50 Clumped Platelets Not Reportable 10/08/19 04:50 Plt Clumps, EDTA Not Reportable 10/08/19 04:50 Large Platelets Not Reportable 10/08/19 04:50 Giant Platelets Not Reportable 10/08/19 04:50 Platelet Satelliting Not Reportable 10/08/19 04:50 Plt Morphology Comment Not Reportable 10/08/19 04:50 RBC Morphology Not Reportable 10/08/19 04:50 Dimorphic RBCs Not Reportable 10/08/19 04:50 Polychromasia Not Reportable 10/08/19 04:50 Hypochromasia Not Reportable 10/08/19 04:50 Poikilocytosis Not Reportable 10/08/19 04:50 Anisocytosis Not Reportable 10/08/19 04:50 Microcytosis Not Reportable 10/08/19 04:50 Macrocytosis 1+ 10/08/19 04:50 Spherocytes Not Reportable 10/08/19 04:50 Pappenheimer Bodies Not Reportable 10/08/19 04:50 Sickle Cells Not Reportable 10/08/19 04:50 Target Cells 1+ 10/08/19 04:50 Tear Drop Cells Not Reportable 10/08/19 04:50 Ovalocytes Not Reportable 10/08/19 04:50 Helmet Cells Not Reportable 10/08/19 04:50 Sing[place]-Formoso Bodies Not Reportable 10/08/19 04:50 [place] Rings Not Reportable 10/08/19 04:50 [place] Cells Not Reportable 10/08/19 04:50 Bite Cells Not Reportable 10/08/19 04:50 Crenated Cell Not Reportable 10/08/19 04:50 Elliptocytes Not Reportable 10/08/19 04:50 Acanthocytes (Spur) Not Reportable 10/08/19 04:50 Rouleaux Not Reportable 10/08/19 04:50 Hemoglobin C Crystals Not Reportable 10/08/19 04:50 Schistocytes Not Reportable 10/08/19 04:50 Malaria parasites Not Reportable 10/08/19 04:50 Willie Bodies Not Reportable 10/08/19 04:50 Hem Pathologist Commnt No 10/08/19 04:50 PT 14.9 Sec. (12.2-14.9) 10/07/19 15:23 INR 1.15 (0.87-1.13) H 10/07/19 15:23 APTT 29.5 Sec. (24.2-36.6) 10/07/19 15:23 D-Dimer 306.74 ng/mlDDU (0-234) H 10/17/19 05:49 Sodium 141 mmol/L (137-145) 10/14/19 04:28 Potassium 4.0 mmol/L (3.6-5.0) 10/14/19 04:28 Chloride 104.8 mmol/L (98-107) 10/14/19 04:28 Carbon Dioxide 24 mmol/L (22-30) 10/14/19 04:28 Anion Gap 16 mmol/L 10/14/19 04:28 BUN 20 mg/dL (7-17) H 10/14/19 04:28 Creatinine 0.8 mg/dL (0.6-1.2) 10/14/19 04:28 Estimated GFR > 60 ml/min 10/14/19 04:28 BUN/Creatinine Ratio 25 % 10/14/19 04:28 Glucose 164 mg/dL (65-100) H 10/14/19 04:28 POC Glucose 120 (70-105) H 10/19/19 08:08 Lactic Acid 1.30 mmol/L (0.7-2.0) 09/30/19 22:44 Calcium 8.4 mg/dL (8.4-10.2) 10/14/19 04:28 Ferritin 991.6 ng/mL (10.0-200.0) H 10/09/19 09:32 Total Bilirubin 0.40 mg/dL (0.1-1.2) 10/05/19 08:32 Direct Bilirubin 0.3 mg/dL (0-0.2) H 09/30/19 22:44 Indirect Bilirubin 0.2 mg/dL 09/30/19 22:44 AST 149 units/L (5-40) H 10/05/19 08:32 ALT 96 units/L (7-56) H 10/05/19 08:32 Alkaline Phosphatase 40 units/L (35-129) 10/05/19 08:32 Lactate Dehydrogenase 716 units/L (91-180) H 10/09/19 09:32 Total Creatine Kinase 934 units/L (30-135) H 10/05/19 08:32 C-Reactive Protein 0.80 mg/dL (0.00-1.30) 10/09/19 09:32 Total Protein 6.1 g/dL (6.3-8.2) L 10/05/19 08:32 Albumin 2.5 g/dL (3.9-5) L 10/05/19 08:32 Albumin/Globulin Ratio 0.7 % 10/05/19 08:32 Procalcitonin 0.71 ng/mL (<0.15) 10/05/19 08:32 Urine Color [place] (Yellow) 10/01/19 Unknown Urine Turbidity Slightly-cloudy (Clear) 10/01/19 Unknown Urine pH 5.0 (5.0-7.0) 10/01/19 Unknown Ur Specific [place] 1.026 (1.003-1.030) 10/01/19 Unknown Urine Protein 100 mg/dl mg/dL (Negative) 10/01/19 Unknown Urine Glucose (UA) Neg mg/dL (Negative) 10/01/19 Unknown Urine Ketones Tr mg/dL (Negative) 10/01/19 Unknown Urine Blood Lg (Negative) 10/01/19 Unknown Urine Nitrite Neg (Negative) 10/01/19 Unknown Urine Bilirubin Neg (Negative) 10/01/19 Unknown Urine Urobilinogen 2.0 mg/dL (<2.0) 10/01/19 Unknown Ur Leukocyte Esterase Neg (Negative) 10/01/19 Unknown Urine WBC (Auto) 17.0 /HPF (0.0-6.0) H 10/01/19 Unknown Urine RBC (Auto) 1.0 /HPF (0.0-6.0) 10/01/19 Unknown U Epithel Cells (Auto) 4.0 /HPF (0-13.0) 10/01/19 Unknown Urine Mucus 2+ /HPF 10/01/19 Unknown Salicylates < 0.3 mg/dL (2.8-20.0) L 09/30/19 22:44 Urine Opiates Screen Presumptive negative 10/01/19 Unknown Urine Methadone Screen Presumptive negative 10/01/19 Unknown Acetaminophen 5.0 ug/mL (10.0-30.0) L 09/30/19 22:44 Ur Barbiturates Screen Presumptive negative 10/01/19 Unknown Valproic Acid 31.8 ug/mL (50-100) L 10/04/19 08:46 Ur Phencyclidine Scrn Presumptive negative 10/01/19 Unknown Ur Amphetamines Screen Presumptive negative 10/01/19 Unknown U Benzodiazepines Scrn Presumptive negative 10/01/19 Unknown Urine Cocaine Screen Presumptive negative 10/01/19 Unknown U Marijuana (THC) Screen Presumptive negative 10/01/19 Unknown Drugs of Abuse Note Disclamer 10/01/19 Unknown Plasma/Serum Alcohol < 0.01 % (0-0.07) 09/30/19 22:44 Coronavirus (PCR) Positive (Negative) A 10/02/19 Unknown Garcia/IV: Voiding Method External Female Catheter IV Catheter Type [Right Upper Peripheral IV arm] IV Catheter Type [Right INT / Saline Lock Antecubital] IV Catheter Type [Right Foot] INT / Saline Lock IV Catheter Type [Right Peripheral IV External Jugular] Active Medications - Current Medications Current Medications: Generic Name Dose Route Start Last Admin Trade Name Freq PRN Reason Stop Dose Admin Acetaminophen 650 mg 10/01/19 08:00 10/08/19 12:10 Tylenol PO 650 mg Q4H PRN Administration Pain MILD(1-3)/Fever >100.5/WRIGHT Amlodipine Besylate 10 mg 10/11/19 19:00 10/18/19 10:37 Amlodipine PO 10 mg QDAY ZACH Administration Lipase/Protease/Amylase 1 each 10/04/19 10:34 Pancreazbubba Martinez 10,500 Unit FEEDTUBE PRN PRN For Clogged Feeding Tube Benztropine Mesylate 1 mg 10/11/19 15:00 10/18/19 23:46 Cogentin PO 1 mg BID ZACH Administration Clonidine HCl 0.2 mg 10/11/19 13:00 10/18/19 13:29 Catapres-Tts Patch TD 0.2 mg Mo ZACH Administration Enoxaparin Sodium 40 mg 10/19/19 22:00 Enoxaparin SUB-Q QDAY@2200 ZACH Hydralazine HCl 5 mg 10/11/19 16:44 Apresoline IV Q30MIN PRN Hypertension Hydralazine HCl 75 mg 10/14/19 15:55 10/18/19 13:29 Apresoline PO 75 mg TID ZACH Administration Insulin Human Lispro 0 unit 10/12/19 22:00 10/19/19 00:33 Humalog SUB-Q Not Given ACHS ZACH Protocol Olanzapine 5 mg 10/12/19 22:00 10/18/19 23:46 Zyprexa PO 5 mg QHS ZACH Administration Ondansetron HCl 4 mg 10/01/19 08:00 Zofran IV Q8H PRN Nausea And Vomiting Prednisone 10 mg 10/18/19 10:00 10/18/19 10:35 Deltasone PO 10/20/19 23:55 10 mg QDAY ZACH Administration Simple Syrup 15 ml 10/04/19 10:34 Simple Syrup FEEDTUBE PRN PRN Hypoglycemia Simple Syrup 30 ml 10/04/19 10:34 Simple Syrup FEEDTUBE PRN PRN Hypoglycemia Sodium Bicarbonate 325 mg 10/04/19 10:34 Sodium Bicarbonate FEEDTUBE PRN PRN For Clogged Feeding Tube Sodium Chloride 10 ml 10/01/19 10:00 10/18/19 23:47 Sodium Chloride Flush Syringe 10 Ml IV 10 ml BID ZACH Administration Trazodone HCl 50 mg 10/01/19 22:00 10/18/19 23:47 Desyrel PO 50 mg QHS ZACH Administration Valproic Acid 1,500 mg 10/05/19 22:00 10/18/19 23:46 Depakene Liq PO 1,500 mg QHS ZACH Administration Nutrition/Malnutrition Assess - Dietary Evaluation Nutrition/Malnutrition Findings: Nutrition Notes Start: 10/04/19 09:33 Freq: Status: Active Protocol: Document 10/13/19 15:29 LM (Rec: 10/13/19 15:35 LM [id number]) Nutrition Notes Initial or Follow up Reassessment Current Diagnosis Acute Kidney Injury,Sepsis Other Pertinent Diagnosis COVID-19 (+), Schizoaffective disorder Current Diet Pureed Labs/Tests POC glu 203 Pertinent Medications Humalog Height 5 ft 6 in Weight 114.3 [address] [place] Body Weight (kg) 59.09 BMI 40.6 Subjective/Other Information Pt with good intakes in chart. Pt ate 75% of breakfast today . Pt not getting PEG. Percent of energy/protein needs met: 85%/83% Burn Absent Trauma Absent GI Symptoms None Food Allergy No Current % PO Good (75-100%) Minimum of two criteria No Reduced System Technologist Strength Measurably Reduced (severe) #1 Nutrition Diagnosis Inadequate oral intake As Evidenced by Signs and Symptoms pt eating 75% of pureed diet Diagnosis Progress(for reassessment Improved documentation) Is patient on ventilator? No Is Patient Ambulatory and/or Out of Bed No REE-([facility]-confined to bed) 2109.612 Kcal/Kg value to use for calculation 14 Approximate Energy Requirements Using 1600 kcal/Kg Calculation Used for Recommendations Kcal/kg Additional Notes Pro needs 0.8-1g/kg adjBW: 69- 87g/day Fluid needs 1ml/kcal Nutrition Intervention Change Diet Order: Continue current diet order as tolerated; add consistent CHO modifier Goal #1 Meet at least 75% of energy and protein needs Anticipated Discharge Needs: Unable to determine at this time Follow-Up By: 10/19/19 Additional Comments F/U for stable intakes
[2019-10-19] MEDS: amLODIPine 10 MG TAB PO SCH (11:25)
[2019-10-19] MEDS: predniSONE 10 MG TAB PO SCH (11:25)
[2019-10-19] MEDS: BENZTROPINE 1 MG TAB PO SCH (11:25)
[2019-10-19] MEDS: hydrALAZINE 25 MG TAB PO SCH ×2 (11:26→15:20)
--- NOTE | 2019-10-19 11:43 | Cat Scan Report ---
CT head/brain wo con INDICATION / CLINICAL INFORMATION: 54 years Female; FALL. TECHNIQUE: Routine CT head without contrast. All CT scans at this location are performed using CT dos e reduction for ALARA by means of automated exposure control. COMPARISON: The study is compared to the previous CT of 10/03/2019. FINDINGS: BRAIN / INTRACRANIAL CONTENTS: There again appear to be mild paravertebral white matter changes most consistent with microvascular angiopathy. The findings correlate with the previous CT. This also mild cerebral atrophy. The ventricular system remains appropriate in size and configuration. There are small foci of calcification within the basal ganglia which are unchanged. There is no CT ev idence of acute intracranial hemorrhage or significant mass effect. ORBITS: No significant abnormality of visualized orbits. SINUSES / MASTOIDS: There has been some aeration of the left maxillary sinus from the previous CT. Ho wever, there is continued a prominent mucosal thickening and air-fluid level. There is continued comp lete opacification of the left frontal sinus with mild improvement of the opacification within the le ft ethmoid air cells. There has also been interval mild aeration of the left sphenoid sinus. CRANIOCERVICAL JUNCTION: No significant abnormality. ADDITIONAL FINDINGS: None. IMPRESSION: 1. There is no CT evidence of acute intracranial process. 2. There is continued extensive left-sided paranasal sinus inflammatory disease though there has been some mild improvement aeration from the previous CT of 10/03/2019. Signer Name: Jem Vargas MD Signed: 10/19/2019 11:39 AM Workstation Name: [id number]
[2019-10-19 12:47] VITALS: BP 107/50
[2019-10-19] MEDS ORDERED: ENOXAPARIN 40 MG/0.4 ML INJ SUB-Q SCH (22:00)
== END 2019-10-19 16:08 | disposition home health service (06) | DRG 871 ==
LOC: ED 21:53 → 4A 10-01 01:29 → 3A 10-01 08:42 → IMCU 10-01 12:04 → OBSVTOIN 10-01 15:51 → 3A 10-03 12:55
PROVIDERS: ADMIT Internal Medicine Geriatric Medicine; ATTEND Internal Medicine
PROC: 02HV33Z Insertion of Infusion Device into Superior Vena Cava, Percutaneous Approach (ICD-10-PCS; principal; 2019-10-01)
PROC: B548ZZA Ultrasonography of Superior Vena Cava, Guidance (ICD-10-PCS; 2019-10-01)
DX: A41.89 Other specified sepsis (principal); U07.1 COVID-19; G93.41 Metabolic encephalopathy; N17.0 Acute kidney failure with tubular necrosis; J96.01 Acute respiratory failure with hypoxia; J12.89 Other viral pneumonia; M62.82 Rhabdomyolysis; F20.0 Paranoid schizophrenia; I10 Essential (primary) hypertension; D69.6 Thrombocytopenia, unspecified; E66.01 Morbid (severe) obesity due to excess calories; R13.19 Other dysphagia; E87.1 Hypo-osmolality and hyponatremia; Z79.899 Other long term (current) drug therapy; Z68.41 Body mass index [BMI] 40.0-44.9, adult
CPT/HCPCS: 36415; 70450; 71045; 71275; 74018; 74176; 80048; 80053; 80076; 80164; 80307; 80320; 81001; 82140; 82550; 82728; 82962; 83615; 84145; 85007; 85025; 85027; 85379; 85610; 85730; 86140; 87040; 87086; 94760; G0378; G0480; J0360; J0456; J0696; J1644; J1650; J1940; J2060; J2543; J2920; J7030; J7042; J7050; J7512; Q9967; U0003-CS